=== PATIENT | male | born 1990 | race Caucasian/White ===

== ENCOUNTER 2020-07-30 09:49 | Outpatient (CLI) | payer OTHER, SELFPAY | END 2020-07-30 09:50 | disposition home or self-care (01) | LOC: ANHCOVIDVC 09:49 | PROVIDERS: PCP Student in an Organized Health Care Education/Training Program; Visit Provider Student in an Organized Health Care Education/Training Program | DX: Z23 Encounter for immunization (principal) | CPT/HCPCS: 0001A; 91300 ==

== ENCOUNTER 2020-08-20 09:47 | Outpatient (CLI) | payer OTHER, SELFPAY | END 2020-08-20 09:48 | disposition home or self-care (01) | LOC: ANHCOVIDVC 09:47 | PROVIDERS: PCP Student in an Organized Health Care Education/Training Program; Visit Provider Student in an Organized Health Care Education/Training Program | DX: Z23 Encounter for immunization (principal) | CPT/HCPCS: 0002A; 91300 ==

== ENCOUNTER → 2021-01-15 10:00 | Outpatient (CLI) | payer OTHER, SELFPAY ==
--- NOTE | 2021-02-10 11:56 | WPDSLEEPSTUD ---
Sleep Study Date of Study: 01/15/21 Ordering Provider: Shyla Cox MD Interpreting Physician: Shyla Cox MD Sleep Study Type: Split Polysomnogram Height: 1.88 m Weight: 159.665 kg Body Mass Index: 45.1 Neck Circumference (inches): 14 [place]: 10 Reason for Sleep Study Severe obstructive sleep apnea with treatment emergent central apneas * 09/06/2017 Home sleep test; severe KIMMY with AHI 82.4, lowest saturation 75% * 09/28/2017 - CPAP/BiPAP titration; no optimal pressure; CPAP 5-9, BiPAP 04/30-->. * 11/15/2017 ASV titration; no adequate pressure, maximum pressure attained was 6 EPAP, 3 min PS, 15 max PS. Low sleep efficiency with AHI 89.9. Sleep History Alex Blackwood is a 30 year old male with a history of complex sleep apnea diagnosed in 2018. He had 3 sleep studies, 1 was a home sleep test and this was followed by 2 titrations at [facility]. He never started wearing CPAP. He has significant issues with agoraphobia, anxiety and depression. He has nasal obstruction with a narrowed right nasal passage so he has to wear a fullface mask. He is in the process of getting his psychiatric meds adjusted. As he was being fitted for CPAP in 2019, the pandemic came and all of these events stopped. He now wants to pursue treatment. Since his prior studies were over 3 years ago we will need to start with a repeat study. He keeps no regular sleep schedule. He goes to sleep when he is tired. It may take him anywhere from a few minutes to an hour to fall asleep. He typically wakes up 2-4 times during the night, and this may be due to heartburn or need to urinate. He goes to the bathroom or take Rolaids for heartburn. He does not have any set wake-up time. He has not worked for many years, is not on disability, does have disabling anxiety and depression as well as agoraphobia. 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 He sleeps 10 or more hours for his major sleep episode. When he awakens, he is never refreshed. He has a dry mouth on awakening. He often sips water during the night. He may urinate 1-2 times during the night. He has IBS and may have 1 bowel movement during the night. He does not have dream recall. He does fall asleep during the day easily, and may fall asleep mid sentence. He lives with his brother and [id number]. He currently does not consume caffeine because of his palpitations and anxiety. His legs do not bother him on falling asleep and he does not kick at night. His best position for sleeping is on his side. He does not sleepwalk or sleeptalk. He has difficulty staying awake during the day, naps frequently and some of these naps may last a few hours. Naps are not refreshing. He feels better in the evening compared to other times of day. He has gained 50 lb or more in the last year. His baseline weight is around 300 lb. Family has noticed apneas. He has no energy, he has nightmares, he wakes up gasping for breath at night. There is a family history with his mother and brother using CPAP. He does not sweat excessively at night. He occasionally notices his heart pounding irregularly at night. He occasionally falls asleep during the day, rarely involuntarily but never while driving. He does not have loss of muscle tone with strong emotion. He frequently has daytime difficulties due to excessive sleepiness. He rarely feels paralyzed on waking or falling asleep. He does not have vivid dreamlike scenes upon awakening or falling asleep However he has frequent nightmares. He rarely remembers dreams. He occasionally is afraid to go to sleep. He frequently has racing thoughts. He frequently feels sad or depressed. He constantly has anxiety. He rarely has muscular tension and rarely notices parts of his body jerking. He does not kick at night or have crawling or aching feelings in his legs. He does not have leg pain at night. He denies morning jaw pain. He rarely grinds his teeth during sleep. He
[2021-02-10 13:50] VITALS: BMI 45.1
== END ==
PROVIDERS: PCP Student in an Organized Health Care Education/Training Program; Visit Provider Internal Medicine Critical Care Medicine
DX: G47.31 Primary central sleep apnea (principal); G47.39 Other sleep apnea
CPT/HCPCS: 95811

== ENCOUNTER 2022-01-06 08:05 | Outpatient (CLI) | payer OTHER, SELFPAY ==
--- NOTE | 2022-02-02 09:51 | WPDSLEEPSTUD ---
Sleep Study Date of Study: 01/06/22 Ordering Provider: Jaspal Ramos APRN Interpreting Physician: Shyla Cox MD Sleep Study Type: BiPAP Titration Height: 1.83 m Weight: 142.882 kg Body Mass Index: 42.7 Neck Circumference (inches): 20.25 [place]: 7 Reason for Sleep Study Severe obstructive sleep apnea with treatment emergent central apneas * 09/06/2017 Home sleep test; severe KIMMY with AHI 82.4, lowest saturation 75% * 09/28/2017 - CPAP/BiPAP titration; no optimal pressure; CPAP 5-9, BiPAP 04/30-->. * 11/15/2017 ASV titration; no adequate pressure, maximum pressure attained was 6 EPAP, 3 min PS, 15 max PS. Low sleep efficiency with AHI 89.9. * 01/15/2021 - CPAP/BiPAP titration with central apneas present throughout the night. Sleep History Alex Blackwood is a 31-year-old male with a history of complex sleep apnea diagnosed in 2018.? He had 3 sleep studies including a home sleep test followed by 3 titrations at [facility].? He never started wearing CPAP.? He has significant issues with agoraphobia, anxiety and depression.? He has nasal obstruction with a narrowed right nasal passage so he has to wear a fullface mask.? As he was being fitted for CPAP in 2019, the pandemic started, disrupting his process. He keeps no regular sleep schedule. He goes to sleep when he is tired.? ? It may take him anywhere from a few minutes to an hour to fall asleep.? He typically wakes up 2-4 times during the night, and this may be due to heartburn or need to urinate.? He goes to the bathroom or take Rolaids for heartburn.? He does not have any set wake-up time. He has not worked for many years, is not on disability, does have disabling? anxiety and depression as well as agoraphobia.? 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 He sleeps 10 or more hours for his major sleep episode.? When he awakens, he is never refreshed.? He has a dry mouth on awakening.? He often sips water during the night.? He may urinate 1-2 times during the night.? He has IBS and may have 1 bowel movement during the night.? He does not have dream recall. ? He does fall asleep during the day easily, and may fall asleep mid sentence.? He lives with his brother and [id number].? He currently does not consume caffeine because of his palpitations and anxiety.? His legs do not bother him on falling asleep and he does not kick at night.? His best position for sleeping is on his side. ? He does not sleepwalk or sleeptalk.? He has difficulty staying awake during the day, naps frequently and some of these naps may last a few hours. Naps are not refreshing. He feels better in the evening compared to other times of day. ? He has gained 50 lb or more in the last year.? His baseline weight is around 300 lb. Family has noticed apneas.? He has no energy, he has nightmares, he wakes up gasping for breath at night.? There is a family history with his mother and brother using CPAP.? He does not sweat excessively at night.? He occasionally notices his heart pounding irregularly at night.? He occasionally falls asleep during the day, rarely involuntarily but never while driving. He does not have loss of muscle tone with strong emotion.? He frequently has daytime difficulties due to excessive sleepiness.? He rarely feels paralyzed on waking or falling asleep.? He does not have vivid dreamlike scenes upon awakening or falling asleep ? However he has frequent nightmares.? He rarely remembers dreams.? He occasionally is afraid to go to sleep. ? He frequently has racing thoughts.? He frequently feels sad or depressed.? He constantly has anxiety.? He rarely has muscular tension and rarely notices parts of his body jerking.? He does not kick at night or have crawling or aching feelings in his legs.? He does not have leg pain at night.? He denies morning jaw pain.? He rarely grinds his teeth during sleep.? He is not bothered by pain during the day or awakened by pain at night.? He occasionally wakes up feeling stiff in the mo
[2022-02-02 10:55] VITALS: BMI 42.7
== END 2022-01-07 06:14 | disposition home or self-care (01) ==
LOC: ANHCSM 08:07
PROVIDERS: PCP Student in an Organized Health Care Education/Training Program; Visit Provider Nurse Practitioner Family
DX: G47.39 Other sleep apnea (principal)
CPT/HCPCS: 95811

== ENCOUNTER 2022-05-04 07:56 | Outpatient (CLI) | payer OTHER, SELFPAY ==
--- NOTE | 2022-05-04 13:00 | WPDPFTINT ---
PFT Procedure Performed PFT Procedure Performed Spirometry with Pre/Post Bronchodilator Plethysmography (Lung Vol) Diffusing Cap (DLCO) Flow Vol Loop PFT Interpretation This is a pulmonary function test with pre and post-bronchodilator spirometry, plethysmography and diffusing capacity. The test was performed and results interpreted in accordance with the 2019 and 2005 ATS/ERS Task Force guidelines respectively using the Global Lung Function Initiative-2012 reference equations. Patient demonstrated good effort and cooperation. Reproducibility criteria were met. The quality of the pre bronchodilator spirometry maneuver was Grade A and post bronchodilator spirometry maneuver was Grade A. Findings: Spirometry: There is decreased maximal expiratory airflow at all lung volumes with a prolonged expiratory phase. The contour of the inspiratory flow tracing is normal. The pre bronchodilator FVC is 5.95 L, 100% predicted. The pre bronchodilator FEV1 is 3.83 L, 79% predicted. The pre bronchodilator FEV1: FVC ratio 64%. The post bronchodilator FVC is 6.42 L, representing an 8% increase. The post bronchodilator FEV1 is 4.38 L, representing an 14% increase. The post bronchodilator FEV1: FVC ratio 68%. Plethysmography: The total lung capacity is 7.74 L, 104% predicted. Functional residual capacity is 2.70 L, 72% predicted. The residual volume is 1.79 L, 99% predicted. Diffusion capacity: The diffusing capacity unadjusted for hemoglobin and carboxyhemoglobin is 39.1, 108% predicted. The diffusing capacity adjusted for alveolar volume is 4.97, 101% predicted. Impression: There is a mild obstructive abnormality with significant improvement after inhaling a single dose of albuterol. The lung volumes are normal. The diffusing capacity is normal. There are no prior studies for comparison
== END 2022-05-04 07:57 | disposition home or self-care (01) ==
LOC: ANHPFT 07:59
PROVIDERS: PCP Student in an Organized Health Care Education/Training Program; Visit Provider Physician Assistant
DX: R06.00 Dyspnea, unspecified (principal); J45.909 Unspecified asthma, uncomplicated; R94.2 Abnormal results of pulmonary function studies
CPT/HCPCS: 94060; 94726; 94729

== ENCOUNTER 2024-05-07 09:49 | Emergency (ER) | payer SELFPAY ==
--- NOTE | ~2024-05-07 | XR_ITS ---
Clinical Indication: Cough PA and lateral views of the chest: Comparison: None Findings: The lungs are clear, without evidence of focal consolidation or pleural effusion. Cardiome diastinal silhouette is within normal limits. Bones and soft tissues are unremarkable. Impression: Normal chest. Reviewed, dictated and finalized at location . [facility]LE KEEPER Impression: Normal chest.
[2024-05-07 10:50] VITALS: BP 123/81; PULSE 72; RESP 18; TEMP 35.9; O2SAT 99
--- NOTE | 2024-05-07 11:26 | ED_ITS ---
HPI - General Adult General Chief complaint: Upper Respiratory Infection Stated complaint: sinus infection/cold Source: patient Mode of arrival: ambulatory Limitations: no limitations History of Present Illness HPI narrative: Patient presents for evaluation of sick symptoms since 04/26/2024. Symptoms in fever, sore throat, cough, sinus congestion, thick yellow nasal drainage and headache. No nausea, vomiting, diarrhea, or SOB. He has an underlying history of asthma. He has not needed to use his albuterol inhaler. Family members with whom he lives, were recently sick. He is not taking anything [id number] for symptoms. Related Data Home Medications ?Medication ?Instructions ?Recorded ?Confirmed ?Last Taken ?Type albuterol sulfate 90 mcg/actuation 1 puff inhalation Q4H PRN 08/06/20 04/17/24 Unknown History aerosol inhaler (Ventolin HFA) shortness of breath or wheezing atenolol 25 mg tablet 25 mg PO 11/02/22 04/17/24 Unknown History clobetasol 0.05 % scalp solution topical 11/02/22 04/17/24 Unknown History clobetasol 0.05 % topical ointment 1 applic topical 11/02/22 04/17/24 Unknown History ketoconazole 2 % shampoo topical 11/02/22 04/17/24 Unknown History triamcinolone acetonide 0.025 % 1 applic topical 11/02/22 04/17/24 Unknown History topical ointment dicyclomine 20 mg tablet 20 mg PO PRN abdominal pain 11/15/23 04/17/24 Unknown History vilazodone 20 mg tablet 20 mg PO DAILY 04/17/24 04/17/24 Unknown History Allergies Allergy/AdvReac Type Severity Reaction Status Date / Time Bumble Bee AdvReac Intermediate ARM Uncoded 05/07/24 11:08 SWELLING Review of Systems Review of Systems: CONSTITUTIONAL: Reports fever. Denies chills, or sweats. EYES: Denies visual changes, redness, or discharge. ENT: Reports sinus congestion, thick yellow nasal drainage and sore throat CARDIOVASCULAR: Denies chest pain, palpitations, or edema. RESPIRATORY: reports cough. Denies shortness of breath. GASTROINTESTINAL: Denies abdominal pain, nausea, vomiting, or diarrhea. GENITOURINARY: Denies dysuria or hematuria. SKIN: Denies rash or itching. MUSCULOSKELETAL: Denies back pain, joint pain, or myalgia. NEUROLOGIC: Denies headache, numbness, dizziness, or weakness. PSYCHIATRIC: Denies anxiety or depression. [facility] Past Medical History Medical History Treatment-emergent central sleep apnea Complex sleep apnea syndrome KIMMY (obstructive sleep apnea) IBS (irritable bowel syndrome) GERD (gastroesophageal reflux disease) Depression Asthma Anxiety Agoraphobia Surgical History Surgical History No pertinent past surgical history Family History Family History Mother Depression Asthma Family history of elevated blood lipids Family history of chronic obstructive pulmonary disease Family history of emphysema Heart disease Anxiety Hyperlipidemia Diabetes mellitus Grandparent Asthma Family history of psoriasis Family history of elevated blood lipids Family history of emphysema Family history of type 2 diabetes mellitus Acute myocardial infarction Diabetes mellitus Depression History of heart attack Psoriasis History of open heart surgery Hypertension Father Hypertension Depression Heart disease Hyperlipidemia Sibling Family history of type 2 diabetes mellitus Family history of carrier of genetic disease History of open heart surgery Diabetes mellitus Down syndrome Other Alcohol abuse Cancer Mouth Social History Social History Smoking packs per day: 1 Smoking cigarettes per day: 20.0 Years smoked: 8 Smoking pack-years: 8.00 Smoking status: Former smoker Tobacco type: smokeless tobacco Smokeless tobacco user: chewing tobacco Second hand tobacco smoke exposure: No Smoking end date: 05/24/16 Alcohol intake: never Substance use: never Exam Narrative: GENERAL: Well-appearing, well-nourished, and in no acute distress. HEAD: Normocephalic, atraumatic. EYES: PERRLA and EOMI. ENT: Nares clear, no rhinorrhea or epistaxis. Mucous membranes moist. posterior pharyngeal erythema without exudate. Uvula is midline. Bilateral TMs pearly bae nonbulging NECK: Supple. No adenopathy or masses. No carotid bruits or JVD CHEST: Cough present on exam. Clear to auscultation. No respiratory distress. No wheezes rales or rhonchi HEART: Regular rate and rhythm. No murmur heard. Normal peripheral pulses. ABDOMEN: Soft, nontender, nondistended, normal active bowel sounds. EXTREMITIES: Normal range of motion. No edema. SKIN: Warm, dry, no rash. NEURO: No focal deficits. Alert and oriented x3. PSYCH: Normal mood and affect. Course Course Emergency Course: This is a 33-year-old male who presented for evaluation of sick symptoms. Strep negative. Chest x-ray normal. Exam is consistent with acute viral syndrome. Cepacol and Delsym should help with symptoms. Follow up with PCP. Go to the ER for worsening symptoms. Pt in agreement with plan of care. Level of Care: Express Care Visit Vital Signs Vital signs: Vital Signs Temperature 35.9 C L 05/07/24 10:50 Pulse Rate 72 05/07/24 10:50 Respiratory Rate 18 05/07/24 10:50 Blood Pressure 123/81 05/07/24 10:50 Pulse Oximetry 99 05/07/24 10:50 Oxygen Delivery Room Air 05/07/24 10:50 Temperature 35.9 C L 05/07/24 10:50 Pulse Rate 72 05/07/24 10:50 Respiratory Rate 18 05/07/24 10:50 Blood Pressure 123/81 05/07/24 10:50 Pulse Oximetry 99 05/07/24 10:50 Oxygen Delivery Room Air 05/07/24 10:50 Medical Decision Making Vital Signs Vital Signs: Vital Signs Temperature 35.9 C L 05/07/24 10:50 Pulse Rate 72 05/07/24 10:50 Respiratory Rate 18 05/07/24 10:50 Blood Pressure 123/81 05/07/24 10:50 Pulse Oximetry 99 05/07/24 10:50 Oxygen Delivery Room Air 05/07/24 10:50 Temperature 35.9 C L 05/07/24 10:50 Pulse Rate 72 05/07/24 10:50 Respiratory Rate 18 05/07/24 10:50 Blood Pressure 123/81 05/07/24 10:50 Pulse Oximetry 99 05/07/24 10:50 Oxygen Delivery Room Air 05/07/24 10:50 Lab Data Labs: Lab Results 05/07/24 Range/Units 11:45 POC Grp A Strep Screen Negative (Negative) Imaging Data Radiologist's impression: Clinical Indication: Cough PA and lateral views of the chest: Comparison: None Findings: The lungs are clear, without evidence of focal consolidation or pleural effusion. Cardiomediastinal silhouette is within normal limits. Bones and soft tissues are unremarkable. Impression: Normal chest. Discharge Plan Discharge Clinical Impression: Acute viral syndrome Patient Disposition: Home, Self-Care Condition: Stable Instructions: Antibiotic Form, Viral Syndrome (ED) Additional Instructions: CEPACOL LOZENGES SHOULD HELP YOUR SORE THROAT DELSYM (DEXTROMETHORPHAN) SHOULD HELP WITH YOUR COUGH STAY WELL HYDRATED Patient Language: Yakut Prescriptions: No Action albuterol sulfate [Ventolin HFA] 90 mcg/actuation HFA aerosol inhaler 1 puff inhalation Q4H PRN (Reason: shortness of breath or wheezing) ketoconazole 2 % shampoo topical atenolol 25 mg tablet 25 mg PO triamcinolone acetonide 0.025 % ointment 1 applic topical clobetasol 0.05 % ointment 1 applic topical clobetasol 0.05 % solution topical dicyclomine 20 mg tablet 20 mg PO PRN (Reason: abdominal pain) vilazodone 20 mg tablet 20 mg PO DAILY Rx Instructions: must administer with a meal/food fluticasone propionate 110 mcg/actuation HFA aerosol inhaler 1 puff inhalation Q12H Qty: 12 2RF Rx Instructions: Rinse mouth and spit after each use (DME) inhalational spacing device Spacer See Rx Instructions .ROUTE .MEDSUPPLY Qty: 1 0RF Rx Instructions: As directed Follow-up/Referrals: Sav,DO Meet [Primary Care Provider] - Time of Disposition: 12:00
[2024-05-07 11:47] LABS: EDSTREPNEGPOS1 Negative (Negative)
--- OUTSIDE RECORDS SUMMARY | 2024-05-11 21:13 | XMS_ITS | Encounter Summary ---
Author Organization [facility] Address [address] [place] [address] Care Team Providers Care Veneer Sorter Name Role Phone Meet Ang DO Primary Care Provider + Encounter Details Date Type Department Care Team (Latest Contact Info) Description 02/18/2023 Travel Social History Tobacco Use Types Packs/Day Years Used Date Smoking Tobacco: Former Cigarettes Smokeless Tobacco: Never Sex and Gender Information Value Date Recorded Sex Assigned at Not on file Gender Identity Not on file Sexual Orientation Not on file documented as of this encounter Plan of Treatment Upcoming Encounters Date Type Department Care Team (Late st Contact Info) Description 07/27/2024 1:30 PM POLITICAL ANALYST Office Visit [facility] - Dermatology [address] [place] [address], [place] [id number] Kavya Ryan MD [address] [place] [address] [address] [place] [id number] documented as of this encounter Visit Diagnoses Not on filedocumented in this encounter Care Teams Veneer Sorter Relationship Specialty Start Date End Date Meet Ang DO PCP - General 01/27/19 documented as of this encounter
--- OUTSIDE RECORDS SUMMARY | 2024-05-11 21:13 | XMS_ITS | Encounter Summary ---
Author Organization [facility] Address [address] [facility] [place] [address] Care Team Providers Care Senior Logistics Manager Name Role Phone Meet Ang Primary Care Provider + Reason for Visit * Reason Comments Psoriasis New patient, having issues Encounter Details Date Type Department Care Team (Late st Contact Info) Description 10/01/2022 3:00 PM CDT Office Visit [facility] General Dermatology [facility], [facility] [place] [address] Kavya Ryan MD [facility]5 [facility] 3 [place] [phone] Neoplasm of uncertain behavior of skin (Primary Dx); Psoriasis; Tinea versicolor; Rosacea; Sebopsoriasis Social History Tobacco Use Types Packs/Day Years Used Date Smoking Tobacco: Former Cigarettes Smokeless Tobacco: Never Tobacco Cessation:Counseling Given: Not Answered Sex and Gender Information Value Date Recorded Sex Assigned at Not on file Gender Identity Not on file Sexual Orientation Not on file documented as of this encounter Progress Notes * Kavya Ryan MD - 10/01/2022 3:00 PM CDT Chief Complaint Patient presents with ??? Psoriasis New patient, having issues HPI: Alex Blackwood a 32 year old male presents with complaint of psoriasis on elbows and scalp. Present since age 23 on elbow, ear and scalp. As a kid had rash around nose that has recently resolved with using Bipap. History of pain and numbness in R wrist, recently started on brace for carpal tunnel. Prior intermittent pain in ankles, which is not present currently. Paternal grandmother withpsoriasis. Previously been given triamcinolone with partial improvement and clobetasol ointment which resolvedrash but then recurred with stopped. He also notes bothersome growing wart on R cheek and bothersome spot on L arm. Past medical history, social history and family history were reviewed. ROS: As per HPI above. PE: No acute distress. Mood clear/affect appropriate. Alert and oriented. Mucous membranes moist. Sclera anicteric. Skin exam was conducted to include the scalp, face, lips/teeth, lids/conjunctiva, ears, neck, chest, abdomen, back,right and left hands and forearms, right and left leg and feet and was normal with the following exceptions: Verrucous papule on R infraorbital cheek skin colored exophytic papule on L arm Well demarcated erythematous plaques with silvery scale on scalp, ears and elbows/forearms pink papules with fine scale on trunk Erythema and telangiectasias on cheeks A/P: Plaque psoriasis with sebopsoriasis on scalp and ears, BSA 5 %, no joint pains - Discussed etiologies, natural history and treatment options - Discussed risk of psoriatic arthritis with psoriasis, no joint pains at this time concerning for psoriatic arthritis, will will continue to monitor - Discussed increased risk of CAD with psoriasis, recommend routine follow up with PCP - Start clobetasol 0.05% solution daily to affected areas on scalp, SE of topical steroids including skin atrophy discussed - Start clobetasol 0.05% ointment BID to affected areas on body, SE of topical steroids including skin atrophy discussed - Start ketoconazole 2% shampoo TIW to scalp in shower, leave on for 3-5 minutes prior to rinsing out, can alternate with OTC anti-dandruff shampoo - Start triamcinolone 0.025% ointment BID to affected areas on ears, SE of topical steroids including skin atrophy discussed - Consider systemic treatments if no improvement at Next clinic visit DDx includes Neoplasm NOS x2, on R infraorbital cheek and L arm, DDx includes wart, r/o atypia DDx includes nevus vs. Skin tag on L arm - Shave biopsy performed in clinic, see procedure note, results pending Rosacea, ET type - Discussed possible etiologies, natural history and treatment options including typical triggers - Reassured, will observe for now Tinea versicolor on trunk - Discussed etiology, natural history and treatment options - Start ketoconazole 2% shampoo daily to trunk RTC in 3-4 months Billing Guide Kavya Ryan MD documented in this encounter Procedure Notes * Kavya Ryan MD - 10/01/2022 3:38 PM CDTAssociated Order(s): PROC BIOPSY OF SKIN LESION Procedure(s): FL TANGNTL BX SKIN SINGLE LES; FL TANGNTL BX SKIN EA SEP ADDL Pre-Procedure Diagnose(s): Neoplasm of uncertain behavior of skin Risks, benefits and alternatives to shave biopsy were discussed with the patient. Verbal consent was obtained. Encounter Diagnoses Name Primary? Neoplasm of uncertain behavior of skin Yes ??? Psoriasis ??? Tinea versicolor ??? Rosacea ??? Seborrheic dermatitis Location: R infraorbital cheek and L arm Skin prep: Alcohol Anesthesia: 1% bupivacaine with epinephrine Hemostasis: Aluminum chloride Dressing and wound care discussed. Specimen(s) placed in a patient labeled container and sent to [facility] Dermatopathology. Patient agrees to phone call for results and message if not available. Kavya Ryan MD Clinical Wood Cabinet Finisher of Dermatology [facility] documented in this encounter Plan of Treatment Upcoming Encounters Date Type Department Care Team (Late st Contact Info) Description 07/27/2024 1:30 PM WORKFORCE DEVELOPMENT PROGRAM DIRECTOR Office Visit [facility] - Dermatology [address] [place] [address], [place] [address] Kavya Ryan MD [address] [place] [address] [address] [place] [address] documented as of this encounter Procedures Procedure Name Priority Date/Time Associated Diagnosis Comments FL TANGNTL BX SKIN EA SEP ADDL Routine 10/01/2022 3:38 PM CDT Neoplasm of uncertain behavior of skin FL TANGNTL BX SKIN SINGLE LES Routine 10/01/2022 3:38 PM CDT Neoplasm of uncertain behavior of skin DERMATOPATHOLOGY Routine 10/01/2022 12:0 0 AM CDT Neoplasm of uncertain behavior of skin documented in this encounter Results * FL TANGNTL BX SKIN SINGLE LES, FL TANGNTL BX SKIN EA SEP ADDL (10/01/2022 3:38 PM CDT) Narrative Kavya Ryan MD - 10/01/2022 3:38 PM CDT Kavya Ryan MD ? 10/06/2022 ??3:00 PM Risks, benefits and alternatives to shave biopsy were discussed with the patient. Verbal consent was obtained. Encounter Diagnoses Name Primary? ? ? Neoplasm of uncertain behavior of skin Yes ? ? Psoriasis ? Tinea versicolor ? Rosacea ? Seborrheic dermatitis ?? Location: R infraorbital cheek and L arm Skin prep: Alcohol Anesthesia: 1% bupivacaine with epinephrine Hemostasis: Aluminum chloride Dressing and wound care discussed. Specimen(s) placed in a patient labeled container and sent to [facility] Dermatopathology. Patient agrees to phone call for results and message if not available. Kavya Ryan MD Clinical Wood Cabinet Finisher of Dermatology [facility] Kavya Ryan MD PROCEDURE/SOFIA R SURGICAL ORDERABLES * Dermatopathology (Specimen Count = 2) (10/01/2022 12:00 AM CDT) Case Report Dermatopathology Report ? Case: [id number] ? Authorizing Provider: ??Kavya Ryan, ?? Collected: ? 10/01/2022 12:00 AM ? MD ? Ordering Location: ? [facility] ?Received: ?10/01/2022 04:42 PM ? Dermatology ? Pathologist: ? Burksujata, Rina M, MD ? Specimens: ?? A) - Skin, right infraorbital cheek ? B) - Skin, left arm ? 3 3:18 PM [facility] Final Diagnosis Specimen A. SKIN, right infraorbital cheek: VERRUCA VULGARIS, IRRITATED AND INFLAMED (B07.8) Specimen B. SKIN, left arm: ACROCHORDON (SOFT FIBROMA, SKIN TAG) (L91.8) 3 3:18 PM [facility]ERMATOP[facility]ORATORY Clinical History A: VV vs. Other B: Skin tag vs. nevus vs. nevus lipomatosis 3 3:18 PM [facility]ORY Gross Description Specimen A: Received is one formalin filled container labeled with the patient's name and designated right infraorbital cheek. The specimen consists of a shave biopsy measuring 4x3x5 mm. Jar 0. Specimen B: Received is one formalin filled container labeled with the patient's name and designated left arm. The specimen consists of a shave biopsy measuring [id number] mm. Jar 0. 3 3:18 PM [facility]OP[facility]ORY Microscopic Description Specimen A. SKIN, right infraorbital cheek: Sections show papillomatosis with overlying parakeratosis. Some of the cells within the granular layer show coarsened keratohyalin granules. Within the dermis, dilated vessels, and a patchy lymphocytic infiltrate are present. Specimen B. SKIN, left arm: There is a gently folded epidermis surrounding a connective tissue core in which fat and collagen are intermingled. 3 3:18 PM [facility] DERMATOP[facility]OLOG[facility]ORATORY Disclaimer An external and internal positive and negative controls are appropriate for the histochemical, immunohistochemical and immunofluorescence stain(s) in this case (if any), except where stated explicitly. The performance characteristics of the stain(s) cited in this report were developed and its performance characteristic determined by the Dermatopathology Laboratory at [facility], directed by Dr. Weston Sanchez. These tests need not be, and therefore are not, approved by the [place] Food and Drug Administration. The tests are used for clinical purposes. Billing Codes Specimen Charges Stain Charges 67137 66522 1 1 3 3:18 PM CDT DERMATOPATHOLOGY LABORATORY Embedded Images 3 3:18 PM CDT DERMATOPATHOLOGY LABORATORY Pathology/Cytology TISSUE SPECIMEN FROM SKIN / Unknown 10/01/2022 10/01/2022 4:42 PM CDT Miscellaneous samples (specimen) TISSUE SPECIMEN FROM SKIN / Unknown 10/01/2022 10/01/2022 4:42 PM CDT Kavya Ryan MD LAB - PATHOLOG Y/CYTOLOGY ORDERABLES DERMATOPATHOLOGY LABORATORY [facility] - Department of Dermatology [facility] Medicine [address] [place] [address], [address] [phone] documented in this encounter Visit Diagnoses Diagnosis Neoplasm of uncertain behavior of skin- Primary Psoriasis Other psoriasis Tinea versicolor Pityriasis versicolor Rosacea Sebopsoriasis Contact dermatitis and other eczema, due to unspecified cause documented in this encounter Care Teams Senior Logistics Manager Relationship Specialty Start Date End Date Meet Ang DO PCP - General 01/27/19 documented as of this encounter
--- OUTSIDE RECORDS SUMMARY | 2024-05-11 21:13 | XMS_ITS | Clinical Summary ---
Author Organization [facility] Address [address] [place] [address]. [place] [address] [place] [address] Care Team Providers Care Automatic Mounter Name Role Phone Meet Ang DO Primary Care Provider + Paresh Gray MD Unavailable Allergies Active Allergy Reactions Criticality Noted Date Comments Bee Venom Swelling 08/16/2018 Medications clobetasol (TEMOVATE) 0.05 % external solution Apply scalp once to twice day. 30 days supply. Reasons: Skin Disease Successfully Treated with Steroid Therapy 023 Active triamcinolone (KENALOG) 0.025 % ointment Apply to ear twice daily as needed psoriasis. 30 days supply. Reasons: Psoriasis 023 Active atenolol (TENORMIN) 25 MG tablet Take 1 tablet (25 mg total) by mouth daily. 90 tablet 3 024 2024 Active albuterol sulfate HFA (VENTOLIN HFA) 108 (90 Base) MCG/ACT inhalerIndicati ons:Mild intermittent asthma without complication (HHS/HCC) Inhale 1 puff into the lungs every 4 (four) hours as needed. FOR WHEEZING 18 g 2 Active fluticasone (FLOVENT HFA) 110 MCG/ACT inhaler Inhale 1 puff into the lungs 2 (two) times daily. 024 Active vilazodone (VIIBRYD) 40 MG tabletIndicatio ns:Depression, unspecified depression type,Anxiety,Ag oraphobia Take 1 tablet (40 mg total) by mouth daily. Take with food 30 tablet 2 Active ketoconazole (NIZORAL) 2 % shampoo Apply to wet hair, face and trunk, leave on for 3 minutes, then rinse; three times weekly. 30 days supply 023 2023 Discontinued dicyclomine (BENTYL) 20 MG tabletIndicatio ns:Irritable bowel syndrome with constipation Take 1 tablet (20 mg total) by mouth every 6 (six) hours as needed (pain/cramping) . 120 tablet 2 024 2023 Discontinued famotidine (PEPCID) 20 MG tabletIndicatio ns:Gastroesopha geal reflux disease, unspecified whether esophagitis present Take 1 tablet (20 mg total) by mouth daily. 30 tablet 5 024 2023 Discontinued vilazodone (VIIBRYD) 10 MG tabletIndicatio ns:Depression, unspecified depression type,Anxiety,Ag oraphobia Take 1 tablet (10 mg total) by mouth daily. Take with food 7 tablet 024 2023 Discontinued vilazodone (VIIBRYD) 20 MG tabletIndicatio ns:Depression, unspecified depression type,Anxiety,Ag oraphobia Take 1 tablet (20 mg total) by mouth daily. Take with food. Take after taking one week of 10 mg daily. 30 tablet 2 024 2023 Discontinued(D ose adjustment) Active Problems Problem Noted Date Diagnosed Date Psoriasis 05/28/2022 Elevated troponin level not due myocardial infar ction 08/21/2020 Palpitations 08/21/2020 Class 3 severe obesity with body mass index (BMI) of 40.0 to 44.9 in adult ([facility]) 08/21/2020 Tachycardia 04/26/2020 Elevated blood pressure reading 04/26/2020 KIMMY (obstructive sleep apnea) IBS (irritable bowel syndrome) GERD (gastroesophageal reflux disease) Depression Asthma ([facility]) Anxiety Agoraphobia Encounters Date Type Department Care Team Description 04/26/2024 Scan [facility] Scanned, [facility] 04/18/2024 9:40 AM ESTIMATING ENGINEER Office Visit [facility] Internal [address] [address] Meet Ang, DO Ear Problem (The patient states he is still having tinnitus. The patient states he feels it may be due to Bi-pap ) 04/18/2024 Travel 04/17/2024 Scan [facility] INFO SRVCS Scanned, Doc Med Group 02/24/[address] [address] Meet Ang, DO Prior Authorization (Viibryn 10mg and 20mg tablets) 02/22/[address] [address] Meet Ang, DO Medication 02/14/[address] [address] Meet Ang, DO Medication Problem 02/11/[address] [address] Meet Ang, DO Advice from Last 3 Months Immunizations Name Administration Dates Next Due Dtap 11/21/1992,01/19/1990,1989 Dtp 12/17/1994 Fluzone 6 Months+ Quad (0.5 mL Prefilled Syringe) 05/28/2022,03/04/2021,04/26/2020,2018 Hepatitis B 06/14/2000,01/19/2000,12/15/1999 Hib 11/21/1992 Influenza Adult (Generic) 02/22/2023 MMR 02/27/1993,11/21/1992 Opv 12/17/1994, 3,01/19/1990,1989 PFIZER COVID-19 (ORIGINAL FORMULATION, PURPLE CAP) mRNA, LNP-S, PF, 30 MCG/0.3 ML DOSE 08/20/2020,07/30/2020 Pneumococcal (Prevnar 20) 11/19/2021 Tdap (Boostrix) 01/13/2019 Family History Medical History Relation Comments Diabetes Brother Step brother rel ated to mother. Down syndrome Brother Open Heart Brother Asthma Father Only when sick, allergic to cats. Depression Father Heart Disease Father Hyperlipidemia Father Hypertension Father Alcohol Abuse Maternal Grandfather from heart attack related to alcoholism. Depression Maternal Grandfather Heart Attack Maternal Grandfather Heart Disease Maternal Grandfather Passed from heart attack. Depression Maternal Grandmother Diabetes Maternal Grandmother Anxiety Mother Depression Mother Diabetes Mother Heart Disease Mother Hyperlipidemia Mother Hypertension Mother Mental Health Mother CABG Paternal Grandfather Cancer Paternal Grandfather Colon Cance r removed tumor, cancer free. Heart Disease Paternal Grandfather Had multipl e valve replacements Hypertension Paternal Grandfather Open Heart Paternal Grandfather Valve Disease Paternal Grandfather Depression Paternal Grandmother Heart Attack Paternal Grandmother Mental Health Paternal Grandmother Psoriasis Paternal Grandmother Alcohol Abuse Paternal Uncle Cancer Paternal Uncle mouth Relation Status Comments Brother Alive Father Alive Maternal Grandfather (Age 74) Maternal Grandmother Mother Alive Paternal Grandfather Alive Paternal Grandmother Paternal Uncle Social History Tobacco Use Types Packs/Day Years Used Date Smoking Tobacco: Former Cigarettes 1.5 10 0 05/24/2004 - 05/24/2014 Cigars Smokeless Tobacco: Former Chew Tobacco Cessation:Counseling Given: Not Answered Comments:Also used chewing tobacco for years Alcohol Use Standard Drinks/Week Comments No 0 (1 standard drink = 0.6 oz pur e alcohol) AUDIT-C Answer Date Recorded Frequency of Alcohol Consumption Never 08/16/2018 Average Number of Drinks Not on file 019 Frequency of Binge Drinking Not on file 07/23 PHQ-2 Answer Date Recorded Patient Health Questionnaire-2 Score 3 09/02/2023 Sex and Gender Information Value Date Recorded Sex Assigned at Not on file Legal Sex Male 2:37 PM ESTIMATING ENGINEER Gender Identity Male 05/16/2021 9:25 AM ESTIMATING ENGINEER Sexual Orientation Straight 05/16/2021 9: 25 AM ESTIMATING ENGINEER Last Filed Vital Signs Vital Sign Reading Time Taken Comments Blood Pressure 112/82 04/18/2024 9:47 AM ESTIMATING ENGINEER Pulse 76 04/18/2024 9:47 AM ESTIMATING ENGINEER Temperature 37.1 ??C (98.8 ??F) 04/18/2024 9:47 AM CS T Respiratory Rate 16 04/18/2024 9:47 AM ESTIMATING ENGINEER Oxygen Saturation 98% 04/18/2024 9:47 AM ESTIMATING ENGINEER Inhaled Oxygen Concentration - - Weight 150.9 kg (332 lb 11.2 oz) 04/18/2024 9:47 AM ESTIMATING ENGINEER Height 185.4 cm (6' 1 ) 04/18/2024 9:47 AM ESTIMATING ENGINEER Body Mass Index 43.89 04/18/2024 9:47 AM ESTIMATING ENGINEER Plan of Treatment Upcoming Encounters Date Type Department Care Team (Late st Contact Info) Description 06/19/2024 8:45 AM ESTIMATING ENGINEER [facility] [place] [address] [place] [address] Ren Morse MD [facility] [address] [place] [address] 07/19/2024 7:00 AM ESTIMATING ENGINEER Office Visit [facility] Family & Internal Medicine [id number] [place] [address] Meet Ang, [address] [place] [address] Health Maintenance Due Date Last Done Comments Annual Physical 1992 DTaP, Tdap and Td Vaccines (5 - Td or Tdap) 01/13/2029 01/13/2019, 12/17/1994, 12/17/1994, Additional history exists Hepatitis B Vaccines Completed 06/14/2000, 01/19/2000, 12/15/1999 Pneumococcal Vaccine: Pediatrics (0 to 5 Years) and At-Risk Patients (6 to 64 Years) Completed 11/19/2021 Hepatitis C Completed 12/11/2021 COVID-19 Vaccine Completed 03/10/2024, , 07/30/2020 Influenza Adult Completed 03/10/2024, 06/2022, 05/28/2022, Additional history exists HPV Vaccines Aged Out No longer eligi ble based on patient's age to complete this topic Meningococcal Vaccine Aged Out No kaleb deepti eligible based on patient's age to complete this topic RSV Immunizations Under 20 Months Aged Out No longer eligible based on patient's age to complete this topic Procedures Procedure Name Priority Date/Time Associated Diagnosis Comments HEPATITIS C ANTIBODY W/RFX TO HCV RNA Routine 12/11/2021 12:00 PM CDT Need for hepatitis C screening test from Last 3 Months or Most Recently Relevant to Health Maintenance Results * HEPATITIS C ANTIBODY W/RFX TO HCV RNA ([facility] ONLY) (12/11/2021 12:00 PM CDT) HEPATITIS C AB NON-REACTI VE NON-REACT STEPHANIE [facility] SIGNAL TO CUTOFF 0.01 <[address] [facility] Comment: HCV antibody was non-reactive. There is no laboratory evidence of HCV infection. In most cases, no further action is required. However, if recent HCV exposure is suspected, a test for HCV RNA (test code 86139) is suggested. For additional information please refer to http://education.[employer]/faq/JWS03u5 (This link is being provided for informational/ educational purposes only.) 12/11/2021 12:0 0 PM CDT 12/11/2021 12:02 PM CDT Narrative [facility] - 12/12/2021 3:31 PM CDT FASTING:YES FASTING: YES Meet Ang DO LABORATORY Final Re sult [facility] [address] [place] [address] from Last 3 Months or Most Recently Relevant to Health Maintenance Insurance [facility] [address] Care Teams Automatic Mounter Relationship Specialty Start Date End Date Meet Ang DO [facility] [place] [address] PCP - General FAMILY PRACTICE 08/16/18 Paresh Gray MD [id number] [place] [address] EP Die Barber CLINICAL CARDIAC ELECTROPHYSIOLOGY 03/03/19
--- OUTSIDE RECORDS SUMMARY | 2024-05-11 21:13 | XMS_ITS | Encounter Summary ---
Author Organization [facility] Address [address] [place] [address]. [place], [place] [id number] [place] [id number] Care Team Providers Care Irrigation System Installer Name Role Phone Meet Ang DO Primary Care Provider + Paresh Gray MD Unavailable Reason for Visit * Reason Comments IBS 3 month follow up Ear Problem Started 1 month ago. Encounter Details Date Type Department Care Team (Late st Contact Info) Description 01/12/2024 7:40 AM CDT Office Visit [facility] Family & Internal Medicine [address] [phone] Meet Ang DO [address] [place] [address] [phone] IBS (3 month follow up ); Ear Problem (Started 1 month ago. ) Social History Tobacco Use Types Packs/Day Years [...] on file Legal Sex Male 2:37 PM MOCCASIN SEWER Gender Identity Male 05/16/2021 9:25 AM MOCCASIN SEWER Sexual Orientation Straight 05/16/2021 9: 25 AM MOCCASIN SEWER documented as of this encounter Last Filed Vital Signs Vital Sign Reading Time Taken Comments Blood Pressure 120/74 01/12/2024 7:47 AM CDT Pulse 78 01/12/2024 7:47 AM CDT Temperature 36.7 ??C (98 ??F) 01/12/2024 7:47 AM CDT Respiratory Rate 16 01/12/2024 7:47 AM CDT Oxygen Saturation 98% 01/12/2024 7:47 AM CDT Inhaled Oxygen Concentration - - Weight 151.4 kg (333 lb 11.2 oz) 01/12/2024 7:47 AM CDT Height 185.4 cm (6' 1 ) 01/12/2024 7:47 AM CDT Body Mass Index 44.03 01/12/2024 7:47 AM CDT documented in this encounter Progress Notes * Meet Ang, - 01/12/2024 7:40 AM CDT Images from the original note were not included. GENERAL OFFICE VISIT Encounter Date: 01/12/2024 Chief Complaint: 33-year-old male presents for IBS (3 month follow up ) and Ear Problem (Started 1 month ago. ) HPI: Pt notes tinnitus. It started one month ago. It is constant level. It is worse on the left side, although a slight symptom is on the right as well. Pt did not start any new meds when symptoms started; pt did start Abilify relatively recently. No pain. Pt has already known mild hearing loss from previous ENT evaluation. Pt has palpitations and anxiety, depression, and agoraphobia. Pt started Abilify after last discussion. However, pt had notable IBS symptoms after stopping as well as difficulty sleeping. This resolved after he stopped taking the meds for 2.5 weeks. Pt has now been on sertraline, olanzapine, fluoxetine, trazodone, escitalopram, Vraylar, buspirone, and now Abilify. Review of Systems Constitutional: Negative for fever. HENT: Positive for tinnitus. Negative for ear discharge and ear pain. See HPI Respiratory: Negative for cough and shortness of breath. Gastrointestinal: Stable Psychiatric/Behavioral: See HPI All other systems reviewed and are negative. Patient Active Problem List Diagnosis KIMMY (obstructive sleep apnea) IBS (irritable bowel syndrome) GERD (gastroesophageal reflux disease) Depression Asthma ([facility]/HCC) Anxiety Agoraphobia Tachycardia Elevated blood pressure reading Elevated troponin level not due myocardial infarction Palpitations Class 3 severe obesity with body mass index (BMI) of 40.0 to 44.9 in adult ([facility]/HCC) Psoriasis Past Medical History: Diagnosis Date Agoraphobia Anxiety Asthma ([facility]) Depression GERD (gastroesophageal reflux disease) IBS (irritable bowel syndrome) KIMMY (obstructive sleep apnea) Past Surgical History: Procedure Laterality Date NONE Family History Problem Relation Name Age of Onset Hypertension Mother Libby Hemmer Depression Mother Libby Hemmer Heart Disease Mother Libby Hemmer Anxiety Mother Libby Hemmer Hyperlipidemia Mother Libby Hemmer Diabetes Mother Libby Hemmer Mental Health Mother Libby Hemmer Hypertension Father Gonzalo Blackwood Depression Father Gonzalo Blackwood Heart Disease Father Gonzalo Blackwood Hyperlipidemia Father Gonzalo Blackwood Asthma Father Gonzalo Blackwood Only when sick, allergic to cats. Open Heart Brother Jaspal Mcmillan Diabetes Brother Jaspal Mcmillan Step brother related to mother. Other (Down syndrome) Brother Jaspal Mcmillan Diabetes Maternal Grandmother Lesly Depression Maternal Grandmother Lesly Depression Maternal Grandfather Toy Pickett Heart Attack Maternal Grandfather Toy Pickett Alcohol Abuse Maternal Grandfather Toy Pickett from heart attack related to alcoholism. Heart Disease Maternal Grandfather Toy Pickett Passed from heart attack. Psoriasis Paternal Grandmother Malia Gaarabellat Heart Attack Paternal Grandmother Malia Dupreet Depression Paternal Grandmother Malia Dupreet Mental Health Paternal Grandmother Malia Blackwood Open Heart Paternal Grandfather Nikunj Blackwood Hypertension Paternal Grandfather Nikunj Blackwood Cancer Paternal Grandfather Nikunj Blackwood Colon Cancer removed tumor, cancer free. Heart Disease Paternal Grandfather Nikunj Blackwood Had multiple valve replacements Valve Disease Paternal Grandfather Nikunj Blackwood Other (CABG) Paternal Grandfather Nikunj Blackwood Alcohol Abuse Paternal Uncle Nii Cancer Paternal Uncle Nii mouth Social History Socioeconomic History Marital status: Single Spouse name: Not on file Number of children: 0 Years of education: Not on file Highest education level: Not on file Occupational History Not on file Tobacco Use Smoking status: Former Current packs/day: 0.00 Average packs/day: 1.5 packs/day for 10.0 years (15.0 ttl pk-yrs) Types: Cigarettes, Cigars Start date: 05/24/2004 Quit date: 05/24/2014 Years since quittin.6 Smokeless tobacco: Former Types: Chew Tobacco comments: Also used chewing tobacco for years Substance and Sexual Activity Alcohol use: No Drug use: No Sexual activity: Not Currently Partners: Female control/protection: Condom Other Topics Concern Service Not Asked Blood Transfusions Not Asked Caffeine Concern Yes Occupational Exposure Not Asked Hobby Hazards Not Asked Sleep Concern Yes Comment: KIMMY Stress Concern Not Asked Weight Concern Not Asked Special Diet No Back Care Not Asked Exercise No Bike Helmet Not Asked Seat Belt Not Asked Self-Exams Not Asked Wheelchair Not Asked Walker Not Asked Upper extremity braces/slings Not Asked Lower extermity braces/slings Not Asked Self Care Not Asked Social History Narrative Not on file Social Determinants of Health Financial Resource Strain: Not on file Food Insecurity: Not on file Transportation Needs: Not on file Physical Activity: Not on file Stress: Not on file Social Connections: Not on file Intimate Partner Violence: Not on file Housing Stability: Not on file Immunization History Administered Date(s) Administered Dtap 1989, 01/19/1990, 11/21/1992 Dtp 12/17/1994 Fluzone 6 Months+ Quad (0.5 mL Prefilled Syringe) 03/28/2019, 04/26/2020, 03/04/2021, 05/28/2022 Hepatitis B 12/15/1999, 01/19/2000, 06/14/2000 Hib 11/21/1992 Influenza Adult (Generic) 02/22/2023 MMR 11/21/1992, 02/27/1993 Opv 1989, 01/19/1990, 11/21/1992, 12/17/1994 PFIZER COVID-19 (ORIGINAL FORMULATION, PURPLE CAP) mRNA, LNP-S, PF, 30 MCG/0.3 ML DOSE 07/30/2020, 08/20/2020, 05/28/2021 PFIZER COVID-19 BIVALENT (12+) mRNA, LNP-S, PF, 30 MCG/0.3 ML DOSE 02/16/2022 Pneumococcal (Prevnar 20) 11/19/2021 Tdap (Boostrix) 01/13/2019 Current Outpatient Medications Medication Sig Dispense Refill albuterol sulfate HFA (VENTOLIN HFA) 108 (90 Base) MCG/ACT inhaler Inhale 1 puff into the lungs every 4 (four) hours as needed. FOR WHEEZING 18 g 2 atenolol (TENORMIN) 25 MG tablet Take 1 tablet (25 mg total) by mouth daily. 90 tablet 3 clobetasol (TEMOVATE) 0.05 % external solution Apply scalp once to twice day. 30 days supply. Reasons: Skin Disease Successfully Treated with Steroid Therapy DULoxetine (CYMBALTA) 30 MG capsule Take one 30 mg capsule daily for one week, then take one 60 mg capsule daily 7 capsule 0 DULoxetine (CYMBALTA) 60 MG capsule Take one 30 mg capsule daily for one week, then take one 60 mg capsule daily 30 capsule 1 fluticasone (FLOVENT HFA) 110 MCG/ACT inhaler Inhale 1 puff into the lungs 2 (two) times daily. triamcinolone (KENALOG) 0.025 % ointment Apply to ear twice daily as needed psoriasis. 30 days supply. Reasons: Psoriasis dicyclomine (BENTYL) 20 MG tablet Take 1 tablet (20 mg total) by mouth every 6 (six) hours as needed (pain/cramping). (Patient not taking: Reported on 01/12/2024) 120 tablet 2 famotidine (PEPCID) 20 MG tablet Take 1 tablet (20 mg total) by mouth daily. (Patient not taking: Reported on 01/12/2024) 30 tablet 5 ketoconazole (NIZORAL) 2 % shampoo Apply to wet hair, face and trunk, leave on for 3 minutes, then rinse; three times weekly. 30 days supply (Patient not taking: Reported on 01/12/2024) No current facility-administered medications for this visit. Current Outpatient Medications on File Prior to Visit Medication Sig albuterol sulfate HFA (VENTOLIN HFA) 108 (90 Base) MCG/ACT inhaler Inhale 1 puff into the lungs every 4 (four) hours as needed. FOR WHEEZING atenolol (TENORMIN) 25 MG tablet Take 1 tablet (25 mg total) by mouth daily. clobetasol (TEMOVATE) 0.05 % external solution Apply scalp once to twice day. 30 days supply. Reasons: Skin Disease Successfully Treated with Steroid Therapy fluticasone (FLOVENT HFA) 110 MCG/ACT inhaler Inhale 1 puff into the lungs 2 (two) times daily. triamcinolone (KENALOG) 0.025 % ointment Apply to ear twice daily as needed psoriasis. 30 days supply. Reasons: Psoriasis dicyclomine (BENTYL) 20 MG tablet Take 1 tablet (20 mg total) by mouth every 6 (six) hours as needed (pain/cramping). (Patient not taking: Reported on 01/12/2024) famotidine (PEPCID) 20 MG tablet Take 1 tablet (20 mg total) by mouth daily. (Patient not taking: Reported on 01/12/2024) ketoconazole (NIZORAL) 2 % shampoo Apply to wet hair, face and trunk, leave on for 3 minutes, then rinse; three times weekly. 30 days supply (Patient not taking: Reported on 01/12/2024) No current facility-administered medications on file prior to visit. Review of patient's allergies indicates: Allergen Reactions Bee Venom Swelling Objective: Filed Vitals: 01/12/24 0747 BP: 120/74 Pulse: 78 Resp: 16 Temp: 98 ??F (36.7 ??C) TempSrc: Skin SpO2: 98% Weight: (!) 151.4 kg (333 lb 11.2 oz) Height: 1.854 m (6' 1 ) Physical Exam Vitals and nursing note reviewed. HENT: Head: Normocephalic and atraumatic. Right Ear: Tympanic membrane, ear canal and external ear normal. Left Ear: Tympanic membrane, ear canal and external ear normal. Eyes: Conjunctiva/sclera: Conjunctivae normal. Cardiovascular: Rate and Rhythm: Normal rate and regular rhythm. Pulmonary: Effort: Pulmonary effort is normal. Neurological: Mental Status: He is alert. Mental status is at baseline. Psychiatric: Mood and Affect: Mood normal. Comments: Relatively normal Assessment & Plan: Alex was seen today for ibs and ear problem. Diagnoses and all orders for this visit: Tinnitus of both ears Depression, unspecified depression type - DULoxetine (CYMBALTA) 30 MG capsule; Take one 30 mg capsule daily for one week, then take one 60 mg capsule daily - DULoxetine (CYMBALTA) 60 MG capsule; Take one 30 mg capsule daily for one week, then take one 60 mg capsule daily Anxiety - DULoxetine (CYMBALTA) 30 MG capsule; Take one 30 mg capsule daily for one week, then take one 60 mg capsule daily - DULoxetine (CYMBALTA) 60 MG capsule; Take one 30 mg capsule daily for one week, then take one 60 mg capsule daily Agoraphobia - DULoxetine (CYMBALTA) 30 MG capsule; Take one 30 mg capsule daily for one week, then take one 60 mg capsule daily - DULoxetine (CYMBALTA) 60 MG capsule; Take one 30 mg capsule daily for one week, then take one 60 mg capsule daily Irritable bowel syndrome with constipation Discussion/Summary: Will have pt return to ENT for evaluation; will defer any additional recommended testing to them. Will continue current meds for IBS; stable at this time and can be taken as needed. Will start on duloxetine for psychiatric issues; discussed side effect profile. Will have pt f/u in 2-3 months or sooner if needed. Pt v/u. Meet Ang DO documented in this encounter Plan of Treatment Upcoming Encounters Date Type Department Care Team (Late st Contact Info) Description 06/19/2024 8:45 AM MOCCASIN SEWER [facility] [address] [place] [address] Ren Morse MD [facility] [address] [place] [address] 07/19/2024 7:00 AM MOCCASIN SEWER Office Visit [facility] Family & Internal Medicine - [address] [phone] Meet Ang DO [address] [place] [id number] documented as of this encounter Visit Diagnoses Diagnosis Tinnitus of both ears- Primary Unspecified tinnitus Depression, unspecified depression type Anxiety Anxiety state, unspecified Agoraphobia Agoraphobia without mention of panic attacks Irritable bowel syndrome with constipation Irritable bowel syndrome documented in this encounter Additional Health Concerns Assessment Noted Time PHQ-9 Depression Total Score: 14 024 7:44 AM CDT documented as of this encounter Care Teams Irrigation System Installer Relationship Specialty Start Date End Date Meet Ang DO [address] [place] [id number] PCP - General FAMILY PRACTICE 08/16/18 Paresh Gray MD [address] [id number] EP Commodity Industry Analyst CLINICAL CARDIAC ELECTROPHYSIOLOGY 03/03/19 documented as of this encounter
--- OUTSIDE RECORDS SUMMARY | 2024-05-11 21:13 | XMS_ITS | Encounter Summary ---
Author Organization [facility] Address [address] [place] [address]. [place], [place] [address] [place] [address] Care Team Providers Care Range Conservationist Name Role Phone Meet Ang DO Primary Care Provider + Paresh Gray MD Unavailable Reason for Visit * Reason Comments ENT Symptoms The patient presents for a 6-8 week follow up on ENT sx. The patient states he does not have concerns at this time. Encounter Details Date Type Department Care Team (Late st Contact Info) Description 10/11/2023 8:00 AM CDT Office Visit [facility] Family & Internal Medicine - [address] [phone] Meet Ang DO [address] [place] [address] ENT Symptoms (The patient presents for a 6-8 week follow up on ENT sx. The patient states he does not have concerns at this time. ) Social History Tobacco Use Types Packs/Day [...] on file Legal Sex Male 2:37 PM CORRECTIONAL SUBSTANCE ABUSE COUNSELOR Gender Identity Male 05/16/2021 9:25 AM CORRECTIONAL SUBSTANCE ABUSE COUNSELOR Sexual Orientation Straight 05/16/2021 9: 25 AM CORRECTIONAL SUBSTANCE ABUSE COUNSELOR documented as of this encounter Last Filed Vital Signs Vital Sign Reading Time Taken Comments Blood Pressure 132/78 10/11/2023 8:05 AM CDT Pulse 57 10/11/2023 8:05 AM CDT Temperature 36.6 ??C (97.8 ??F) 10/11/2023 8:05 AM CD T Respiratory Rate 16 10/11/2023 8:05 AM CDT Oxygen Saturation 98% 10/11/2023 8:05 AM CDT Inhaled Oxygen Concentration - - Weight 150.4 kg (331 lb 8 oz) 10/11/2023 8:05 AM CDT Height 185.4 cm (6' 1 ) 10/11/2023 8:05 AM CDT Body Mass Index 43.74 10/11/2023 8:05 AM CDT documented in this encounter Progress Notes * Meet Ang, - 10/11/2023 8:00 AM CDT Images from the original note were not included. GENERAL OFFICE VISIT Encounter Date: 10/11/2023 Chief Complaint: 33-year-old male presents for ENT Symptoms (The patient presents for a 6-8 week follow up on ENT sx. The patient states he does not have concerns at this time. ) HPI: Pt has palpitations and anxiety, depression, and agoraphobia. Pt is also here for f/u on ENT symptoms. We had started pt on Abilify and obtained labs. Pt has not started on Abilify yet; he notes his symptoms are stable but he will still start it. No visits with results within 7 Day(s) from this visit. Latest known visit with results is: Laboratory Only on 10/04/2023 Component Date Value Ref Range Status CHOLESTEROL 10/04/2023 107 <200 MG/DL Final TRIGLYCERIDES 10/04/2023 80 <150 MG/DL Final HDL 10/04/2023 34 (L) >40 MG/DL Final LDL-C 10/04/2023 57 <100 MG/DL Final VLDL CALCULATION 10/04/2023 16 5 - 28 MG/DL Final CHOL/HDL RATIO 10/04/2023 3.1 0.0 - 4.0 Final LDL/HDL 10/04/2023 1.7 0.41 - 2.13 Final NON HDL CHOLESTEROL 10/04/2023 73 <140 MG/DL Final SODIUM S/P/B 10/04/2023 143 136 - 145 MMOL/L Final POTASSIUM S/P/B 10/04/2023 3.9 3.5 - 5.1 MMOL/L Final CHLORIDE S/P/B 10/04/2023 104 98 - 107 MMOL/L Final CO2 10/04/2023 27.9 21 - 32 MMOL/L Final GLUCOSE 10/04/2023 81 70 - 99 MG/DL Final BUN 10/04/2023 12 7 - 18 MG/DL Final CREATININE S/P/B 10/04/2023 0.83 0.70 - 1.30 MG/DL Final CALCIUM S/P/B 10/04/2023 8.7 8.4 - 10.5 MG/DL Final BILIRUBIN TOTAL S/P/B 10/04/2023 1.3 (H) 0.2 - 1.0 MG/DL Final ALKALINE PHOSPHATASE S/P/B 10/04/2023 62 45 - 115 U/L Final AST 10/04/2023 22 15 - 37 U/L Final ALT 10/04/2023 46 16 - 63 U/L Final TOTAL PROTEIN S/P/B 10/04/2023 7.3 6.4 - 8.2 G/DL Final ALBUMIN S/P/B 10/04/2023 4.0 3.4 - 5.0 G/DL Final ANION GAP 10/04/2023 11.1 5 - 15 MMOL/L Final REFERENCE RANGE NOT ESTABLISHED OSMOLALITY (CALC) 10/04/2023 295 MOSM/KG Final REFERENCE RANGE NOT ESTABLISHED GFR ESTIMATE 10/04/2023 >90 >90 ML/MIN/1.73 M2 Final GFR NOTES 10/04/2023 GFR REFERENCES: Final Comment: THE ESTIMATED GFR IS CALCULATED USING THE 2020 CKD-EPI EQUATION. THE FOLLOWING CATEGORIES FOR GRADING RENAL FUNCTION ARE RECOMMENDED BY THE INTERNATIONAL SOCIETY OF NEPHROLOGY (KDIGO 2012 CLINICAL PRACTICE GUIDELINE). G1,NORMAL OR HIGH: >89 ml/min/1.73 m2 G2,MILDLY DECREASED: 60-89 ml/min/1.73 m2 G3A,MILDLY TO MODERATELY DECREASED: 45-59 ml/min/1.73 m2 G3B,MODERATELY TO SEVERELY DECREASED: 30-44 ml/min/1.73 m2 G4,SEVERELY DECREASED: 15-29 ml/min/1.73 m2 G5,KIDNEY FAILURE: <15 ml/min/1.73 m2 WBC 10/04/2023 7.82 4.00 - 10.80 x10'3/uL Final RBC 10/04/2023 4.89 4.50 - 6.10 x10'6/uL Final HGB 10/04/2023 14.5 13.0 - 18.0 G/DL Final HCT 10/04/2023 42.9 37.0 - 52.0 % Final MCV 10/04/2023 87.7 78.0 - 100.0 FL Final MCH 10/04/2023 29.7 27.0 - 31.0 PG Final MCHC 10/04/2023 33.8 33.0 - 36.0 G/DL Final RDW 10/04/2023 11.9 11.5 - 14.5 % Final PLT 10/04/2023 232 150 - 350 x10'3/uL Final MPV 10/04/2023 12.1 (H) 7.4 - 10.4 FL Final DIFFERENTIAL TYPE 10/04/2023 AUTOMATED DIFFERENTIAL Final NEUTROPHILS 10/04/2023 54.4 % Final LYMPHOCYTES 10/04/2023 34.4 % Final MONOCYTES 10/04/2023 7.5 % Final EOSINOPHILS 10/04/2023 3.1 % Final BASOPHILS 10/04/2023 0.5 % Final IMMATURE GRANS 10/04/2023 0.1 % Final ABS. NEUTROPHILS 10/04/2023 4.25 1.60 - 8.30 x10'3/uL Final ABS. LYMPHOCYTES 10/04/2023 2.69 0.80 - 4.70 x10'3/uL Final ABS. MONOCYTES 10/04/2023 0.59 0.00 - 1.50 x10'3/uL Final ABS. EOSINOPHILS 10/04/2023 0.24 0.00 - 0.40 x10'3/uL Final ABS. BASOPHILS 10/04/2023 0.04 0.00 - 0.20 x10'3/uL Final ABS. IMMATURE GRANULOCYTES 10/04/2023 0.01 0.00 - 0.03 x10'3/uL Final TSH 10/04/2023 3.066 0.358 - 3.740 uIU/ML Final Labs are unremarkable outside of mildy decreased HDL. No other acute concerns; pt's GI symptoms areimproved and bilirubin is back to baseline. Review of Systems Constitutional: Negative for fever. HENT: Improved Gastrointestinal: See HPI Psychiatric/Behavioral: See HPI All other systems reviewed and are negative. Patient Active Problem List Diagnosis KIMMY (obstructive sleep apnea) IBS (irritable bowel syndrome) GERD (gastroesophageal reflux disease) Depression Asthma ([facility]/HCC) Anxiety Agoraphobia Tachycardia Elevated blood pressure reading Elevated troponin level not due myocardial infarction Palpitations Class 3 severe obesity with body mass index (BMI) of 40.0 to 44.9 in adult ([facility] HHS/HCC) Psoriasis Past Medical History: Diagnosis Date Agoraphobia Anxiety Asthma (HHS/HCC) Depression GERD (gastroesophageal reflux disease) IBS (irritable bowel syndrome) KIMMY (obstructive sleep apnea) Past Surgical History: Procedure Laterality Date NONE Family History Problem Relation Name Age of Onset Hypertension Mother Libby Hemmer Depression Mother Libby Hemmer Heart Disease Mother Libby Hemmer Anxiety Mother Libby Hemmer Hyperlipidemia Mother Libby Hemmer Diabetes Mother Libby Hemmer Mental Health Mother Libby Hemmer Hypertension Father Gonzalo Gavillet Depression Father Gonzalo Gavillet Heart Disease Father Gonzalo Gavillet Hyperlipidemia Father Gonzalo Gavillet Asthma Father Gonzalo Gavillet Only when sick, allergic to cats. Open Heart Brother Jaspal Mcmillan Diabetes Brother Jaspal Mcmillan Step brother related to mother. Other (Down syndrome) Brother Jaspal Mcmillan Diabetes Maternal Grandmother Lesly Depression Maternal Grandmother Lesly Depression Maternal Grandfather Toy Hemmer Heart Attack Maternal Grandfather Toy Hemmer Alcohol Abuse Maternal Grandfather Toy Pickett from heart attack related to alcoholism. Heart Disease Maternal Grandfather Toy Pickett Passed from heart attack. Psoriasis Paternal Grandmother Malia Gavillet Heart Attack Paternal Grandmother Malia Gavillet Depression Paternal Grandmother Malia Gavillet Mental Health Paternal Grandmother Malia Blackwood Open [...] date: 05/24/2004 Quit date: 05/24/2014 Years since quittin.3 Smokeless tobacco: Former Types: Chew Tobacco comments: [...] 11/21/1992, 02/27/1993 Opv 1989, 01/19/1990, 11/21/1992, 12/17/1994 1Rebel COVID-19 (ORIGINAL FORMULATION, PURPLE CAP) mRNA, LNP-S, PF, 30 MCG/0.3 ML DOSE 07/30/2020, 08/20/2020, 05/28/2021 PFIZER COVID-19 BIVALENT (12+) mRNA, LNP-S, PF, 30 MCG/0.3 ML DOSE 02/16/2022 Pneumococcal (Prevnar 20) 11/19/2021 Tdap (Boostrix) 01/13/2019 Current Outpatient Medications Medication Sig Dispense Refill ARIPiprazole (ABILIFY) 5 MG tablet Take 1 tablet (5 mg total) by mouth daily. 30 tablet 2 atenolol (TENORMIN) 25 MG tablet Take 1 tablet (25 mg total) by mouth daily. 90 tablet 3 clobetasol (TEMOVATE) 0.05 % external solution Apply scalp once to twice day. 30 days supply. Reasons: Skin Disease Successfully Treated with Steroid Therapy dicyclomine (BENTYL) 20 MG tablet Take 1 tablet (20 mg total) by mouth every 6 (six) hours as needed (pain/cramping). 120 tablet 2 famotidine (PEPCID) 20 MG tablet Take 1 tablet (20 mg total) by mouth daily. 30 tablet 5 ketoconazole (NIZORAL) 2 % shampoo Apply to wet hair, face and trunk, leave on for 3 minutes, then rinse; three times weekly. 30 days supply triamcinolone (KENALOG) 0.025 % ointment Apply to ear twice daily as needed psoriasis. 30 days supply. Reasons: Psoriasis VENTOLIN HFA 108 (90 Base) MCG/ACT inhaler Inhale 1 puff into the lungs every 4 (four) hours as needed. FOR WHEEZING 18 g 2 No current facility-administered medications for this visit. Current Outpatient Medications on File Prior to Visit Medication Sig ARIPiprazole (ABILIFY) 5 MG tablet Take 1 tablet (5 mg total) by mouth daily. atenolol (TENORMIN) 25 MG tablet Take 1 tablet (25 mg total) by mouth daily. clobetasol (TEMOVATE) 0.05 % external solution Apply scalp once to twice day. 30 days supply. Reasons: Skin Disease Successfully Treated with Steroid Therapy ketoconazole (NIZORAL) 2 % shampoo Apply to wet hair, face and trunk, leave on for 3 minutes, then rinse; three times weekly. 30 days supply triamcinolone (KENALOG) 0.025 % ointment Apply to ear twice daily as needed psoriasis. 30 days supply. Reasons: Psoriasis No current facility-administered medications on file prior to visit. Review of patient's allergies indicates: Allergen Reactions Bee Venom Swelling Objective: Filed Vitals: 10/11/23 0805 BP: 132/78 Pulse: (!) 57 Resp: 16 Temp: 97.8 ??F (36.6 ??C) TempSrc: Skin SpO2: 98% Weight: (!) 150.4 kg (331 lb 8 oz) Height: 1.854 m (6' 1 ) Physical Exam Vitals and nursing note reviewed. HENT: Head: Normocephalic and atraumatic. Right Ear: External ear normal. Left Ear: External ear normal. Eyes: Conjunctiva/sclera: Conjunctivae normal. Cardiovascular: Rate and Rhythm: Normal rate and regular rhythm. Pulmonary: Effort: Pulmonary effort is normal. Breath sounds: Normal breath sounds. Abdominal: Palpations: Abdomen is soft. Tenderness: There is no abdominal tenderness. Musculoskeletal: Cervical back: Neck supple. Lymphadenopathy: Cervical: No cervical adenopathy. Neurological: General: No focal deficit present. Mental Status: He is alert. Psychiatric: Mood and Affect: Mood normal. Comments: Relatively normal Assessment & Plan: Alex was seen today for ent symptoms. Diagnoses and all orders for this visit: Irritable bowel syndrome with constipation - dicyclomine (BENTYL) 20 MG tablet; Take 1 tablet (20 mg total) by mouth every 6 (six) hours as needed (pain/cramping). Depression, unspecified depression type Anxiety Agoraphobia Gastroesophageal reflux disease, unspecified whether esophagitis present - famotidine (PEPCID) 20 MG tablet; Take 1 tablet (20 mg total) by mouth daily. Mild intermittent asthma without complication (HHS/HCC) - VENTOLIN HFA 108 (90 Base) MCG/ACT inhaler; Inhale 1 puff into the lungs every 4 (four) hours as needed. FOR WHEEZING BMI 40.0-44.9, adult ([facility]) Elevated bilirubin Discussion/Summary: Again recommend start Abilify as previously instructed; patient is relatively stable at this time from a psychiatric standpoint. Continue to monitor GI symptoms; suspect IBS and benign etiology of elevated bilirubin. Can obtain ultrasound of liver in future if needed. Refilled inhalers today. Continue famotidine and dicyclomine; can try taking fewer dicyclomine to see if this helps with symptoms adequately as an as needed medication. Will have patient follow-up in 3 months or sooner if needed. Patient verbalized understanding. Meet Ang DO documented in this encounter Plan of Treatment Upcoming Encounters Date Type Department Care Team (Late st Contact Info) Description 06/19/2024 8:45 AM CORRECTIONAL SUBSTANCE ABUSE COUNSELOR [facility], [address] [place] [address] Ren Morse MD [facility] [address] [place] [address] 07/19/2024 7:00 AM CORRECTIONAL SUBSTANCE ABUSE COUNSELOR Office Visit [facility] Family & Internal Medicine [id number] [place] [address] Meet Ang DO [address] [place] [address] documented as of this encounter Visit Diagnoses Diagnosis Irritable bowel syndrome with constipation- Primary Irritable bowel syndrome Depression, unspecified depression type Anxiety Anxiety state, unspecified Agoraphobia Agoraphobia without mention of panic attacks Gastroesophageal reflux disease, unspecified whether esophagitis present Mild intermittent asthma without complication ([facility]) Unspecified asthma BMI 40.0-44.9, adult ([facility]) Body Mass Index 40.0-44.9, adult Elevated bilirubin Jaundice, unspecified, not of documented in this encounter Additional Health Concerns Assessment Noted Time PHQ-9 Depression Total Score: 14 024 7:44 AM CDT documented as of this encounter Care Teams Range Conservationist Relationship Specialty Start Date End Date Meet Ang DO [address] [place] [address] PCP - General FAMILY PRACTICE 08/16/18 Paresh Gray MD [address] [address] EP Release Coordinator CLINICAL CARDIAC ELECTROPHYSIOLOGY 03/03/19 documented as of this encounter
--- OUTSIDE RECORDS SUMMARY | 2024-05-11 21:13 | XMS_ITS | Encounter Summary ---
Author Organization [facility] Address [address] [place] [address]. [place], [place] [id number] [place] [address] Care Team Providers Care Eap Consultant Name Role Phone Meet Ang DO Primary Care Provider + Paresh Gray MD Unavailable Encounter Details Date Type Department Care Team (Latest Contact Info) Description 10/11/2023 Travel Social History Tobacco Use Types Packs/Day Years Used Date Smoking Tobacco: Former Cigarettes 1.5 10 0 05/24/2004 - 05/24/2014 Cigars Smokeless Tobacco: Former Chew Comments:Also used chewing t obacco for years Alcohol Use Standard Drinks/Week Comments [...] on file Legal Sex Male 2:37 PM BARTENDER MANAGER Gender Identity Male 05/16/2021 9:25 AM BARTENDER MANAGER Sexual Orientation Straight 05/16/2021 9: 25 AM BARTENDER MANAGER documented as of this encounter Plan of Treatment Upcoming Encounters Date Type Department Care Team (Late st Contact Info) Description 06/19/2024 8:45 AM BARTENDER MANAGER [facility] [address] [phone] Ren Morse MD [address] [facility] [address] [place] [address] 07/19/2024 7:00 AM BARTENDER MANAGER Office Visit [facility] Family & Internal Medicine - [address] [address] Meet Ang DO [address] [place] [address] documented as of this encounter Visit Diagnoses Not on filedocumented in this encounter Additional Health Concerns Assessment Noted Time PHQ-9 Depression Total Score: 14 024 7:44 AM CDT documented as of this encounter Care Teams Eap Consultant Relationship Specialty Start Date End Date Meet Ang DO [address] [place] [address] PCP - General FAMILY PRACTICE 08/16/18 Paresh Gray MD Three [facility]. [address] [place] [address] EP Stone Polisher CLINICAL CARDIAC ELECTROPHYSIOLOGY 03/03/19 documented as of this encounter
--- OUTSIDE RECORDS SUMMARY | 2024-05-11 21:13 | XMS_ITS | Clinical Summary ---
Author Organization [facility] Address [address] [facility] [place] [address] Care Team Providers Care Muck Boss Name Role Phone LudwindeysiMeet lizama Donnie ROMAN Primary Care Provider + Source Comments [facility],non-owned Affiliates and Associated Physician Practices is amultiple site organization consisting of ambulatory clinics and hospital sitesin [place], [place], [place] and [place]. This disclosure is being madepursuant to the Care Everywhere program and may not contain all information available regarding this patient. Last updated 18.[facility] Allergies Active Allergy Reactions Criticality Noted Date Comments Bee Venom Swelling 10/01/2022 Medications * Be aware that medications may not be up to date on this document. Alwaysverify current medications with the patient. Medication Sig Dispensed Refills Start Date End Date Status atenolol (Tenormin) 25 MG tablet at bedtime 09/27/2022 Active Flovent HFA 110 MCG/ACT inhaler as needed 07/31/2022 Active albuterol HFA (Ventolin HFA) 108 (90 Base) MCG/ACT inhaler as needed 05/26/2022 Active clobetasol (Temovate) 0.05 % ointmentIndications :Corticosteroid-Res ponsive Dermatosis Apply to elbow twice daily. 30 days supply. Reasons: Skin Disease Successfully Treated with Steroid Therapy 60 g 3 07/23/2023 Active clobetasol (Temovate) 0.05 % solutionIndications :Corticosteroid-Res ponsive Dermatosis Apply scalp once to twice day. 30 days supply. Reasons: Skin Disease Successfully Treated with Steroid Therapy 50 mL 3 07/23/2023 Active ketoconazole (Nizoral) 2 % shampoo Apply to wet hair, face and trunk, leave on for 3 minutes, then rinse; three times weekly. 30 days supply 120 mL 3 07/23/2023 Active Additional Information Patient not taking.Reported on 12/03/2023 triamcinolone acetonide (Kenalog) 0.025 % ointmentIndications :Psoriasis Apply to ear twice daily as needed psoriasis. 30 days supply. Reasons: Psoriasis 80 g 3 07/23/2023 Active Active Problems No known active problems Encounters Date Type Department Care Team Description 03/21/2024 Travel 03/13/2024 Telephone [facility] - Centralized Scheduling [address] [place] [address] Kavya Ryan MD Reschedule Appointment from Last 3 Months Social History Tobacco Use Types Packs/Day Years Used Date Smoking Tobacco: Former Cigarettes Smokeless Tobacco: Never Tobacco Cessation:Counseling Given: Not Answered Sex and Gender Information Value Date Recorded Sex Assigned at Not on file Gender Identity Not on file Sexual Orientation Not on file Plan of Treatment Upcoming Encounters Date Type Department Care Team (Late st Contact Info) Description 07/27/2024 1:30 PM METAL FENCE ERECTOR Office Visit [facility] - Dermatology [address] [place] [address], [place] [address] Kavya Ryan MD [address] [place] [address] [address] [place] [id number] Health Maintenance Due Date Last Done Comments HIV SCREENING 2004 HEPATITIS C SCREENING 09/12/2007 DTAP/TDAP/TD VACCINES (1 - Tdap) 2008 HEPATITIS B VACCINE (1 of 3 - 19+ 3-dose series) 2008 DEPRESSION SCREENING 05/24/2023 COVID-19 VACCINE (2023- season) 2024 08/20/2020, 07/30/2020 INFLUENZA VACCINE (#1) 2024 3, 05/28/2022, 03/04/2021, Additional history exists ZOSTER VACCINE (1 of 2) 09/17/2039 HIB VACCINE Aged Out No longer eligi ble based on patient's age to complete this topic HPV VACCINE Aged Out No longer eligi ble based on patient's age to complete this topic MENINGOCOCCAL VACCINE Aged Out No kaleb deepti eligible based on patient's age to complete this topic PNEUMOCOCCAL VACCINE Aged Out No long er eligible based on patient's age to complete this topic Care Teams Muck Boss Relationship Specialty Start Date End Date Meet Ang DO PCP - General 01/27/19
--- OUTSIDE RECORDS SUMMARY | 2024-05-11 21:13 | XMS_ITS | Encounter Summary ---
Author Organization [facility] Address [address] [place] [address] Care Team Providers Care Pearler Name Role Phone Meet Ang Primary Care Provider + Reason for Visit * Reason Comments Psoriasis Elbows, back of head , ears Skin Tag Possible removal on neck Encounter Details Date Type Department Care Team (Late st Contact Info) Description 07/23/2023 1:20 PM PERCUSSION WELDING MACHINE OPERATOR Office Visit [facility] - Dermatology [address] [place] [address], [facility] [place] [address] Kavya Ryan MD [address] [place] [address] [address] [place] [address] Other viral warts (Primary Dx); Psoriasis; Skin tag Social History Tobacco Use Types Packs/Day Years Used Date Smoking Tobacco: Former Cigarettes Smokeless Tobacco: Never Sex and Gender Information Value Date Recorded Sex Assigned at Not on file Gender Identity Not on file Sexual Orientation Not on file documented as of this encounter Progress Notes * Kavya Ryan MD - 07/23/2023 1:17 PM CST Chief Complaint Patient presents with ??? Psoriasis Elbows, back of head, ears ??? Skin Tag Possible removal on neck HPI: Alex Blackwood a 32 year old male presents for follow up. At last clinic visit on 10/01/2022, started on topicals for psoriasis, clobetasol solution and ketoconazole 2% shampoo for scalp, clobetasol ointment for elbows and triamcinolone 0.025% ointment for neck, and ketoconazole 2% shampoo for tinea versicolor, and had two biopsies on R infraorbital cheek and L arm which found wart and skin tag respectively. Today, he notes that his psoriasis is much better with topicals. Recurs with stopping. No joint pains. He is happy with current control. He also notes increasing skin tags on neck. Also has growing bumps on R hand. Prior history of psoriasis: Present since age 23 on elbow, ear [...] which resolvedrash but then recurred with stopped. 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, BSA 2-3 %, no joint pains, improving with topicals, patient happy with current control - Discussed etiologies, natural history and treatment options - Discussed risk of psoriatic arthritis with psoriasis, no joint pains at this time concerning for psoriatic arthritis, will will continue to monitor - Previously discussed increased risk of CAD with psoriasis, recommend routine follow up with PCP - Continue clobetasol 0.05% solution daily to affected areas on scalp, SE of topical steroids including skin atrophy discussed - Continue clobetasol 0.05% ointment BID to affected areas on body, SE of topical steroids including skin atrophy discussed - Continue ketoconazole 2% shampoo TIW to scalp in shower, leave on for 3-5 minutes prior to rinsing out, can alternate with OTC anti-dandruff shampoo - Continue triamcinolone 0.025% ointment BID to affected areas on ears, SE of topical steroids including skin atrophy discussed - Consider systemic treatments if worsening Acrochordons on neck and axilla - Benign, patient reassured - Discussed future cosmetic visit for removal of lesions if bothersome, discussed this is out of pocket cost Verruca vulgaris on R hand x2, growing - Discussed viral etiology, natural history and treatment options including Ln2 and home salicylic acid - Patient opts for LN2 in clinic, see procedure note - Start home salicylic acid daily starting [address] treatment, instructions reviewed in clinic RTC in 12 months, sooner if wart persistent or skin tag removal desired Coding Rationale New or est? Established Patient Kavya Ryan MD USSION WELDING MACHINE OPERATOR documented in this encounter Procedure Notes * Kavya Ryan MD - 07/23/2023 1:40 PM CSTAssociated Order(s): PROC DESTRUCT BENIGN LESION NOT SKIN TAG Procedure(s): OR DESTRUCT BENIGN LESION, 1-14 Pre-Procedure Diagnose(s): Other viral warts Liquid nitrogen was applied for 10-12 seconds to the 2 warts and the expected blistering or scabbing reaction explained. Do not pick at the area. Patient reminded to expect hypopigmented scars from the procedure. Return if lesion fails to fully resolve. USSION WELDING MACHINE OPERATOR documented in this encounter Plan of Treatment Upcoming Encounters Date Type Department Care Team (Late st Contact Info) Description 07/27/2024 1:30 PM PERCUSSION WELDING MACHINE OPERATOR Office Visit [facility] - Dermatology [address] [place] [address] [place] [id number] Kavya Ryan MD [address] [place] [id number] documented as of this encounter Procedures Procedure Name Priority Date/Time Associated Diagnosis Comments OR DESTRUCT BENIGN LESION, 1-14 Routine 07/23/2023 1:40 PM PERCUSSION WELDING MACHINE OPERATOR Other viral warts documented in this encounter Results * OR DESTRUCT BENIGN LESION, 1-14 (07/23/2023 1:40 PM PERCUSSION WELDING MACHINE OPERATOR) Narrative Kavya Ryan MD - 07/23/2023 1:40 PM PERCUSSION WELDING MACHINE OPERATOR Kavya Ryan MD ? 07/23/2023 ??1:40 PM Liquid nitrogen was applied for 10-12 seconds to the 2 warts and the expected blistering or scabbing reaction explained. Do not pick at the area. Patient reminded to expect hypopigmented scars from the procedure. Return if lesion fails to fully resolve. Kavya Ryan MD PROCEDURE/SOFIA R SURGICAL ORDERABLES documented in this encounter Visit Diagnoses Diagnosis Other viral warts- Primary Psoriasis Other psoriasis Skin tag Unspecified hypertrophic and atrophic condition of skin documented in this encounter Care Teams Pearler Relationship Specialty Start Date End Date Meet Ang DO PCP - General 01/27/19 documented as of this encounter
--- OUTSIDE RECORDS SUMMARY | 2024-05-11 21:13 | XMS_ITS | Encounter Summary ---
Author Organization [facility] Address [address] [place] [address]. [place], [place] [address] [place] [address] Care Team Providers Care Refrigeration Person Name Role Phone Meet Ang DO Primary Care Provider + Paresh Gray MD Unavailable Encounter Details Date Type Department Care Team (Latest Contact Info) Description 04/18/2024 Travel Social History Tobacco Use Types Packs/Day [...] on file Legal Sex Male 2:37 PM WHIPPER BEATER Gender Identity Male 05/16/2021 9:25 AM WHIPPER BEATER Sexual Orientation Straight 05/16/2021 9: 25 AM WHIPPER BEATER documented as of this encounter Plan of Treatment Upcoming Encounters Date Type Department Care Team (Late st Contact Info) Description 06/19/2024 8:45 AM WHIPPER BEATER [facility] [place] [facility], [address] [phone] Ren Morse MD Three [facility] [address] [place] [address] 07/19/2024 7:00 AM WHIPPER BEATER Office Visit [facility] Family & Internal Medicine - [address] [address] Meet Ang DO [address] [place] [address] documented as of this encounter Visit Diagnoses Not on filedocumented in this encounter Additional Health Concerns Assessment Noted Time PHQ-9 Depression Total Score: 14 024 7:44 AM CDT documented as of this encounter Care Teams Refrigeration Person Relationship Specialty Start Date End Date Meet Ang DO [address] [place] [address] PCP - General FAMILY PRACTICE 08/16/18 Paresh Gray MD Three [facility]. [place] [address] [place] [address] EP Psychiatric Technician Assistant CLINICAL CARDIAC ELECTROPHYSIOLOGY 03/03/19 documented as of this encounter
--- OUTSIDE RECORDS SUMMARY | 2024-05-11 21:13 | XMS_ITS | Encounter Summary ---
Author Organization [facility] Address [address] [place] [address]. [place], [place] [address] [place] [address] Care Team Providers Care Logging Supervisor Name Role Phone Meet Ang DO Primary Care Provider + Paresh Gray MD Unavailable Encounter Details Date Type Department Care Team (Latest Contact Info) Description 10/04/2023 Travel Social History Tobacco Use Types Packs/Day [...] on file Legal Sex Male 2:37 PM QUALITY CONTROL ASSESSOR Gender Identity Male 05/16/2021 9:25 AM QUALITY CONTROL ASSESSOR Sexual Orientation Straight 05/16/2021 9: 25 AM QUALITY CONTROL ASSESSOR documented as of this encounter Plan of Treatment Upcoming Encounters Date Type Department Care Team (Late st Contact Info) Description 06/19/2024 8:45 AM QUALITY CONTROL ASSESSOR [facility] [address] [phone] Ren Morse MD Three [facility] [address] [place] [address] 07/19/2024 7:00 AM QUALITY CONTROL ASSESSOR Office Visit [facility] Medical Group Family & Internal Medicine - [address] [phone] Meet Ang DO [address] [place] [address] documented as of this encounter Visit Diagnoses Not on filedocumented in this encounter Additional Health Concerns Assessment Noted Time PHQ-9 Depression Total Score: 14 024 7:44 AM CDT documented as of this encounter Care Teams Logging Supervisor Relationship Specialty Start Date End Date Meet Ang DO [address] [place] [address] PCP - General FAMILY PRACTICE 08/16/18 Paresh Gray MD Three [facility]. [place] [address] [place] [address] EP Buffing Wheel Former Automatic CLINICAL CARDIAC ELECTROPHYSIOLOGY 03/03/19 documented as of this encounter
--- OUTSIDE RECORDS SUMMARY | 2024-05-11 21:13 | XMS_ITS | Encounter Summary ---
Author Organization [facility] Address [address] [place] [address]. [place], [place] [address] [place] [address] Care Team Providers Care Actuarial Internship Name Role Phone Meet Ang DO Primary Care Provider + Paresh Gray MD Unavailable Reason for Visit * Reason Onset Date Comments Medication 02/22/2024 Encounter Details Date Type Department Care Team (Late st Contact Info) Description 02/22/2024 Telephone [facility] Medical Group Family & Internal Medicine [facility] [address] [place] [address] Meet Ang DO [facility] [place] [place] [address] Medication Social History Tobacco Use Types Packs/Day Years [...] on file Legal Sex Male 2:37 PM GAS WELDER APPRENTICE Gender Identity Male 05/16/2021 9:25 AM GAS WELDER APPRENTICE Sexual Orientation Straight 05/16/2021 9: 25 AM GAS WELDER APPRENTICE documented as of this encounter Progress Notes * Shavonne Parada MA - 02/23/2024 3:31 PM CDT Spoke with patient and in formed him of medication being sent and patient v/u and did not have questions or concerns at this time. * Meet Ang DO - 02/23/2024 12:29 PM CDT Will send Viibryd. Sent. Pt has now been on sertraline, olanzapine, fluoxetine, trazodone, escitalopram, Vraylar, buspirone, Abilify, and now duloxetine. He has not tolerated any of these. * Shavonne Parada MA - 02/23/2024 12:19 PM CDT Spoke with patient. He states the sx have improved by more than half. The patient states he still wakes up from issues with bi-pap use. But no longer for the other reasons. Please advise on plan of care. * Maria Fernanda Thomason - 02/22/2024 10:14 AM CDT Pt says he was suppose to call back in a week after stopping the duloxetine 60 mg. documented in this encounter Plan of Treatment Upcoming Encounters Date Type Department Care Team (Late st Contact Info) Description 06/19/2024 8:45 AM GAS WELDER APPRENTICE [facility], [address] [address] Ren Morse MD [facility] [address] [place] [address] 07/19/2024 7:00 AM GAS WELDER APPRENTICE Office Visit [facility] Medical Group Family & Internal Medicine - [place] [address] [place] [address] Meet Ang DO [address] [place] [address] documented as of this encounter Visit Diagnoses Diagnosis Depression, unspecified depression type- Primary Anxiety Anxiety state, unspecified 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 [place] [address] [place] [address] EP Horticulture Superintendent CLINICAL CARDIAC ELECTROPHYSIOLOGY 03/03/19 documented as of this encounter
--- OUTSIDE RECORDS SUMMARY | 2024-05-11 21:13 | XMS_ITS | Encounter Summary ---
Author Organization [facility] Address [address] [facility] [place] [address] Care Team Providers Care Cook Seafood Name Role Phone Meet Ang Primary Care Provider + Reason for Visit * Reason Comments Skin Tag Skin tags on the nec k and chest. Encounter Details Date Type Department Care Team (Late st Contact Info) Description 12/03/2023 2:50 PM CDT Cosmetic Visit [facility] - Dermatology [address] [place] [address], [facility] [place] [address] Kavya Ryan MD [address] [place] [address] [address] [place] [phone] Skin tag Social History Tobacco Use Types Packs/Day Years Used Date Smoking Tobacco: Former Cigarettes Smokeless Tobacco: Never Sex and Gender Information Value Date Recorded Sex Assigned at Not on file Gender Identity Not on file Sexual Orientation Not on file documented as of this encounter Progress Notes * Chana Cotton MD - 12/03/2023 2:43 PM CDT Here for cosmetic acrochordon treatment. Reviewed tx options and risk of bleeding, infection, scarring. Pt would like to proceed with procedure. Today treated with acrochordons on neck, axilla, chest, abdomen with snip excision. Snip excision After discussing risks of pain, dyspigmentation and scarring, patient agrees to procedure. The areawas cleaned with isopropyl alcohol and anesthetized with 1% lidocaine with epinephrine. Scissors used for snip excision and then hemostasis obtained with aluminum chloride. Dressing and wound care discussed. Patient tolerated the procedure well. Chana Cotton MD [facility] Dermatology Resident Associated attestation - Kavya Ryan MD - 12/12/2023 1:58 PM CDT Attending Physician Supervisory Note I have seen and examined the patient with the resident and I agree with the findings and plan of care as documented by the resident and edited by me. Date of Service : 12/03/2023 I was present for the gan portions of the procedure. See resident note. Kavya Ryan MD Clinical Sweet Pickle Maker of Dermatology [facility] documented in this encounter Plan of Treatment Upcoming Encounters Date Type Department Care Team (Late st Contact Info) Description 07/27/2024 1:30 PM PIERCE AND SHAVE PRESS OPERATOR Office Visit [facility] - Dermatology [address] [place] [address], [facility] [place] [address] Kavya Ryan MD [address] [place] [address] [place] [address] documented as of this encounter Visit Diagnoses Diagnosis Skin tag- Primary Unspecified hypertrophic and atrophic condition of skin documented in this encounter Care Teams Cook Seafood Relationship Specialty Start Date End Date Meet Ang DO PCP - General 01/27/19 documented as of this encounter
--- OUTSIDE RECORDS SUMMARY | 2024-05-11 21:13 | XMS_ITS | Encounter Summary ---
Author Organization [facility] Address [address] [place] [address]. [place], [place] [address] [place] [address] Care Team Providers Care Financial Advisor Trainee Name Role Phone Meet Ang DO Primary Care Provider + Paresh Gray MD Unavailable Encounter Details Date Type Department Care Team (Latest Contact Info) Description 04/26/2024 Scan HEALTH INFO [facility] Scanned, Doc Med Group Social History Tobacco Use Types Packs/Day Years [...] on file Legal Sex Male 2:37 PM DIRECTOR OF GLOBAL TALENT Gender Identity Male 05/16/2021 9:25 AM DIRECTOR OF GLOBAL TALENT Sexual Orientation Straight 05/16/2021 9: 25 AM DIRECTOR OF GLOBAL TALENT documented as of this encounter Plan of Treatment Upcoming Encounters Date Type Department Care Team ( Contact Info) Description 06/19/2024 8:45 AM DIRECTOR OF GLOBAL TALENT [facility], [address] [address] Ren Morse MD Three [facility] [address] [facility] [place] [address] 07/19/2024 7:00 AM DIRECTOR OF GLOBAL TALENT Office Visit [facility] Medical Group Family & Internal Medicine - [address] [address] Meet Ang DO [address] [place] [address] documented as of this encounter Visit Diagnoses Not on filedocumented in this encounter Additional Health Concerns Assessment Noted Time PHQ-9 Depression Total Score: 14 024 7:44 AM CDT documented as of this encounter Care Teams Financial Advisor Trainee Relationship Specialty Start Date End Date Meet Ang DO [address] [place] [address] PCP - General FAMILY PRACTICE 08/16/18 Paresh Gray MD Three [facility]. [place] [address] [place] [address] EP River Driver CLINICAL CARDIAC ELECTROPHYSIOLOGY 03/03/19 documented as of this encounter
--- OUTSIDE RECORDS SUMMARY | 2024-05-11 21:13 | XMS_ITS | Encounter Summary ---
Author Organization [facility] Address [address] [place] [address]. [place], [place] [address] [place] [address] Care Team Providers Care Soap Grinder Name Role Phone Meet Ang DO Primary Care Provider + Paresh Gray MD Unavailable Encounter Details Date Type Department Care Team (Latest Contact Info) Description 09/23/2023 Travel Social History Tobacco Use Types Packs/Day [...] on file Legal Sex Male 2:37 PM GENERAL COUNSELOR Gender Identity Male 05/16/2021 9:25 AM GENERAL COUNSELOR Sexual Orientation Straight 05/16/2021 9: 25 AM GENERAL COUNSELOR documented as of this encounter Plan of Treatment Upcoming Encounters Date Type Department Care Team (Late st Contact Info) Description 06/19/2024 8:45 AM GENERAL COUNSELOR [facility], [address] [phone] Ren Morse MD Three [facility] [address] [place] [address] 07/19/2024 7:00 AM GENERAL COUNSELOR Office Visit [facility] Medical Group Family & Internal Medicine - [address] [address] Meet Ang DO [address] [place] [address] documented as of this encounter Visit Diagnoses Not on filedocumented in this encounter Additional Health Concerns Assessment Noted Time PHQ-9 Depression Total Score: 14 024 7:44 AM CDT documented as of this encounter Care Teams Soap Grinder Relationship Specialty Start Date End Date Meet Ang DO [address] [place] [address] PCP - General FAMILY PRACTICE 08/16/18 Paresh Gray MD Three [facility]. [place] [address] [place] [address] EP Training Engineer CLINICAL CARDIAC ELECTROPHYSIOLOGY 03/03/19 documented as of this encounter
--- OUTSIDE RECORDS SUMMARY | 2024-05-11 21:13 | XMS_ITS | Encounter Summary ---
Author Organization [facility] Address [address] [place] [address]. [place], [place] [address] [place] [address] Care Team Providers Care Molding Cutter Name Role Phone Miranda Villafana DO Primary Care Provider + Paresh Gray MD Unavailable Reason for Visit * Reason Onset Date Comments Advice 02/11/2024 Encounter Details Date Type Department Care Team (Late st Contact Info) Description 02/11/2024 Telephone [facility] Medical Group Family & Internal Medicine [facility] [address] [place] [address] Miranda Villafana DO [facility] [place] [address] Advice Social History Tobacco Use Types Packs/Day Years [...] file Legal Sex Male 2:37 PM QUALITY MANAGER Gender Identity Male 05/16/2021 9:25 AM QUALITY MANAGER Sexual Orientation Straight 05/16/2021 9: 25 AM QUALITY MANAGER documented as of this encounter Progress Notes * Shavonne Urena MA - 02/11/2024 3:09 PM CDTAddended by: SHAVONNE URENA on: 02/11/2024 03:09 PM Modules accepted: Orders * Shavonne Urena MA - 02/11/2024 3:07 PM CDT Refill request received from Pharmacy Last visit with MIRANDA VILLAFANA in FAMILY PRACTICE was on: 01/12/2024 in [facility] Appointments Date Time Provider Department Center 04/18/2024 9:40 AM Miranda Villafana DO [facility] 06/19/2024 8:45 AM Ren Morse MD [id number] [place], [place] - [address] [facility] [address] [facility] [address] [id number] [place], [place] - [address] [facility] [address] [facility] [address] Current Outpatient Medications: albuterol sulfate HFA (VENTOLIN HFA) 108 (90 Base) MCG/ACT inhaler, Inhale 1 puff into the lungs every 4 (four) hours as needed. FOR WHEEZING, Disp: 18 g, Rfl: 2 atenolol (TENORMIN) 25 MG tablet, Take 1 tablet (25 mg total) by mouth daily., Disp: 90 tablet, Rfl: 3 clobetasol (TEMOVATE) 0.05 % external solution, Apply scalp once to twice day. 30 days supply. Reasons: Skin Disease Successfully Treated with Steroid Therapy, Disp: , Rfl: dicyclomine (BENTYL) 20 MG tablet, Take 1 tablet (20 mg total) by mouth every 6 (six) hours as needed (pain/cramping). (Patient not taking: Reported on 01/12/2024), Disp: 120 tablet, Rfl: 2 DULoxetine (CYMBALTA) 30 MG capsule, Take one 30 mg capsule daily for one week, then take one 60 mgcapsule daily, Disp: 7 capsule, Rfl: 0 DULoxetine (CYMBALTA) 60 MG capsule, Take one 30 mg capsule daily for one week, then take one 60 mgcapsule daily, Disp: 30 capsule, Rfl: 1 famotidine (PEPCID) 20 MG tablet, Take 1 tablet (20 mg total) by mouth daily. (Patient not taking: Reported on 01/12/2024), Disp: 30 tablet, Rfl: 5 fluticasone (FLOVENT HFA) 110 MCG/ACT inhaler, Inhale 1 puff into the lungs 2 (two) times daily., Disp: , Rfl: ketoconazole (NIZORAL) 2 % shampoo, Apply to wet hair, face and trunk, leave on for 3 minutes, thenrinse; three times weekly. 30 days supply (Patient not taking: Reported on 01/12/2024), Disp: , Rfl: triamcinolone (KENALOG) 0.025 % ointment, Apply to ear twice daily as needed psoriasis. 30 days supply. Reasons: Psoriasis, Disp: , Rfl: * Chrissy Rodriguez - 02/11/2024 1:17 PM CDT Pt called in stating having issues with DULoxetine (CYMBALTA) 60 MG capsule. Pt asking for call back to discuss. documented in this encounter Plan of Treatment Upcoming Encounters Date Type Department Care Team (Late st Contact Info) Description 06/19/2024 8:45 AM QUALITY MANAGER [facility] [address] [address] Ren Morse MD Three [facility] [place] [address] 07/19/2024 7:00 AM QUALITY MANAGER Office Visit [facility] Medical Group Family & Internal Medicine - [address] [address] Miranda Villafana DO [address] [place] [address] documented as of this encounter Visit Diagnoses Diagnosis Depression, unspecified depression type Anxiety Anxiety state, unspecified 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 [place] [address] [place] [address] EP Electrical Engineering Drafting Officer CLINICAL CARDIAC ELECTROPHYSIOLOGY 03/03/19 documented as of this encounter
--- OUTSIDE RECORDS SUMMARY | 2024-05-11 21:13 | XMS_ITS | Encounter Summary ---
Author Organization [facility] Address [address] [place] [address]. [place], [place] [address] [place] [address] Care Team Providers Care Body Rolling Machine Tender Name Role Phone Meet Ang DO Primary Care Provider + Paresh Gray MD Unavailable Encounter Details Date Type Department Care Team (Latest Contact Info) Description 04/17/2024 Scan HEALTH INFO SRVCS Scanned, Doc Med [...] on file Legal Sex Male 2:37 PM COMMERCIAL CREDIT LEAD Gender Identity Male 05/16/2021 9:25 AM COMMERCIAL CREDIT LEAD Sexual Orientation Straight 05/16/2021 9: 25 AM COMMERCIAL CREDIT LEAD documented as of this encounter Plan of Treatment Upcoming Encounters Date Type Department Care Team ( Contact Info) Description 06/19/2024 8:45 AM COMMERCIAL CREDIT LEAD [facility] [address] [address] Ren Morse MD Three [facility] [address] [facility] [place] [address] 07/19/2024 7:00 AM COMMERCIAL CREDIT LEAD Office Visit [facility] Medical [facility] Family & Internal Medicine - [address] [address] Meet Ang DO [address] [place] [address] documented as of this encounter Visit Diagnoses Not on filedocumented in this encounter Additional Health Concerns Assessment Noted Time PHQ-9 Depression Total Score: 14 024 7:44 AM CDT documented as of this encounter Care Teams Body Rolling Machine Tender Relationship Specialty Start Date End Date Meet Ang DO [address] [place] [address] PCP - General FAMILY PRACTICE 08/16/18 Paresh Gray MD Three [facility]. [place] [address] [place] [address] EP Foreign Student Adviser CLINICAL CARDIAC ELECTROPHYSIOLOGY 03/03/19 documented as of this encounter
--- OUTSIDE RECORDS SUMMARY | 2024-05-11 21:13 | XMS_ITS | Encounter Summary ---
Author Organization [facility] Address [address] [place] [address]. [place], [place] [address] [place] [address] Care Team Providers Care Stamp Classifier Name Role Phone Meet Ang DO Primary Care Provider + Paresh Gray MD Unavailable Encounter Details Date Type Department Care Team (Latest Contact Info) Description 09/22/2023 Scan HEALTH INFO SRVCS Scanned, Doc Med [...] on file Legal Sex Male 2:37 PM SR VICE PRESIDENT Gender Identity Male 05/16/2021 9:25 AM SR VICE PRESIDENT Sexual Orientation Straight 05/16/2021 9: 25 AM SR VICE PRESIDENT documented as of this encounter Plan of Treatment Upcoming Encounters Date Type Department Care Team ( Contact Info) Description 06/19/2024 8:45 AM SR VICE PRESIDENT [facility], [address] [address] Ren Morse MD Three [facility] Suite [facility] [place] [address] 07/19/2024 7:00 AM SR VICE PRESIDENT Office Visit [facility] Medical Group Family & Internal Medicine - [address] [address] Mete Ang DO [address] [place] [address] documented as of this encounter Visit Diagnoses Not on filedocumented in this encounter Additional Health Concerns Assessment Noted Time PHQ-9 Depression Total Score: 14 024 7:44 AM CDT documented as of this encounter Care Teams Stamp Classifier Relationship Specialty Start Date End Date Meet Ang DO [address] [place] [address] PCP - General FAMILY PRACTICE 08/16/18 Paresh Gray MD Three [facility]. [place] [address] [place] [address] EP Sap Director CLINICAL CARDIAC ELECTROPHYSIOLOGY 03/03/19 documented as of this encounter
--- OUTSIDE RECORDS SUMMARY | 2024-05-11 21:13 | XMS_ITS | Encounter Summary ---
Author Organization [facility] Address [address] [facility] [place] [address] Care Team Providers Care Utility Pipe Layer Name Role Phone Meet Ang DO Primary Care Provider + Encounter Details Date Type Department Care Team (Latest Contact Info) Description 07/23/2023 Travel Social History Tobacco Use Types Packs/Day Years Used Date Smoking Tobacco: Former Cigarettes Smokeless Tobacco: Never Sex and Gender Information Value Date Recorded Sex Assigned at Not on file Gender Identity Not on file Sexual Orientation Not on file documented as of this encounter Plan of Treatment Upcoming Encounters Date Type Department Care Team (Late st Contact Info) Description 07/27/2024 1:30 PM SURGICAL GARMENT ASSEMBLY SUPERVISOR Office Visit [facility] Physician Group - Dermatology [address] [place] [address], [place] [phone] Kavya Ryan MD [address] [place] [address] [address] [place] [phone] documented as of this encounter Visit Diagnoses Not on filedocumented in this encounter Care Teams Utility Pipe Layer Relationship Specialty Start Date End Date Meet Ang DO PCP - General 01/27/19 documented as of this encounter
--- OUTSIDE RECORDS SUMMARY | 2024-05-11 21:13 | XMS_ITS | Patient Health Summary ---
Author Organization [facility] Address [address] [place] [place] [address] Care Team Providers Care Pickup Driver Name Role Phone Meet Ang Donnie ROMAN Primary Care Provider + Note from [facility][note 3],non-owned Affiliates and Associated Physician Practices is amultiple site organization consisting of ambulatory clinics and hospital sitesin [place], [place] and [place]. This disclosure is being madepursuant to the Care Everywhere program and may not contain all information available regarding this patient. Last updated 18.[facility] Allergies * Bee Venom(Swelling) Medications * Be aware that medications may not be up to date on this document. Alwaysverify current medications with the patient. * atenolol (Tenormin) 25 MG tablet(Started 09/27/2022) at bedtime * Flovent HFA 110 MCG/ACT inhaler(Started 07/31/2022) as needed * albuterol HFA (Ventolin HFA) 108 (90 Base) MCG/ACT inhaler(Started 05/26/2022) as needed * clobetasol (Temovate) 0.05 % ointment(Started 07/23/2023) Apply to elbow twice daily. 30 days supply. Reasons: Skin Disease Successfully Treated with SteroidTherapy 3 refills by 07/22/2024 * clobetasol (Temovate) 0.05 % solution(Started 07/23/2023) Apply scalp once to twice day. 30 days supply. Reasons: Skin Disease Successfully Treated with Steroid Therapy 3 refills by 07/22/2024 * ketoconazole (Nizoral) 2 % shampoo(Started 07/23/2023) Apply to wet hair, face and trunk, leave on for 3 minutes, then rinse; three times weekly. 30 days supply 3 refills by 07/22/2024 * triamcinolone acetonide (Kenalog) 0.025 % ointment(Started 07/23/2023) Apply to ear twice daily as needed psoriasis. 30 days supply. Reasons: Psoriasis 3 refills by 07/22/2024 Active Problems No known active problems Social History Tobacco Use Types Packs/Day Years Used Date Smoking Tobacco: Former Cigarettes Smokeless Tobacco: Never Tobacco Cessation:Counseling Given: Not Answered Sex and Gender Information Value Date Recorded Sex Assigned at Not on file Gender Identity Not on file Sexual Orientation Not on file Procedures * UT DESTRUCT BENIGN LESION, 1-14(Performed 07/23/2023) Performed for Other viral warts * UT TANGNTL BX SKIN EA SEP ADDL(Performed 10/01/2022) Performed for Neoplasm of uncertain behavior of skin * UT TANGNTL BX SKIN SINGLE LES(Performed 10/01/2022) Performed for Neoplasm of uncertain behavior of skin * DERMATOPATHOLOGY(Performed 10/01/2022) Performed for Neoplasm of uncertain behavior of skin Results * UT DESTRUCT BENIGN LESION, 1-14 (07/23/2023 1:40 PM STRIKER OFF) Narrative Kavya Ryan MD - 07/23/2023 1:40 PM STRIKER OFF Kavya Ryan MD ? 07/23/2023 ??1:40 PM Liquid nitrogen was applied for 10-12 seconds to the 2 warts and the expected blistering or scabbing reaction explained. Do not pick at the area. Patient reminded to expect hypopigmented scars from the procedure. Return if lesion fails to fully resolve. Kavya Ryan MD PROCEDURE/SOFIA R SURGICAL ORDERABLES * UT TANGNTL BX SKIN SINGLE LES, UT TANGNTL BX SKIN EA SEP ADDL (10/01/2022 3:38 PM CDT) Kavya Casarez MD - 10/01/2022 3:38 PM CDT Kavya [...] a patient labeled container and sent to [facility] Dermatopathology. Patient agrees to phone call for results and message if not available. Kavya Ryan MD Clinical Video Presentation Operator of Dermatology [facility] Kavya Ryan MD PROCEDURE/SOFIA Alvares SURGICAL ORDERABLES * Dermatopathology (Specimen Count = 2) (10/01/2022 12:00 AM CDT) Case Report Dermatopathology Report ? Case: [id number] ? Authorizing Provider: ??Kavya Ryan, ?? Collected: ? 10/01/2022 12:00 AM ? MD ? Ordering Location: ? [facility] General ?Received: ?10/01/2022 04:42 PM ? Dermatology ? Pathologist: ? Rina Alcantara MD ? Specimens: ?? A) - Skin, right infraorbital cheek ? B) - Skin, left arm ? 3 3:18 PM CDT DERMATOPATHOLOGY LABORATORY Final Diagnosis Specimen A. SKIN, right infraorbital cheek: VERRUCA VULGARIS, IRRITATED AND INFLAMED (B07.8) Specimen B. SKIN, left arm: ACROCHORDON (SOFT FIBROMA, SKIN TAG) (L91.8) 3 3:18 PM CDT DERMATOPATHOLOGY LABORATORY Clinical History A: VV vs. Other B: Skin tag vs. nevus vs. nevus lipomatosis 3 3:18 PM CDT DERMATOPATHOLOGY LABORATORY Gross Description Specimen A: Received is one formalin filled container labeled with the patient's name and designated right infraorbital cheek. The specimen consists of a shave biopsy measuring 4x3x5 mm. Jar 0. Specimen B: Received is one formalin filled container labeled with the patient's name and designated left arm. The specimen consists of a shave biopsy measuring [id number] mm. Jar 0. 3 3:18 PM CDT DERMATOPATHOLOGY LABORATORY Microscopic Description Specimen A. SKIN, [...] and collagen are intermingled. 3 3:18 PM CDT DERMATOPATHOLOGY LABORATORY Disclaimer An external and internal positive and negative controls are appropriate for the histochemical, immunohistochemical and immunofluorescence stain(s) in this case (if any), except where stated explicitly. The performance characteristics of the stain(s) cited in this report were developed and its performance characteristic determined by the Dermatopathology Laboratory at [facility], directed by Dr. Weston Sanchez. These tests need not be, and therefore are not, approved by the [place] Food and Drug Administration. The tests are used for clinical purposes. Billing Codes Specimen Charges Stain Charges 81141 33785 1 1 3 3:18 PM CDT DERMATOPATHOLOGY LABORATORY Embedded Images 3 3:18 PM CDT DERMATOPATHOLOGY LABORATORY Pathology/Cytology TISSUE SPECIMEN FROM SKIN / Unknown 10/01/2022 10/01/2022 4:42 PM CDT Miscellaneous samples (specimen) TISSUE SPECIMEN FROM SKIN / Unknown 10/01/2022 10/01/2022 4:42 PM CDT Kavya Ryan MD LAB - PATHOLOG Y/CYTOLOGY ORDERABLES DERMATOPATHOLOGY LABORATORY [facility] - Department of Dermatology [facility] Medicine [address] [place] [address], [address] [phone] Care Teams Pickup Driver Relationship Specialty Start Date End Date Meet Ang DO [facility] - General 01/27/19
--- OUTSIDE RECORDS SUMMARY | 2024-05-11 21:13 | XMS_ITS | Encounter Summary ---
Author Organization [facility] Address [address] [place] [address]. [place], [place] [id number] [place] [address] Care Team Providers Care Assembly Line Leader Name Role Phone Meet nAg DO Primary Care Provider + Paresh Gray MD Unavailable Reason for Referral * Consultation (Routine) - Authorized Specialty Diagnoses / Procedures Referred By Pepe gordon Referred To Contact OTOLARYNGOLOGY Diagnoses Tinnitus of both ears Procedures OFFICE/OUTPATIENT NEW LOW MDM 30-44 MINUTES OFFICE/OUTPT VISIT,NEW,LEVL IV OFFICE/OUTPT VISIT,NEW,LEVL V OFFICE/OUTPT VISIT,EST,LEVL III OFFICE/OUTPT VISIT,EST,LEVL IV OFFICE/OUTPT VISIT,EST,LEVL V Meet Ang DO [address] [place] [address] Phone: tel: fax: Steve Quigley PA [address] [place] [address] Phone: tel: fax: Referral ID Status Reason Start Date Expiration Date V isits Requested Visits Authorized [id number] Authorized 04/18/2024 05/18/2025 99 99 FACULTY * Medication Prior Authorization - Authorized Specialty Diagnoses / Procedures Referred By Pepe gordon Referred To Contact Diagnoses Depression, unspecified depression type Anxiety Agoraphobia Meet Ang DO [address] [place] [address] Phone: tel: fax: Referral ID Status Reason Start Date Expiration Date V isits Requested Visits Authorized [id number] Authorized 04/18/2024 04/18/2025 1 1 FACULTY Reason for Visit * Reason Comments Ear Problem The patient states h deysi is still having tinnitus. The patient states he feels it may be due to Bi-pap Encounter Details Date Type Department Care Team (Late st Contact Info) Description 04/18/2024 9:40 AM RN FACULTY Office Visit [facility] Family & Internal Medicine - [address] [phone] Meet Ang DO [address] [place] [address] Ear Problem (The patient states he is still having tinnitus. The patient states he feels it may be due to Bi-pap ) Social History Tobacco Use Types Packs/Day [...] on file Legal Sex Male 2:37 PM RN FACULTY Gender Identity Male 05/16/2021 9:25 AM RN FACULTY Sexual Orientation Straight 05/16/2021 9: 25 AM RN FACULTY documented as of this encounter Last Filed Vital Signs Vital Sign Reading Time Taken Comments Blood Pressure 112/82 04/18/2024 9:47 AM RN FACULTY Pulse 76 04/18/2024 9:47 AM RN FACULTY Temperature 37.1 ??C (98.8 ??F) 04/18/2024 9:47 AM CS T Respiratory Rate 16 04/18/2024 9:47 AM RN FACULTY Oxygen Saturation 98% 04/18/2024 9:47 AM RN FACULTY Inhaled Oxygen Concentration - - Weight 150.9 kg (332 lb 11.2 oz) 04/18/2024 9:47 AM RN FACULTY Height 185.4 cm (6' 1 ) 04/18/2024 9:47 AM RN FACULTY Body Mass Index 43.89 04/18/2024 9:47 AM RN FACULTY documented in this encounter Progress Notes * Meet Ang, DO - 04/18/2024 9:40 AM CST Images from the original note were not included. GENERAL OFFICE VISIT Encounter Date: 04/18/2024 Chief Complaint: 33-year-old male presents for Ear Problem (The patient states he is still having tinnitus. The patient states he feels it may be due to Bi-pap ) HPI: Pt notes tinnitus. At last OV, we referred pt to ENT. Pt has not yet seen them and needs to be referred. At last OV, we started pt on Viibryd as pt didn't do well with duloxetine when we sent this out. Ptstates he feels his depression is improved but his anxiety may still be present. He'd like to try to treat this. Pt is seeing [facility]. Pt is now on fluticasone HFA and albuterol. Pt is now stable withthis. Review of Systems Constitutional: Negative for fever. HENT: See HPI Respiratory: See HPI Patient Active Problem List Diagnosis KIMMY (obstructive sleep apnea) IBS (irritable bowel syndrome) GERD (gastroesophageal reflux disease) Depression Asthma (HHS/HCC) Anxiety Agoraphobia Tachycardia Elevated blood pressure reading Elevated troponin level not due myocardial infarction Palpitations Class 3 severe obesity with body mass index (BMI) of 40.0 to 44.9 in adult ([facility]/HCC HHS/HCC) Psoriasis Past Medical History: Diagnosis Date [...] Health Mother Libby Hemmer Hypertension Father Gonzalo Dupreet Depression Father Gonzalo Dupreet Heart Disease Father Gonzalo Dupreet Hyperlipidemia Father Gonzalo Blackwood Asthma Father Gonzalo [...] from heart attack. Psoriasis Paternal Grandmother Malia Blackwood Heart Attack Paternal Grandmother Malia Blackwood Depression Paternal Grandmother Malia Blackwood Mental Health Paternal Grandmother Malia Blackwood Open Heart Paternal Grandfather Nikunj Blackwood Hypertension Paternal Grandfather Nikunj Blackwood Cancer Paternal Grandfather Nikunj Blackwood Colon Cancer removed tumor, cancer free. Heart Disease Paternal Grandfather Nikunj Blackwood Had multiple valve replacements Valve Disease Paternal Grandfather Nikunj Blackwood Other (CABG) Paternal Grandfather Nikunj Blackwood Alcohol Abuse Paternal Uncle Nii Cancer Paternal Uncle Nii mouth Social History Tobacco Use Smoking status: Former Current packs/day: 0.00 Average packs/day: 1.5 packs/day for 10.0 years (15.0 ttl pk-yrs) Types: Cigarettes, Cigars Start date: 05/24/2004 Quit date: 05/24/2014 Years since quittin.9 Smokeless tobacco: Former Types: Chew Tobacco comments: Also used chewing tobacco for years Substance Use Topics Alcohol use: No Drug use: No Immunization History Administered Date(s) Administered Dtap 1989, 01/19/1990, 11/21/1992 Dtp 12/17/1994 Fluzone 6 Months+ Quad (0.5 mL Prefilled Syringe) 03/28/2019, 04/26/2020, 03/04/2021, 05/28/2022 Hepatitis B 12/15/1999, 01/19/2000, 06/14/2000 Hib 11/21/1992 Influenza Adult (Generic) 02/22/2023 MMR 11/21/1992, 02/27/1993 Opv 1989, 01/19/1990, 11/21/1992, 12/17/1994 [facility] COVID-19 (12+) MRNA, LNP-S, PF, LORA-SUCROSE, 30 MCG/0.3 ML (COMIRNATY) 03/10/2024 [facility] COVID-19 (ORIGINAL FORMULATION, PURPLE CAP) mRNA, LNP-S, PF, 30 MCG/0.3 ML DOSE 07/30/2020, 08/20/2020 Pneumococcal (Prevnar 20) 11/19/2021 Tdap (Boostrix) 01/13/2019 [...] needed psoriasis. 30 days supply. Reasons: Psoriasis vilazodone (VIIBRYD) 40 MG tablet Take 1 tablet (40 mg total) by mouth daily. Take with food 30 tablet 2 No current facility-administered medications for this visit. Review of patient's allergies indicates: Allergen Reactions Bee Venom Swelling Objective: Filed Vitals: 04/18/24 0947 BP: 112/82 Pulse: 76 Resp: 16 Temp: 98.8 ??F (37.1 ??C) TempSrc: Skin SpO2: 98% Weight: (!) 150.9 kg (332 lb 11.2 oz) Height: 1.854 m (6' 1 ) Physical Exam Vitals and nursing note reviewed. HENT: Head: Normocephalic and atraumatic. Right Ear: External ear normal. Left Ear: External ear normal. Eyes: General: No scleral icterus. Conjunctiva/sclera: Conjunctivae normal. Pulmonary: Effort: Pulmonary effort is normal. Skin: General: Skin is dry. Findings: No rash. Neurological: General: No focal deficit present. Mental Status: He is alert. Psychiatric: Mood and Affect: Mood and affect normal. Assessment & Plan: Alex was seen today for ear problem. Diagnoses and all orders for this visit: Depression, unspecified depression type - vilazodone (VIIBRYD) 40 MG tablet; Take 1 tablet (40 mg total) by mouth daily. Take with food Anxiety - vilazodone (VIIBRYD) 40 MG tablet; Take 1 tablet (40 mg total) by mouth daily. Take with food Agoraphobia - vilazodone (VIIBRYD) 40 MG tablet; Take 1 tablet (40 mg total) by mouth daily. Take with food Tinnitus of both ears - Ambulatory referral to ENT Mild intermittent asthma without complication ([facility]) Discussion/Summary: Will increase Viibryd today. Continue other meds as prescribed and continue f/u with specialists asprescribed; will refer to ENT again today. Will have pt f/u in 2-3 months or sooner if needed. Pt v/u. Meet Ang DO FACULTY documented in this encounter Plan of Treatment Upcoming Encounters Date Type Department Care Team (Late st Contact Info) Description 06/19/2024 8:45 AM RN FACULTY [facility] [place] [address] [place] [address] Ren Morse MD [facility] [address] [place] [address] 07/19/2024 7:00 AM RN FACULTY Office Visit [facility] Family & Internal Medicine - [address] [phone] Meet Ang DO [address] [place] [address] Scheduled Referrals Name Type Priority Associated Diagnoses Orde r Schedule Ambulatory referral to ENT Referral Routine Tinnitus of both ears Ordered: 04/18/2024 documented as of this encounter Visit Diagnoses Diagnosis Depression, unspecified depression type- Primary Anxiety Anxiety state, unspecified Agoraphobia 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
--- OUTSIDE RECORDS SUMMARY | 2024-05-11 21:13 | XMS_ITS | Encounter Summary ---
Author Organization [facility] Address [address] [place] [address]. [place], [place] [address] [place] [address] Care Team Providers Care Traveling Auditor Name Role Phone Meet Ang DO Primary Care Provider + Paresh Gray MD Unavailable Reason for Visit * Reason Onset Date Comments Prior Authorization 02/24/2024 Viibryn 10mg and 20mg tablets Encounter Details Date Type Department Care Team (Late st Contact Info) Description 02/24/2024 Telephone [facility] Family & Internal Medicine [facility] [address] [place] [address] Meet Ang DO [address] [place] [address] Prior Authorization (Viibryn 10mg and 20mg tablets) Social History Tobacco Use Types Packs/Day Years [...] on file Legal Sex Male 2:37 PM MILLING MACHINE OPERATOR Gender Identity Male 05/16/2021 9:25 AM MILLING MACHINE OPERATOR Sexual Orientation Straight 05/16/2021 9: 25 AM MILLING MACHINE OPERATOR documented as of this encounter Progress Notes * Jenni Narayan MA - 02/24/2024 4:23 PM CDT Images from the original note were not included. PA approved: Viibryd 10mg Approved Prior authorization approved Payer: KASHIF Bowers [phone] Note from payer: Your PA request has been approved. Additional information will be provided in the approval communication. (Message 1143) Approval Details Authorized from February 24, 2024 to February 23, 2025 Electronic appeal: Not supported View History PA approved: Viibryd 20mg Approved Prior authorization approved Payer: KASHIF Bowers [phone] Note from payer: Your PA request has been approved. Additional information will be provided in the approval communication. (Message 1145) Approval Details Authorized from February 24, 2024 to February 23, 2025 Electronic appeal: Not supported View History * Jenni Narayan MA - 02/24/2024 9:44 AM CDT PA pending via [employer] for Viibryn 10mg and 20mg tablets. justine Mai documented in this encounter Plan of Treatment Upcoming Encounters Date Type Department Care Team (Late st Contact Info) Description 06/19/2024 8:45 AM MILLING MACHINE OPERATOR Office Visit [facility] [address] [facility], [place] [address] [place] [address] Ren Morse MD Three [facility] [address] [place], [place] [id number] 07/19/2024 7:00 AM MILLING MACHINE OPERATOR Office Visit [facility] Family & Internal Medicine - [place] [address] [place] [address] Meet Ang DO [address] [place] [address] documented as of this encounter Visit Diagnoses Not on filedocumented in this encounter Additional Health Concerns Assessment Noted Time PHQ-9 Depression Total Score: 14 024 7:44 AM CDT documented as of this encounter Care Teams Traveling Auditor Relationship Specialty Start Date End Date Meet Ang DO [address] [place] [address] PCP - General FAMILY PRACTICE 08/16/18 Paresh Gray MD [address] [address] EP Database Designer CLINICAL CARDIAC ELECTROPHYSIOLOGY 03/03/19 documented as of this encounter
--- OUTSIDE RECORDS SUMMARY | 2024-05-11 21:13 | XMS_ITS | Encounter Summary ---
Author Organization [facility] Address [address] [place] [address]. [place], [place] [address] [place] [address] Care Team Providers Care Strap Sewer Name Role Phone Meet Ang DO Primary Care Provider + Paresh Gray MD Unavailable Reason for Visit * Reason Onset Date Comments Information 10/21/2023 Prior Authorization 10/21/2023 Ventolin Inh aler Encounter Details Date Type Department Care Team (Late st Contact Info) Description 10/21/2023 Telephone [facility] Family & Internal Medicine [facility] [address] [place] [address] Meet Ang DO [address] [place] [address] Information; Prior Authorization (Ventolin Inhaler) Social History Tobacco Use Types Packs/Day Years [...] on file Legal Sex Male 2:37 PM SLIDE FORMING MACHINE OPERATOR Gender Identity Male 05/16/2021 9:25 AM SLIDE FORMING MACHINE OPERATOR Sexual Orientation Straight 05/16/2021 9: 25 AM SLIDE FORMING MACHINE OPERATOR documented as of this encounter Progress Notes * Jenni Narayan MA - 10/26/2023 8:03 AM CDT 10-26-23: Patient called stating he talked with his insurance and was told that a PA was not requiredand could be sent straight to the pharmacy. Patient informed will send out prescription and if has any issues to please call the office. Patient v/u justine silva * Jenni Narayan MA - 10/25/2023 4:06 PM CDT 10/25/23: Patient called and notified that the PA is still pending. Patient verbalized and understands justine silva * Chrissy Rodriguez - 10/21/2023 8:28 AM CDT PT called in asking for status on PA for Ventolin Inhaler. Please advise. documented in this encounter Plan of Treatment Upcoming Encounters Date Type Department Care Team (Late st Contact Info) Description 06/19/2024 8:45 AM SLIDE FORMING MACHINE OPERATOR [facility] [place] [address] [place] [address] Ren Morse MD [facility] [address] [place] [address] 07/19/2024 7:00 AM SLIDE FORMING MACHINE OPERATOR Office Visit [facility] Family & Internal Medicine - [address] [address] Meet Ang, DO [facility] [place] [address] documented as of this encounter Visit Diagnoses Not on filedocumented in this encounter Additional Health Concerns Assessment Noted Time PHQ-9 Depression Total Score: 14 024 7:44 AM CDT documented as of this encounter Care Teams Strap Sewer Relationship Specialty Start Date End Date Meet Ang DO [address] [place] [address] PCP - General FAMILY PRACTICE 08/16/18 Paresh Gray MD [address] [address] EP Head Bellhop Captain CLINICAL CARDIAC ELECTROPHYSIOLOGY 03/03/19 documented as of this encounter
--- OUTSIDE RECORDS SUMMARY | 2024-05-11 21:13 | XMS_ITS | Encounter Summary ---
Author Organization [facility] Address [address] [place] [address]. [place], [place] [address] [place] [address] Care Team Providers Care Assurance Manager Insurance Name Role Phone Meet Ang DO Primary Care Provider + Paresh Gray MD Unavailable Encounter Details Date Type Department Care Team (Late st Contact Info) Description 10/04/2023 8:20 AM CDT Laboratory Only [facility] Family & Internal Medicine [place] [address] [place] [address] Meet Ang DO [address] [place] [address] Social History Tobacco Use Types Packs/Day Years [...] on file Legal Sex Male 2:37 PM PAYLOADER MACHINE OPERATOR Gender Identity Male 05/16/2021 9:25 AM PAYLOADER MACHINE OPERATOR Sexual Orientation Straight 05/16/2021 9: 25 AM PAYLOADER MACHINE OPERATOR documented as of this encounter Plan of Treatment Upcoming Encounters Date Type Department Care Team (Late st Contact Info) Description 06/19/2024 8:45 AM PAYLOADER MACHINE OPERATOR Office [facility] [facility] [place] [address] [place] [address] Ren [facility] [address] [place] [address] 07/19/2024 7:00 AM PAYLOADER MACHINE OPERATOR Office Visit [facility] Family & Internal Medicine - [place] [address] [place] [address] Meet Ang DO [facility] [place] [address] documented as of this encounter Procedures Procedure Name Priority Date/Time Associated Diagnosis Comments VENIPUNC ARM DRAW Routine 10/04/2023 8:1 6 AM CDT Annual physical exam Screening for lipid disorders Screening for endocrine, metabolic and immunity disorder TSH W/REFLEX Routine 10/04/2023 8:16 AM CDT Annual physical exam Screening for lipid disorders Screening for endocrine, metabolic and immunity disorder COMPREHENSIVE METABOLIC PANEL Routine 10/04/2023 8:16 AM CDT Annual physical exam Screening for lipid disorders Screening for endocrine, metabolic and immunity disorder LIPID PANEL Routine 10/04/2023 8:16 AM CDT Annual physical exam Screening for lipid disorders Screening for endocrine, metabolic and immunity disorder CBC W/DIFF AUTOMATED Routine 10/04/2023 8:16 AM CDT Annual physical exam Screening for lipid disorders Screening for endocrine, metabolic and immunity disorder documented in this encounter Results * TSH W/REFLEX (10/04/2023 8:16 AM CDT) TSH 3.066 0.358 - 3.740 uIU/ML 10/04/2023 3:33 PM CDT [facility] 10/04/2023 8:16 AM CDT Meet Ang DO LABORATORY Final Re sult [facility] [place] [address] [place] [address], * (ABNORMAL) CBC W/DIFF AUTOMATED (10/04/2023 8:16 AM CDT) WBC 7.82 4.00 - 10.80 x10'3/uL 10/04/2023 3:15 PM CDT [facility] RBC 4.89 4.50 - 6.10 x10'6/uL 10/04/2023 3:15 PM CDT [facility] HGB 14.5 13.0 - 18.0 G/DL 10/04/2023 3:15 PM CDT [facility] HCT 42.9 37.0 - 52.0 % 10/04/2023 3:15 PM CDT [facility] MCV 87.7 78.0 - 100.0 FL 10/04/2023 3:15 PM CDT [facility] MCH 29.7 27.0 - 31.0 PG 10/04/2023 3:15 PM CDT [facility] MCHC 33.8 33.0 - 36.0 G/DL 10/04/2023 3:15 PM CDT [facility] RDW 11.9 11.5 - 14.5 % 10/04/2023 3:15 PM CDT [facility] PLT 232 150 - 350 x10'3/uL 10/04/2023 3:15 PM CDT [facility] MPV 12.1(H) 7.4 - 10.4 FL 10/04/2023 3:15 PM CDT [facility] DIFFERENTIAL TYPE AUTOMATED DIFFERENTIAL 10/04/2023 3:15 PM CDT [facility] NEUTROPHILS % 54.4 % 10/04/2023 3:15 PM CDT [facility] LYMPHOCYTES % 34.4 % 10/04/2023 3:15 PM CDT [facility] MONOCYTES % 7.5 % 10/04/2023 3:15 PM CDT [facility] EOSINOPHILS % 3.1 % 10/04/2023 3:15 PM CDT [facility] BASOPHILS % 0.5 % 10/04/2023 3:15 PM CDT [facility] IMMATURE GRANS % 0.1 % 10/04/2023 3:15 PM CDT [facility] ABS. NEUTROPHILS 4.25 1.60 - 8.30 x10'3/uL 10/04/2023 3:15 PM CDT [facility] ABS. LYMPHOCYTES 2.69 0.80 - 4.70 x10'3/uL 10/04/2023 3:15 PM CDT [facility] ABS. MONOCYTES 0.59 0.00 - 1.50 x10'3/uL 10/04/2023 3:15 PM CDT [facility] ABS. EOSINOPHILS 0.24 0.00 - 0.40 x10'3/uL 10/04/2023 3:15 PM CDT [facility] ABS. BASOPHILS 0.04 0.00 - 0.20 x10'3/uL 10/04/2023 3:15 PM CDT [facility] ABS. IMMATURE GRANULOCYTES 0.01 0.00 - 0.03 x10'3/uL 10/04/2023 3:15 PM CDT [facility] 10/04/2023 8:16 AM CDT us Meet Ang DO LABORATORY Final Re sult [facility] [place] [address] [place] [address], * (ABNORMAL) COMPREHENSIVE METABOLIC PANEL (10/04/2023 8:16 AM CDT) [facility] SODIUM S/P/B 143 136 - 145 MMOL/L 10/04/2023 3:33 PM CDT [facility] POTASSIUM S/P/B 3.9 3.5 - 5.1 MMOL/L 10/04/2023 3:33 PM CDT [facility] CHLORIDE S/P/B 104 98 - 107 MMOL/L 10/04/2023 3:33 PM CDT [facility] CO2 27.9 21 - 32 MMOL/L 10/04/2023 3:33 PM CDT [facility] GLUCOSE 81 70 - 99 MG/DL 10/04/2023 3:33 PM CDT [facility] BUN 12 7 - 18 MG/DL 10/04/2023 3:33 PM CDT -[facility] CREATININE S/P/B 0.83 0.70 - 1.30 MG/DL 10/04/2023 3:33 PM CDT [facility] CALCIUM S/P/B 8.7 8.4 - 10.5 MG/DL 10/04/2023 3:33 PM CDT [facility] BILIRUBIN TOTAL S/P/B 1.3(H) 0.2 - 1.0 MG/DL 10/04/2023 3:33 PM CDT [facility] ALKALINE PHOSPHATASE S/P/B 62 45 - 115 U/L 10/04/2023 3:33 PM CDT [facility] AST 22 15 - 37 U/L 10/04/2023 3:33 PM CDT [facility] ALT 46 16 - 63 U/L 10/04/2023 3:33 PM CDT [facility] TOTAL PROTEIN S/P/B 7.3 6.4 - 8.2 G/DL 10/04/2023 3:33 PM CDT [facility] ALBUMIN S/P/B 4.0 3.4 - 5.0 G/DL 10/04/2023 3:33 PM CDT [facility] [place] ANION GAP 11.1 5 - 15 MMOL/L 10/04/2023 3:33 PM CDT [facility] [place] Comment:REFERENCE RANGE NOT ESTABLISHED OSMOLALITY (CALC) 295 MOSM/KG 024 3:33 PM CDT [facility] [place] Comment:REFERENCE RANGE NOT ESTABLISHED GFR ESTIMATE >90 >90 ML/MIN/1. 73 M2 10/04/2023 3:33 PM CDT [facility] [place] GFR NOTES GFR REFERENCE S: 10/04/2023 3:33 PM T [facility] [place] Comment: THE ESTIMATED GFR IS CALCULATED USING [...] ml/min/1.73 m2 G5,KIDNEY FAILURE: <15 ml/min/1.73 m2 10/04/2023 8:16 AM CDT us Meet Ang DO LABORATORY Final Re sult [facility] [address] [facility] [place] [address], [place] [phone] * (ABNORMAL) LIPID PANEL (10/04/2023 8:16 AM CDT) CHOLESTEROL 107 <200 MG/DL 10/04/2023 3:33 PM CDT [facility] TRIGLYCERIDES 80 <150 MG/DL 10/04/2023 3:33 PM CDT [facility] HDL 34(L) >40 MG/DL 10/04/2023 3:33 PM CDT [facility] LDL-C 57 <100 MG/DL 10/04/2023 3:33 PM CDT [facility] VLDL CALCULATION 16 5 - 28 MG/DL 10/04/2023 3:33 PM CDT [facility] CHOL/HDL RATIO 3.1 0.0 - 4.0 10/04/2023 3:33 PM CDT [facility] LDL/HDL 1.7 0.41 - 2.13 10/04/2023 3:33 PM CDT [facility] NON HDL CHOLESTEROL 73 <140 MG/DL 10/04/2023 3:33 PM CDT [facility] 10/04/2023 8:16 AM CDT Meet Ang DO LABORATORY Final Re sult [facility] [address] [place] [address], documented in this encounter Visit Diagnoses Diagnosis Annual physical exam Routine general medical examination at a health care facility Screening for lipid disorders Screening for endocrine, metabolic and immunity disorder documented in this encounter Additional Health Concerns Assessment Noted Time PHQ-9 Depression Total Score: 14 024 7:44 AM CDT documented as of this encounter Care Teams Assurance Manager Insurance Relationship Specialty Start Date End Date Meet Ang DO [address] [place] [address] PCP - General FAMILY PRACTICE 08/16/18 Paresh Gray MD Three [facility]. [address] [address] EP Light Air Defense Artillery Crewmember CLINICAL CARDIAC ELECTROPHYSIOLOGY 03/03/19 documented as of this encounter
--- OUTSIDE RECORDS SUMMARY | 2024-05-11 21:13 | XMS_ITS | Referral Summary ---
Author Organization [facility] Address [address] [facility] [address] Care Team Providers Care Hop Farm Worker Name Role Phone Meet Ang Donnie ROMAN Primary Care Provider + Source Comments [facility],non-owned Affiliates and Associated Physician Practices is amultiple site organization consisting of ambulatory clinics and hospital sitesin [place], [place], [place] and [place]. This disclosure is being madepursuant to the Care Everywhere program and may not contain all information available regarding this patient. Last updated 18.[facility] Encounters Date Type Department Care Team Description 03/21/2024 Travel 03/13/2024 Telephone [facility] - Centralized Scheduling [facility] [place] [address] Kavya Ryan MD Reschedule Appointment from Last 3 Months Allergies Active Allergy Reactions Criticality Noted Date [...] Active Active Problems No known active problems Social [...] st Contact Info) Description 07/27/2024 1:30 PM PRODUCT CRAFTSMAN Office Visit [facility] - Dermatology [address] [place] [address] [place] [address] Kavya Ryan MD [address] [place] [address] [place] [address] Care Teams Hop Farm Worker Relationship Specialty Start Date End Date Meet Ang DO PCP - General 01/27/19
--- OUTSIDE RECORDS SUMMARY | 2024-05-11 21:13 | XMS_ITS | Encounter Summary ---
Author Organization [facility] Address [address] [place] [address]. [place], [place] [address] [place] [address] Care Team Providers Care Sales Correspondent Name Role Phone Meet Ang DO Primary Care Provider + Paresh Gray MD Unavailable Encounter Details Date Type Department Care Team (Latest Contact Info) Description 01/12/2024 Travel Social History Tobacco Use Types Packs/Day [...] on file Legal Sex Male 2:37 PM THERAPEUTIC ASSISTANT Gender Identity Male 05/16/2021 9:25 AM THERAPEUTIC ASSISTANT Sexual Orientation Straight 05/16/2021 9: 25 AM THERAPEUTIC ASSISTANT documented as of this encounter Plan of Treatment Upcoming Encounters Date Type Department Care Team (Late st Contact Info) Description 06/19/2024 8:45 AM THERAPEUTIC ASSISTANT [facility], [address] [phone] Ren Morse MD Three [facility] [address] [place] [address] 07/19/2024 7:00 AM THERAPEUTIC ASSISTANT Office Visit [facility] Family & Internal Medicine - [address] [address] Meet Ang DO [address] [place] [address] documented as of this encounter Visit Diagnoses Not on filedocumented in this encounter Additional Health Concerns Assessment Noted Time PHQ-9 Depression Total Score: 14 024 7:44 AM CDT documented as of this encounter Care Teams Sales Correspondent Relationship Specialty Start Date End Date Meet Ang DO [address] [place] [address] PCP - General FAMILY PRACTICE 08/16/18 Paresh Gray MD Three [facility]. [place] [address] [place] [address] [address] Mail Driver CLINICAL CARDIAC ELECTROPHYSIOLOGY 03/03/19 documented as of this encounter
--- OUTSIDE RECORDS SUMMARY | 2024-05-11 21:13 | XMS_ITS | Encounter Summary ---
Author Organization [facility] Address [address] [place] [address]. [place], [place] [address] [place] [address] Care Team Providers Care Big Data Hadoop Developer Name Role Phone Meet Ang DO Primary Care Provider + Paresh Gray MD Unavailable Reason for Visit * Reason Onset Date Comments Medication Problem 02/14/2024 Encounter Details Date Type Department Care Team (Late st Contact Info) Description 02/14/2024 Telephone [facility] Family & Internal Medicine [address] [place] [address] Meet Ang DO [facility] [place] [address] Medication Problem Social History Tobacco Use Types Packs/Day Years [...] on file Legal Sex Male 2:37 PM ANALYTICAL CLERK Gender Identity Male 05/16/2021 9:25 AM ANALYTICAL CLERK Sexual Orientation Straight 05/16/2021 9: 25 AM ANALYTICAL CLERK documented as of this encounter Progress Notes * So Allen MA - 02/14/2024 4:46 PM CDT Patient informed and v/u of instructions. 02/14/2024 4:46 PM * Meet Ang DO - 02/14/2024 4:31 PM CDT Stop medicine for one week and see if this improves symptoms. Let us know if this improves symptoms. * Estelle Shaw MA - 02/14/2024 2:55 PM CDT Patient is currently taking Duloxetine 60 mg in the morning. He c/o increased sweating and waking up 6-8 times every night. Just very restless. Please advise * Shavonne Vegas - 02/14/2024 8:40 AM CDT Patient has been on Duloxetine for one month and is having some side effects of the medication. Patient is waking up several times nightly with no reason why. [phone] documented in this encounter Plan of Treatment Upcoming Encounters Date Type Department Care Team (Late st Contact Info) Description 06/19/2024 8:45 AM ANALYTICAL CLERK [facility] [address] [place], [place] [phone] Ren Morse MD [facility] [address] [place], [place] [phone] 07/19/2024 7:00 AM ANALYTICAL CLERK Office Visit [facility] Group Family & Internal Medicine - [address] [place] [address] Meet Ang DO [address] [place] [address] documented as of this encounter Visit Diagnoses Not on filedocumented in this encounter Additional Health Concerns Assessment Noted Time PHQ-9 Depression Total Score: 14 024 7:44 AM CDT documented as of this encounter Care Teams Big Data Hadoop Developer Relationship Specialty Start Date End Date Meet Ang DO [address] [place] [address] PCP - General FAMILY PRACTICE 08/16/18 Paresh Gray MD Three [address] [address] EP Control Room Technician CLINICAL CARDIAC ELECTROPHYSIOLOGY 03/03/19 documented as of this encounter
--- OUTSIDE RECORDS SUMMARY | 2024-05-11 21:13 | XMS_ITS | Encounter Summary ---
Author Organization [facility] Address [address] [facility] [place] [address] Care Team Providers Care Instrumental Teacher Name Role Phone Meet Ang DO Primary Care Provider + Encounter Details Date Type Department Care Team (Latest Contact Info) Description 03/21/2024 Travel Social History Tobacco Use Types Packs/Day Years Used Date Smoking Tobacco: Former Cigarettes Smokeless Tobacco: Never Sex and Gender Information Value Date Recorded Sex Assigned at Not on file Gender Identity Not on file Sexual Orientation Not on file documented as of this encounter Plan of Treatment Upcoming Encounters Date Type Department Care Team (Late st Contact Info) Description 07/27/2024 1:30 PM COOK SEAFOOD Office Visit [facility] - Dermatology [address] [place] [address], [place] [phone] Kayva Ryan MD [address] [place] [address] [address] [place] [phone] documented as of this encounter Visit Diagnoses Not on filedocumented in this encounter Care Teams Instrumental Teacher Relationship Specialty Start Date End Date Meet Ang DO PCP - General 01/27/19 documented as of this encounter
--- OUTSIDE RECORDS SUMMARY | 2024-05-11 21:13 | XMS_ITS | Encounter Summary ---
Author Organization [facility] Address [address] [facility] [place] [address] Care Team Providers Care Reinforcing Steel Worker Wire Mesh Name Role Phone Meet Ang Primary Care Provider + Reason for Visit * Reason Onset Date Comments Reschedule Appointment 03/13/2024 Encounter Details Date Type Department Care Team (Late st Contact Info) Description 03/13/2024 Telephone [facility] - Centralized Scheduling [address] [place] [address] Kavya Ryan MD [address] [facility] 3 [place] [address] Reschedule Appointment Social History Tobacco Use Types Packs/Day Years Used Date Smoking Tobacco: Former Cigarettes Smokeless Tobacco: Never Sex and Gender Information Value Date Recorded Sex Assigned at Not on file Gender Identity Not on file Sexual Orientation Not on file documented as of this encounter Miscellaneous Notes * Telephone Encounter - Chrissy Landaverde - 03/14/2024 8:04 AM CDT Left msg to alt vm * Telephone Encounter - Chrissy Landaverde - 03/13/2024 8:11 AM CDT Please reschedule to the next available. 03/10 sent msg to [place]. ms 03/13 left msg to . ms documented in this encounter Plan of Treatment Upcoming Encounters Date Type Department Care Team (Late st Contact Info) Description 07/27/2024 1:30 PM NETWORK SERVICES PROJECT MANAGER Office Visit [facility] - [facility], [place] [address] Kavya Ryan MD [facility] 3 [place] [address] documented as of this encounter Visit Diagnoses Not on filedocumented in this encounter Care Teams Reinforcing Steel Worker Wire Mesh Relationship Specialty Start Date End Date Meet Ang DO PCP - General 01/27/19 documented as of this encounter
--- OUTSIDE RECORDS SUMMARY | 2024-05-11 21:13 | XMS_ITS | Encounter Summary ---
Author Organization [facility] Address [address] [place] [address]. [place], [place] [address] [place] [address] Care Team Providers Care Head Of Housekeeping Name Role Phone Meet Ang DO Primary Care Provider + Paresh Gray MD Unavailable Encounter Details Date Type Department Care Team (Latest Contact Info) Description 09/02/2023 Travel Social History Tobacco Use Types Packs/Day [...] on file Legal Sex Male 2:37 PM SPINDLE MAKER Gender Identity Male 05/16/2021 9:25 AM SPINDLE MAKER Sexual Orientation Straight 05/16/2021 9: 25 AM SPINDLE MAKER documented as of this encounter Plan of Treatment Upcoming Encounters Date Type Department Care Team (Late st Contact Info) Description 06/19/2024 8:45 AM SPINDLE MAKER [facility] [address] [phone] Ren Morse MD Three [facility] [address] [place] [address] 07/19/2024 7:00 AM SPINDLE MAKER Office Visit [facility] Family & Internal Medicine - [address] [address] Meet Ang DO [address] [place] [address] documented as of this encounter Visit Diagnoses Not on filedocumented in this encounter Additional Health Concerns Assessment Noted Time PHQ-9 Depression Total Score: 14 024 7:44 AM CDT documented as of this encounter Care Teams Head Of Housekeeping Relationship Specialty Start Date End Date Meet Ang DO [address] [place] [address] PCP - General FAMILY PRACTICE 08/16/18 Paresh Gray MD Three [facility]. [place] [address] [place] [address] EP [facility] Dean CLINICAL CARDIAC ELECTROPHYSIOLOGY 03/03/19 documented as of this encounter
--- OUTSIDE RECORDS SUMMARY | 2024-05-11 21:13 | XMS_ITS | Encounter Summary ---
Author Organization [facility] Address [address] [place] [address]. [place], [place] [address] [place] [address] Care Team Providers Care Service Delivery Manager Name Role Phone Miranda Villafana DO Primary Care Provider + Paresh Gray MD Unavailable Reason for Visit * Reason Onset Date Comments Refill Request 10/26/2023 Ventolin inhaler Encounter Details Date Type Department Care Team (Late st Contact Info) Description 10/26/2023 Telephone [facility] Group Family & Internal Medicine [facility] [address] [place] [address] Miranda Villafana DO [address] [place], [place] [phone] Refill Request (Ventolin inhaler) Social History Tobacco Use Types Packs/Day Years [...] on file Legal Sex Male 2:37 PM MILL WASHER Gender Identity Male 05/16/2021 9:25 AM MILL WASHER Sexual Orientation Straight 05/16/2021 9: 25 AM MILL WASHER documented as of this encounter Progress Notes * Javan Frazier MA - 10/29/2023 10:55 AM CDTAddended by: JAVAN FRAZIER on: 10/29/2023 10:55 AM Modules accepted: Orders * Javan Frazier MA - 10/29/2023 10:27 AM CDT 10/29/23: Called patient to see if was able to get his Ventolin Inhaler. Patient stated has not been able to get his inhaler. Was out of stock in [facility] [facility] in [facility] and then sent to Rx to in [place] and was denied. Patient told will call insurance to f/u on status of PA. Called [facility] and was informed will cover generic -Albuterol Sulfate. Patient informed and resubmitted rx for generic to pharmacy. Patient v/u la,rma * Javan Frazier MA - 10/26/2023 7:58 AM CDT Refill request received from Patient- Prescription for requested refill Approved Last appointment: rec f/u 3 months Follow up appointment scheduled: Yes Last visit with MIRANDA VILLAFANA in FAMILY PRACTICE was on: 10/11/2023 in [facility] Future Appointments Date Time Provider Department Center 01/12/2024 7:40 AM Miranda Villafana DO [facility] 06/19/2024 8:45 AM Ren [facility] documented in this encounter Plan of Treatment Upcoming Encounters Date Type Department Care Team (Late st Contact Info) Description 06/19/2024 8:45 AM MILL WASHER [facility] [place] [address] [place] [address] Ren Morse MD Three [facility] [address] [place] [address] 07/19/2024 7:00 AM MILL WASHER Office Visit [facility] Group Family & Internal Medicine - [address] [address] Miranda Villafana DO [address] [place] [address] documented as of this encounter Visit Diagnoses Diagnosis Mild intermittent asthma without complication (HHS/HCC) Unspecified asthma documented in this encounter Additional Health Concerns Assessment Noted Time PHQ-9 Depression Total Score: 14 024 7:44 AM CDT documented as of this encounter Care Teams Service Delivery Manager Relationship Specialty Start Date End Date Miranda Villafana DO [address] [place] [address] PCP - General FAMILY PRACTICE 08/16/18 Paresh Gray MD Three [facility]. [place] [address] [place] [address] EP Prosthetic Lab Technician CLINICAL CARDIAC ELECTROPHYSIOLOGY 03/03/19 documented as of this encounter
--- OUTSIDE RECORDS SUMMARY | 2024-05-11 21:13 | XMS_ITS | Encounter Summary ---
Author Organization [facility] Address [address] [facility] [place] [address] Care Team Providers Care Utility Worker Name Role Phone Meet Ang DO Primary Care Provider + Encounter Details Date Type Department Care Team (Latest Contact Info) Description 12/03/2023 Travel Social History Tobacco Use Types Packs/Day Years Used Date Smoking Tobacco: Former Cigarettes Smokeless Tobacco: Never Sex and Gender Information Value Date Recorded Sex Assigned at Not on file Gender Identity Not on file Sexual Orientation Not on file documented as of this encounter Plan of Treatment Upcoming Encounters Date Type Department Care Team (Late st Contact Info) Description 07/27/2024 1:30 PM CNC OPERATOR MACHINIST Office Visit [facility] - Dermatology [address] [place] [address], [place] [phone] Kavya Ryan MD [address] [place] [address] [address] [place] [phone] documented as of this encounter Visit Diagnoses Not on filedocumented in this encounter Care Teams Utility Worker Relationship Specialty Start Date End Date Meet Ang DO PCP - General 01/27/19 documented as of this encounter
--- OUTSIDE RECORDS SUMMARY | 2024-05-11 21:13 | XMS_ITS | Encounter Summary ---
Author Organization [facility] Address [address] [place] [address]. [place] [address] [place] [address] Care Team Providers Care Development Editor Name Role Phone Meet Ang Primary Care Provider + Paresh Gray MD Unavailable Reason for Visit * Reason Comments Abdominal Pain Encounter Details Date Type Department Care Team (Late st Contact Info) Description 09/23/2023 7:11 AM CDT - 09/23/2023 9:39 AM CDT Emergency [facility] Emergency Room [place], [place] [id number] Maday Cerda PA [address] [place], [place] [id number] Abdominal Pain Discharge Disposition: Home or Self Care (Routine Discharge) Social History Tobacco Use Types Packs/Day Years [...] on file Legal Sex Male 2:37 PM WAREHOUSE RECEIVER Gender Identity Male 05/16/2021 9:25 AM WAREHOUSE RECEIVER Sexual Orientation Straight 05/16/2021 9: 25 AM WAREHOUSE RECEIVER documented as of this encounter Last Filed Vital Signs Vital Sign Reading Time Taken Comments Blood Pressure 153/91 09/23/2023 9:25 AM CDT Pulse 85 09/23/2023 9:25 AM CDT Temperature 36.3 ??C (97.3 ??F) 09/23/2023 6:52 AM CD T Respiratory Rate 18 09/23/2023 9:25 AM CDT Oxygen Saturation 100% 09/23/2023 9:25 AM CDT Inhaled Oxygen Concentration - - Weight 149 kg (328 lb 7.8 oz) 09/23/2023 6:52 AM CDT Height 185.4 cm (6' 1 ) 09/23/2023 6:52 AM CDT Body Mass Index 43.34 09/23/2023 6:52 AM CDT documented in this encounter Discharge Instructions * Discharge Instructions* IRENE Titus - 09/23/2023 9:27 AM CDT can eat a bland diet for the next few days (toast, applesauce, broth, rice, etc) as well as continue clear liquids. 3. Avoid meats and veggies for the next few days as these foods will irritate your stomach lining and digestive tract and possibly prolonging your illness. Also avoid dairy and citrus juices as well as greasy and spicy foods. 4. Good food options include bland soups, broth, jello, pudding, crackers, toast, bananas, pasta (without meat, and mild sauce). 6. You may also want to consider starting a probiotic such as lactobacillus acidophilus, saccharomyces boulardii. Capsules work better than gummy version. 7. Please return to the ER if symptoms worsen or changes. Take meds as directed * Attachments The following attachments cannot be sent through Care Everywhere. * Abdominal pain ([place]) documented in this encounter Medications at Time of Discharge atenolol (TENORMIN) 25 MG tablet Take 1 tablet (25 mg total) by mouth daily. 90 tablet 3 06/17/2023 5 clobetasol (TEMOVATE) 0.05 % external solution Apply scalp once to twice day. 30 days supply. Reasons: Skin Disease Successfully Treated with Steroid Therapy 10/01/2022 triamcinolone (KENALOG) 0.025 % ointment Apply to ear twice daily as needed psoriasis. 30 days supply. Reasons: Psoriasis 10/01/2022 ARIPiprazole (ABILIFY) 5 MG tabletIndications :Depression, unspecified depression type,Anxiety,Agor aphobia Take 1 tablet (5 mg total) by mouth daily. 30 tablet 2 07/06/2023 4 dicyclomine (BENTYL) 20 MG tablet Take 1 tablet (20 mg total) by mouth every 6 (six) hours as needed (pain/cramping). 30 tablet 09/23/2023 4 famotidine (PEPCID) 20 MG tablet Take 1 tablet (20 mg total) by mouth daily. 30 tablet 09/23/2023 4 ketoconazole (NIZORAL) 2 % shampoo Apply to wet hair, face and trunk, leave on for 3 minutes, then rinse; three times weekly. 30 days supply 10/01/2022 4 VENTOLIN HFA 108 (90 Base) MCG/ACT inhalerIndication s:Asthma (HHS/[facility]) INHALE 1 PUFF INTO THE LUNGS EVERY 4 HOURS NEEDED FOR WHEEZING 18 g 2 05/26/2022 4 documented as of this encounter ED Notes * Gaby Acosta RN - 09/23/2023 9:39 AM CDT Provider discussed today's findings with the patient/family. The patient has been given informationregarding their treatment, follow up and concerning symptoms for which they should seek urgent or emergent attention. I have expressed the the importance of seeking attention should there be any new,or worsening symptoms or persistence of their condition. Patient verbalized understanding of the discharge instructions. * Maday CerdaIRENE - 09/23/2023 9:26 AM CDT [place], [place] EMERGENCY DEPARTMENT ENCOUNTER HISTORICAL INFORMATION Primary Care Doctor: Meet Ang DO Patient information was obtained primarily from the patient, nursing notes History/Exam limitations: None Provider at Bedside Date/Time Event User Comments 09/23/23 0921 Provider at Bedside Assessing Patient MADAY CERDA -- CHIEF COMPLAINT Abdominal Pain HPI Maday Tovar is a 33-year-old male who presents with RUQ ab pain x 1 week but getting worse. Ptstates pain is mostly after eating. Pt does have hx of IBS. No f/c/s. +nausea, no vomiting. PAST MEDICAL HISTORY Past Medical History: Diagnosis Date Agoraphobia Anxiety Asthma (HHS/HCC) Depression GERD (gastroesophageal reflux disease) IBS (irritable bowel syndrome) KIMMY (obstructive sleep apnea) Negative unless otherwise noted SURGICAL HISTORY Past Surgical History: Procedure Laterality Date NONE Negative unless otherwise noted CURRENT MEDICATIONS No current facility-administered medications for this encounter. Current Outpatient Medications: ARIPiprazole (ABILIFY) 5 MG tablet, Take 1 tablet (5 mg total) by mouth daily., Disp: 30 tablet, Rfl: 2 atenolol (TENORMIN) 25 MG tablet, Take 1 tablet (25 mg total) by mouth daily., Disp: 90 tablet, Rfl: 3 clobetasol (TEMOVATE) 0.05 % external solution, Apply scalp once to twice day. 30 days supply. Reasons: Skin Disease Successfully Treated with Steroid Therapy, Disp: , Rfl: ketoconazole (NIZORAL) 2 % shampoo, Apply to wet hair, face and trunk, leave on for 3 minutes, thenrinse; three times weekly. 30 days supply, Disp: , Rfl: triamcinolone (KENALOG) 0.025 % ointment, Apply to ear twice daily as needed psoriasis. 30 days supply. Reasons: Psoriasis, Disp: , Rfl: VENTOLIN HFA 108 (90 Base) MCG/ACT inhaler, INHALE 1 PUFF INTO THE LUNGS EVERY 4 HOURS NEEDED FOR WHEEZING, Disp: 18 g, Rfl: 2 ALLERGIES Allergies Allergen Reactions Bee Venom Swelling FAMILY HISTORY Family History Problem Relation Name Age of Onset Hypertension Mother Libby Hemmer Depression Mother Libby Hemmer Heart Disease Mother Libby Hemmer Anxiety Mother Libby Hemmer Hyperlipidemia Mother Libby Hemmer Diabetes Mother Libby Hemmer Mental Health Mother Libby Hemmer Hypertension Father Gonzalo Tovar Depression Father Gonzalo Tovar Heart Disease Father Gonzalo Tovar Hyperlipidemia Father Gonzalo Tovar Asthma Father Gonzalo Tovar Only when sick, allergic to cats. Open [...] from heart attack. Psoriasis Paternal Grandmother Malia Tovar Heart Attack Paternal Grandmother Malia Tovar Depression Paternal Grandmother Malia Tovar Mental Health Paternal Grandmother Malia Tovar Open Heart Paternal Grandfather Nikunj Tovar Hypertension Paternal Grandfather Nikunj Tovar Cancer Paternal Grandfather Nikunj Tovar Colon Cancer removed tumor, cancer free. Heart Disease Paternal Grandfather Nikunj Tovar Had multiple valve replacements Valve Disease Paternal Grandfather Nikunj Tovar Other (CABG) Paternal Grandfather Nikunj Tovar Alcohol Abuse Paternal Uncle Nii Cancer Paternal Uncle Nii mouth Negative unless otherwise noted SOCIAL HISTORY Social History Socioeconomic History Marital status: Single Number of children: 0 Tobacco Use Smoking status: Former Current packs/day: [...] Partners: Female control/protection: Condom Other Topics Concern Caffeine Concern Yes Sleep Concern Yes Comment: KIMMY Special Diet No Exercise No Negative unless otherwise noted REVIEW OF SYSTEMS See HPI. All other systems reviewed and negative PHYSICAL EXAM VITAL SIGNS: Filed Vitals: 09/23/23 0652 09/23/23 0701 09/23/23 0925 BP: (!) 170/102 (!) 142/86 (!) 153/91 Pulse: 85 85 Resp: 18 18 Temp: 97.3 ??F (36.3 ??C) TempSrc: Temporal SpO2: 98% 100% Weight: (!) 149 kg (328 lb 7.8 oz) Height: 1.854 m (6' 1 ) Constitutional: Well developed, Well nourished, No acute distress, Non-toxic appearance. HENT: Normocephalic, Atraumatic, Bilateral external ears normal, Oropharynx moist, Eyes: PERRL, EOMI, Conjunctiva normal, No discharge. Neck- Normal range of motion, No tenderness, Supple, No stridor. Respiratory: Normal breath sounds, No respiratory distress. Cardiovascular: Normal heart rate, Normal rhythm, no chest wall tenderness GI: nd Musculoskeletal: Intact distal pulses, No edema, No tenderness, No cyanosis, No clubbing. Good range of motion in all major joints. No tenderness to palpation or major deformities noted. Back- No tenderness. Integument: Warm, Dry, No erythema, No rash. Lymphatic: No lymphadenopathy noted. Neurologic: Alert & oriented x 3, Psychiatric: Affect normal, Judgment normal, Mood normal. Pertinent Labs: Results for orders placed or performed during the hospital encounter of 09/23/23 CBC W/DIFF AUTOMATED Result Value Ref Range WBC 6.89 4.5 - 11.0 x10'3/uL RBC 4.97 4.70 - 6.10 x10'6/uL HGB 14.8 14.0 - 18.0 G/DL HCT 43.3 43.0 - 54.0 % MCV 87.1 80.0 - 94.0 FL MCH 29.8 27.0 - 31.0 PG MCHC 34.2 32.0 - 36.0 G/DL RDW 12.0 11.5 - 14.5 % PLT 242 130 - 400 x10'3/uL MPV 11.3 9.3 - 12.2 FL DIFFERENTIAL TYPE AUTOMATED DIFFERENTIAL NEUTROPHILS 59.5 % LYMPHOCYTES 28.7 % MONOCYTES 8.7 % EOSINOPHILS 2.2 % BASOPHILS 0.6 % IMMATURE GRANS 0.3 % ABS. NEUTROPHILS 4.10 1.80 - 7.70 x10'3/uL ABS. LYMPHOCYTES 1.98 1.00 - 4.80 x10'3/uL ABS. MONOCYTES 0.60 0.30 - 0.82 x10'3/uL ABS. EOSINOPHILS 0.15 0.04 - 0.54 x10'3/uL ABS. BASOPHILS 0.04 0.01 - 0.08 x10'3/uL ABS. IMMATURE GRANULOCYTES 0.02 0.00 - 0.49 x10'3/uL COMPREHENSIVE METABOLIC PANEL Result Value Ref Range GLUCOSE 93 70 - 99 MG/DL BUN 9 7 - 18 MG/DL CREATININE S/P/B 0.88 0.7 - 1.3 MG/DL SODIUM S/P/B 140 136 - 145 MMOL/L POTASSIUM S/P/B 3.5 3.5 - 5.1 MMOL/L CHLORIDE S/P/B 110 (H) 100 - 108 MMOL/L CO2 24.3 21 - 32 MMOL/L CALCIUM S/P/B 9.1 8.5 - 10.1 MG/DL BILIRUBIN TOTAL S/P/B 2.3 (H) 0.2 - 1.2 MG/DL TOTAL PROTEIN S/P/B 7.6 6.4 - 8.2 G/DL ALBUMIN S/P/B 3.8 3.4 - 5.0 G/DL AST 26 15 - 37 U/L ALT 40 16 - 60 U/L ALKALINE PHOSPHATASE S/P/B 63 50 - 136 U/L ANION GAP 5.7 5 - 15 MMOL/L BUN CREATININE RATIO 10.2 6 - 26 A/G RATIO 1.0 1.0 - 2.0 RATIO GFR ESTIMATE >90 >90 ML/MIN/1.73 M2 LIPASE Result Value Ref Range LIPASE 33 13 - 75 UNITS/L URINALYSIS, AUTO, COMPLETE Result Value Ref Range Specimen Type URINE CLEAN CATCH COLOR (U) YELLOW TRANSPARENCY CLEAR SPECIFIC GRAVITY (U) 1.036 (H) 1.001 - 1.030 U PH 6.0 5.0 - 9.0 LEUKOCYTES (U) NEGATIVE NEGATIVE NITRITES NEGATIVE NEGATIVE PROTEIN RANDOM (U) 30 (H) <30 MG/DL GLUCOSE (U) NORMAL NORMAL MG/DL KETONES (U) NEGATIVE NEGATIVE MG/DL UROBILINOGEN NORMAL NORMAL MG/DL BILIRUBIN (U) NEGATIVE NEGATIVE MG/DL BLOOD (U) NEGATIVE NEGATIVE CULTURE & SENSITIVITY INDICATED? CULTURE IS NOT INDICATED MUCUS MODERATE /LPF WBC/HPF 5 <6 /HPF RBC/HPF 6 (H) <6 /HPF SQUAMOUS EPITHELIALS RARE /HPF RADIOLOGY No orders to display MEDS GIVEN IN ER: Medications - No data to display ED COURSE & MEDICAL DECISION MAKING Pertinent Labs & Imaging studies reviewed. (See chart for details) Pt presents with what sounds like dyspepsia. Pt here looks well with no ab pain on exam. No jaundice or scler icterus. Afebriel and nontoxic. Bilirubin mildly elevated (has been mildly elevated in past reviewing labs). Will Rx pepcid and Rx of prn bentyl. Pt has fu appointment with PCP in a few weeks with labs - discussed making sure pt's bili normalizes. ? Disposition Discussion: I have discussed today's findings with the patient and provided information regarding the likely diagnosis. The patient has been given information regarding their treatment, follow up and concerning symptoms for which they should seek urgent or emergent attention. I have expressed the the importance of seeking attention should there be any new, or worsening symptoms or persistence of their condition. The patient is stable at discharge and has verbalized understanding of these instructions. DATE: 09/23/2023 9:26 AM PATIENT: Maday Tovar Discharge Clinical Impressions: dyspepsia Elevated bilirubin Discharge Condition: stable Discharge Disposition: Patient discharge to home with I spent time answering the patient's questions. Discharge instructions using teach back, understanding assessed and validated. Please refer to the exit casualty underwriter discharge instructions for details surrounding the discharge plan. I did reiterate with the patient that if an urgent need for immediate follow up comes up, not to hesitate to return to the ED. IRENE Titus PA 09/23/23 1215 Cosigned by Elda Cheng MD at 09/24/2023 9:31 AM CDT * Annia Luna RN - 09/23/2023 6:58 AM CDT Pt ambulatory to triage c/o LUQ abdominal pain and nausea x1 week. Denies bowel or urinary changes.Taking tylenol and gas x at home with no relief. Aox4. VS Stable. No distress noted. documented in this encounter Plan of Treatment Upcoming Encounters Date Type Department Care Team (Late st Contact Info) Description 06/19/2024 8:45 AM WAREHOUSE RECEIVER Office Visit [facility] [address] [place] [address] Ren Morse MD Three [facility] [address] [place], [place] [address] 07/19/2024 7:00 AM WAREHOUSE RECEIVER Office Visit [facility] Family & Internal Medicine - [address] [phone] Meet Ang DO [address] [place] [address] documented as of this encounter Procedures Procedure Name Priority Date/Time Associated Diagnosis Comments ECG 12-LEAD STAT 09/23/2023 7:42 AM CDT URINALYSIS, AUTO, COMPLETE STAT 09/23/2023 7:25 AM CDT COMPREHENSIVE METABOLIC PANEL STAT 09/23/2023 7:25 AM CDT CBC W/DIFF AUTOMATED STAT 09/23/2023 7:25 AM CDT LIPASE STAT 09/23/2023 7:25 AM CDT documented in this encounter Results * ECG 12 lead (09/23/2023 7:42 AM CDT) 09/23/2023 7:42 AM CDT Narrative [facility] - 09/23/2023 8:40 AM CDT ?[facility] ? [address], [place] ? Test Date: ?2023-09-23 Pat Name: ? MADAY MCBRIDEVILLET ? Department: ?? 41 ? Room: ? INPR Gender: ? Male ? Legal Paraprofessional: ?? : ?1990 ? Requested By: ELDA CHENG Order Number: [id number] ? Reading MD: ?? Mikey John ? Measurements Intervals ?Tilly ? Rate: ? 81 ? P: ?41 MI: ? 163 ?QRS: ?20 QRSD: ? 101 ?T: ?42 QT: ? 359 ? QTc: ?419 ? Interpretive Statements SINUS RHYTHM Compared to ECG 02/05/2023 21:56:24 No significant changes Procedure Note Mikey John MD - 09/23/[address] Test Date: 2023-09-23 Pat Name: MADAY TOVAR Department: 41 Room: [facility] Gender: Male Legal Paraprofessional: : 1990 Requested By: ELDA CHENG Order Number: [id number] Reading MD: Mikey John Measurements Intervals Tilly Rate: 81 P: 41 MI: 163 QRS: 20 QRSD: 101 T: 42 QT: 359 QTc: 419 Interpretive Statements SINUS RHYTHM Compared to ECG 02/05/2023 21:56:24 No significant changes us Maday BONILLA ECG ORDERABLES Final Resu lt [facility] RAD * (ABNORMAL) URINALYSIS, AUTO, COMPLETE (09/23/2023 7:25 AM CDT) SPECIMEN TYPE URINE CLEAN CATCH 09/23/2023 7:29 AM CDT [facility] COLOR (U) YELLOW 09/23/2023 8:11 AM T [facility] TRANSPARENCY CLEAR 09/23/2023 8:11 AM T [facility] SPECIFIC GRAVITY (U) 1.036(H) 1.001 - 1.030 09/23/2023 8:11 AM [facility] U PH 6.0 5.0 - 9.0 09/23/2023 8:11 AM T [facility] LEUKOCYTES (U) NEGATIVE NEGATIVE 09/23/2023 8:11 AM T [facility] NITRITES NEGATIVE NEGATIVE 09/23/2023 8:11 AM [facility] PROTEIN RANDOM (U) 30(H) <30 MG/DL 09/23/2023 8:11 AM [facility] GLUCOSE (U) NORMAL NORMAL MG/DL 09/23/2023 8:11 AM T [facility] KETONES MG/DL (U) NEGATIVE NEGATIVE MG/DL 09/23/2023 8:11 AM [facility] UROBILINOGEN NORMAL NORMAL MG/DL 09/23/2023 8:11 AM T [facility] BILIRUBIN (U) NEGATIVE NEGATIVE MG/DL 09/23/2023 8:11 AM T [facility] BLOOD (U) NEGATIVE NEGATIVE 09/23/2023 8:11 AM T [facility] CULTURE & SENSITIVITY INDICATED? CULTURE IS NOT INDICATED 09/23/2023 8:11 AM T [facility] MUCUS MODERATE /LPF 09/23/2023 8:11 AM [facility] WBC/HPF 5 <6 /HPF 09/23/2023 8:11 AM [facility] RBC/HPF 6(H) <6 /HPF 09/23/2023 8:11 AM CDT [facility] SQUAMOUS EPITHELIALS RARE /HPF 09/23/2023 8:11 AM CDT [facility] URINE SPECIMEN OBTAINED BY CLEAN CATCH PROCEDURE / Unknown 09/23/2023 7:25 AM CDT Maday BONILLA URINE ORDERABLES Final Res ult [facility] [address] [place] [address], [place] [phone] * LIPASE (09/23/2023 7:25 AM CDT) LIPASE 33 13 - 75 UNITS/L 09/23/2023 8:08 AM CDT [facility] 09/23/2023 7:25 AM CDT us Maday BONILLA LABORATORY Final Resu lt [facility] [address] [place] [address], [place] [phone] * (ABNORMAL) COMPREHENSIVE METABOLIC PANEL (09/23/2023 7:25 AM CDT) GLUCOSE 93 70 - 99 MG/DL 09/23/2023 8:08 AM CDT [facility] BUN 9 7 - 18 MG/DL 09/23/2023 8:08 AM CDT [facility] CREATININE S/P/B 0.88 0.7 - 1.3 MG/DL 09/23/2023 8:08 AM CDT [facility] SODIUM S/P/B 140 136 - 145 MMOL/L 09/23/2023 8:08 AM CDT [facility] POTASSIUM S/P/B 3.5 3.5 - 5.1 MMOL/L 09/23/2023 8:08 AM T [facility] CHLORIDE S/P/B 110(H) 100 - 108 MMOL/L 09/23/2023 8:08 AM T [facility] CO2 24.3 21 - 32 MMOL/L 09/23/2023 8:08 AM T [facility] CALCIUM S/P/B 9.1 8.5 - 10.1 MG/DL 09/23/2023 8:08 AM T [facility] BILIRUBIN TOTAL S/P/B 2.3(H) 0.2 - 1.2 MG/DL 09/23/2023 8:08 AM T [facility] Comment: THIS ASSAY IS NOT RECOMMENDED FOR PATIENTS UNDERGOING TREATMENT WITH ELTROMBOPAG DUE TO THE POTENTIAL FOR FALSELY ELEVATED RESULTS. TOTAL PROTEIN S/P/B 7.6 6.4 - 8.2 G/DL 09/23/2023 8:08 AM T [facility] ALBUMIN S/P/B 3.8 3.4 - 5.0 G/DL 09/23/2023 8:08 AM T [facility] AST 26 15 - 37 U/L 09/23/2023 8:08 AM T [facility] ALT 40 16 - 60 U/L 09/23/2023 8:08 AM T [facility] ALKALINE PHOSPHATASE S/P/B 63 50 - 136 U/L 09/23/2023 8:08 AM T [facility] ANION GAP 5.7 5 - 15 MMOL/L 09/23/2023 8:08 AM T [facility] BUN CREATININE RATIO 10.2 6 - 26 09/23/2023 8:08 AM T [facility] A/G RATIO 1.0 1.0 - 2.0 RATIO 09/23/2023 8:08 AM CDT [facility] GFR ESTIMATE >90 >90 ML/MIN/1.7 3 M2 09/23/2023 8:08 AM CDT [facility] Comment: NOTE: eGFR is not calculated for patients <18 years of age. This is an estimated GFR calculation using the new CKD EPI creatinine equation without race and so does not require a correction factor for race. This estimated GFR should not be used for calculating drug doses. 09/23/2023 7:25 AM CDT us Maday BONILLA LABORATORY Final Resu lt [facility] [address] [place] [address], [place] [phone] * CBC W/DIFF AUTOMATED (09/23/2023 7:25 AM CDT) WBC 6.89 4.5 - 11.0 x10'3/uL 09/23/2023 7:48 AM CDT [facility] RBC 4.97 4.70 - 6.10 x10'6/uL 09/23/2023 7:48 AM CDT [facility] HGB 14.8 14.0 - 18.0 G/DL 09/23/2023 7:48 AM CDT [facility] HCT 43.3 43.0 - 54.0 % 09/23/2023 7:48 AM CDT [facility] MCV 87.1 80.0 - 94.0 FL 09/23/2023 7:48 AM CDT [facility] MCH 29.8 27.0 - 31.0 PG 09/23/2023 7:48 AM CDT [facility] MCHC 34.2 32.0 - 36.0 G/DL 09/23/2023 7:48 AM CDT [facility] RDW 12.0 11.5 - 14.5 % 09/23/2023 7:48 AM CDT [facility] PLT 242 130 - 400 x10'3/uL 09/23/2023 7:48 AM CDT [facility] MPV 11.3 9.3 - 12.2 FL 09/23/2023 7:48 AM CDT [facility] DIFFERENTIAL TYPE AUTOMATED DIFFERENTIAL 09/23/2023 7:48 AM CDT [facility] NEUTROPHILS % 59.5 % 09/23/2023 7:48 AM CDT [facility] LYMPHOCYTES % 28.7 % 09/23/2023 7:48 AM CDT [facility] MONOCYTES % 8.7 % 09/23/2023 7:48 AM CDT [facility] EOSINOPHILS 2.2 % 09/23/2023 7:48 AM CDT [facility] BASOPHILS 0.6 % 09/23/2023 7:48 AM CDT [facility] IMMATURE GRANS % 0.3 % 09/23/19 7:48 AM CDT [facility] ABS. NEUTROPHILS 4.10 1.80 - 7.70 x10'3/uL 09/23/2023 7:48 AM CDT [facility] ABS. LYMPHOCYTES 1.98 1.00 - 4.80 x10'3/uL 09/23/2023 7:48 AM CDT [facility] ABS. MONOCYTES 0.60 0.30 - 0.82 x10'3/uL 09/23/2023 7:48 AM CDT [facility] ABS. EOSINOPHILS 0.15 0.04 - 0.54 x10'3/uL 09/23/2023 7:48 AM CDT [facility] ABS. BASOPHILS 0.04 0.01 - 0.08 x10'3/uL 09/23/2023 7:48 AM CDT [facility] ABS. IMMATURE GRANULOCYTES 0.02 0.00 - 0.49 x10'3/uL 09/23/2023 7:48 AM CDT [facility] 09/23/2023 7:25 AM CDT us Maday BONILLA LABORATORY Final Resu lt [facility] [address] [place] [address], documented in this encounter Visit Diagnoses Diagnosis Dyspepsia- Primary Dyspepsia and other specified disorders of function of stomach Elevated bilirubin Jaundice, unspecified, not of documented in this encounter Additional Health Concerns Assessment Noted Time PHQ-9 Depression Total Score: 14 024 7:44 AM CDT documented as of this encounter Care Teams Development Editor Relationship Specialty Start Date End Date Meet Ang DO [address] [place] [id number] PCP - General FAMILY PRACTICE 08/16/18 Paresh Gray MD [facility]. [address] [place] [address] EP Monitoring And Evaluation Advisor CLINICAL CARDIAC ELECTROPHYSIOLOGY 03/03/19 documented as of this encounter
--- OUTSIDE RECORDS SUMMARY | 2024-05-11 21:14 | XMS_ITS | Encounter Summary ---
Author Organization [facility] Address [address] [place] [address]. [place], [place] [address] [place] [address] Care Team Providers Care Mechanical Intern Name Role Phone Meet Ang DO Primary Care Provider + Paresh Gray MD Unavailable Encounter Details Date Type Department Care Team (Latest Contact Info) Description 04/09/2022 Scan HEALTH INFO SRVCS Scanned, Doc Med [...] on file 07/23 PHQ-2 Answer Date Recorded PHQ-2 Score - If the patient scores above 3, please move on to questions 3-9 2 11/19/2021 Sex and Gender Information Value Date Recorded Sex Assigned at Not on file Legal Sex Male 2:37 PM BIOCHEMISTRY PROFESSOR Gender Identity Male 05/16/2021 9:25 AM BIOCHEMISTRY PROFESSOR Sexual Orientation Straight 05/16/2021 9: 25 AM BIOCHEMISTRY PROFESSOR documented as of this encounter Plan of Treatment Upcoming Encounters Date Type Department Care Team (Late st Contact Info) Description 06/19/2024 8:45 AM BIOCHEMISTRY PROFESSOR Office Visit [facility], [place] [place] [address] Ren Morse MD Three [facility] [address] [place] [address] 07/19/2024 7:00 AM BIOCHEMISTRY PROFESSOR Office Visit [facility] Family & Internal Medicine - [address] [phone] Meet Ang DO [address] [place] [address] documented as of this encounter Visit Diagnoses Not on filedocumented in this encounter Additional Health Concerns Assessment Noted Time PHQ-9 Depression Total Score: 7 11/20/19 22 2:00 PM CDT documented as of this encounter Care Teams Mechanical Intern Relationship Specialty Start Date End Date Meet Ang DO [address] [place] [id number] PCP - General FAMILY PRACTICE 08/16/18 Paresh Gray MD [facility] [address] [place] [address] EP Wine Manager CLINICAL CARDIAC ELECTROPHYSIOLOGY 03/03/19 documented as of this encounter
--- OUTSIDE RECORDS SUMMARY | 2024-05-11 21:14 | XMS_ITS | Encounter Summary ---
Author Organization [facility] Address [address] [place] [address]. [place], [place] [address] [place] [address] Care Team Providers Care Emery Wheel Molder Name Role Phone Meet Ang DO Primary Care Provider + Paresh Gray MD Unavailable Encounter Details Date Type Department Care Team (Latest Contact Info) Description 11/19/2021 Travel Social History Tobacco Use Types Packs/Day [...] on file Legal Sex Male 2:37 PM MD SENIOR RESEARCH SCIENTIST Gender Identity Male 05/16/2021 9:25 AM MD SENIOR RESEARCH SCIENTIST Sexual Orientation Straight 05/16/2021 9: 25 AM MD SENIOR RESEARCH SCIENTIST COVID-19 Exposure Response Date Recorded In the last 10 days, have yo u been in contact with someone who was confirmed or suspected to have Coronavirus/COVID-19? No / Unsure 11/19/2021 1:35 PM CDT documented as of this encounter Plan of Treatment Upcoming Encounters Date Type Department Care Team (Late st Contact Info) Description 06/19/2024 8:45 AM MD SENIOR RESEARCH SCIENTIST Office [facility] [place] [address] [place] [address] Ren Morse MD [facility] [address] [place] [address] 07/19/2024 7:00 AM MD SENIOR RESEARCH SCIENTIST Office Visit [facility] Family & Internal Medicine - [place] [address] [place] [address] Meet Ang DO [address] [place] [address] documented as of this encounter Visit Diagnoses Not on filedocumented in this encounter Additional Health Concerns Assessment Noted Time PHQ-9 Depression Total Score: 7 11/20/19 22 2:00 PM CDT documented as of this encounter Care Teams Emery Wheel Molder Relationship Specialty Start Date End Date Meet Ang DO [address] [place] [address] PCP - General FAMILY PRACTICE 08/16/18 Paresh Gray MD Three [facility]. [facility] [address] [place] [address] EP Fisher Dip Net CLINICAL CARDIAC ELECTROPHYSIOLOGY 03/03/19 documented as of this encounter
--- OUTSIDE RECORDS SUMMARY | 2024-05-11 21:14 | XMS_ITS | Encounter Summary ---
Author Organization [facility] Address [address] [place] [address]. [place], [place] [address] [place] [address] Care Team Providers Care Biodiesel Division Manager Name Role Phone Meet Ang DO Primary Care Provider + Paresh Gray MD Unavailable Encounter Details Date Type Department Care Team (Latest Contact Info) Description 11/03/2021 Scan HEALTH INFO SRVCS Scanned, Documents Social History Tobacco Use Types Packs/Day Years [...] please move on to questions 3-9 2 07/12/2020 Sex and Gender Information Value Date Recorded Sex Assigned at Not on file Legal Sex Male 2:37 PM SHELTERED WORKSHOP EXECUTIVE DIRECTOR Gender Identity Male 05/16/2021 9:25 AM SHELTERED WORKSHOP EXECUTIVE DIRECTOR Sexual Orientation Straight 05/16/2021 9: 25 AM SHELTERED WORKSHOP EXECUTIVE DIRECTOR documented as of this encounter Plan of Treatment Upcoming Encounters Date Type Department Care Team (Late st Contact Info) Description 06/19/2024 8:45 AM SHELTERED WORKSHOP EXECUTIVE DIRECTOR [facility] [address] [place] [address] Ren Morse MD Three [facility] [address] [place] [address] 07/19/2024 7:00 AM SHELTERED WORKSHOP EXECUTIVE DIRECTOR Office Visit [facility] Family & Internal Medicine - [address] [phone] Meet Ang DO [address] [place] [address] documented as of this encounter Visit Diagnoses Not on filedocumented in this encounter Additional Health Concerns Assessment Noted Time PHQ-9 Depression Total Score: 13 021 10:25 AM SHELTERED WORKSHOP EXECUTIVE DIRECTOR documented as of this encounter Care Teams Biodiesel Division Manager Relationship Specialty Start Date End Date Meet Ang DO [address] [place] [address] PCP - General FAMILY PRACTICE 08/16/18 Paresh Gray MD Three [facility]. [facility] [address] [place] [address] EP Nurse Extern CLINICAL CARDIAC ELECTROPHYSIOLOGY 03/03/19 documented as of this encounter
--- OUTSIDE RECORDS SUMMARY | 2024-05-11 21:14 | XMS_ITS | Encounter Summary ---
Author Organization [facility] Address [address] [place] [address]. [place], [place] [phone] [place] [address] Care Team Providers Care Technical Services Analyst Name Role Phone Meet Ang DO Primary Care Provider + Paresh Gray MD Unavailable Reason for Visit * Reason Comments Cough Eye Problem Sinus Problem Eye issue has improv ed since stating on the CpapHas taken 2 at covid test both negative. Symptoms started 3 days ago Encounter Details Date Type Department Care Team (Late st Contact Info) Description 10/06/2022 1:40 PM CDT Office Visit [facility] Family & Internal Medicine [address] [phone] Meet Ang DO [address] [place] [address] [phone] Cough; Eye Problem; Sinus Problem (Eye issue has improved since stating on the Cpap/Has taken 2 at covid test both negative. Symptoms started 3 days ago) Social History Tobacco Use Types Packs/Day Years [...] Answer Date Recorded Patient Health Questionnaire-2 Score 2 05/28/2022 Sex and Gender Information Value Date Recorded Sex Assigned at Not on file Legal Sex Male 2:37 PM SCHOOL SUPERVISOR Gender Identity Male 05/16/2021 9:25 AM SCHOOL SUPERVISOR Sexual Orientation Straight 05/16/2021 9: 25 AM SCHOOL SUPERVISOR COVID-19 Exposure Response Date Recorded In the last 10 days, have yo u been in contact with someone who was confirmed or suspected to have Coronavirus/COVID-19? No / Unsure 10/06/2022 1:38 PM CDT documented as of this encounter Last Filed Vital Signs Vital Sign Reading Time Taken Comments Blood Pressure 128/72 10/06/2022 1:53 PM CDT Pulse 93 10/06/2022 1:53 PM CDT Temperature 36.3 ??C (97.4 ??F) 10/06/2022 1:53 PM CD T Respiratory Rate 18 10/06/2022 1:53 PM CDT Oxygen Saturation 97% 10/06/2022 1:53 PM CDT Inhaled Oxygen Concentration - - Weight 149.4 kg (329 lb 6.4 oz) 10/06/2022 1:53 PM CDT Height 185.4 cm (6' 1 ) 10/06/2022 1:53 PM CDT Body Mass Index 43.46 10/06/2022 1:53 PM CDT documented in this encounter Progress Notes * Meet Ang, - 10/06/2022 1:40 PM CDT Images from the original note were not included. GENERAL OFFICE VISIT Encounter Date: 10/06/2022 Chief Complaint: 32-year-old male presents for Cough, Eye Problem, and Sinus Problem (Eye issue has improved since stating on the Cpap/Has taken 2 at covid test both negative. Symptoms started 3 days ago) HPI: Patient states symptoms have been present for 3 days. Symptoms include rhinorrhea and cough and mild SOB which improved with albuterol Pertinent negatives include Fevers, Chills, and Myalgias. Patient has no sick contacts. OTC medications tried include none. Pt did have COVID in June. Pt is now on BIPAP for his KIMMY. He sees Jaspal Rmaos APRN. He notes he had an adjustment in his BIPAP and has had improved vision. Pt has psoriasis. Pt was started on clobetasol, ketoconazole, and triamcinolone for psoriasis, rosacea, tinea versicolor, and seborrheic dermatitis. He had negative rheumatological labs. Pt has palpitations and anxiety. He has seen Dr. Badillo in the past for this with cardiology as well as psychiatry. Pt is on atenolol which is working well for him. Review of Systems Constitutional: Negative for fever. Respiratory: See HPI Cardiovascular: See HPI Musculoskeletal: See HPI Skin: See HPI Psychiatric/Behavioral: See HPI Patient Active Problem List Diagnosis KIMMY (obstructive sleep apnea) IBS (irritable bowel syndrome) GERD (gastroesophageal reflux disease) Depression Asthma Anxiety Agoraphobia Tachycardia Elevated blood pressure reading Elevated troponin level not due myocardial infarction Palpitations Class 3 severe obesity with body mass index (BMI) of 40.0 to 44.9 in adult ([facility]) Psoriasis Past Medical History: Diagnosis Date Agoraphobia Anxiety Asthma Depression GERD (gastroesophageal reflux disease) IBS (irritable [...] [place] Only when sick, allergic to cats. Alcohol Abuse Paternal Uncle Cancer Paternal Uncle mouth Diabetes Maternal Grandmother Depression Maternal Grandmother Depression Maternal Grandfather Toy Hemmer Heart Attack Maternal Grandfather Toy Hemmer Alcohol Abuse Maternal Grandfather Toy Pickett from heart attack related to alcoholism. Heart Disease Maternal Grandfather Toy Hemtrang Passed from heart attack. Psoriasis Paternal Grandmother Malia Gavillet Heart Attack Paternal Grandmother Malia Gavillet Depression Paternal Grandmother Malia Gavillet Mental Health Paternal Grandmother Malia Gavillet Open Heart Brother Jaspal Mcmillan Diabetes Brother Jaspal Mcmillan Step brother related to mother. Other (Down syndrome) Brother Jaspal Mcmillan Open Heart Paternal Grandfather Nikunj Blackwood Hypertension Paternal Grandfather Nikunj Blackwood Cancer Paternal Grandfather Nikunj Blackwood Colon Cancer removed tumor, cancer free. Heart Disease Paternal Grandfather Nikunj Blackwood Had multiple valve replacements Social History Socioeconomic History Marital status: Single Spouse name: Not on file Number of children: 0 Years of education: Not on file Highest education level: Not on file Occupational History Not on file Tobacco Use Smoking status: Former Packs/day: 1.50 Years: 10.00 Pack years: 15.00 Types: Cigarettes, Cigars Quit date: 05/24/2014 Years since quittin.3 Smokeless [...] Hepatitis B 12/15/1999, 01/19/2000, 06/14/2000 Hib 11/21/1992 MMR 11/21/1992, 02/27/1993 Opv 1989, 01/19/1990, 11/21/1992, 12/17/1994 PFIZER COVID-19 (ORIGINAL FORMULATION, PURPLE CAP) mRNA, LNP-S, PF, 30 MCG/0.3 ML DOSE 07/30/2020, 08/20/2020, 05/28/2021 PFIZER COVID-19 BIVALENT (12+) mRNA, LNP-S, PF, 30 MCG/0.3 ML DOSE 02/16/2022 Pneumococcal (Prevnar 20) 11/19/2021 Tdap (Boostrix) 01/13/2019 Current Outpatient Medications Medication Sig Dispense Refill atenolol (TENORMIN) 25 MG tablet Take 1 tablet (25 mg total) by mouth daily. clobetasol (TEMOVATE) 0.05 % external solution Apply scalp once to twice day. 30 days supply. Reasons: Skin Disease Successfully Treated with Steroid Therapy clobetasol (TEMOVATE) 0.05 % ointment Apply to elbow twice daily. 30 days [...] VENTOLIN HFA 108 (90 Base) MCG/ACT inhaler INHALE 1 PUFF INTO THE LUNGS EVERY 4 HOURS NEEDED FORWHEEZING 18 g 2 No current facility-administered medications for this visit. Current Outpatient Medications on File Prior to Visit Medication Sig atenolol (TENORMIN) 25 MG tablet Take 1 tablet (25 mg total) by mouth daily. clobetasol (TEMOVATE) 0.05 % external solution Apply scalp once to twice day. 30 days supply. Reasons: Skin Disease Successfully Treated with Steroid Therapy clobetasol (TEMOVATE) 0.05 % ointment Apply to elbow twice daily. 30 days [...] VENTOLIN HFA 108 (90 Base) MCG/ACT inhaler INHALE 1 PUFF INTO THE LUNGS EVERY 4 HOURS NEEDED FORWHEEZING No current facility-administered medications on file prior to visit. Review of patient's allergies indicates: Allergen Reactions Bee Venom Swelling Objective: Filed Vitals: 10/06/22 1353 BP: 128/72 Pulse: 93 Resp: 18 Temp: 97.4 ??F (36.3 ??C) TempSrc: Skin SpO2: 97% Weight: (!) 149.4 kg (329 lb 6.4 oz) Height: 6' 1 (1.854 m) Physical Exam Vitals and nursing note reviewed. Constitutional: Comments: Obese, in no distress HENT: Head: Normocephalic and atraumatic. Right Ear: External ear normal. Left Ear: External ear normal. Eyes: Conjunctiva/sclera: Conjunctivae normal. Cardiovascular: Rate and Rhythm: Normal rate and regular rhythm. Heart sounds: Normal heart sounds. No murmur heard. No friction rub. No gallop. Pulmonary: Effort: Pulmonary effort is normal. No respiratory distress. Breath sounds: Normal breath sounds. No wheezing or rales. Abdominal: Palpations: Abdomen is soft. Tenderness: There is no abdominal tenderness. Musculoskeletal: Right lower leg: No edema. Left lower leg: No edema. Skin: Comments: Psoriasis noted on elbows, scalp, behind both ears, similar to previous Neurological: General: No focal deficit present. Mental Status: He is alert. Psychiatric: Mood and Affect: Mood normal. Office Visit on 10/06/2022 Component Date Value Ref Range Status CORONAVIRUS ANTIGEN IA 10/06/2022 NEGATIVE Final INFLUENZA A 10/06/2022 NEGATIVE Final INFLUENZA B 10/06/2022 NEGATIVE Final Internal Control: 10/06/2022 VALID Final Assessment & Plan: Alex was seen today for cough, eye problem and sinus problem. Diagnoses and all orders for this visit: Upper respiratory tract infection, unspecified type - CORONAVIRUS (COVID 19) PCR; Future - CORONAVIRUS (COVID-19) INFLUENZA A & B ANTIGEN IA PANEL Psoriasis Palpitations Mild intermittent asthma without complication KIMMY (obstructive sleep apnea) Anxiety Discussion/Summary: Can treat cough conservatively at this time; call back if not improving. Continue current treatmentfor all other conditions; stable. Will have pt f/u in 6 months or sooner if needed. Pt v/u. Meet Ang DO documented in this encounter Plan of Treatment Upcoming Encounters Date Type Department Care Team (Late st Contact Info) Description 06/19/2024 8:45 AM SCHOOL SUPERVISOR Office Visit [facility] [place] [address] [place] [address] Ren Morse MD Three [facility] [address] [place] [address] 07/19/2024 7:00 AM SCHOOL SUPERVISOR Office Visit [facility] Family & Internal Medicine [place] [address] [place] [phone] Meet Ang DO [address] [place] [address] documented as of this encounter Procedures Procedure Name Priority Date/Time Associated Diagnosis Comments CORONAVIRUS (COVID 19) PCR Routine 10/06/2022 2:11 PM CDT Upper respiratory tract infection, unspecified type CORONAVIRUS (COVID-19) INFLUENZA A & B ANTIGEN IA PANEL Routine 10/06/2022 Upper respiratory tract infection, unspecified type documented in this encounter Results * CORONAVIRUS (COVID 19) PCR (10/06/2022 2:11 PM CDT) SPEC DESCRIPTION NASAL 10/07/19 7:27 PM CDT [facility] CORONAVIRUS SARS COV 2 PCR (RESP) NEGATIVE NEGATIVE 10/07/2022 4:03 PM CDT [facility] Comment: THE SARS-CoV-2 TEST HAS BEEN AUTHORIZED BY THE FDA UNDER AN EUA FOR USE BY AUTHORIZED LABORATORIES. PERFORMED BY NUCLEIC ACID AMPLIFICATION PCR NASOPHARYNGEAL SWAB / Unknown 10/06/2022 2:11 PM CDT Meet Ang DO MICROBIOLOGY - GENERAL O RDERABLES Final Result [facility] [address] [phone] * CORONAVIRUS (COVID-19) INFLUENZA A & B ANTIGEN IA PANEL (10/06/2022) CORONAVIRUS ANTIGEN IA NEGATIVE [facility] INFLUENZA A NEGATIVE [facility] INFLUENZA B NEGATIVE [facility] Internal Control: VALID [facility] NASAL STRUCTURE / Unknown 10/06/2022 Meet Ang DO MICROBIOLOGY - GENERAL O RDERABLES Final Result Performing Organization Address [facility]/ZIP Co de Phone Number [facility] [address] [place] [address], documented in this encounter Visit Diagnoses Diagnosis Upper respiratory tract infection, unspecified type- Primary Psoriasis Other psoriasis Palpitations Mild intermittent asthma without complication (HHS/HCC) Unspecified asthma KIMMY (obstructive sleep apnea) Obstructive sleep apnea (adult) (pediatric) Anxiety Anxiety state, unspecified documented in this encounter Additional Health Concerns Infection Onset Date Last Indicated Resolved Time COVID-19 Rule Out 10/06/2022 10/06/2022 10/06/2022 2:27 PM CDT COVID-19 Rule Out 10/06/2022 10/06/2022 10/07/2022 4:03 PM CDT Assessment Noted Time PHQ-9 Depression Total Score: 7 11/20/19 22 2:00 PM CDT documented as of this encounter Care Teams Technical Services Analyst Relationship Specialty Start Date End Date Meet Ang DO [address] [place] [address] PCP - General FAMILY PRACTICE 08/16/18 Paresh Gray MD [place] [address] [place] [address] EP Steam Powerplant Supervisor CLINICAL CARDIAC ELECTROPHYSIOLOGY 03/03/19 documented as of this encounter
--- OUTSIDE RECORDS SUMMARY | 2024-05-11 21:14 | XMS_ITS | Encounter Summary ---
Author Organization [facility] Address [address] [place] [address]. [place], [place] [address] [place] [address] Care Team Providers Care Corporate Development Associate Name Role Phone Meet Ang DO Primary Care Provider + Paresh Gray MD Unavailable Encounter Details Date Type Department Care Team (Late Contact Info) Description 11/18/2022 MyChart Message Enc [facility] [address] [place], [place] [address] [place], [facility] Provider Air Quality Message Social History Tobacco Use Types Packs/Day Years [...] on file Legal Sex Male 2:37 PM RESEARCH ASSISTANT PROFESSOR Gender Identity Male 05/16/2021 9:25 AM RESEARCH ASSISTANT PROFESSOR Sexual Orientation Straight 05/16/2021 9: 25 AM RESEARCH ASSISTANT PROFESSOR documented as of this encounter Plan of Treatment Upcoming Encounters Date Type Department Care Team (Late st Contact Info) Description 06/19/2024 8:45 AM RESEARCH ASSISTANT PROFESSOR Office Visit [facility] THREE [facility] [place] [address] [place] [address] Ren Morse MD Three [facility] [address] [place] [address] 07/19/2024 7:00 AM RESEARCH ASSISTANT PROFESSOR Office Visit [facility] Family & Internal Medicine - [address] [phone] Meet Ang DO [address] [place] [address] documented as of this encounter Visit Diagnoses Not on filedocumented in this encounter Additional Health Concerns Assessment Noted Time PHQ-9 Depression Total Score: 7 11/20/19 22 2:00 PM CDT documented as of this encounter Care Teams Corporate Development Associate Relationship Specialty Start Date End Date Meet Ang DO [address] [place] [address] PCP - General FAMILY PRACTICE 08/16/18 Paresh Gray MD [facility]. [place] [address] [place] [address] EP Machinist Automotive CLINICAL CARDIAC ELECTROPHYSIOLOGY 03/03/19 documented as of this encounter
--- OUTSIDE RECORDS SUMMARY | 2024-05-11 21:14 | XMS_ITS | Encounter Summary ---
Author Organization [facility] Address [address] [place] [address]. [place], [place] [address] [place] [address] Care Team Providers Care Steam Fitter Helper Name Role Phone Meet Ang DO Primary Care Provider + Paresh Gray MD Unavailable Encounter Details Date Type Department Care Team (Latest Contact Info) Description 04/08/2023 Travel Social History Tobacco Use Types Packs/Day [...] on file Legal Sex Male 2:37 PM FIBERGLASS BOAT ASSEMBLY SUPERVISOR Gender Identity Male 05/16/2021 9:25 AM FIBERGLASS BOAT ASSEMBLY SUPERVISOR Sexual Orientation Straight 05/16/2021 9: 25 AM FIBERGLASS BOAT ASSEMBLY SUPERVISOR documented as of this encounter Plan of Treatment Upcoming Encounters Date Type Department Care Team (Late st Contact Info) Description 06/19/2024 8:45 AM FIBERGLASS BOAT ASSEMBLY SUPERVISOR Office [facility] [address] [phone] Ren Morse MD Three [facility] [address] [place] [address] 07/19/2024 7:00 AM FIBERGLASS BOAT ASSEMBLY SUPERVISOR Office Visit [facility] Family & Internal Medicine - [address] [phone] Meet Ang DO [address] [place] [address] documented as of this encounter Visit Diagnoses Not on filedocumented in this encounter Additional Health Concerns Assessment Noted Time PHQ-9 Depression Total Score: 7 11/20/19 22 2:00 PM CDT documented as of this encounter Care Teams Steam Fitter Helper Relationship Specialty Start Date End Date Meet Ang DO [address] [place] [address] PCP - General FAMILY PRACTICE 08/16/18 Paresh Gray MD Three [facility]. [place] [facility] [place] [address] EP Truck Driver Rubbish Collector CLINICAL CARDIAC ELECTROPHYSIOLOGY 03/03/19 documented as of this encounter
--- OUTSIDE RECORDS SUMMARY | 2024-05-11 21:14 | XMS_ITS | Encounter Summary ---
Author Organization [facility] Address [address] [place] [address]. [place], [place] [address] [place] [address] Care Team Providers Care Appeals Referee Name Role Phone Meet Ang DO Primary Care Provider + Paresh Gray MD Unavailable Reason for Referral * Consultation (Routine) - Authorized Specialty Diagnoses / Procedures Referred By Pepe gordon Referred To Contact OTOLARYNGOLOGY Diagnoses Decreased hearing of both ears Procedures OFFICE/OUTPATIENT NEW LOW MDM 30-44 MINUTES OFFICE/OUTPT VISIT,NEW,LEVL IV OFFICE/OUTPT VISIT,NEW,LEVL V OFFICE/OUTPT VISIT,EST,LEVL III OFFICE/OUTPT VISIT,EST,LEVL IV OFFICE/OUTPT VISIT,EST,LEVL V Meet Ang DO [address] [place] [address] Phone: tel: fax: [facility], [address] [address] Phone: tel: fax: Referral ID Status Reason Start Date Expiration Date V isits Requested Visits Authorized [id number] Authorized 07/06/2023 08/04/2024 99 99 NCIAL REP Reason for Visit * Reason Comments Anxiety 2 month follow up Encounter Details Date Type Department Care Team ([facility] st Contact Info) Description 07/06/2023 8:00 AM FINANCIAL REP Office Visit [facility] Medical [facility] Family & Internal Medicine - [place] [address] [place] [address] Meet Ang DO [address] [place] [address] Anxiety (2 month follow up ) Social History Tobacco Use Types Packs/Day [...] Date Recorded Patient Health Questionnaire-2 Score 3 07/06/2023 Sex and Gender Information Value Date Recorded Sex Assigned at Not on file Legal Sex Male 2:37 PM FINANCIAL REP Gender Identity Male 05/16/2021 9:25 AM FINANCIAL REP Sexual Orientation Straight 05/16/2021 9: 25 AM FINANCIAL REP documented as of this encounter Last Filed Vital Signs Vital Sign Reading Time Taken Comments Blood Pressure 122/78 07/06/2023 7:56 AM FINANCIAL REP Pulse 73 07/06/2023 7:56 AM FINANCIAL REP Temperature 37.6 ??C (99.6 ??F) 07/06/2023 7:56 AM CS T Respiratory Rate 16 07/06/2023 7:56 AM FINANCIAL REP Oxygen Saturation 98% 07/06/2023 7:56 AM FINANCIAL REP Inhaled Oxygen Concentration - - Weight 151 kg (332 lb 12.8 oz) 07/06/2023 7:56 A M FINANCIAL REP Height 185.4 cm (6' 1 ) 07/06/2023 7:56 AM FINANCIAL REP Body Mass Index 43.91 07/06/2023 7:56 AM FINANCIAL REP documented in this encounter Patient Instructions * Patient Instructions* Meet Ang DO - 07/06/2023 8:00 AM FINANCIAL REP [facility], # [phone], fax # [phone]; [address] [place] [address] NCIAL REP documented in this encounter Progress Notes * Meet Ang DO - 07/06/2023 8:00 AM CST Images from the original note were not included. GENERAL OFFICE VISIT Encounter Date: 07/06/2023 Chief Complaint: 32-year-old male presents for Anxiety (2 month follow up ) HPI: Pt has palpitations and anxiety, depression, and agoraphobia. At last OV, we started him on sertraline. Pt stopped sertraline prior to today's OV. Pt had issues with sertraline where he felt he couldn't sleep. He has been on olanzapine, fluoxetine, trazodone, escitalopram, Vraylar, and buspirone. Pt is not scheduled for psych at this time. Pt has noticed decreased hearing. He is needing a referral to ENT for evaluation of this. Review of Systems Constitutional: Negative for fever. Respiratory: See HPI Cardiovascular: See HPI Skin: See HPI Psychiatric/Behavioral: See HPI Patient Active Problem List Diagnosis KIMMY (obstructive sleep apnea) IBS (irritable bowel syndrome) GERD (gastroesophageal reflux disease) Depression Asthma Anxiety Agoraphobia Tachycardia Elevated blood pressure reading Elevated troponin level not due myocardial infarction Palpitations Class 3 severe obesity with body mass index (BMI) of 40.0 to 44.9 in adult (CMS/HCC) Psoriasis Past Medical History: Diagnosis Date Agoraphobia [...] Father Gonzalo Dupreet Heart Disease Father Gonzalo Gavillet Hyperlipidemia Father Gonzalo Gavillet Asthma Father Gonzalo Blackwood Only when sick, allergic to cats. Open Heart Brother Jaspal Mcmillan Diabetes Brother Jaspal Mcmillan Step brother related to mother. Other (Down syndrome) Brother Jaspal Mcmillan Diabetes Maternal Grandmother Lesly Depression Maternal Grandmother Lesly Depression Maternal Grandfather Toy Hemtrang Heart Attack Maternal Grandfather Toy Pickett Alcohol [...] Smoking status: Former Packs/day: 1.50 Years: 10.00 Additional pack years: 0.00 Total pack years: 15.00 Types: Cigarettes, Cigars Quit date: 05/24/2014 Years since quittin.1 Smokeless tobacco: Former Types: Chew Tobacco comments: [...] 11/21/1992, 02/27/1993 Opv 1989, 01/19/1990, 11/21/1992, 12/17/1994 [place] COVID-19 (ORIGINAL FORMULATION, PURPLE CAP) mRNA, LNP-S, PF, 30 MCG/0.3 ML DOSE 07/30/2020, 08/20/2020, 05/28/2021 [place] COVID-19 BIVALENT (12+) mRNA, LNP-S, PF, 30 [...] Reactions Bee Venom Swelling Objective: Filed Vitals: 07/06/23 0756 BP: 122/78 Pulse: 73 Resp: 16 Temp: 99.6 ??F (37.6 ??C) TempSrc: Skin SpO2: 98% Weight: (!) 151 kg (332 lb 12.8 oz) Height: 1.854 m (6' 1 ) Physical Exam Vitals and nursing note reviewed. HENT: Head: Normocephalic and atraumatic. Right Ear: Tympanic membrane, ear canal and external ear normal. There is no impacted cerumen. Left Ear: Tympanic membrane, ear canal and external ear normal. There is no impacted cerumen. Eyes: Conjunctiva/sclera: Conjunctivae normal. Cardiovascular: Rate and Rhythm: Normal rate and regular rhythm. Pulmonary: Effort: Pulmonary effort is normal. Neurological: Mental Status: He is alert. Gait: Gait normal. Psychiatric: Mood and Affect: Mood normal. Assessment & Plan: Alex was seen today for anxiety. Diagnoses and all orders for this visit: Depression, unspecified depression type - ARIPiprazole (ABILIFY) 5 MG tablet; Take 1 tablet (5 mg total) by mouth daily. Anxiety - ARIPiprazole (ABILIFY) 5 MG tablet; Take 1 tablet (5 mg total) by mouth daily. Agoraphobia - ARIPiprazole (ABILIFY) 5 MG tablet; Take 1 tablet (5 mg total) by mouth daily. Decreased hearing of both ears - Ambulatory referral to ENT Discussion/Summary: Will formally stop sertraline and will start on Abilify; discussed side effect profile. Consideration of possible bipolar diagnosis should be given. Because of this, will have patient follow-up with psychiatry for continued evaluation of this. Patient already has referral in place and given information for patient to call and schedule. Will refer to ENT for hearing testing. Will have patient follow-up in 1.5 months for repeat evaluation. Patient verbalized understanding. Meet Ang DO NCIAL REP documented in this encounter Plan of Treatment Upcoming Encounters Date Type Department Care Team (Late st Contact Info) Description 06/19/2024 8:45 AM FINANCIAL REP [facility] [address] [place] [address] Ren Morse MD [facility] [address] [place] [address] 07/19/2024 7:00 AM FINANCIAL REP Office Visit [facility] Medical Group Family & Internal Medicine [place] [address] [place] [address] Meet Ang DO [address] [place] [address] Scheduled Referrals Name Type Priority Associated Diagnoses Orde r Schedule Ambulatory referral to ENT Referral Routine Decreased hearing of both ears Ordered: 07/06/2023 documented as of this encounter Visit Diagnoses Diagnosis Depression, unspecified depression type- Primary Anxiety Anxiety state, unspecified Agoraphobia Agoraphobia without mention of panic attacks Decreased hearing of both ears documented in this encounter Additional Health Concerns Assessment Noted Time PHQ-9 Depression Total Score: 8 07/06/19 24 7:54 AM FINANCIAL REP documented as of this encounter Care Teams Appeals Referee Relationship Specialty Start Date End Date Meet Ang DO [facility] [place] [address] PCP - General FAMILY PRACTICE 08/16/18 Paresh Gray MD Three [facility]. [address] [id number] EP Binder Selector CLINICAL CARDIAC ELECTROPHYSIOLOGY 03/03/19 documented as of this encounter
--- OUTSIDE RECORDS SUMMARY | 2024-05-11 21:14 | XMS_ITS | Encounter Summary ---
Author Organization [facility] Address [address] [place] [address]. [place], [place] [address] [place] [address] Care Team Providers Care Visual Merchandiser Name Role Phone Meet Ang DO Primary Care Provider + Paresh Gray MD Unavailable Encounter Details Date Type Department Care Team (Latest Contact Info) Description 06/17/2023 Travel Social History Tobacco Use Types Packs/Day [...] Legal Sex Male 2:37 PM DIRECTOR OF CURRICULUM AND INSTRUCTION Gender Identity Male 05/16/2021 9:25 AM DIRECTOR OF CURRICULUM AND INSTRUCTION Sexual Orientation Straight 05/16/2021 9: 25 AM DIRECTOR OF CURRICULUM AND INSTRUCTION documented as of this encounter Plan of Treatment Upcoming Encounters Date Type Department Care Team (Late st Contact Info) Description 06/19/2024 8:45 AM DIRECTOR OF CURRICULUM AND INSTRUCTION [facility] [address] [phone] Ren Morse MD Three [facility] [address] [place] [address] 07/19/2024 7:00 AM DIRECTOR OF CURRICULUM AND INSTRUCTION Office Visit [facility] Medical Group Family & Internal Medicine - [address] [address] Meet Ang DO [address] [place] [address] documented as of this encounter Visit Diagnoses Not on filedocumented in this encounter Additional Health Concerns Assessment Noted Time PHQ-9 Depression Total Score: 7 11/20/19 22 2:00 PM CDT documented as of this encounter Care Teams Visual Merchandiser Relationship Specialty Start Date End Date Meet Ang DO [address] [place] [address] PCP - General FAMILY PRACTICE 08/16/18 Paresh Gray MD Three [facility]. [place] [facility] [place] [address] EP Masonry Contractor Administrator CLINICAL CARDIAC ELECTROPHYSIOLOGY 03/03/19 documented as of this encounter
--- OUTSIDE RECORDS SUMMARY | 2024-05-11 21:14 | XMS_ITS | Encounter Summary ---
Author Organization [facility] Address [address] [place] [address]. [place], [place] [address] [place] [address] Care Team Providers Care Snubber Name Role Phone Meet Ang DO Primary Care Provider + Paresh Gray MD Unavailable Reason for Referral * Consultation (Routine) - Closed Specialty Diagnoses / Procedures Referred By Pepe gordon Referred To Contact CARDIOLOGY / Cardiology Diagnoses Palpitations Procedures OFFICE/OUTPATIENT NEW LOW MDM 30-44 MINUTES OFFICE/OUTPT VISIT,NEW,LEVL IV OFFICE/OUTPT VISIT,NEW,LEVL V OFFICE/OUTPT VISIT,EST,LEVL III OFFICE/OUTPT VISIT,EST,LEVL IV OFFICE/OUTPT VISIT,EST,LEVL V Meet Ang DO [address] [place] [address] Phone: tel: fax: [facility] THREE [facility] [place], [address] [address] Phone: tel: fax: Referral ID Status Reason Start Date Expiration Date V isits Requested Visits Authorized [id number] Closed Specialty Services 04/08/2023 05/07/2024 99 99 SHING SUPERVISOR * Consultation (Routine) - Closed Specialty Diagnoses / Procedures Referred By Pepe gordon Referred To Contact Psychiatry Diagnoses Anxiety Depression, unspecified depression type Agoraphobia Procedures OFFICE/OUTPATIENT NEW LOW MDM 30-44 MINUTES OFFICE/OUTPT VISIT,NEW,LEVL IV OFFICE/OUTPT VISIT,NEW,LEVL V OFFICE/OUTPT VISIT,EST,LEVL III OFFICE/OUTPT VISIT,EST,LEVL IV OFFICE/OUTPT VISIT,EST,LEVL V Meet Ang DO [address] [place] [address] Phone: tel: fax: [facility] [address] [place] [address] Phone: tel: fax: Referral ID Status Reason Start Date Expiration Date V isits Requested Visits Authorized [id number] Closed Specialty Services 04/08/2023 04/08/2024 100 100 SHING SUPERVISOR Reason for Visit * Reason Comments Anxiety 6 month follow up. T he patient states his anxiety has been bad recently. Encounter Details Date Type Department Care Team (Late st Contact Info) Description 04/08/2023 1:00 PM FINISHING SUPERVISOR Office Visit [facility] Medical [facility] Family & Internal Medicine - [place] [address] [place] [address] Meet Ang DO [address] [place] [address] Anxiety (6 month follow up. The patient states his anxiety has been bad recently. ) Social History Tobacco Use Types Packs/Day [...] on file Legal Sex Male 2:37 PM FINISHING SUPERVISOR Gender Identity Male 05/16/2021 9:25 AM FINISHING SUPERVISOR Sexual Orientation Straight 05/16/2021 9: 25 AM FINISHING SUPERVISOR documented as of this encounter Last Filed Vital Signs Vital Sign Reading Time Taken Comments Blood Pressure 120/84 04/08/2023 1:12 PM FINISHING SUPERVISOR Pulse 87 04/08/2023 1:12 PM FINISHING SUPERVISOR Temperature 38 ??C (100.4 ??F) 04/08/2023 1:12 PM FINISHING SUPERVISOR Respiratory Rate 16 04/08/2023 1:12 PM FINISHING SUPERVISOR Oxygen Saturation 98% 04/08/2023 1:12 PM FINISHING SUPERVISOR Inhaled Oxygen Concentration - - Weight - - Height 185.4 cm (6' 1 ) 04/08/2023 1:12 PM FINISHING SUPERVISOR Body Mass Index - - documented in this encounter Progress Notes * Meet Ang, - 04/08/2023 1:00 PM CST Images from the original note were not included. GENERAL OFFICE VISIT Encounter Date: 04/08/2023 Chief Complaint: 32-year-old male presents for Anxiety (6 month follow up. The patient states his anxiety has been bad recently. ) HPI: Pt has palpitations and anxiety, depression, and agoraphobia. He has seen Dr. Badillo in the past for this with cardiology as well as psychiatry. Pt is on atenolol at this time, which had been helping. Pt hasn't been following with psychiatry though. Pt needs a new personal chef. Pt is now on BIPAP for his KIMMY. He sees Jaspal Ramos APRN. This is still being adjusted. Pt has psoriasis. Pt was started on clobetasol, ketoconazole, and triamcinolone for psoriasis, rosacea, tinea versicolor, and seborrheic dermatitis. He had negative rheumatological labs. Pt has a lesion on his right thumb he needs evaluated today. Review of Systems Constitutional: Negative for fever. [...] (BMI) of 40.0 to 44.9 in adult ([facility]) Psoriasis Past Medical History: Diagnosis Date Agoraphobia [...] Mother Libby Hemmer Mental Health Mother Libby Pickett Hypertension Father Gonzalo Blackwood Depression Father Gonzalo Blackwood Heart Disease Father Gonzalo Blackwood Hyperlipidemia Father Gonzalo Blackwood Asthma Father Gonzalo Blackwood Only when sick, allergic to cats. Alcohol Abuse Paternal Uncle Nii Cancer Paternal Uncle Nii mouth Diabetes Maternal Grandmother Lesly Depression Maternal Grandmother [...] Health Paternal Grandmother Malia Blackwood Open Heart Brother Jaspal Mcmillan Diabetes Brother [...] Cigarettes, Cigars Quit date: 05/24/2014 Years since quittin.8 Smokeless tobacco: Former Types: Chew Tobacco comments: [...] rinse; three times weekly. 30 days supply sertraline (ZOLOFT) 50 MG tablet Take 0.5 tabs daily for one week, then take 1 tablet daily 30 tablet 2 triamcinolone (KENALOG) 0.025 % ointment Apply to [...] Reactions Bee Venom Swelling Objective: Filed Vitals: 04/08/23 1312 BP: 120/84 Pulse: 87 Resp: 16 Temp: 100.4 ??F (38 ??C) TempSrc: Skin SpO2: 98% Height: 1.854 m (6' 1 ) Physical [...] Left lower leg: No edema. Skin: Comments: Ganglion cyst in right thumb Neurological: General: No focal deficit present. Mental Status: He is alert. Psychiatric: Mood and Affect: Mood normal. Assessment & Plan: Alex was seen today for anxiety. Diagnoses and all orders for this visit: Anxiety - Ambulatory Referral to Psychiatry - sertraline (ZOLOFT) 50 MG tablet; Take 0.5 tabs daily for one week, then take 1 tablet daily Depression, unspecified depression type - Ambulatory Referral to Psychiatry - sertraline (ZOLOFT) 50 MG tablet; Take 0.5 tabs daily for one week, then take 1 tablet daily Agoraphobia - Ambulatory Referral to Psychiatry - sertraline (ZOLOFT) 50 MG tablet; Take 0.5 tabs daily for one week, then take 1 tablet daily Palpitations - Ambulatory referral to Cardiology, Adult ([facility]) Psoriasis KIMMY (obstructive sleep apnea) Ganglion cyst of finger Discussion/Summary: We will start on sertraline today; discussed side effect profile. Will refer to psychiatry. Also place new referral to cardiology. Continue follow-up with other specialist. Can monitor ganglion cyst of right thumb; no significant symptoms at this time or concerning features. We will have patient follow-up in 2 months for repeat assessment. Patient verbalized understanding. Meet Ang DO SHING SUPERVISOR documented in this encounter Plan of Treatment Upcoming Encounters Date Type Department Care Team (Late st Contact Info) Description 06/19/2024 8:45 AM FINISHING SUPERVISOR Office Visit [facility], [address] [place] [address] Ren Morse MD [facility] [address] [place] [address] 07/19/2024 7:00 AM FINISHING SUPERVISOR Office Visit [facility] Family & Internal Medicine - [address] [address] Meet Ang DO [address] [place] [address] Scheduled Referrals Name Type Priority Associated Diagnoses Orde r Schedule Ambulatory Referral to Psychiatry Referral Routine Anxiety Depression, unspecified depression type Agoraphobia Ordered: 04/08/2023 Ambulatory referral to Cardiology, Adult ([facility]) Referral Routine Palpitations Ordered: 04/08/2023 documented as of this encounter Visit Diagnoses Diagnosis Anxiety- Primary Anxiety state, unspecified Depression, unspecified depression type Agoraphobia Agoraphobia without mention of panic attacks Palpitations Psoriasis Other psoriasis KIMMY (obstructive sleep apnea) Obstructive sleep apnea (adult) (pediatric) Ganglion cyst of finger documented in this encounter Additional Health Concerns Assessment Noted Time PHQ-9 Depression Total Score: 7 11/20/19 22 2:00 PM CDT documented as of this encounter Care Teams Snubber Relationship Specialty Start Date End Date Meet Ang DO [address] [place] [address] PCP - General FAMILY PRACTICE 08/16/18 Paresh Gray MD [address] [address] EP Rigging Up Man CLINICAL CARDIAC ELECTROPHYSIOLOGY 03/03/19 documented as of this encounter
--- OUTSIDE RECORDS SUMMARY | 2024-05-11 21:14 | XMS_ITS | Encounter Summary ---
Author Organization [facility] Address [address] [place] [address]. [place] [address] [place] [address] Care Team Providers Care Care Rep Name Role Phone Meet Ang DO Primary Care Provider + Paresh Gray MD Unavailable Reason for Referral * Consultation (Routine) - Closed Specialty Diagnoses / Procedures Referred By Pepe gordon Referred To Contact Diagnoses Routine eye exam Procedures OFFICE/OUTPT VISIT,NEW,LEVL III OFFICE/OUTPT VISIT,NEW,LEVL IV OFFICE/OUTPT VISIT,NEW,LEVL V OFFICE/OUTPT VISIT,EST,LEVL III OFFICE/OUTPT VISIT,EST,LEVL IV OFFICE/OUTPT VISIT,EST,LEVL V Meet Ang DO [address] [place] [address] Phone: tel: fax: Marcelo Mi MD [address] [facility] [address] [place] [address] Phone: tel: fax: Referral ID Status Reason Start Date Expiration Date V isits Requested Visits Authorized [id number] Closed Specialty Services 12/23/2021 12/23/2022 99 1 Scheduling Instructions Quantum Reason for Visit * Reason Onset Date Comments Orders 12/23/2021 Encounter Details Date Type Department Care Team (Late st Contact Info) Description 12/23/2021 Telephone [facility] Family & Internal Medicine - [place] [address] [place] [address] Meet Ang DO [address] [place] [address] Orders Social History Tobacco Use Types Packs/Day Years [...] on file Legal Sex Male 2:37 PM INSPECTOR SUBASSEMBLY Gender Identity Male 05/16/2021 9:25 AM INSPECTOR SUBASSEMBLY Sexual Orientation Straight 05/16/2021 9: 25 AM INSPECTOR SUBASSEMBLY documented as of this encounter Progress Notes * Meet Ang DO - 12/23/2021 2:51 PM CDT Pt needs referral to eye doctor. Order placed. documented in this encounter Plan of Treatment Upcoming Encounters Date Type Department Care Team (Late Contact Info) Description 06/19/2024 8:45 AM INSPECTOR SUBASSEMBLY [facility] [place] [address] [place] [address] Ren Morse MD [facility] [address] [place] [address] 07/19/2024 7:00 AM INSPECTOR SUBASSEMBLY Office Visit [facility] Medical Group Family & Internal Medicine - [address] [address] Meet Ang DO [facility] [place]note 2]1 [place] [address] Scheduled Referrals Name Type Priority Associated Diagnoses Orde r Schedule Ambulatory Referral to Optometry Referral Routine Routine eye exam Ordered: 12/23/2021 documented as of this encounter Visit Diagnoses Diagnosis Routine eye exam- Primary documented in this encounter Additional Health Concerns Assessment Noted Time PHQ-9 Depression Total Score: 7 11/20/19 22 2:00 PM CDT documented as of this encounter Care Teams Care Rep Relationship Specialty Start Date End Date Meet Ang DO [address] [place] [address] PCP - General FAMILY PRACTICE 08/16/18 Paresh Gray MD [address] [address] EP Speech Assistant CLINICAL CARDIAC ELECTROPHYSIOLOGY 03/03/19 documented as of this encounter
--- OUTSIDE RECORDS SUMMARY | 2024-05-11 21:14 | XMS_ITS | Encounter Summary ---
Author Organization [facility] Address [address] [place] [address]. [place], [place] [phone] [place] [address] Care Team Providers Care Public Health Outreach Worker Name Role Phone Meet Ang DO Primary Care Provider + Paresh Gray MD Unavailable Encounter Details Date Type Department Care Team (Latest Contact Info) Description 07/06/2023 Travel Social History Tobacco Use Types Packs/Day [...] on file Legal Sex Male 2:37 PM PUTTY AND PATCH WORKER Gender Identity Male 05/16/2021 9:25 AM PUTTY AND PATCH WORKER Sexual Orientation Straight 05/16/2021 9: 25 AM PUTTY AND PATCH WORKER documented as of this encounter Plan of Treatment Upcoming Encounters Date Type Department Care Team (Late st Contact Info) Description 06/19/2024 8:45 AM PUTTY AND PATCH WORKER [facility] [address] [phone] Ren Morse MD Three [facility] [address] [facility] [place] [address] 07/19/2024 7:00 AM PUTTY AND PATCH WORKER Office Visit [facility] Medical Group Family & Internal Medicine - [address] [address] Meet Ang DO [address] [place] [address] documented as of this encounter Visit Diagnoses Not on filedocumented in this encounter Additional Health Concerns Assessment Noted Time PHQ-9 Depression Total Score: 8 07/06/19 24 7:54 AM PUTTY AND PATCH WORKER documented as of this encounter Care Teams Public Health Outreach Worker Relationship Specialty Start Date End Date Meet Ang DO [address] [place] [address] PCP - General FAMILY PRACTICE 08/16/18 Paresh Gray MD Three [facility]. [place] [facility] [place] [address] EP Melting Operator CLINICAL CARDIAC ELECTROPHYSIOLOGY 03/03/19 documented as of this encounter
--- OUTSIDE RECORDS SUMMARY | 2024-05-11 21:14 | XMS_ITS | Encounter Summary ---
Author Organization [facility] Address [address] [place] [address]. [place], [place] [address] [place] [address] Care Team Providers Care Visual Lead Name Role Phone Meet Ang DO Primary Care Provider + Paresh Gray MD Unavailable Reason for Visit * Reason Comments Sleep Study (SCAN) Encounter Details Date Type Department Care Team (Late Contact Info) Description 01/06/2022 Scan HEALTH INFO SRVCS Scanned, Documents Sleep Study (SCAN) Social History Tobacco Use Types Packs/Day Years [...] on file Legal Sex Male 2:37 PM VENETIAN BLIND ASSEMBLER Gender Identity Male 05/16/2021 9:25 AM VENETIAN BLIND ASSEMBLER Sexual Orientation Straight 05/16/2021 9: 25 AM VENETIAN BLIND ASSEMBLER documented as of this encounter Plan of Treatment Upcoming Encounters Date Type Department Care Team (Late Contact Info) Description 06/19/2024 8:45 AM VENETIAN BLIND ASSEMBLER Office Visit [facility] [address] [place] [address] Ren Morse MD Three [facility] [address] [place] [address] 07/19/2024 7:00 AM VENETIAN BLIND ASSEMBLER Office Visit [facility] Family & Internal Medicine - [place] [address] [place] [address] Meet Ang DO [address] [place] [address] documented as of this encounter Procedures Procedure Name Priority Date/Time Associated Diagnosis Comments SLEEP STUDY GENERIC (SCAN ORDER) 01/06/2022 SLEEP STUDY GENERIC (SCAN ORDER) 01/06/2022 documented in this encounter Results * SLEEP STUDY GENERIC (01/06/2022) 01/06/2022 Narrative 01/06/2022 Ordered by an unspecified provider. us Documents Scanned SCANNING Final Result * SLEEP STUDY GENERIC (01/06/2022) 01/06/2022 Narrative 01/06/2022 Ordered by an unspecified provider. us Documents Scanned SCANNING Final Result documented in this encounter Visit Diagnoses Not on filedocumented in this encounter Additional Health Concerns Assessment Noted Time PHQ-9 Depression Total Score: 7 11/20/19 22 2:00 PM CDT documented as of this encounter Care Teams Visual Lead Relationship Specialty Start Date End Date Meet Ang DO [address] [place] [address] PCP - General FAMILY PRACTICE 08/16/18 Paresh Gray MD Three [facility]. [address] [address] EP Chainstitch Seat Joiner CLINICAL CARDIAC ELECTROPHYSIOLOGY 03/03/19 documented as of this encounter
--- OUTSIDE RECORDS SUMMARY | 2024-05-11 21:14 | XMS_ITS | Encounter Summary ---
Author Organization [facility] Address [address] [place] [address]. [place], [place] [address] [place] [address] Care Team Providers Care Die Reamer Name Role Phone Meet Ang DO Primary Care Provider + Paresh Gray MD Unavailable Encounter Details Date Type Department Care Team (Latest Contact Info) Description 10/06/2022 Travel Social History Tobacco Use Types Packs/Day [...] on file Legal Sex Male 2:37 PM EQUINE BREEDER Gender Identity Male 05/16/2021 9:25 AM EQUINE BREEDER Sexual Orientation Straight 05/16/2021 9: 25 AM EQUINE BREEDER COVID-19 Exposure Response Date Recorded In the last 10 days, have yo u been in contact with someone who was confirmed or suspected to have Coronavirus/COVID-19? No / Unsure 10/06/2022 1:38 PM CDT documented as of this encounter Plan of Treatment Upcoming Encounters Date Type Department Care Team (Late st Contact Info) Description 06/19/2024 8:45 AM EQUINE BREEDER Office Visit [facility] [address] [place] [address] Ren Morse MD Three [facility] [address] [place] [address] 07/19/2024 7:00 AM EQUINE BREEDER Office Visit [facility] Family & Internal Medicine - [place] [address] [place] [address] Meet Ang DO [address] [place] [address] documented as of this encounter Visit Diagnoses Not on filedocumented in this encounter Additional Health Concerns Infection Onset Date Last Indicated Resolved Time COVID-19 Rule Out 10/06/2022 10/06/2022 10/06/2022 2:27 PM CDT COVID-19 Rule Out 10/06/2022 10/06/2022 10/07/2022 4:03 PM CDT Assessment Noted Time PHQ-9 Depression Total Score: 7 11/20/19 22 2:00 PM CDT documented as of this encounter Care Teams Die Reamer Relationship Specialty Start Date End Date Meet Ang DO [facility] [place] [address] PCP - General FAMILY PRACTICE 08/16/18 Paresh Gray MD Three [facility]. [address] [place] [address] EP Healthcare Administrative Assistant CLINICAL CARDIAC ELECTROPHYSIOLOGY 03/03/19 documented as of this encounter
--- OUTSIDE RECORDS SUMMARY | 2024-05-11 21:14 | XMS_ITS | Encounter Summary ---
Author Organization [facility] Address [address] [place] [address]. [place], [place] [address] [place] [address] Care Team Providers Care Juvenile Counselor Name Role Phone Meet Ang DO Primary Care Provider + Paresh Gray MD Unavailable Reason for Visit * Reason Comments Palpitations Consult * Consultation (Routine) - Closed Specialty Diagnoses / Procedures Referred By Pepe gordon Referred To Contact CARDIOLOGY / Cardiology Diagnoses Palpitations Procedures OFFICE/OUTPATIENT NEW LOW MDM 30-44 MINUTES OFFICE/OUTPT VISIT,NEW,LEVL IV OFFICE/OUTPT VISIT,NEW,LEVL V OFFICE/OUTPT VISIT,EST,LEVL III OFFICE/OUTPT VISIT,EST,LEVL IV OFFICE/OUTPT VISIT,EST,LEVL V Meet Ang DO [address] [place] [address] Phone: tel: fax: [facility] on [address] [address] Phone: tel: fax: Referral ID Status Reason Start Date Expiration Date V isits Requested Visits Authorized [id number] Closed Specialty Services 04/08/2023 05/07/2024 99 [phone] Encounter Details Date Type Department Care Team (Late st Contact Info) Description 06/17/2023 8:30 AM MOLDED FRAMES ASSEMBLER Office Visit [facility] [place] [address] [place] [address] Ren Morse MD Three [facility] [address] [place], [place] [address] Palpitations (Consult ) Social History Tobacco Use Types Packs/Day [...] on file Legal Sex Male 2:37 PM MOLDED FRAMES ASSEMBLER Gender Identity Male 05/16/2021 9:25 AM MOLDED FRAMES ASSEMBLER Sexual Orientation Straight 05/16/2021 9: 25 AM MOLDED FRAMES ASSEMBLER documented as of this encounter Last Filed Vital Signs Vital Sign Reading Time Taken Comments Blood Pressure 132/86 06/17/2023 8:18 AM MOLDED FRAMES ASSEMBLER Pulse 89 06/17/2023 8:18 AM MOLDED FRAMES ASSEMBLER Temperature - - Respiratory Rate - - Oxygen Saturation 97% 06/17/2023 8:18 AM MOLDED FRAMES ASSEMBLER Inhaled Oxygen Concentration - - Weight 149.7 kg (330 lb) 06/17/2023 8:18 AM MOLDED FRAMES ASSEMBLER Height 185.4 cm (6' 1 ) 06/17/2023 8:18 AM MOLDED FRAMES ASSEMBLER Body Mass Index 43.54 06/17/2023 8:18 AM MOLDED FRAMES ASSEMBLER documented in this encounter Progress Notes * Ren Morse MD - 06/17/2023 8:30 AM CST Images from the original note were not included. [place] [facility] [place], [place] [address] Cardiology Consult PCP: Meet Ang, Cardiac Problem List Elevated blood pressure w/o diagnosis of hypertension Palpitations KIMMY on BiPAP Chronic elevation of Troponin I Former Smoker, Chew last 2015 Home Medications: atenolol 25 mg QD Consult Reason: Tfx of Care History Mr. Alex Blackwood is a 32-year-old male. Patient presents as a transfer of care. He was previously seeing Dr. Badillo at [facility]. Patient was being seen by Dr. Badillo for elevated troponin, palpitations. In regards to his palpitations he was previously on a nonselective BB, coreg, but that flared up his asthma. It is well controlled with atenolol. He has a history of chronically elevated Troponin IS. His point of service troponin I and his lab Troponin T and CPK are normal. OS lab thought it was 2/2 an antibody interacting with Troponin I assay. Patient denies any chest pain, shortness of breath, dyspnea on exertion, pnd, orthopnea, lower extremity edema, fatigue,decreased appetite, palpitations, light headedness, dizziness, syncope. He is not currently exercising. Past Medical History: Diagnosis Date Agoraphobia Anxiety Asthma Depression GERD (gastroesophageal reflux disease) IBS (irritable bowel syndrome) KIMMY (obstructive sleep apnea) Past Surgical History: Procedure Laterality Date NONE Social History Tobacco Use Smoking status: Former Packs/day: 1.50 Years: 10.00 Additional pack years: 0.00 Total pack years: 15.00 Types: Cigarettes, Cigars Quit date: 05/24/2014 Years since quittin.0 Smokeless tobacco: Former Types: Chew Tobacco comments: Also used chewing tobacco for years Substance Use Topics Alcohol use: No Drug use: No Family History Problem Relation Name Age of Onset Hypertension Mother Libby Hemmer Depression Mother Libby Hemmer Heart Disease Mother Libby Hemmer Anxiety Mother Libby Hemmer Hyperlipidemia Mother Libby Hemmer Diabetes Mother Libby Hemmer Mental Health Mother Libby Hemmer Hypertension Father Gonzalo Blackwood Depression Father Gonzalo Dupreet Heart Disease Father Gonzalo Blackwood Hyperlipidemia Father [...] Grandfather Nikunj Blackwood Had multiple valve replacements Prior to Admission medications Medication Sig Start Date End Date Taking? Authorizing Provider atenolol (TENORMIN) 25 MG tablet Take 1 tablet (25 mg total) by mouth daily. 06/17/23 06/16/24 Yes Ren Morse MD clobetasol (TEMOVATE) 0.05 % external solution Apply scalp once to twice day. 30 days supply. Reasons: Skin Disease Successfully Treated with Steroid Therapy 10/01/22 Default History Genericprovider ketoconazole (NIZORAL) 2 % shampoo Apply to wet hair, face and trunk, leave on for 3 minutes, then rinse; three times weekly. 30 days supply 10/01/22 Default History Genericprovider triamcinolone (KENALOG) 0.025 % ointment Apply to ear twice daily as needed psoriasis. 30 days supply. Reasons: Psoriasis 10/01/22 Default History Genericprovider VENTOLIN HFA 108 (90 Base) MCG/ACT inhaler INHALE 1 PUFF INTO THE LUNGS EVERY 4 HOURS NEEDED FORWHEEZING 05/26/22 Meet Ang, DO Review of patient's allergies indicates: Allergen Reactions Bee Venom Swelling Review of Systems: A 14 point ROS was completed and was negative except as per HPI. Physical Exam Filed Vitals: 06/17/23 0818 BP: 132/86 Pulse: 89 SpO2: 97% Weight: (!) 149.7 kg (330 lb) Height: 1.854 m (6' 1 ) Body mass index is 43.54 kg/m??. Physical Exam: General: NAD, Appears Normal Stated Age HEENT: PEERL, EOMI, MMM NECK: No JVD CVS: RRR, no MRG Resp: CTAB, no wheezes, rales, rhonchi ABD: Soft, NT, ND, +BS Ext: No CCE Diagnostic Data Lab Results Component Value Date/Time WBC 7.7 02/05/2023 09:51 PM HGB 15.8 02/05/2023 09:51 PM HCT 45.9 02/05/2023 09:51 PM PLT 254 02/05/2023 09:51 PM NA 140 02/05/2023 09:51 PM CL 108 02/05/2023 09:51 PM K 3.5 02/05/2023 09:51 PM GLU 118 (H) 02/05/2023 09:51 PM BUN 9 02/05/2023 09:51 PM CR 0.89 02/05/2023 09:51 PM CA 8.8 02/05/2023 09:51 PM AST 23 02/05/2023 09:51 PM ALT 47 02/05/2023 09:51 PM DBILI 0.2 05/10/2020 11:00 AM ALB 4.0 02/05/2023 09:51 PM Lab Results Component Value Date CHOL 136 10/21/2022 TRI 130 10/21/2022 HDL 36 (L) 10/21/2022 LDL 77 10/21/2022 TSH 1.45 10/21/2022 EK02/05/2023: Sinus rhythm Transthoracic Echocardiogram 06/2020: Left ventricular systolic function is normal. Ejection Fraction = 60-65%. No significant valvular disease Stress Test ExSpect 2020 ([facility]) 1. Normal electrocardiographic portion of a treadmill Myoview stress test, the patient walking a total of 9 minutes 30 seconds into standard Moreno protocol, attaining a heart rate of 166 beats per minute which is 87% of his age-predicted heart rate and achieving a work level of 10.4 METs of exercise with no ischemic EKG changes. 2. Normal blood pressure with appropriate blood pressure response to exercise. 3. Normal chronotropic response to exercise. 4. Occasional isolated premature ventricular contractions noted at rest, exercise, and in recovery at similar frequencies which were asymptomatic. 5. No chest pain or chest pressure. 1. Normal myocardial perfusion study. 2. No scintigraphic evidence of myocardial ischemia. 3. Normal left ventricular ejection fraction. 4. Normal left ventricular wall motion. Holter 30 Day Event monitor 12/2020 1. Normal event monitor with heart rates ranging between 60-120 beats minute with an average heart rate of 85 beats per minute with less than 1% PVC burden less than 1% Pac burden 2. Symptoms were not associated with any arrhythmia. There were no asymptomatic arrhythmias. 3. No ventricular tachycardia, SVT, atrial fibrillation, pauses, first-degree, second-degree, third-degree or complete heart block seen. Left Heart Catherization Assessment/Plan Elevated blood pressure w/o diagnosis of hypertension Palpitations KIMMY on BiPAP Chronic elevation of Troponin I: thought to be related to antibody reaction with lab assay. Most recent HSTroponin 01/2023 wnl Former Smoker, Chew last 2015 Patient is doing well. His blood pressure is well controlled. His palpitations are well controlled.He will continue atenolol 25 mg QD. He does have an intolerance to other beta blockers including coreg (worsening asthma flares), metoprolol (nightmares). Last lipid 09/2022 with excellent control of his TG and LDL. He is compliant with his BiPAP and follows with pulm regularly. Follow-Up: 1 year Thank you for allowing me to participate in the care of this patient. Please reach out with any questions. Ren Morse MD A total of 45 minutes was spent reviewing the patient's medical record, obtaining history, performing an exam, ordering medications, tests, and/or procedures, documenting in the medical record, referring and/or communicating with other health care providers, counseling and educating the patient/fami ly/caregiver, reviewing and communicating test results and coordination of care. Portions of this note were dictated using [employer] speech recognition software. Occasional wrong wordor sound-alike substitutions may have occurred due to the inherent limitations of voice recognition software. Please read the chart carefully and recognize, using context, where the substitutions may have occurred. ED FRAMES ASSEMBLER documented in this encounter Plan of Treatment Upcoming Encounters Date Type Department Care Team (Late st Contact Info) Description 06/19/2024 8:45 AM MOLDED FRAMES ASSEMBLER [facility] [address] Ren Morse MD Three [facility] [address] [place] [address] 07/19/2024 7:00 AM MOLDED FRAMES ASSEMBLER Office [facility] Family & Internal Medicine - [place] [address] [place] [address] Meet Ang DO [address] [place] [address] documented as of this encounter Visit Diagnoses Diagnosis KIMMY (obstructive sleep apnea)- Primary Obstructive sleep apnea (adult) (pediatric) Elevated blood pressure reading Elevated blood pressure reading without diagnosis of hypertension Palpitations documented in this encounter Additional Health Concerns Assessment Noted Time PHQ-9 Depression Total Score: 7 11/20/19 22 2:00 PM CDT documented as of this encounter Care Teams Juvenile Counselor Relationship Specialty Start Date End Date Meet Ang DO [address] [place] [address] PCP - General FAMILY PRACTICE 08/16/18 Paresh Gray MD Three [facility]. [address] [place] [address] EP Telemarketer Supervisor CLINICAL CARDIAC ELECTROPHYSIOLOGY 03/03/19 documented as of this encounter
--- OUTSIDE RECORDS SUMMARY | 2024-05-11 21:14 | XMS_ITS | Encounter Summary ---
Author Organization [facility] Address [address] [place] [address]. [place], [place] [address] [place] [address] Care Team Providers Care Coal Weigher Name Role Phone Meet Ang DO Primary Care Provider + Paresh Gray MD Unavailable Reason for Visit * Reason Onset Date Comments Callback 11/03/2021 Encounter Details Date Type Department Care Team (Late st Contact Info) Description 11/03/2021 Telephone [facility] Family & Internal Medicine [place] [address] [place] [address] Meet Ang DO [address] [place] [address] Callback Social History Tobacco Use Types Packs/Day Years [...] on file Legal Sex Male 2:37 PM SCRAP METAL PROCESSING WORKER Gender Identity Male 05/16/2021 9:25 AM SCRAP METAL PROCESSING WORKER Sexual Orientation Straight 05/16/2021 9: 25 AM SCRAP METAL PROCESSING WORKER documented as of this encounter Progress Notes * Chana Cronin RN - 11/03/2021 4:56 PM CDT Called and spoke with patient. Patient will follow up with PCP on 11/19/21. If anything changes or symptoms return, call back in to office. Opportunity given for all questions to be answered, no further needs voiced at this time. LL-11/03/21 * Adrianne Dorantes - 11/03/2021 8:45 AM CDT Patient needing callback regarding recent ER trip to [facility]. Asking for nursing team documented in this encounter Plan of Treatment Upcoming Encounters Date Type Department Care Team (Late st Contact Info) Description 06/19/2024 8:45 AM SCRAP METAL PROCESSING WORKER Office Visit [facility], [facility] [address] [place] [address] Ren Morse MD [facility] [address] [place] [address] 07/19/2024 7:00 AM SCRAP METAL PROCESSING WORKER Office Visit [facility] Group Family & Internal Medicine [place] [address] [place] [address] Meet Ang DO [address] [place] [address] documented as of this encounter Visit Diagnoses Not on filedocumented in this encounter Additional Health Concerns Assessment Noted Time PHQ-9 Depression Total Score: 13 021 10:25 AM SCRAP METAL PROCESSING WORKER documented as of this encounter Care Teams Coal Weigher Relationship Specialty Start Date End Date Meet Ang DO [address] [place] [address] PCP - General FAMILY PRACTICE 08/16/18 Paresh Gray MD [address] [address] EP Sales Correspondence Clerk CLINICAL CARDIAC ELECTROPHYSIOLOGY 03/03/19 documented as of this encounter
--- OUTSIDE RECORDS SUMMARY | 2024-05-11 21:14 | XMS_ITS | Encounter Summary ---
Author Organization [facility] Address [address] [place] [address]. [place] [address] [place] [address] Care Team Providers Care Professor Of Business Administration Name Role Phone Meet Ang DO Primary Care Provider + Paresh Gray MD Unavailable Encounter Details Date Type Department Care Team (Latest Contact Info) Description 04/23/2021 Scan HEALTH INFO SRVCS Scanned, Documents Social History Tobacco Use Types Packs/Day Years Used Date Smoking Tobacco: Former Cigarettes 1 6 Smokeless Tobacco: Former Chew Alcohol Use Standard Drinks/Week Comments No 0 [...] on file Legal Sex Male 2:37 PM CONTROL ROOM OPERATOR Gender Identity Male 05/16/2021 9:25 AM CONTROL ROOM OPERATOR Sexual Orientation Straight 05/16/2021 9: 25 AM CONTROL ROOM OPERATOR documented as of this encounter Plan of Treatment Upcoming Encounters Date Type Department Care Team (Late st Contact Info) Description 06/19/2024 8:45 AM CONTROL ROOM OPERATOR [facility] [address] [address] Ren Morse MD [address] [facility] [address] [place] [address] 07/19/2024 7:00 AM CONTROL ROOM OPERATOR Office Visit [facility] Family & Internal Medicine - [address] [address] Meet Ang DO [address] [place] [address] documented as of this encounter Visit Diagnoses Not on filedocumented in this encounter Additional Health Concerns Assessment Noted Time PHQ-9 Depression Total Score: 13 021 10:25 AM CONTROL ROOM OPERATOR documented as of this encounter Care Teams Professor Of Business Administration Relationship Specialty Start Date End Date Meet Ang DO [address] [place] [address] PCP - General FAMILY PRACTICE 08/16/18 Paresh Gray MD Three [facility]. [address] [place] [address] EP Senior Business Analyst CLINICAL CARDIAC ELECTROPHYSIOLOGY 03/03/19 documented as of this encounter
--- OUTSIDE RECORDS SUMMARY | 2024-05-11 21:14 | XMS_ITS | Encounter Summary ---
Author Organization [facility] Address [address] [place] [address]. [place] [address] [place] [address] Care Team Providers Care Lap Winding Machine Operator Name Role Phone Meet Ang DO Primary Care Provider + Paresh Gray MD Unavailable Encounter Details Date Type Department Care Team (Late Contact Info) Description 04/19/2023 Scan [facility] [address] [address] Scanned, Doc Pccl Social History Tobacco Use Types Packs/Day Years [...] on file Legal Sex Male 2:37 PM MANAGER BEVERAGE Gender Identity Male 05/16/2021 9:25 AM MANAGER BEVERAGE Sexual Orientation Straight 05/16/2021 9: 25 AM MANAGER BEVERAGE documented as of this encounter Plan of Treatment Upcoming Encounters Date Type Department Care Team (Late st Contact Info) Description 06/19/2024 8:45 AM MANAGER BEVERAGE Office Visit [facility] [address] [facility] [address], [address] [place] [address] Ren Morse MD [address] [place] [address] 07/19/2024 7:00 AM MANAGER BEVERAGE Office Visit [facility] Family & Internal Medicine [facility] [address] [place] [address] Meet Ang DO [address] [place] [address] documented as of this encounter Procedures Procedure Name Priority Date/Time Associated Diagnosis Comments ECG GENERIC (SCAN ORDER) Routine 04/19/2023 12:00 AM MANAGER BEVERAGE documented in this encounter Results * ECG (04/19/2023 12:00 AM MANAGER BEVERAGE) 04/19/2023 us Doc Pccl Scanned SCANNING Final Result [facility] documented in this encounter Visit Diagnoses Not on filedocumented in this encounter Additional Health Concerns Assessment Noted Time PHQ-9 Depression Total Score: 7 11/20/19 22 2:00 PM CDT documented as of this encounter Care Teams Lap Winding Machine Operator Relationship Specialty Start Date End Date Meet Ang DO [facility] [place] [address] PCP - General FAMILY PRACTICE 08/16/18 Paresh Gray MD [address] [place] [address] EP Breaker Machine Operator CLINICAL CARDIAC ELECTROPHYSIOLOGY 03/03/19 documented as of this encounter
--- OUTSIDE RECORDS SUMMARY | 2024-05-11 21:14 | XMS_ITS | Encounter Summary ---
Author Organization [facility] Address [address] [place] [address]. [place], [place] [address] [place] [address] Care Team Providers Care Physiologist Name Role Phone Meet Ang DO Primary Care Provider + Paresh Gray MD Unavailable Reason for Visit * Reason Comments PFT (SCAN) Encounter Details Date Type Department Care Team (Latest Contact Info) Description 05/04/2022 Scan HEALTH INFO [facility] Scanned, Doc Med Group PFT (SCAN) Social History Tobacco Use Types Packs/Day [...] on file Legal Sex Male 2:37 PM JUNIOR STAFF ACCOUNTANT Gender Identity Male 05/16/2021 9:25 AM JUNIOR STAFF ACCOUNTANT Sexual Orientation Straight 05/16/2021 9: 25 AM JUNIOR STAFF ACCOUNTANT documented as of this encounter Plan of Treatment Upcoming Encounters Date Type Department Care Team (Late st Contact Info) Description 06/19/2024 8:45 AM JUNIOR STAFF ACCOUNTANT Office Visit [facility] THREE [facility] [place] [address] [place] [address] Ren Morse MD Three [facility] [place] [address] 07/19/2024 7:00 AM JUNIOR STAFF ACCOUNTANT Office Visit [facility] Family & Internal Medicine [facility] [address] [place] [address] Meet Ang DO [address] [place] [address] documented as of this encounter Procedures Procedure Name Priority Date/Time Associated Diagnosis Comments PFT GENERIC (SCAN ORDER) 05/04/2022 documented in this encounter Results * PFT GENERIC (05/04/2022) 05/04/2022 us Doc Med Group Scanned SCANNING Final Resu lt documented in this encounter Visit Diagnoses Not on filedocumented in this encounter Additional Health Concerns Assessment Noted Time PHQ-9 Depression Total Score: 7 11/20/19 22 2:00 PM CDT documented as of this encounter Care Teams Physiologist Relationship Specialty Start Date End Date Meet Ang DO [address] [place] [id number] PCP - General FAMILY PRACTICE 08/16/18 Paresh Gray MD Three [facility]. [place] [address] [place] [address] EP Assistant Finance Manager CLINICAL CARDIAC ELECTROPHYSIOLOGY 03/03/19 documented as of this encounter
--- OUTSIDE RECORDS SUMMARY | 2024-05-11 21:14 | XMS_ITS | Encounter Summary ---
Author Organization [facility] Address [address] [place] [address]. [place] [address] [place] [address] Care Team Providers Care Ore Miner Name Role Phone Meet Ang Primary Care Provider + Paresh Gray MD Unavailable Reason for Visit * Reason Onset Date Comments Consult 04/08/2023 Encounter Details Date Type Department Care Team (Late st Contact Info) Description 04/08/2023 Telephone [facility], [address] [address] Shavonne Carter RMA Consult Social History Tobacco Use Types Packs/Day Years [...] on file Legal Sex Male 2:37 PM SHELL SIEVE OPERATOR Gender Identity Male 05/16/2021 9:25 AM SHELL SIEVE OPERATOR Sexual Orientation Straight 05/16/2021 9: 25 AM SHELL SIEVE OPERATOR documented as of this encounter Progress Notes * ИРИНА Luna - 04/08/2023 5:13 PM CST Left message to schedule cardiology consult per Dr Ang L SIEVE OPERATOR documented in this encounter Plan of Treatment Upcoming Encounters Date Type Department Care Team (Late st Contact Info) Description 06/19/2024 8:45 AM SHELL SIEVE OPERATOR Office Visit [facility] [address] [facility] [address], [place] [address] [place] [address] Ren Morse MD [facility] [address] [place] [address] 07/19/2024 7:00 AM SHELL SIEVE OPERATOR Office Visit [facility] Family & Internal Medicine [address] [address] Meet Ang DO [address] [place] [address] documented as of this encounter Visit Diagnoses Not on filedocumented in this encounter Additional Health Concerns Assessment Noted Time PHQ-9 Depression Total Score: 7 11/20/19 22 2:00 PM CDT documented as of this encounter Care Teams Ore Miner Relationship Specialty Start Date End Date Meet Ang DO [address] [place] [address] PCP - General FAMILY PRACTICE 08/16/18 Paresh Gray MD [facility] [place] [place] [address] EP Motorcycle Delivery Driver CLINICAL CARDIAC ELECTROPHYSIOLOGY 03/03/19 documented as of this encounter
--- OUTSIDE RECORDS SUMMARY | 2024-05-11 21:14 | XMS_ITS | Encounter Summary ---
Author Organization [facility] Address [address] [place] [address]. [place], [place] [address] [place] [address] Care Team Providers Care Supervisory It Specialist Name Role Phone Meet Ang DO Primary Care Provider + Paresh Gray MD Unavailable Encounter Details Date Type Department Care Team (Latest Contact Info) Description 10/06/2022 - 10/06/2022 11:59 PM T Hospital Encounter [facility] [address] [facility] [place] [address] Meet Ang DO [address] [place] [address] Discharge Disposition: Home or Self Care (Routine [...] on file Legal Sex Male 2:37 PM CABIN MAN Gender Identity Male 05/16/2021 9:25 AM CABIN MAN Sexual Orientation Straight 05/16/2021 9: 25 AM CABIN MAN COVID-19 Exposure Response Date Recorded In the last 10 days, have yo u been in contact with someone who was confirmed or suspected to have Coronavirus/COVID-19? No / Unsure 10/06/2022 1:38 PM CDT documented as of this encounter Medications at Time of Discharge clobetasol (TEMOVATE) 0.05 % external solution Apply scalp once to twice day. 30 days supply. Reasons: Skin Disease Successfully Treated with Steroid Therapy 10/01/2022 triamcinolone (KENALOG) 0.025 % ointment Apply to ear twice daily as needed psoriasis. 30 days supply. Reasons: Psoriasis 10/01/2022 atenolol (TENORMIN) 25 MG tablet Take 1 tablet (25 mg total) by mouth daily. 03/26/2022 4 clobetasol (TEMOVATE) 0.05 % ointment Apply to elbow twice daily. 30 days supply. Reasons: Skin Disease Successfully Treated with Steroid Therapy 10/01/2022 3 ketoconazole (NIZORAL) 2 % shampoo Apply to wet hair, face and trunk, leave on for 3 minutes, then rinse; three times weekly. 30 days supply 10/01/2022 4 VENTOLIN HFA 108 (90 Base) MCG/ACT inhalerIndicatio ns:Asthma (HHS/HCC) INHALE 1 PUFF INTO THE LUNGS EVERY 4 HOURS NEEDED FOR WHEEZING 18 g 2 05/26/2022 4 documented as of this encounter Plan of Treatment Upcoming Encounters Date Type Department Care Team (Late st Contact Info) Description 06/19/2024 8:45 AM CABIN MAN [facility] [address] [place] [address] Ren Morse MD [facility] [address] [place] [address] 07/19/2024 7:00 AM CABIN MAN Office Visit [facility] Medical Group Family & Internal Medicine [address] [place] [address] [place] [address] [place] [address] documented as of this encounter Visit Diagnoses Not on filedocumented in this encounter Additional Health Concerns Infection Onset Date Last Indicated Resolved Time COVID-19 Rule Out 10/06/2022 10/06/2022 10/06/2022 2:27 PM CDT COVID-19 Rule Out 10/06/2022 10/06/2022 10/07/2022 4:03 PM CDT Assessment Noted Time PHQ-9 Depression Total Score: 7 11/20/19 22 2:00 PM CDT documented as of this encounter Care Teams Supervisory It Specialist Relationship Specialty Start Date End Date Meet Ang DO [address] [place] [phone] PCP - General FAMILY PRACTICE 08/16/18 Paresh Gray MD [address] [address] EP Cone Operator CLINICAL CARDIAC ELECTROPHYSIOLOGY 03/03/19 documented as of this encounter
--- OUTSIDE RECORDS SUMMARY | 2024-05-11 21:14 | XMS_ITS | Encounter Summary ---
Author Organization [facility] Address [address] [place] [address]. [place], [place] [address] [address] Care Team Providers Care Cone Marker Name Role Phone Meet Ang DO Primary Care Provider + Paresh Gray MD Unavailable Reason for Visit * Reason Comments Nodes The patient states h e noticed the enlarged lymph nodes 2 days ago. The patient states his gums are swollen on the upper and lower left side. He is also having sinus pain on the left side. The patient reports constipation for 2 days as well. The patient states he does not have fever, sore throat, headache. Encounter Details Date Type Department Care Team (Late st Contact Info) Description 08/18/2023 12:00 PM CDT Office Visit [facility] Medical Group Family & Internal Medicine [address] [phone] Meet Ang DO [address] [place] [address] Nodes (The patient states he noticed the enlarged lymph nodes 2 days ago. The patient states his gums are swollen on the upper and lower left side. He is also having sinus pain on the left side. The patient reports constipation for 2 days as well. The patient states he does not have fever, sore throat, headache. ) Social History Tobacco Use Types Packs/Day [...] on file Legal Sex Male 2:37 PM SENIOR ACTUARIAL ANALYST Gender Identity Male 05/16/2021 9:25 AM SENIOR ACTUARIAL ANALYST Sexual Orientation Straight 05/16/2021 9: 25 AM SENIOR ACTUARIAL ANALYST documented as of this encounter Last Filed Vital Signs Vital Sign Reading Time Taken Comments Blood Pressure 118/72 08/18/2023 12:05 PM CDT Pulse 89 08/18/2023 12:05 PM CDT Temperature 36.7 ??C (98.1 ??F) 08/18/2023 1 2:05 PM CDT Respiratory Rate 16 08/18/2023 12:0 5 PM CDT Oxygen Saturation 98% 08/18/2023 12: 05 PM CDT Inhaled Oxygen Concentration - - Weight 150.5 kg (331 lb 11.2 oz) 2023 12:05 PM CDT Height 185.4 cm (6' 1 ) 08/18/2023 12:0 5 PM CDT Body Mass Index 43.76 08/18/2023 12:05 PM CDT documented in this encounter Progress Notes * Meet Ang, - 08/18/2023 12:00 PM CDT Images from the original note were not included. GENERAL OFFICE VISIT Encounter Date: 08/18/2023 Chief Complaint: 32-year-old male presents for Nodes (The patient states he noticed the enlarged lymph nodes 2 days ago. The patient states his gums are swollen on the upper and lower left side. He is also having sinus pain on the left side. The patient reports constipation for 2 days as well. The patient states hedoes not have fever, sore throat, headache. ) HPI: Patient states symptoms have been present for 2 days. Symptoms include swollen lymph nodes in neck B/L, swollen gums on both sides, and maxillary sinus pain on the left. Pertinent negatives include sore throat, body aches, Fevers, Chills, and Myalgias. Patient has no sick contacts. Pt also has constipation. Pt had notable diarrhea two days prior to this starting 4 days ago. No BRBPR and no melena. Review of Systems Constitutional: Negative for fever. Respiratory: Negative for cough and shortness of breath. Patient Active Problem List Diagnosis KIMMY (obstructive sleep apnea) IBS (irritable bowel syndrome) GERD (gastroesophageal reflux disease) Depression Asthma ([facility]) Anxiety Agoraphobia Tachycardia Elevated blood pressure reading Elevated troponin level not due myocardial infarction Palpitations Class 3 severe obesity with body mass index (BMI) of 40.0 to 44.9 in adult ([facility]) Psoriasis Past Medical History: Diagnosis Date Agoraphobia Anxiety Asthma ([facility]) Depression GERD (gastroesophageal reflux disease) IBS (irritable [...] Disease Father Gonzalo Dupreet Hyperlipidemia Father Gonzalo Dupreet Asthma Father Gonzalo Blackwood Only when sick, allergic to cats. Open Heart Brother Jaspal Hipolito Diabetes Brother Jaspal Mcmillan Step brother related [...] Grandmother Malia Gavillet Depression Paternal Grandmother Malia Ramosvillet Mental Health Paternal Grandmother Malia Dupreet Open Heart Paternal Grandfather Nikunj Blackwood Hypertension [...] Cigarettes, Cigars Quit date: 05/24/2014 Years since quittin.2 Smokeless tobacco: Former Types: Chew Tobacco comments: [...] Current Outpatient Medications Medication Sig Dispense Refill amoxicillin-clavulanate (AUGMENTIN) 875-125 MG tablet Take 1 tablet (875 mg total) by mouth 2 (two)times daily for 10 days. 20 tablet 0 ARIPiprazole (ABILIFY) 5 MG tablet Take 1 [...] Reactions Bee Venom Swelling Objective: Filed Vitals: 08/18/23 1205 BP: 118/72 Pulse: 89 Resp: 16 Temp: 98.1 ??F (36.7 ??C) TempSrc: Skin SpO2: 98% Weight: (!) 150.5 kg (331 lb 11.2 oz) Height: 1.854 m (6' 1 ) Physical Exam Vitals and nursing note reviewed. HENT: Head: Normocephalic and atraumatic. Right Ear: Tympanic membrane, ear canal and external ear normal. Left Ear: Tympanic membrane, ear canal and external ear normal. Mouth/Throat: Pharynx: No oropharyngeal exudate or posterior oropharyngeal erythema. Eyes: General: No scleral icterus. Conjunctiva/sclera: Conjunctivae normal. Cardiovascular: Rate and Rhythm: Normal rate and regular rhythm. Heart sounds: Normal heart sounds. No murmur heard. No friction rub. No gallop. Pulmonary: Effort: Pulmonary effort is normal. No respiratory distress. Breath sounds: Normal breath sounds. No wheezing or rales. Abdominal: Palpations: Abdomen is soft. Tenderness: There is no abdominal tenderness. Musculoskeletal: Cervical back: Neck supple. Lymphadenopathy: Cervical: Cervical adenopathy present. Skin: General: Skin is warm and dry. Findings: No rash. Neurological: General: No focal deficit present. Mental Status: He is alert. Psychiatric: Mood and Affect: Mood and affect normal. Assessment & Plan: Alex was seen today for nodes. Diagnoses and all orders for this visit: Acute non-recurrent maxillary sinusitis - amoxicillin-clavulanate (AUGMENTIN) 875-125 MG tablet; Take 1 tablet (875 mg total) by mouth 2 (two) times daily for 10 days. Constipation, unspecified constipation type Discussion/Summary: Will treat as per above; discussed side effect profile. Suspect constipation will improve with augmentin; call back if not improving as well. Discussed conservative and expected management. Call backif worsening or not improving as expected; also reach out to dentist if not improving. F/u with regular appointments otherwise. Pt v/u. Meetcindi Ang DO documented in this encounter Plan of Treatment Upcoming Encounters Date Type Department Care Team (Late st Contact Info) Description 06/19/2024 8:45 AM SENIOR ACTUARIAL ANALYST Office Visit [facility] [place] [address] [place] [address] Ren Morse MD Three [facility] [address] [place] [address] 07/19/2024 7:00 AM SENIOR ACTUARIAL ANALYST Office Visit [facility] Medical Group Family & Internal Medicine [address] [phone] Meet Ang DO [address] [place] [address] documented as of this encounter Visit Diagnoses Diagnosis Acute non-recurrent maxillary sinusitis- Primary Constipation, unspecified constipation type documented in this encounter Additional Health Concerns Assessment Noted Time PHQ-9 Depression Total Score: 8 07/06/19 7:54 AM SENIOR ACTUARIAL ANALYST documented as of this encounter Care Teams Cone Marker Relationship Specialty Start Date End Date Meet Ang DO [address] [place] [phone] PCP - General FAMILY PRACTICE 08/16/18 Paresh Gray MD Three [facility]. [address] [place] [address] EP Booster Plant Operator CLINICAL CARDIAC ELECTROPHYSIOLOGY 03/03/19 documented as of this encounter
--- OUTSIDE RECORDS SUMMARY | 2024-05-11 21:14 | XMS_ITS | Encounter Summary ---
Author Organization [facility] Address [address] [place] [address]. [place] [address] [place] [address] Care Team Providers Care Biztalk Developer Name Role Phone Meet Ang Primary Care Provider + Paresh Gray MD Unavailable Reason for Visit * Reason Onset Date Comments Consult 04/12/2023 Encounter Details Date Type Department Care Team (Late st Contact Info) Description 04/12/2023 Telephone [facility] [place], [address] [address] Shavonne Carter RMA Consult Social [...] on file Legal Sex Male 2:37 PM HSE ADVISOR Gender Identity Male 05/16/2021 9:25 AM HSE ADVISOR Sexual Orientation Straight 05/16/2021 9: 25 AM HSE ADVISOR documented as of this encounter Progress Notes * ИРИНА Luna - 04/12/2023 4:40 PM CST Returned call and left message to schedule consult per Dr Ang ADVISOR documented in this encounter Plan of Treatment Upcoming Encounters Date Type Department Care Team (Late st Contact Info) Description 06/19/2024 8:45 AM HSE ADVISOR Office Visit [facility] [address] [facility] [address], [address] [place] [address] Ren Morse MD Three [facility] [address] [place] [address] 07/19/2024 7:00 AM HSE ADVISOR Office Visit [facility] Medical Group Family & Internal Medicine [address] [phone] Meet Ang DO [address] [place] [address] documented as of this encounter Visit Diagnoses Not on filedocumented in this encounter Additional Health Concerns Assessment Noted Time PHQ-9 Depression Total Score: 7 11/20/19 22 2:00 PM CDT documented as of this encounter Care Teams Biztalk Developer Relationship Specialty Start Date End Date Meet Ang DO [address] [place] [phone] PCP - General FAMILY PRACTICE 08/16/18 Paresh Gray MD Three [facility]. [facility] [address] [place] [address] EP Factory Worker CLINICAL CARDIAC ELECTROPHYSIOLOGY 03/03/19 documented as of this encounter
--- OUTSIDE RECORDS SUMMARY | 2024-05-11 21:14 | XMS_ITS | Encounter Summary ---
Author Organization [facility] Address [address] [place] [address]. [place] [address] [place] [address] Care Team Providers Care Signal Helper Name Role Phone Meet Ang Primary Care Provider + Paresh Gray MD Unavailable Reason for Visit * Reason Comments Neck Pain Encounter Details Date Type Department Care Team (Late st Contact Info) Description 02/05/2023 9:45 PM CDT - 02/05/2023 11:28 PM CDT Emergency [facility] Emergency Room [address] [place], [place] [id number] Isaura Polanco PA [address] [place], [place] [address] Neck Pain Discharge Disposition: Home or Self Care [...] on file Legal Sex Male 2:37 PM COLLECTION SYSTEMS MODELER Gender Identity Male 05/16/2021 9:25 AM COLLECTION SYSTEMS MODELER Sexual Orientation Straight 05/16/2021 9: 25 AM COLLECTION SYSTEMS MODELER documented as of this encounter Last Filed Vital Signs Vital Sign Reading Time Taken Comments Blood Pressure 150/90 02/05/2023 11:24 PM CDT Pulse 86 02/05/2023 11:24 PM CDT Temperature 35.7 ??C (96.3 ??F) 02/05/2023 9:35 PM CD T Respiratory Rate 16 02/05/2023 11:2 4 PM CDT Oxygen Saturation 98% 02/05/2023 11: 24 PM CDT Inhaled Oxygen Concentration - - Weight 149.7 kg (330 lb 0.5 oz) 02/05/2023 9:35 PM CDT Height 185.4 cm (6' 1 ) 02/05/2023 9:35 PM CDT Body Mass Index 43.54 02/05/2023 9:35 PM CDT documented in this encounter Discharge Instructions * Discharge Instructions* IRENE Guido - 02/05/2023 11:25 PM CDT Use [id number] Tylenol as directed for fevers. Make sure to drink adequate amount fluids throughout the day. Follow-up with primary care provider in 5 to 7 days return emergency department symptoms worsen or new concerns. * Attachments The following attachments cannot be sent through Care Everywhere. * Chest Pain That Is Not Caused by the Heart Discharge Instructions (Cymraes) documented in this encounter Medications at Time [...] (25 mg total) by mouth daily. 03/26/2022 clobetasol (TEMOVATE) 0.05 % ointment Apply to [...] as of this encounter ED Notes * IRENE Guido - 02/05/2023 11:26 PM CDT ED NOTE Chief Complaint Chief Complaint Patient presents with Neck Pain History of Present Illness 32-year-old male presenting to emergency department for evaluation of multiple complaints. Primarily complaining of neck pain and body aches over the past several days. Reports negative COVID test athome. Also reports intermittent left-sided chest discomfort with this. Does worsen when taking a deep breath or coughing. No medications prior to arrival. Denies dyspnea at rest, vomiting or fevers. Medical History ALLERGIES: Review of patient's allergies indicates: Allergen Reactions Bee Venom Swelling MEDICATIONS: Prior to Admission medications Medication Sig Start Date End Date Taking? Authorizing Provider atenolol (TENORMIN) 25 MG tablet Take 1 tablet (25 mg total) by mouth daily. 03/26/22 Default History Genericprovider clobetasol (TEMOVATE) 0.05 % external solution Apply scalp once to twice day. 30 days supply. Reasons: Skin Disease Successfully Treated with Steroid Therapy 10/01/22 Default History Genericprovider clobetasol (TEMOVATE) 0.05 % ointment Apply to [...] EVERY 4 HOURS NEEDED FORWHEEZING 05/26/22 Meet Ang DO PAST MEDICAL HISTORY: Past Medical History: Diagnosis Date Agoraphobia Anxiety Asthma (HHS/HCC) Depression GERD (gastroesophageal reflux disease) IBS (irritable bowel syndrome) KIMMY (obstructive sleep apnea) PAST SURGICAL HISTORY: Past Surgical History: Procedure Laterality Date NONE FAMILY HISTORY: Family History Problem Relation Name Age of Onset Hypertension Mother Libby Hemmer Depression Mother Libby Hemmer Heart Disease Mother Libby Hemmer Anxiety Mother Libby Hemmer Hyperlipidemia Mother Libby Hemmer Diabetes Mother Libby Hemmer Mental Health Mother Libby Hemmer Hypertension Father Gonzalo Tovar Depression Father Gonzalo Dupreet Heart Disease Father Gonzalo Tovar Hyperlipidemia Father Gonzalo Tovar Asthma Father Gonzalo Tovar Only when sick, allergic to cats. Alcohol Abuse Paternal Uncle Cancer Paternal Uncle mouth Diabetes Maternal Grandmother Depression Maternal Grandmother Depression Maternal Grandfather Toy Hemtrang Heart Attack Maternal Grandfather Toy Pickett Alcohol Abuse Maternal Grandfather Toy Pickett from heart attack related to alcoholism. Heart Disease Maternal Grandfather Toy Pickett Passed from heart attack. Psoriasis Paternal Grandmother Malia Gavillet Heart Attack Paternal Grandmother Malia Dupreet Depression Paternal Grandmother Malia Dupreet Mental Health Paternal Grandmother Malia Tovar Open Heart Brother Jaspal Mcmillan Diabetes Brother Jaspal Hipolito Step brother related to mother. Other (Down syndrome) Brother Jaspal Mcmillan Open Heart Paternal Grandfather Nikunj Tovar Hypertension Paternal Grandfather Nikunj Tovar Cancer Paternal Grandfather Nikunj Tovar Colon Cancer removed tumor, cancer free. Heart Disease Paternal Grandfather Nikunj Tovar Had multiple valve replacements SOCIAL HISTORY: Social History Tobacco Use Smoking status: Former Packs/day: 1.50 Years: 10.00 Pack years: 15.00 Types: Cigarettes, Cigars Quit date: 05/24/2014 Years since quittin.7 Smokeless tobacco: Former Types: Chew Tobacco comments: Also used chewing tobacco for years Substance Use Topics Alcohol use: No Drug use: No Review of Systems As stated in HPI Physical Exam Filed Vitals: 02/05/23 2135 02/05/23 2324 BP: (!) 173/98 (!) 150/90 Pulse: (!) 117 86 Resp: 23 16 Temp: 96.3 ??F (35.7 ??C) TempSrc: Temporal SpO2: 99% 98% Weight: (!) 149.7 kg (330 lb 0.5 oz) Height: 6' 1 (1.854 m) Physical Exam Vitals and nursing note reviewed. Constitutional: General: He is not in acute distress. Appearance: He is well-developed. HENT: Head: Normocephalic. Nose: Nose normal. Eyes: Conjunctiva/sclera: Conjunctivae normal. Pulmonary: Effort: Pulmonary effort is normal. No respiratory distress. Chest: Chest wall: Tenderness present. Musculoskeletal: Cervical back: Normal range of motion and neck supple. Skin: General: Skin is warm and dry. Neurological: Mental Status: He is alert and oriented to person, place, and time. Psychiatric: Behavior: Behavior normal. Thought Content: Thought content normal. Judgment: Judgment normal. Diagnostic Studies / Procedures ELECTROCARDIOGRAMS: No results found for this visit on 02/05/23. LABORATORY STUDIES: Results for orders placed or performed during the hospital encounter of 02/05/23 CBC W/DIFF AUTOMATED Result Value Ref Range WBC 7.7 4.5 - 11.0 x10'3/uL RBC 5.32 4.70 - 6.10 x10'6/uL HGB 15.8 14.0 - 18.0 G/DL HCT 45.9 43.0 - 54.0 % MCV 86.3 80.0 - 94.0 FL MCH 29.7 27.0 - 31.0 PG MCHC 34.4 32.0 - 36.0 G/DL RDW 11.7 11.5 - 14.5 % PLT 254 130 - 400 x10'3/uL MPV 11.3 9.3 - 12.2 FL NEUTROPHILS 65.0 % LYMPHOCYTES 25.4 % MONOCYTES 6.3 % EOSINOPHILS 2.3 % BASOPHILS 0.7 % IMMATURE GRANS 0.3 % DIFFERENTIAL TYPE AUTOMATED DIFFERENTIAL ABS. NEUTROPHILS TOTAL 4.99 1.80 - 7.70 x10'3/uL ABS. LYMPHOCYTES 1.95 1.00 - 4.80 x10'3/uL ABS. MONOCYTES 0.48 0.30 - 0.82 x10'3/uL ABS. EOSINOPHILS 0.18 0.04 - 0.54 x10'3/uL ABS. BASOPHILS 0.05 0.01 - 0.08 x10'3/uL ABS. IMMATURE GRANULOCYTES 0.02 0.00 - 0.49 x10'3/uL D-DIMER, QUANTITATIVE Result Value Ref Range D-DIMER <215 0 - 500 ng[FEU]/mL COMPREHENSIVE METABOLIC PANEL Result Value Ref Range GLUCOSE 118 (H) 70 - 99 MG/DL BUN 9 7 - 18 MG/DL CREATININE S/P/B 0.89 0.7 - 1.3 MG/DL SODIUM S/P/B 140 136 - 145 MMOL/L POTASSIUM S/P/B 3.5 3.5 - 5.1 MMOL/L CHLORIDE S/P/B 108 100 - 108 MMOL/L CO2 26.7 21 - 32 MMOL/L CALCIUM S/P/B 8.8 8.5 - 10.1 MG/DL BILIRUBIN TOTAL S/P/B 2.0 (H) 0.2 - 1.2 MG/DL TOTAL PROTEIN S/P/B 7.9 6.4 - 8.2 G/DL ALBUMIN S/P/B 4.0 3.4 - 5.0 G/DL AST 23 15 - 37 U/L ALT 47 16 - 60 U/L ALKALINE PHOSPHATASE S/P/B 73 50 - 136 U/L ANION GAP 5.3 5 - 15 MMOL/L BUN CREATININE RATIO 10.1 6 - 26 A/G RATIO 1.0 1.0 - 2.0 RATIO GFR ESTIMATE >90 >90 ML/MIN/1.73 M2 TROPONIN, QUANT Result Value Ref Range TROPONIN I HIGH SENSITIVITY 6 <79 ng/L IMAGING STUDIES XR CHEST PORTABLE Final Result by User, [id number] (02/05 2306) CLINICAL HISTORY: Chest pain COMPARISON: None TECHNIQUE: AP Portable View FINDINGS: Lungs are clear. No pneumothorax or pleural effusions evident. The cardiac silhouette, mediastinal contours, and pulmonary vessels appear within normal limits. No acute osseous abnormality. IMPRESSION: No acute findings. Referred By: Interpreted By: Nick Lopez, 02/05/2023 11:05 PM ED Course / Medical Decision Making MDM Amount and/or Complexity of Data Reviewed Clinical lab tests: ordered and reviewed Tests in the radiology section of CPT??: ordered and reviewed Decide to obtain previous medical records or to obtain history from someone other than the patient:yes Labs are grossly unremarkable with negative D-dimer normal troponin. Symptoms most consistent with viral etiology. Does report negative COVID test at home. Chest x-ray with no acute abnormalities. Patient appears in no acute distress. Stable for outpatient follow-up as needed. Medications - No data to display Clinical Impression Acute viral syndrome (Primary) Cervical lymphadenopathy Chest wall pain Discharge Medication List as of 02/05/2023 11:25 PM Disposition: Discharge Follow-Up: Meet Ang, [address] [place] [id number] Schedule an appointment as soon as possible for a visit in 1 week As needed IRENE Guido 02/05/2023 IRENE Guido 02/05/23 1170 Cosigned by Didi Parker MD at 02/06/2023 5:57 AM CDT * IRENE Guido - 02/05/2023 9:51 PM CDT [place], [place] EMERGENCY DEPARTMENT ENCOUNTER Medical Screening Examination 02/05/23 9:51 PM Chief Complaint : Neck Pain HPI : Maday Tovar is a 32-year-old male who presents for evaluation of chest and neck pain over past week, hx of asthma, negative covid at home Vital Signs: Filed Vitals: 02/05/23 2135 BP: (!) 173/98 Pulse: (!) 117 Resp: 23 Temp: 96.3 ??F (35.7 ??C) TempSrc: Temporal SpO2: 99% Weight: (!) 149.7 kg (330 lb 0.5 oz) Height: 6' 1 (1.854 m) Physical exam: A brief physical exam was completed to facilitate/expedite patient care. Peralta findings include: no distress noted Plan: Labs & Imaging was ordered to facilitate patient care. and EKG was ordered to faciliate patient care. IRENE Guido 02/05/232151 Cosigned by Didi Parker MD at 02/06/2023 5:56 AM CDT * Cathleen Vallejo RN - 02/05/2023 9:39 PM CDT Patient to triage with c/o neck pain that is causing headache. Reports his face and ears feels hot . Also reports midsternal chest poking sensation. Denies shortness of breath/nausea. documented in this encounter Plan of Treatment Upcoming Encounters Date Type Department Care Team (Late st Contact Info) Description 06/19/2024 8:45 AM COLLECTION SYSTEMS MODELER Office Visit [facility], [facility] [address] [place] [address] Ren Morse MD [facility] [address] [place] [address] 07/19/2024 7:00 AM COLLECTION SYSTEMS MODELER Office Visit [facility] Medical Group Family & Internal Medicine [facility] [address] [place] [address] Meet Ang DO [address] [place] [address] documented as of this encounter Procedures Procedure Name Priority Date/Time Associated Diagnosis Comments XR CHEST PORTABLE STAT 02/05/2023 10: 58 PM CDT ECG 12-LEAD Routine 02/05/2023 9:56 PM CDT COMPREHENSIVE METABOLIC PANEL STAT 02/05/2023 9:51 PM CDT D-DIMER, QUANTITATIVE STAT 02/05/2023 9:51 PM CDT CBC W/DIFF AUTOMATED STAT 02/05/2023 9:51 PM CDT TROPONIN, QUANT STAT 02/05/2023 9:51 PM CDT documented in this encounter Results * XR CHEST PORTABLE (02/05/2023 10:58 PM CDT) Anatomical Region Laterality Modality Chest Radiographic Zoe ging 02/05/2023 11:0 5 PM CDT Impressions 02/05/2023 11:05 PM CDT IMPRESSION: No acute findings. Referred By: ?? Interpreted By: Nick Lopez, 02/05/2023 11:05 PM Narrative 02/05/2023 11:05 PM CDT CLINICAL HISTORY: Chest pain COMPARISON: None TECHNIQUE: AP Portable View FINDINGS: Lungs are clear. No pneumothorax or pleural effusions evident. The cardiac silhouette, mediastinal contours, and pulmonary vessels appear within normal limits. No acute osseous abnormality. Procedure Note Nick Lopez MD - 02/05/2023 CLINICAL HISTORY: Chest pain COMPARISON: None TECHNIQUE: AP Portable View FINDINGS: Lungs are clear. No pneumothorax or pleural effusions evident. The cardiacsilhouette, mediastinal contours, and pulmonary vessels appear withinnormal limits. No acute osseous abnormality. IMPRESSION: No acute findings. Referred By: Interpreted By: Nick Lopez, 02/05/2023 11:05 PM [facility] Final Resul t * ECG 12 lead (02/05/2023 9:56 PM CDT) 02/05/2023 9:56 PM CDT Narrative [facility] - 02/15/2023 7:12 AM CDT ?[facility] ? [address] [place] ? Test Date: ?2023-02-05 Pat Name: ? MADAY MCBRIDESERA ? Department: ?? 41 ? Room: ? INPR Gender: ? Male ? Batch Still Operator: ?? [id number] : ?1990 ? Requested By: ISAURA POLANCO Order Number: [id number] ? Reading MD: ?? Elle Hdezu ? Measurements Intervals ?[place] ? Rate: ? 96 ? P: ?57 [place]: ? 166 ?QRS: ?25 QRSD: ? 105 ?T: ?37 QT: ? 332 ? QTc: ?420 ? Interpretive Statements SINUS RHYTHM Compared to ECG 06/12/2019 13:35:24 Sinus tachycardia no longer present Procedure Note Elle Painter MD - 02/15/[address] [facility] Test Date: 2023-02-05 Pat Name: MADAY TOVAR Department: 41 Room: INKY Gender: Male Batch Still Operator: [id number] : 1990 Requested By: ISAURA POLANCO Order Number: [id number] Reading MD: Elle Painter Measurements Intervals [place] Rate: 96 P: 57 [place]: 166 QRS: 25 QRSD: 105 T: 37 QT: 332 QTc: 420 Interpretive Statements SINUS RHYTHM Compared to ECG 06/12/2019 13:35:24 Sinus tachycardia no longer present us [facility] ECG ORDERABLES Final [facility]ul t [facility] RAD * TROPONIN, QUANT (02/05/2023 9:51 PM CDT) TROPONIN I HIGH SENSITIVITY 6 <79 ng/L 02/05/2023 10:[address] [facility] Comment: HIGH DOSES OF BIOTIN, TROPONIN-SPECIFIC AUTOANTIBODIES, AND ANTIBODY THERAPY CONTAINING HAMA MAY INTERFERE WITH THIS TEST RESULT. CORRELATION TO CLINICAL HISTORY AND PRESENTATION RECOMMENDED. 02/05/2023 9:51 PM CDT us [facility] Final Resul t [facility] [address] [place] [address], * (ABNORMAL) COMPREHENSIVE METABOLIC PANEL (02/05/2023 9:51 PM CDT) GLUCOSE 118(H) 70 - 99 MG/DL 02/05/2023 10:[address] [facility] BUN 9 7 - 18 MG/DL 02/05/2023 10:[address] [facility] CREATININE S/P/B 0.89 0.7 - 1.3 MG/DL 02/05/2023 10:[address] [facility] SODIUM S/P/B 140 136 - 145 MMOL/L 02/05/2023 10:[address] [facility] POTASSIUM S/P/B 3.5 3.5 - 5.1 MMOL/L 02/05/2023 10:[address] [facility] CHLORIDE S/P/B 108 100 - 108 MMOL/L 02/05/2023 10:[address] [facility] CO2 26.7 21 - 32 MMOL/L 02/05/2023 10:[address] [facility] CALCIUM S/P/B 8.8 8.5 - 10.1 MG/DL 02/05/2023 10:[address] [facility] BILIRUBIN TOTAL S/P/B 2.0(H) 0.2 - 1.2 MG/DL 02/05/2023 10:[address] [facility] Comment: THIS ASSAY IS NOT RECOMMENDED FOR PATIENTS UNDERGOING TREATMENT WITH ELTROMBOPAG DUE TO THE POTENTIAL FOR FALSELY ELEVATED RESULTS. TOTAL PROTEIN S/P/B 7.9 6.4 - 8.2 G/DL 02/05/2023 10:[address] [facility] ALBUMIN S/P/B 4.0 3.4 - 5.0 G/DL 02/05/2023 10:[address] [facility] AST 23 15 - 37 U/L 02/05/2023 10:[address] [facility] ALT 47 16 - 60 U/L 02/05/2023 10:[address] [facility] ALKALINE PHOSPHATASE S/P/B 73 50 - 136 U/L 02/05/2023 10:[address] [facility] ANION GAP 5.3 5 - 15 MMOL/L 02/05/2023 10:[address] [facility] BUN CREATININE RATIO 10.1 6 - 26 02/05/2023 10:[address] [facility] A/G RATIO 1.0 1.0 - 2.0 RATIO 02/05/2023 10:[address] [facility] GFR ESTIMATE >90 >90 ML/MIN/1.7 3 M2 02/05/2023 10:[address] [facility] Comment: NOTE: eGFR is not calculated for patients <18 years of age. This is an estimated GFR calculation using the new CKD EPI creatinine equation without race and so does not require a correction factor for race. This estimated GFR should not be used for calculating drug doses. 02/05/2023 9:51 PM CDT us [facility] Final Resul t [facility] [address] [place] [address], * D-DIMER, QUANTITATIVE (02/05/2023 9:51 PM CDT) D-DIMER <215 0 - 500 ng{FEU}/mL 02/05/2023 10:[address] [facility] Comment: D-Dimer values less than or equal to 500 ng/mL FEU have a negative predictive value of >95% for exclusion of deep vein thrombosis and pulmonary embolism. In patients over 50 (who tend to have higher normal baseline D-Dimer values), recent studies suggest age-adjusted D-Dimer cutoff values (calculated as: age [years] x 10 ng/mL) result in equivalent outcomes and no additional false negative findings. 02/05/2023 9:51 PM CDT [facility] Final Resul t [facility] [address] [place] [address], * CBC W/DIFF AUTOMATED (02/05/2023 9:51 PM CDT) WBC 7.7 4.5 - 11.0 x10'3/uL 02/05/2023 10:[address] [facility] RBC 5.32 4.70 - 6.10 x10'6/uL 02/05/2023 10:[address] [facility] HGB 15.8 14.0 - 18.0 G/DL 02/05/2023 10:[address] [facility] HCT 45.9 43.0 - 54.0 % 02/05/2023 10:[address] [facility] MCV 86.3 80.0 - 94.0 FL 02/05/2023 10:[address] [facility] MCH 29.7 27.0 - 31.0 PG 02/05/2023 10:[address] [facility] MCHC 34.4 32.0 - 36.0 G/DL 02/05/2023 10:[address] [facility] RDW 11.7 11.5 - 14.5 % 02/05/2023 10:[address] [facility] PLT 254 130 - 400 x10'3/uL 02/05/2023 10:[address] [facility] MPV 11.3 9.3 - 12.2 FL 02/05/2023 10:[address] [facility] NEUTROPHILS % 65.0 % 02/05/2023 10:[address] [facility] LYMPHOCYTES % 25.4 % 02/05/2023 10:[address] [facility] MONOCYTES % 6.3 % 02/05/2023 10:[address] [facility] EOSINOPHILS 2.3 % 02/05/2023 10:[address] [facility] BASOPHILS 0.7 % 02/05/2023 10:[address] [facility] IMMATURE GRANS % 0.3 % 02/06/20 10:[address] [facility] DIFFERENTIAL TYPE AUTOMATED DIFFERENTIAL 02/05/2023 10:[address] [facility] ABS. NEUTROPHILS TOTAL 4.99 1.80 - 7.70 x10'3/uL 02/05/2023 10:[address] [facility] ABS. LYMPHOCYTES 1.95 1.00 - 4.80 x10'3/uL 02/05/2023 10:[address] [facility] ABS. MONOCYTES 0.48 0.30 - 0.82 x10'3/uL 02/05/2023 10:[address] [facility] ABS. EOSINOPHILS 0.18 0.04 - 0.54 x10'3/uL 02/05/2023 10:[address] [facility] ABS. BASOPHILS 0.05 0.01 - 0.08 x10'3/uL 02/05/2023 10:[address] [facility] ABS. IMMATURE GRANULOCYTES 0.02 0.00 - 0.49 x10'3/uL 02/05/2023 10:[address] [facility] 02/05/2023 9:51 PM CDT us [facility] Final Resul t [facility] [address] [place] [address], documented in this encounter Visit Diagnoses Diagnosis Acute viral syndrome- Primary Cervical lymphadenopathy Enlargement of lymph nodes Chest wall pain Painful respiration documented in this encounter Additional Health Concerns Assessment Noted Time PHQ-9 Depression Total Score: 7 11/20/19 22 2:00 PM CDT documented as of this encounter Care Teams Signal Helper Relationship Specialty Start Date End Date Meet Ang DO [address] [place] [address] PCP - General FAMILY PRACTICE 08/16/18 Paresh Gray MD Three [facility] [address] [place] [address] EP Rn Immunology CLINICAL CARDIAC ELECTROPHYSIOLOGY 03/03/19 documented as of this encounter
--- OUTSIDE RECORDS SUMMARY | 2024-05-11 21:14 | XMS_ITS | Encounter Summary ---
Author Organization [facility] Address [address] [place] [address]. [place], [place] [id number] [place] [address] Care Team Providers Care Rig Mechanic Name Role Phone Meet Ang DO Primary Care Provider + Paresh Gray MD Unavailable Encounter Details Date Type Department Care Team (Latest Contact Info) Description 07/20/2021 Scan HEALTH INFO SRVCS Scanned, Documents Social [...] on file Legal Sex Male 2:37 PM EXAMINATION SCORER Gender Identity Male 05/16/2021 9:25 AM EXAMINATION SCORER Sexual Orientation Straight 05/16/2021 9: 25 AM EXAMINATION SCORER documented as of this encounter Plan of Treatment Upcoming Encounters Date Type Department Care Team (Late st Contact Info) Description 06/19/2024 8:45 AM EXAMINATION SCORER [facility] [address] [place] [address] Ren Morse MD Three [facility] [address] [place] [address] 07/19/2024 7:00 AM EXAMINATION SCORER Office Visit [facility] Medical Group Family & Internal Medicine - [address] [address] Meet Ang DO [address] [place] [address] documented as of this encounter Visit Diagnoses Not on filedocumented in this encounter Additional Health Concerns Assessment Noted Time PHQ-9 Depression Total Score: 13 021 10:25 AM EXAMINATION SCORER documented as of this encounter Care Teams Rig Mechanic Relationship Specialty Start Date End Date Meet Ang DO [address] [place] [address] PCP - General FAMILY PRACTICE 08/16/18 Paresh Gray MD Three [facility]. [facility] [address] [place] [address] EP Superintendent [employer] CLINICAL CARDIAC ELECTROPHYSIOLOGY 03/03/19 documented as of this encounter
--- OUTSIDE RECORDS SUMMARY | 2024-05-11 21:14 | XMS_ITS | Encounter Summary ---
Author Organization [facility] Address [address] [place] [address]. [place], [place] [id number] [place] [phone] Care Team Providers Care Fur Polisher Name Role Phone Meet Ang DO Primary Care Provider + Paresh Gray MD Unavailable Encounter Details Date Type Department Care Team (Latest Contact Info) Description 05/19/2021 Travel Social History Tobacco Use Types Packs/Day [...] on file Legal Sex Male 2:37 PM OFFICE ADMINISTRATION Gender Identity Male 05/16/2021 9:25 AM OFFICE ADMINISTRATION Sexual Orientation Straight 05/16/2021 9: 25 AM OFFICE ADMINISTRATION COVID-19 Exposure Response Date Recorded In the last month, have you been in contact with someone who was confirmed or suspected to have Coronavirus / COVID-19? No / Unsure 05/19/2021 1:34 PM OFFICE ADMINISTRATION documented as of this encounter Plan of Treatment Upcoming Encounters Date Type Department Care Team (Late st Contact Info) Description 06/19/2024 8:45 AM OFFICE ADMINISTRATION Office Visit [facility] [place] [address] [place] [address] Ren Morse MD Three [facility] [address] [place] [address] 07/19/2024 7:00 AM OFFICE ADMINISTRATION Office Visit [facility] Medical Group Family & Internal Medicine - [place] [address] [place] [address] Meet Ang DO [address] [place] [address] documented as of this encounter Visit Diagnoses Not on filedocumented in this encounter Additional Health Concerns Assessment Noted Time PHQ-9 Depression Total Score: 13 07/12/ 021 10:25 AM OFFICE ADMINISTRATION documented as of this encounter Care Teams Fur Polisher Relationship Specialty Start Date End Date Meet Ang DO [address] [place] [address] PCP - General FAMILY PRACTICE 08/16/18 Paresh Gray MD Three [facility]. [place] [address] [place] [address] EP Title Processor CLINICAL CARDIAC ELECTROPHYSIOLOGY 03/03/19 documented as of this encounter
--- OUTSIDE RECORDS SUMMARY | 2024-05-11 21:14 | XMS_ITS | Encounter Summary ---
Author Organization [facility] Address [address] [place] [address]. [place], [place] [address] [place] [address] Care Team Providers Care Flagsetter Name Role Phone Meet Ang DO Primary Care Provider + Paresh Gray MD Unavailable Encounter Details Date Type Department Care Team (Latest Contact Info) Description 03/04/2021 Travel Social History Tobacco Use Types Packs/Day [...] on file Legal Sex Male 2:37 PM ASSISTED LIVING MANAGER Gender Identity Male 05/16/2021 9:25 AM ASSISTED LIVING MANAGER Sexual Orientation Straight 05/16/2021 9: 25 AM ASSISTED LIVING MANAGER COVID-19 Exposure Response Date Recorded In the last month, have you been in contact with someone who was confirmed or suspected to have Coronavirus / COVID-19? No / Unsure 03/04/2021 2:10 PM CDT documented as of this encounter Plan of Treatment Upcoming Encounters Date Type Department Care Team (Late st Contact Info) Description 06/19/2024 8:45 AM ASSISTED LIVING MANAGER Office Visit [facility] [place] [address] [place] [address] Ren Morse MD [facility] [address] [place] [address] 07/19/2024 7:00 AM ASSISTED LIVING MANAGER Office Visit [facility] Family & Internal Medicine - [address] [address] Meet Ang DO [address] [place] [address] documented as of this encounter Visit Diagnoses Not on filedocumented in this encounter Additional Health Concerns Assessment Noted Time PHQ-9 Depression Total Score: 13 07/12/ 021 10:25 AM ASSISTED LIVING MANAGER documented as of this encounter Care Teams Flagsetter Relationship Specialty Start Date End Date Meet Ang DO [address] [place] [address] PCP - General FAMILY PRACTICE 08/16/18 Paresh Gray MD [facility]. [facility] [address] [place] [address] EP Wire Spiral Binder CLINICAL CARDIAC ELECTROPHYSIOLOGY 03/03/19 documented as of this encounter
--- OUTSIDE RECORDS SUMMARY | 2024-05-11 21:14 | XMS_ITS | Encounter Summary ---
Author Organization [facility] Address [address] [place] [address]. [place], [place] [address] [place] [address] Care Team Providers Care Grain Wafer Machine Operator Name Role Phone Meet Ang DO Primary Care Provider + Paresh Gray MD Unavailable Reason for Visit * Reason Onset Date Comments Information 08/20/2023 Encounter Details Date Type Department Care Team (Late st Contact Info) Description 08/20/2023 Telephone [facility] Medical [facility] Family & Internal Medicine [address] [place] [address] Meet Ang DO [facility] [place] [address] Information Social History Tobacco Use Types Packs/Day Years [...] on file Legal Sex Male 2:37 PM CODING SPEC Gender Identity Male 05/16/2021 9:25 AM CODING SPEC Sexual Orientation Straight 05/16/2021 9: 25 AM CODING SPEC documented as of this encounter Progress Notes * Shavonne Parada MA - 08/20/2023 3:35 PM CDT Patient was notified of recommendations. The patient v/u. * Meet Ang DO - 08/20/2023 3:00 PM CDT Continue abx as prescribed. * Shavonne Parada MA - 08/20/2023 2:46 PM CDT The patient was seen on 08/18/2023. The patient has Strep and abx was changed at that appt. Please advise since it has only been 2 days on new abx. * Shavonne Vegas - 08/20/2023 12:34 PM CDT Gums are not swollen but lymph nodes are still really swollen. documented in this encounter Plan of Treatment Upcoming Encounters Date Type Department Care Team (Late st Contact Info) Description 06/19/2024 8:45 AM CODING SPEC [facility] [place] [address] [place] [address] Ren Morse MD [facility] [address] [place], [place] [address] 07/19/2024 7:00 AM CODING SPEC Office Visit [facility] Medical Group Family & Internal Medicine [address] [address] Meet Ang DO [address] [place] [address] documented as of this encounter Visit Diagnoses Not on filedocumented in this encounter Additional Health Concerns Assessment Noted Time PHQ-9 Depression Total Score: 8 07/06/19 24 7:54 AM CODING SPEC documented as of this encounter Care Teams Grain Wafer Machine Operator Relationship Specialty Start Date End Date Meet Ang DO [address] [place] [address] PCP - General FAMILY PRACTICE 08/16/18 Paresh Gray MD [address] [address] EP Patient Access Registrar CLINICAL CARDIAC ELECTROPHYSIOLOGY 03/03/19 documented as of this encounter
--- OUTSIDE RECORDS SUMMARY | 2024-05-11 21:14 | XMS_ITS | Encounter Summary ---
Author Organization [facility] Address [address] [place] [address]. [place], [place] [address] [place] [address] Care Team Providers Care Bullet Assembly Press Setter Operator Name Role Phone Meet Ang DO Primary Care Provider + Paresh Gray MD Unavailable Reason for Referral * Consultation (Routine) - Closed Specialty Diagnoses / Procedures Referred By Pepe gordon Referred To Contact OPHTHALMOLOGY Diagnoses Routine eye exam Procedures OFFICE/OUTPT VISIT,NEW,LEVL III OFFICE/OUTPT VISIT,NEW,LEVL IV OFFICE/OUTPT VISIT,NEW,LEVL V OFFICE/OUTPT VISIT,EST,LEVL III OFFICE/OUTPT VISIT,EST,LEVL IV OFFICE/OUTPT VISIT,EST,LEVL V Meet Ang DO [address] [place] [address] Phone: tel: fax: [facility] [address] [place] [address] Phone: tel: fax: Referral ID Status Reason Start Date Expiration Date V isits Requested Visits Authorized [id number] Closed Specialty Services 11/26/2022 12/26/2023 100 100 Reason for Visit * Reason Onset Date Comments Referral 11/26/2022 Encounter Details Date Type Department Care Team ([facility] Contact Info) Description 11/26/2022 Telephone [facility] Medical [facility] Family & Internal Medicine [facility] [address] [place] [phone] Meet Ang DO [address] [place] [address] Referral Social History Tobacco Use Types Packs/Day Years [...] on file Legal Sex Male 2:37 PM DIGITAL MEDIA PLANNER Gender Identity Male 05/16/2021 9:25 AM DIGITAL MEDIA PLANNER Sexual Orientation Straight 05/16/2021 9: 25 AM DIGITAL MEDIA PLANNER documented as of this encounter Progress Notes * Shavonne Parada MA - 11/26/2022 3:12 PM CDT Referral sent * Kaci Davis - 11/26/2022 1:30 PM CDT Pt.s mother called and requested a referral to ophthalmology. documented in this encounter Plan of Treatment Upcoming Encounters Date Type Department Care Team (Late st Contact Info) Description 06/19/2024 8:45 AM DIGITAL MEDIA PLANNER [facility] [place] [address] [place] [address] [facility] [address] [place] [address] 07/19/2024 7:00 AM DIGITAL MEDIA PLANNER Office Visit [facility] Medical Group Family & Internal Medicine - [address] [phone] Meet Ang DO [address] [place] [address] Scheduled Referrals Name Type Priority Associated Diagnoses Orde r Schedule Ambulatory Referral to Ophthalmology Referral Routine Routine eye exam Ordered: 11/26/2022 documented as of this encounter Visit Diagnoses Diagnosis Routine eye exam- Primary documented in this encounter Additional Health Concerns Assessment Noted Time PHQ-9 Depression Total Score: 7 11/20/19 22 2:00 PM CDT documented as of this encounter Care Teams Bullet Assembly Press Setter Operator Relationship Specialty Start Date End Date Meet Ang DO [address] [place] [address] PCP - General FAMILY PRACTICE 08/16/18 Paresh Gray MD [facility]. [place] [address] [place] [address] EP Record Retrieval Specialist CLINICAL CARDIAC ELECTROPHYSIOLOGY 03/03/19 documented as of this encounter
--- OUTSIDE RECORDS SUMMARY | 2024-05-11 21:14 | XMS_ITS | Encounter Summary ---
Author Organization [facility] Address [address] [place] [address]. [place], [place] [phone] [place] [address] Care Team Providers Care Park Aide Name Role Phone Meet Ang DO Primary Care Provider + Paresh Gray MD Unavailable Reason for Visit * Reason Onset Date Comments Sleep Problem 05/07/2023 Encounter Details Date Type Department Care Team (Late st Contact Info) Description 05/07/2023 Telephone [facility] Family & Internal Medicine [address] [place] [address] Meet Ang DO [address] [place] [address] Sleep Problem Social History Tobacco Use Types Packs/Day [...] on file Legal Sex Male 2:37 PM PATRON ATTENDANT Gender Identity Male 05/16/2021 9:25 AM PATRON ATTENDANT Sexual Orientation Straight 05/16/2021 9: 25 AM PATRON ATTENDANT documented as of this encounter Progress Notes * Izabel Lawson MA - 05/12/2023 10:03 AM CST Patient notified and v/u ON ATTENDANT * Meet Ang DO - 05/12/2023 8:13 AM CST Pt started medication 1 month ago, so should be okay to just stop immediately. If pt would feel more comfortable, he can take 0.5 tabs for one week and then stop. ON ATTENDANT * Shavonne Parada MA - 05/11/2023 3:26 PM CST Spoke with patient. He asked if he can just stop the sertraline cold-turkey? The patient is currently taking 50mg QD. I advised to stop the medication completely per pcp recommendation. Please adviseif this is correct or do you want patient to titrate off the medication. ON ATTENDANT * Meet Ang DO - 05/11/2023 3:01 PM CST Stop the sertraline for now and we will discuss at next OV. ON ATTENDANT * Shruthi Jordan MA - 05/11/2023 2:43 PM CST Pt states he has since tried 10 mg melatonin, and he did fall asleep easier but is still waking after only 2 hours. ON ATTENDANT * Gia Mcneal - 05/11/2023 1:09 PM CST Patient called stating the medication he sis taking is having the same side effect plese call patient back @ [phone] ON ATTENDANT * Shruthi Jordan MA - 05/07/2023 3:28 PM CST Pt takes in the morning. The insomnia is his only complaint. He states he is not having any problemfalling asleep, but that he is waking 1-2 hours later and is wide awake. Pt advised on trying melatonin, he will pick some up. Any further recommendations, please respond to pt via byyd, he will check for messages later as office is now closed. ON ATTENDANT * BRIANNE Haines - 05/07/2023 12:07 PM CST Is he taking this in the morning or night? If taking at night, try morning for a week or so before stopping. Is the insomnia his only side effect? ON ATTENDANT * Maria Fernanda Thomason - 05/07/2023 8:20 AM CST Pt says the sertraline 50 mg, is effecting him, he's getting maybe a couple hours sleep at night. He has been taking this for about 3 weeks and side effect has not gotten any better. ON ATTENDANT documented in this encounter Plan of Treatment Upcoming Encounters Date Type Department Care Team (Late st Contact Info) Description 06/19/2024 8:45 AM PATRON ATTENDANT Office Visit [facility] [place] [address] [place], [place] [id number] Ren Morse MD [facility] [address] [place] [address] 07/19/2024 7:00 AM PATRON ATTENDANT Office Visit [facility] Family & Internal Medicine - [place] [address] [place] [address] Mete Ang DO [address] [place] [address] documented as of this encounter Visit Diagnoses Not on filedocumented in this encounter Additional Health Concerns Assessment Noted Time PHQ-9 Depression Total Score: 7 11/20/19 22 2:00 PM CDT documented as of this encounter Care Teams Park Aide Relationship Specialty Start Date End Date Meet Ang DO [address] [place] [address] PCP - General FAMILY PRACTICE 08/16/18 Paresh Gray MD [address] [address] EP Guest Experience Representative CLINICAL CARDIAC ELECTROPHYSIOLOGY 03/03/19 documented as of this encounter
--- OUTSIDE RECORDS SUMMARY | 2024-05-11 21:14 | XMS_ITS | Encounter Summary ---
Author Organization [facility] Address [address] [place] [address]. [place] [address] [place] [address] Care Team Providers Care Architecture Department Chair Name Role Phone Meet Ang DO Primary Care Provider + Paresh Gray MD Unavailable Reason for Visit * Reason Comments Sinus Problem The patient was seen for sinusitis and swollen lymph nodes. The patient states he did have a dental appt as recommended and all was normal. Encounter Details Date Type Department Care Team (Late st Contact Info) Description 09/02/2023 8:00 AM CDT Office Visit [facility] Family & Internal Medicine [address] [address] Meet Ang DO [address] [place] [address] [phone] Sinus Problem (The patient was seen for sinusitis and swollen lymph nodes. The patient states he did have a dental appt as recommended and all was normal. ) Social History Tobacco Use Types Packs/Day [...] on file Legal Sex Male 2:37 PM ENERGY AND SUSTAINABILITY MANAGER Gender Identity Male 05/16/2021 9:25 AM ENERGY AND SUSTAINABILITY MANAGER Sexual Orientation Straight 05/16/2021 9: 25 AM ENERGY AND SUSTAINABILITY MANAGER documented as of this encounter Last Filed Vital Signs Vital Sign Reading Time Taken Comments Blood Pressure 115/67 09/02/2023 7:47 AM CDT Pulse 75 09/02/2023 7:47 AM CDT Temperature 36.2 ??C (97.2 ??F) 09/02/2023 7:47 AM CD T Respiratory Rate 16 09/02/2023 7:47 AM CDT Oxygen Saturation 98% 09/02/2023 7:47 AM CDT Inhaled Oxygen Concentration - - Weight 151 kg (332 lb 12.8 oz) 09/02/2023 7:47 A M CDT Height 185.4 cm (6' 1 ) 09/02/2023 7:47 AM CDT Body Mass Index 43.91 09/02/2023 7:47 AM CDT documented in this encounter Progress Notes * Meet Ang, - 09/02/2023 8:00 AM CDT Images from the original note were not included. GENERAL OFFICE VISIT Encounter Date: 09/02/2023 Chief Complaint: 32-year-old male presents for Sinus Problem (The patient was seen for sinusitis and swollen lymph nodes. The patient states he did have a dental appt as recommended and all was normal. ) HPI: Pt has palpitations and anxiety, depression, and agoraphobia. At last OV, we started him on Abilify. Pt did not start this due to recent illness. His lymph nodes have improved and infection has improved other than bloating in his stomach. Pt did see dentist since last OV and had some minor gum disease. Constipation is mostly improved; bloating is new for him. No new symptoms otherwise. Review of Systems Constitutional: Negative for fever. HENT: Negative for congestion. Respiratory: See HPI Psychiatric/Behavioral: See HPI All other systems reviewed and are negative. Patient Active Problem List Diagnosis KIMMY (obstructive sleep apnea) IBS (irritable bowel syndrome) GERD (gastroesophageal reflux disease) Depression Asthma ([facility]) Anxiety Agoraphobia Tachycardia Elevated blood pressure reading Elevated troponin level not due myocardial infarction Palpitations Class 3 severe obesity with body mass index (BMI) of 40.0 to 44.9 in adult ([facility]) Psoriasis Past Medical History: Diagnosis Date Agoraphobia Anxiety Asthma ([facility]) Depression GERD (gastroesophageal reflux disease) IBS (irritable [...] date: 05/24/2004 Quit date: 05/24/2014 Years since quittin.2 Smokeless [...] Reactions Bee Venom Swelling Objective: Filed Vitals: 09/02/23 0747 BP: 115/67 Pulse: 75 Resp: 16 Temp: 97.2 ??F (36.2 ??C) TempSrc: Skin SpO2: 98% Weight: (!) 151 kg (332 lb 12.8 oz) Height: 1.854 m (6' 1 ) Physical Exam Vitals and nursing note reviewed. HENT: Head: Normocephalic and atraumatic. Right Ear: Tympanic membrane, ear canal and external ear normal. There is no impacted cerumen. Left Ear: Tympanic membrane, ear canal and external ear normal. There is no impacted cerumen. Mouth/Throat: Mouth: Mucous membranes are moist. Pharynx: No posterior oropharyngeal erythema. Eyes: Conjunctiva/sclera: Conjunctivae normal. Cardiovascular: Rate and Rhythm: Normal rate and regular rhythm. Pulmonary: Effort: Pulmonary effort is normal. Musculoskeletal: Cervical back: Neck supple. Lymphadenopathy: Cervical: No cervical adenopathy. Neurological: Mental Status: He is alert. Psychiatric: Comments: Relatively normal Assessment & Plan: Alex was seen today for sinus problem. Diagnoses and all orders for this visit: Depression, unspecified depression type Anxiety Agoraphobia Constipation, unspecified constipation type Screening for lipid disorders - TSH W/REFLEX; Future - CBC W/DIFF AUTOMATED; Future - COMPREHENSIVE METABOLIC PANEL; Future - LIPID PANEL; Future Annual physical exam - TSH W/REFLEX; Future - CBC W/DIFF AUTOMATED; Future - COMPREHENSIVE METABOLIC PANEL; Future - LIPID PANEL; Future Screening for endocrine, metabolic and immunity disorder - TSH W/REFLEX; Future - CBC W/DIFF AUTOMATED; Future - COMPREHENSIVE METABOLIC PANEL; Future - LIPID PANEL; Future Discussion/Summary: Start Abilify as previously recommended; symptoms still not controlled. Will order labs to be done prior to next OV. Can try conservative treatments for constipation/bloating. Will have pt f/u in 2 months with labs prior to next OV. Pt v/u. Meet Ang DO documented in this encounter Plan of Treatment Upcoming Encounters Date Type Department Care Team (Late st Contact Info) Description 06/19/2024 8:45 AM ENERGY AND SUSTAINABILITY MANAGER [facility] [place] [address] [place] [address] Ren Morse MD [facility] [address] [place] [address] 07/19/2024 7:00 AM ENERGY AND SUSTAINABILITY MANAGER Office Visit [facility] Family & Internal Medicine - [place] [address] [place] [address] Meet Ang DO [address] [place] [address] documented as of this encounter Results * (ABNORMAL) LIPID PANEL (10/04/2023 8:16 AM CDT) [facility] CHOLESTEROL 107 <200 MG/DL 10/04/2023 3:33 PM CDT [facility] TRIGLYCERIDES 80 <150 MG/DL 10/04/2023 3:33 PM CDT [facility] HDL 34(L) >40 MG/DL 10/04/2023 3:33 PM CDT [facility] LDL-C 57 <100 MG/DL 10/04/2023 3:33 PM CDT [facility] VLDL CALCULATION 16 5 - 28 MG/DL 10/04/2023 3:33 PM CDT [facility] CHOL/HDL RATIO 3.1 0.0 - 4.0 10/04/2023 3:33 PM CDT [facility] LDL/HDL 1.7 0.41 - 2.13 10/04/2023 3:33 PM CDT [facility] NON HDL CHOLESTEROL 73 <140 MG/DL 10/04/2023 3:33 PM CDT [facility] 10/04/2023 8:16 AM CDT us Meet Ang DO LABORATORY Final Re sult [facility] [place] [address] [place] [address], * (ABNORMAL) COMPREHENSIVE METABOLIC PANEL (10/04/2023 8:16 AM CDT) [facility] SODIUM S/P/B 143 136 - 145 MMOL/L 10/04/2023 3:33 PM CDT [facility] POTASSIUM S/P/B 3.9 3.5 - 5.1 MMOL/L 10/04/2023 3:33 PM CDT -[facility] CHLORIDE S/P/B 104 98 - 107 MMOL/L 10/04/2023 3:33 PM CDT [facility] CO2 27.9 21 - 32 MMOL/L 10/04/2023 3:33 PM CDT [facility] GLUCOSE 81 70 - 99 MG/DL 10/04/2023 3:33 PM CDT [facility] BUN 12 7 - 18 MG/DL 10/04/2023 3:33 PM CDT [facility] CREATININE S/P/B 0.83 0.70 - 1.30 MG/DL 10/04/2023 3:33 PM CDT [facility] CALCIUM S/P/B 8.7 8.4 - 10.5 MG/DL 10/04/2023 3:33 PM CDT [facility] BILIRUBIN TOTAL S/P/B 1.3(H) 0.2 - 1.0 MG/DL 10/04/2023 3:33 PM CDT [facility] ALKALINE PHOSPHATASE S/P/B 62 45 - 115 U/L 10/04/2023 3:33 PM CDT [facility] AST 22 15 - 37 U/L 10/04/2023 3:33 PM CDT [facility] ALT 46 16 - 63 U/L 10/04/2023 3:33 PM CDT [facility] [place] TOTAL PROTEIN S/P/B 7.3 6.4 - 8.2 G/DL 10/04/2023 3:33 PM T [facility] ALBUMIN S/P/B 4.0 3.4 - 5.0 G/DL 10/04/2023 3:33 PM CDT [facility] ANION GAP 11.1 5 - 15 MMOL/L 10/04/2023 3:33 PM CDT [facility] Comment:REFERENCE RANGE NOT ESTABLISHED OSMOLALITY (CALC) 295 MOSM/KG 024 3:33 PM CDT [facility] Comment:REFERENCE RANGE NOT ESTABLISHED GFR ESTIMATE >90 >90 ML/MIN/1. 73 M2 10/04/2023 3:33 PM CDT [facility] GFR NOTES GFR REFERENCE S: 10/04/2023 3:33 PM CDT [facility] Comment: THE ESTIMATED GFR IS CALCULATED USING [...] <15 ml/min/1.73 m2 10/04/2023 8:16 AM CDT Meet Ang DO LABORATORY Final Re sult [facility] [address] [place] [address], [place] [phone] * (ABNORMAL) CBC W/DIFF AUTOMATED (10/04/2023 8:16 AM CDT) WBC 7.82 4.00 - 10.80 x10'3/uL 10/04/2023 3:15 PM CDT [facility] RBC 4.89 4.50 - 6.10 x10'6/uL 10/04/2023 3:15 PM CDT [facility] HGB 14.5 13.0 - 18.0 G/DL 10/04/2023 3:15 PM CDT [facility] HCT 42.9 37.0 - 52.0 % 10/04/2023 3:15 PM CDT [facility] MCV 87.7 78.0 - 100.0 FL 10/04/2023 3:15 PM CDT [facility] MCH 29.7 27.0 - 31.0 PG 10/04/2023 3:15 PM CDT [facility] MCHC 33.8 33.0 - 36.0 G/DL 10/04/2023 3:15 PM CDT [facility] RDW 11.9 11.5 - 14.5 % 10/04/2023 3:15 PM CDT [facility] PLT 232 150 - 350 x10'3/uL 10/04/2023 3:15 PM CDT [facility] MPV 12.1(H) 7.4 - 10.4 FL 10/04/2023 3:15 PM CDT [facility] DIFFERENTIAL TYPE AUTOMATED DIFFERENTIAL 10/04/2023 3:15 PM CDT [facility] NEUTROPHILS % 54.4 % 10/04/2023 3:15 PM CDT [facility] LYMPHOCYTES % 34.4 % 10/04/2023 3:15 PM CDT [facility] MONOCYTES % 7.5 % 10/04/2023 3:15 PM CDT [facility] EOSINOPHILS % 3.1 % 10/04/2023 3:15 PM CDT [facility] BASOPHILS % 0.5 % 10/04/2023 3:15 PM CDT [facility] IMMATURE GRANS % 0.1 % 10/04/2023 3:15 PM CDT [facility] ABS. NEUTROPHILS 4.25 1.60 - 8.30 x10'3/uL 10/04/2023 3:15 PM CDT -[facility] ABS. LYMPHOCYTES 2.69 0.80 - 4.70 x10'3/uL 10/04/2023 3:15 PM CDT -[facility] ABS. MONOCYTES 0.59 0.00 - 1.50 x10'3/uL 10/04/2023 3:15 PM CDT [facility] ABS. EOSINOPHILS 0.24 0.00 - 0.40 x10'3/uL 10/04/2023 3:15 PM CDT [facility] ABS. BASOPHILS 0.04 0.00 - 0.20 x10'3/uL 10/04/2023 3:15 PM CDT -[facility] ABS. IMMATURE GRANULOCYTES 0.01 0.00 - 0.03 x10'3/uL 10/04/2023 3:15 PM CDT -[facility] 10/04/2023 8:16 AM CDT Meet Ang LABORATORY Final Re sult Performing Organization Address City/[facility]/ZIP Co de Phone Number [address] [address], [place] [phone] * TSH W/REFLEX (10/04/2023 8:16 AM CDT) TSH 3.066 0.358 - 3.740 uIU/ML 10/04/2023 3:33 PM CDT [facility] 10/04/2023 8:16 AM CDT Meet Ang LABORATORY Final Re sult Performing Organization Address City/[facility]/ZIP Co de Phone Number [facility] [address] [place] [address], documented in this encounter Visit Diagnoses Diagnosis Depression, unspecified depression type- Primary Anxiety Anxiety state, unspecified Agoraphobia Agoraphobia without mention of panic attacks Constipation, unspecified constipation type Screening for lipid disorders Annual physical exam Routine general medical examination at a health care facility Screening for endocrine, metabolic and immunity disorder documented in this encounter Additional Health Concerns Assessment Noted Time PHQ-9 Depression Total Score: 14 024 7:44 AM CDT documented as of this encounter Care Teams Architecture Department Chair Relationship Specialty Start Date End Date Meet Ang DO [address] [place] [id number] PCP - General FAMILY PRACTICE 08/16/18 Paresh Gray MD [facility]. [facility] [address] [place] [address] EP Solar Installer CLINICAL CARDIAC ELECTROPHYSIOLOGY 03/03/19 documented as of this encounter
--- OUTSIDE RECORDS SUMMARY | 2024-05-11 21:14 | XMS_ITS | Encounter Summary ---
Author Organization [facility] Address [address] [place] [address]. [place], [place] [id number] [place] [address] Care Team Providers Care Narcotics And Vice Detective Name Role Phone Meet Ang DO Primary Care Provider + Paresh Gray MD Unavailable Reason for Visit * Reason Comments Asthma Encounter Details Date Type Department Care Team (Late st Contact Info) Description 11/19/2021 1:40 PM CDT Office Visit [facility] Medical [facility] Family & Internal Medicine [id number] [place] [address] Meet Ang DO [facility] [place], [place] [phone] Asthma Social History Tobacco Use Types Packs/Day Years [...] on file Legal Sex Male 2:37 PM SANITARIAN AIDE Gender Identity Male 05/16/2021 9:25 AM SANITARIAN AIDE Sexual Orientation Straight 05/16/2021 9: 25 AM SANITARIAN AIDE COVID-19 Exposure Response Date Recorded In the last 10 days, have yo u been in contact with someone who was confirmed or suspected to have Coronavirus/COVID-19? No / Unsure 11/19/2021 1:35 PM CDT documented as of this encounter Last Filed Vital Signs Vital Sign Reading Time Taken Comments Blood Pressure 124/72 11/19/2021 1:53 PM CDT Pulse 73 11/19/2021 1:53 PM CDT Temperature 36.7 ??C (98 ??F) 11/19/2021 1:53 PM CDT Respiratory Rate 16 11/19/2021 1:53 PM CDT Oxygen Saturation 97% 11/19/2021 1:53 PM CDT Inhaled Oxygen Concentration - - Weight 144.7 kg (318 lb 14.4 oz) 11/19/2021 1:53 PM CDT Height 185.4 cm (6' 1 ) 11/19/2021 1:53 PM CDT Body Mass Index 42.07 11/19/2021 1:53 PM CDT documented in this encounter Progress Notes * Meet Ang, - 11/19/2021 1:40 PM CDT Images from the original note were not included. GENERAL OFFICE VISIT Encounter Date: 11/19/2021 Chief Complaint: 31-year-old male presents for No chief complaint on file. HPI: Pt presents for follow-up. Pt has asthma. Pt was seen en ER on 11/03/21 for exacerbation. Pt was started on prednisone at thistime. He has no noted issues with exercising. Pt hasn't had an exacerbation since childhood. Of note, pt was recently changed to carvedilol as pt was having night terrors with metoprolol. He is on albuterol prn. Pt sent to ER in June for chest wall pain. Pt had unremarkable work-up at that time. He still has intermittent chest wall pains after this. He has been exercising more recently, but he had these prior to this. Pt has palpitations and anxiety. He has seen Dr. Badillo in the past for this with cardiology as well as psychiatry. Pt is on carvedilol at this time. Pt would like to stop it at this time for multiple reasons. Pt is now on BIPAP for his KIMMY. He sees Jaspal Ramos APRN. He is still monitoring at this time; he may need another titration study. Pt has lost about 24 lbs since last OV. Pt has psoriasis. Pt hasn't seen dermatology yet; he will see them though. Review of Systems Constitutional: Negative for fever. Respiratory: See HPI Cardiovascular: See HPI Skin: See HPI Psychiatric/Behavioral: See HPI Patient Active Problem List Diagnosis ??? KIMMY (obstructive sleep apnea) ??? IBS (irritable bowel syndrome) ??? GERD (gastroesophageal reflux disease) ??? Depression ??? Asthma ??? Anxiety ??? Agoraphobia ??? Tachycardia ??? Elevated blood pressure reading ??? Elevated troponin level not due myocardial infarction ??? Palpitations ??? Class 3 severe obesity with body mass index (BMI) of 40.0 to 44.9 in adult ([facility]) Past Medical History: Diagnosis Date ??? Agoraphobia ??? Anxiety ??? Asthma ??? Depression ??? GERD (gastroesophageal reflux disease) ??? IBS (irritable bowel syndrome) ??? KIMMY (obstructive sleep apnea) Past Surgical History: Procedure Laterality Date ??? NONE Family History Problem Relation Name Age of Onset ??? Hypertension Mother Libby Hemmer ??? Depression Mother Libby Hemmer ??? Heart Disease Mother Libby Hemmer ??? Anxiety Mother Libby Hemmer ??? Hyperlipidemia Mother Libby Hemmer ??? Diabetes Mother Libby Hemmer ??? Mental Health Mother Libby Hemmer ??? Hypertension Father Gonzalo Blackwood ??? Depression Father Gonzalo Blackwood ??? Heart Disease Father Gonzalo Blackwood ??? Hyperlipidemia Father Gonzalo Blackwood ??? Asthma Father Gonzalo Blackwood Only when sick, allergic to cats. ??? Alcohol Abuse Paternal Uncle ??? Cancer Paternal Uncle mouth ??? Diabetes Maternal Grandmother ??? Depression Maternal Grandmother ??? Depression Maternal Grandfather Toy Pickett ??? Heart Attack Maternal Grandfather Toy Pickett ??? Alcohol Abuse Maternal Grandfather Toy Pickett from heart attack related to alcoholism. ??? Heart Disease Maternal Grandfather Toy Pickett Passed from heart attack. ??? Psoriasis Paternal Grandmother Malia Blackwood ??? Heart Attack Paternal Grandmother Malia Blackwood ??? Depression Paternal Grandmother Malia Blackwood ??? Mental Health Paternal Grandmother Malia Blackwood ??? Open Heart Brother Jaspal Mcmillan ??? Diabetes Brother Jaspal Mcmillan Step brother related to mother. ??? Other (Down syndrome) Brother Jaspal Mcmillan ??? Open Heart Paternal Grandfather Nikunj Blackwood ??? Hypertension Paternal Grandfather Nikunj Blackwood ??? Cancer Paternal Grandfather Nikunj Blackwood Colon Cancer removed tumor, cancer free. ??? Heart Disease Paternal Grandfather Nikunj Blackwood Had multiple valve replacements Social History Socioeconomic History ??? Marital status: Single Spouse name: Not on file ??? Number of children: 0 ??? Years of education: Not on file ??? Highest education level: Not on file Occupational History ??? Not on file Tobacco Use ??? Smoking status: Former Smoker Packs/day: 1.50 Years: 10.00 Pack years: 15.00 Types: Cigarettes, Cigars Quit date: 05/24/2014 Years since quittin.4 ??? Smokeless tobacco: Former User Types: Chew ??? Tobacco comment: Also used chewing tobacco for years Substance and Sexual Activity ??? Alcohol use: No ??? Drug use: No ??? Sexual activity: Not Currently Partners: Female control/protection: Condom Other Topics Concern ??? Service Not Asked ??? Blood Transfusions Not Asked ??? Caffeine Concern Yes ??? Occupational Exposure Not Asked ??? Hobby Hazards Not Asked ??? Sleep Concern Yes Comment: KIMMY ??? Stress Concern Not Asked ??? Weight Concern Not Asked ??? Special Diet No ??? Back Care Not Asked ??? Exercise No ??? Bike Helmet Not Asked ??? Seat Belt Not Asked ??? Self-Exams Not Asked ??? Wheelchair Not Asked ??? Walker Not Asked ??? Upper extremity braces/slings Not Asked ??? Lower extermity braces/slings Not Asked ??? Self Care Not Asked Social History Narrative ??? Not on file Social Determinants of Health Financial Resource Strain: Not on file Food Insecurity: Not on file Transportation Needs: Not on file Physical Activity: Not on file Stress: Not on file Social Connections: Not on file Intimate Partner Violence: Not on file Housing Stability: Not on file Immunization History Administered Date(s) Administered ??? Dtap 1989, 01/19/1990, 11/21/1992 ??? Dtp 12/17/1994 ??? Fluzone 6 Months+ Quad (0.5 mL Prefilled Syringe) 03/28/2019, 04/26/2020, 03/04/2021 ??? Hepatitis B 12/15/1999, 01/19/2000, 06/14/2000 ??? Hib 11/21/1992 ??? MMR 11/21/1992, 02/27/1993 ??? Opv 1989, 01/19/1990, 11/21/1992, 12/17/1994 ??? PFIZER COVID-19 (ORIGINAL FORMULATION, PURPLE CAP), MRNA, LNP-S, PF, 30 MCG/0.3 ML DOSE 07/30/2020, 08/20/2020, 05/28/2021 ??? Pneumococcal (Prevnar 20) 11/19/2021 ??? Tdap (Boostrix) 01/13/2019 Current Outpatient Medications Medication Sig Dispense Refill ??? BLOOD PRESSURE CUFF, DME, 1 Device by Does not apply route every 7 days. 1 Device 0 ??? CARVEDILOL 12.5 MG tablet TAKE 1 TABLET(12.5 MG) BY MOUTH TWICE DAILY 60 tablet 2 ??? loratadine 10 MG tablet Take 10 mg by mouth daily. ??? VENTOLIN HFA 108 (90 Base) MCG/ACT inhaler Inhale 1 puff into the lungs every 4 (four) hours asneeded for Wheezing. 18 g 2 ??? busPIRone 15 MG tablet 4 (four) times daily. ??? clobetasol 0.05 % cream Apply topically 2 (two) times daily. Do not use for more than 4 weeks continuously. Do not apply to face or groin. 60 g 1 No current facility-administered medications for this visit. Current Outpatient Medications on File Prior to Visit Medication Sig ??? BLOOD PRESSURE CUFF, DME, 1 Device by Does not apply route every 7 days. ??? CARVEDILOL 12.5 MG tablet TAKE 1 TABLET(12.5 MG) BY MOUTH TWICE DAILY ??? loratadine 10 MG tablet Take 10 mg by mouth daily. ??? VENTOLIN HFA 108 (90 Base) MCG/ACT inhaler Inhale 1 puff into the lungs every 4 (four) hours asneeded for Wheezing. ??? busPIRone 15 MG tablet 4 (four) times daily. ??? clobetasol 0.05 % cream Apply topically 2 (two) times daily. Do not use for more than 4 weeks continuously. Do not apply to face or groin. No current facility-administered medications on file prior to visit. Allergies Allergen Reactions ??? Bee Venom Swelling Objective: Filed Vitals: 11/19/21 1353 BP: 124/72 Pulse: 73 Resp: 16 Temp: 98 ??F (36.7 ??C) TempSrc: Skin SpO2: 97% Weight: (!) 144.7 kg (318 lb 14.4 oz) Height: 6' 1 (1.854 m) Physical [...] and Affect: Mood normal. Assessment & Plan: Diagnoses and all orders for this visit: Psoriasis - JOHANNA IFA SCREEN WI RFX TO TITER/CASCADE; Future - CYCLIC CITRULLINATED PEPTIDE (CCP)ANTIBODY(IGG); Future - RHEUMATOID FACTOR, QUANT; Future - JOHANNA IFA SCREEN WI RFX TO TITER/CASCADE - CYCLIC CITRULLINATED PEPTIDE (CCP)ANTIBODY(IGG) - RHEUMATOID FACTOR, QUANT Tachycardia - CBC W/DIFF AUTOMATED; Future - COMPREHENSIVE METABOLIC PANEL; Future - TSH W/REFLEX; Future - LIPID PANEL; Future - CBC W/DIFF AUTOMATED - COMPREHENSIVE METABOLIC PANEL - TSH W/REFLEX - LIPID PANEL KIMMY (obstructive sleep apnea) - CBC W/DIFF AUTOMATED; Future - COMPREHENSIVE METABOLIC PANEL; Future - TSH W/REFLEX; Future - LIPID PANEL; Future - CBC W/DIFF AUTOMATED - COMPREHENSIVE METABOLIC PANEL - TSH W/REFLEX - LIPID PANEL Anxiety Palpitations BMI 40.0-44.9, adult (CMS/HCC) - CBC W/DIFF AUTOMATED; Future - COMPREHENSIVE METABOLIC PANEL; Future - TSH W/REFLEX; Future - LIPID PANEL; Future - CBC W/DIFF AUTOMATED - COMPREHENSIVE METABOLIC PANEL - TSH W/REFLEX - LIPID PANEL Need for hepatitis C screening test - HEPATITIS C ANTIBODY W/RFX TO HCV RNA ([facility] ONLY); Future - HEPATITIS C ANTIBODY W/RFX TO HCV RNA ([facility] ONLY) Need for prophylactic vaccination against Streptococcus pneumoniae (pneumococcus) - [00595] Prevnar 20 (Pneumococcal) Discussion/Summary: Reinforced need to see dermatology. Will rule obtain rheumatological studies given pt's history andpresentation of atypical pains. Will give pneumonia shot today. Will order labs as per above. Consider stopping carvedilol; will defer to cardiology. If it is kept on or pt has repeat exacerbation, will start on maintenance inhaler. Continue f/u with pulm. Continue f/u with psych. F/u in 6 months or sooner if needed. Pt v/u. I spent 32 minutes today reviewing the patient's medical record, obtaining history, performing an exam, ordering medications, tests, and/or procedures, documenting in the medical record, counseling and educating the patient/family/caregiver and coordination of care. Meet Ang DO documented in this encounter Plan of Treatment Upcoming Encounters Date Type Department Care Team (Late st Contact Info) Description 06/19/2024 8:45 AM SANITARIAN AIDE Office Visit [facility] [address] Ren Morse MD [facility] [address] [place] [address] 07/19/2024 7:00 AM SANITARIAN AIDE Office Visit [facility] Medical Group Family & Internal Medicine [address] [phone] Meet Ang DO [address] [place] [phone] documented as of this encounter Procedures Procedure Name Priority Date/Time Associated Diagnosis Comments HEPATITIS C ANTIBODY W/RFX TO HCV RNA Routine 12/11/2021 12:00 PM CDT Need for hepatitis C screening test JOHANNA IFA SCREEN WI RFX TO TITER/CASCADE Routine 12/11/2021 12:00 PM CDT Psoriasis TSH W/REFLEX Routine 12/11/2021 12:00 PM CDT Tachycardia KIMMY (obstructive sleep apnea) BMI 40.0-44.9, adult (CMS/HCC HHS/HCC) RHEUMATOID FACTOR, QUANT Routine 12/11/2021 12:00 PM CDT Psoriasis CYCLIC CITRULLINATED PEPTIDE (CCP)ANTIBODY(IGG) Routine 12/11/2021 12:00 PM CDT Psoriasis COMPREHENSIVE METABOLIC PANEL Routine 12/11/2021 12:00 PM CDT Tachycardia KIMMY (obstructive sleep apnea) BMI 40.0-44.9, adult (CMS/HCC HHS/HCC) LIPID PANEL Routine 12/11/2021 12:00 PM CDT Tachycardia KIMMY (obstructive sleep apnea) BMI 40.0-44.9, adult (CMS/HCC HHS/HCC) CBC W/DIFF AUTOMATED Routine 12/11/2021 12:00 PM CDT Tachycardia KIMMY (obstructive sleep apnea) BMI 40.0-44.9, adult (CMS/HCC HHS/HCC) documented in this encounter Results * HEPATITIS C ANTIBODY W/RFX TO [...] a test for HCV RNA (test code 85491) is suggested. For additional information please refer to http://education.Nouveaux Riche/faq/WIS72a3 (This link is being provided for informational/ educational purposes only.) 12/11/2021 12:0 0 PM CDT 12/11/2021 12:02 PM CDT Narrative [facility] - 12/12/2021 3:31 PM CDT FASTING:YES FASTING: YES Meet Ang DO LABORATORY Final Re sult Performing Organization Address [facility]/ZIP Co de Phone Number [facility] [address] [place] [address] * RHEUMATOID FACTOR, QUANT (12/11/2021 12:00 PM CDT) Pathologist [facility] RHEUMATOID FACTOR <14 <14 IU/mL [facility] 12/11/2021 12:0 0 PM CDT 12/11/2021 12:02 PM CDT Narrative [facility] - 12/12/2021 3:31 PM CDT FASTING:YES FASTING: YES Meet P Luchtefeld DO LABORATORY Final Re sult [facility] [address] [place] [address] * CYCLIC CITRULLINATED PEPTIDE (CCP)ANTIBODY(IGG) (12/11/2021 12:00 PM CDT) CITRULLINE PEPTIDE ANTIBODY <16 UNITS [facility] Comment: Reference Range Negative: ?<20 Weak Positive: ? 20-39 Moderate Positive: ?? 40-59 Strong Positive: ? >59 12/11/2021 12:0 0 PM CDT 12/11/2021 12:02 PM CDT Narrative [facility] - 12/12/2021 3:31 PM CDT FASTING:YES FASTING: YES Meet Ang DO LABORATORY Final Re sult [facility] [address] [place] [address] * JOHANNA IFA SCREEN WI RFX TO TITER/CASCADE (12/11/2021 12:00 PM CDT) JOHANNA NEGATIVE NEGATIVE [facility] [place] Comment: JOHANNA IFA is a first line screen for detecting the presence of up to approximately 150 autoantibodies in various autoimmune diseases. A negative JOHANNA IFA result suggests an JOHANNA-associated autoimmune disease is not present at this time, and does not reflex further. If there is high clinical suspicion for Sjogren's syndrome, testing for anti-SS-A/Ro antibody should be considered. Anti-Mckenna-1 antibody should be considered for clinically suspected inflammatory myopathies. AC-0: Negative International Consensus on JOHANNA Patterns (https://doi.org/10.1515/otzy-7532-3483) For additional information, please refer to http://education.Tagoo.Sense of Skin/faq/YVR588 (This link is being provided for informational/ educational purposes only.) ?? 12/11/2021 12:0 0 PM CDT 12/11/2021 12:02 PM CDT Narrative [facility] - 12/12/2021 3:31 PM CDT FASTING:YES FASTING: YES Meet Ang DO LABORATORY Final Re sult [facility] [address] [place] [address] * LIPID PANEL (12/11/2021 12:00 PM CDT) [facility] CHOLESTEROL 160 <200 mg/dL [facility] HDL 42 > OR = 40 mg/dL [facility] TRIGLYCERIDES 115 <150 mg/dL [facility] LDL (CALCULATED) 97 mg/dL (calc) [facility] Comment: Reference range: <100 Desirable range <100 mg/dL for primary prevention; ?? <70 mg/dL for patients with CHD or diabetic patients with > or = 2 CHD risk factors. LDL-C is now calculated using the Shirley calculation, which is a validated novel method providing better accuracy than the Friedewald equation in the estimation of LDL-C. Keith SS et al. MACARIO. 2013;310(19): 2818-8041 (http://education.AgFlow/faq/DSH937) CHOL/HDL RATIO 3.8 <5.0 (calc) [facility] NON HDL CHOLESTEROL 118 <130 mg/dL (calc) [facility] Comment: For patients with diabetes plus 1 major ASCVD risk factor, treating to a non-HDL-C goal of <100 mg/dL (LDL-C of <70 mg/dL) is considered a therapeutic option. 12/11/2021 12:0 0 PM CDT 12/11/2021 12:02 PM CDT Narrative [facility] - 12/12/2021 3:31 PM CDT FASTING:YES FASTING: YES Meet Ang DO LABORATORY Final Re sult [facility] [address] [place] [address] * TSH W/REFLEX (12/11/2021 12:00 PM CDT) TSH 3.46 0.40 - 4.50 mIU/L [facility] 12/11/2021 12:0 0 PM CDT 12/11/2021 12:02 PM CDT Narrative [facility] - 12/12/2021 3:31 PM CDT FASTING:YES FASTING: YES Meet Ang DO LABORATORY Final Re sult [facility] [address] [facility] [place] [address] * (ABNORMAL) COMPREHENSIVE METABOLIC PANEL (12/11/2021 12:00 PM CDT) Pathologist [facility] GLUCOSE 71 65 - 99 mg/dL [facility] [place] Comment: ? Fasting reference interval BUN 9 7 - 25 mg/dL [facility] [place] CREATININE S/P/B 0.68 0.60 - 1.26 mg/dL [facility] [place] GFR ESTIMATE 127 > OR = 60 mL/min/1. 73m2 [facility] [place] Comment: The eGFR is based on the CKD-EPI 2020 equation. To calculate the new eGFR from a previous Creatinine or Cystatin C result, go to https://www.kidney.org/professionals/ kdoqi/gfr%5Fcalculator BUN CREATININE RATIO NOT APPLICABLE (calc) [facility] [place] SODIUM S/P/B 140 135 - 146 mmol/L [facility] [place] POTASSIUM S/P/B 4.2 3.5 - 5.3 mmol/L [facility] [place] CHLORIDE S/P/B 106 98 - 110 mmol/L [facility] [place] CO2 25 20 - 32 mmol/L [facility] [place] CALCIUM S/P/B 9.3 8.6 - 10.3 mg/dL [facility] [place] TOTAL PROTEIN S/P/B 7.1 6.1 - 8.1 g/dL [facility] [place] ALBUMIN S/P/B 4.3 3.6 - 5.1 g/dL [facility] [place] GLOBULIN 2.8 1.9 - 3.7 g/dL (calc) [facility] [place] ALBUMIN/GLOBULI N RATIO 1.5 1.0 - 2.5 (calc) [facility] [place] BILIRUBIN TOTAL S/P/B 1.6(H) 0.2 - 1.2 mg/dL [facility] [place] ALKALINE PHOSPHATASE S/P/B 64 36 - 130 U/L [facility] [place] AST 20 10 - 40 U/L [facility] [place] ALT 27 9 - 46 U/L [facility] [place] 12/11/2021 12:0 0 PM CDT 12/11/2021 12:02 PM CDT Narrative [facility] - 12/12/2021 3:31 PM CDT FASTING:YES FASTING: YES us Meet Ang DO LABORATORY Final Re sult [facility] [address] [place] [address] * CBC W/DIFF AUTOMATED (12/11/2021 12:00 PM CDT) WBC 9.0 3.8 - 10.8 Thousand/u L [facility] RBC 5.36 4.20 - 5.80 Million/uL [facility] HGB 15.7 13.2 - 17.1 g/dL [facility] HCT 46.8 38.5 - 50.0 % [facility] MCV 87.3 80.0 - 100.0 fL [facility] MCH 29.3 27.0 - 33.0 pg [facility] MCHC 33.5 32.0 - 36.0 g/dL [facility] RDW 12.3 11.0 - 15.0 % [facility] PLT 242 140 - 400 Thousand/u L [facility] MPV 11.1 7.5 - 12.5 fL [facility] ABS. NEUTROPHILS 5,643 1,500 - 7,800 cells/uL [facility] ABS. LYMPHOCYTES 2,304 850 - 3,900 cells/uL [facility] ABS. MONOCYTES 738 200 - 950 cells/uL [facility] ABS. EOSINOPHILS 252 15 - 500 cells/uL [facility] ABS. BASOPHILS 63 0 - 200 cells/uL [facility] SEG NEUTROPHILS 62.7 % [facility] LYMPHOCYTES 25.6 % [facility] MONOCYTES 8.2 % [facility] EOSINOPHILS 2.8 % [facility] BASOPHILS 0.7 % [facility] 12/11/2021 12:0 0 PM CDT 12/11/2021 12:02 PM CDT Narrative [facility] - 12/12/2021 3:31 PM CDT FASTING:YES FASTING: YES Meet Ang DO LABORATORY Final Re sult [facility] [address] [place] [address] documented in this encounter Visit Diagnoses Diagnosis Psoriasis- Primary Other psoriasis Tachycardia Tachycardia, unspecified KIMMY (obstructive sleep apnea) Obstructive sleep apnea (adult) (pediatric) Anxiety Anxiety state, unspecified Palpitations BMI 40.0-44.9, adult ([facility]) Body Mass Index 40.0-44.9, adult Need for hepatitis C screening test Special screening examination for other specified viral diseases Need for prophylactic vaccination against Streptococcus pneumoniae (pneumococcus) Need for prophylactic vaccination against streptococcus pneumoniae (pneumococcus) documented in this encounter Additional Health Concerns Assessment Noted Time PHQ-9 Depression Total Score: 7 11/20/19 22 2:00 PM CDT documented as of this encounter Care Teams Narcotics And Vice Detective Relationship Specialty Start Date End Date Meet Ang DO [address] [place] [phone] PCP - General FAMILY PRACTICE 08/16/18 Paresh Gray MD [address] [address] EP Maintenance Shop Welder CLINICAL CARDIAC ELECTROPHYSIOLOGY 03/03/19 documented as of this encounter
--- OUTSIDE RECORDS SUMMARY | 2024-05-11 21:14 | XMS_ITS | Encounter Summary ---
Author Organization [facility] Address [address] [place] [address]. [place], [place] [address] [place] [address] Care Team Providers Care Double Ending Machine Operator Name Role Phone Meet Ang DO Primary Care Provider + Paresh Gray MD Unavailable Encounter Details Date Type Department Care Team (Latest Contact Info) Description 05/28/2022 Travel Social History Tobacco Use Types Packs/Day [...] on file Legal Sex Male 2:37 PM SERGER Gender Identity Male 05/16/2021 9:25 AM SERGER Sexual Orientation Straight 05/16/2021 9: 25 AM SERGER COVID-19 Exposure Response Date Recorded In the last 10 days, have yo u been in contact with someone who was confirmed or suspected to have Coronavirus/COVID-19? No / Unsure 05/28/2022 7:55 AM SERGER documented as of this encounter Plan of Treatment Upcoming Encounters Date Type Department Care Team (Late st Contact Info) Description 06/19/2024 8:45 AM SERGER Office Visit [facility] [place] [address] [place] [address] Ren Morse MD Three [facility] [address] [place] [address] 07/19/2024 7:00 AM SERGER Office Visit [facility] Family & Internal Medicine - [address] [address] [place] [address] Meet Ang DO [address] [place] [address] documented as of this encounter Visit Diagnoses Not on filedocumented in this encounter Additional Health Concerns Assessment Noted Time PHQ-9 Depression Total Score: 7 11/20/19 22 2:00 PM CDT documented as of this encounter Care Teams Double Ending Machine Operator Relationship Specialty Start Date End Date Meet Ang DO [address] [place] [id number] PCP - General FAMILY PRACTICE 08/16/18 Paresh Gray MD Three [facility] [address] [place] [address] EP Display Designer Outside CLINICAL CARDIAC ELECTROPHYSIOLOGY 03/03/19 documented as of this encounter
--- OUTSIDE RECORDS SUMMARY | 2024-05-11 21:14 | XMS_ITS | Encounter Summary ---
Author Organization [facility] Address [address] [place] [address]. [place], [place] [id number] [place] [address] Care Team Providers Care Submarine Diver Name Role Phone Meet Ang DO Primary Care Provider + Paresh Gray MD Unavailable Reason for Visit * Reason Onset Date Comments Results 10/27/2022 Encounter Details Date Type Department Care Team (Late st Contact Info) Description 10/27/2022 Telephone [facility] Medical Group Family & Internal Medicine [id number] [place] [address] Meet Ang DO [facility] [place] [address] Results Social History Tobacco Use Types Packs/Day Years [...] on file Legal Sex Male 2:37 PM SHAFT REPAIRER Gender Identity Male 05/16/2021 9:25 AM SHAFT REPAIRER Sexual Orientation Straight 05/16/2021 9: 25 AM SHAFT REPAIRER COVID-19 Exposure Response Date Recorded In the last 10 days, have yo u been in contact with someone who was confirmed or suspected to have Coronavirus/COVID-19? No / Unsure 10/06/2022 1:38 PM CDT documented as of this encounter Progress Notes * Shavonne Parada MA - 10/27/2022 3:52 PM CDT ----- Message from Meet Ang DO sent at 10/26/2022 1:50 PM CDT ----- Labs are acceptable; can repeat in 1 year. Please contact the office with any questions. documented in this encounter Plan of Treatment Upcoming Encounters Date Type Department Care Team (Late st Contact Info) Description 06/19/2024 8:45 AM SHAFT REPAIRER Office Visit [facility], [place] [place] [address] Ren Morse MD [facility] [address] [place] [address] 07/19/2024 7:00 AM SHAFT REPAIRER Office Visit [facility] Medical Group Family & Internal Medicine [address] [phone] Meet Ang DO [address] [place] [address] documented as of this encounter Visit Diagnoses Not on filedocumented in this encounter Additional Health Concerns Assessment Noted Time PHQ-9 Depression Total Score: 7 11/20/19 22 2:00 PM CDT documented as of this encounter Care Teams Submarine Diver Relationship Specialty Start Date End Date Meet Ang DO [address] [place] [address] PCP - General FAMILY PRACTICE 08/16/18 Paresh Gray MD [facility]. [address] [id number] EP Ship Ceiler CLINICAL CARDIAC ELECTROPHYSIOLOGY 03/03/19 documented as of this encounter
--- OUTSIDE RECORDS SUMMARY | 2024-05-11 21:14 | XMS_ITS | Encounter Summary ---
Author Organization [facility] Address [address] [place] [address]. [place], [place] [address] [place] [address] Care Team Providers Care Electric Organ Checker Name Role Phone Meet Ang DO Primary Care Provider + Paresh Gray MD Unavailable Encounter Details Date Type Department Care Team (Latest Contact Info) Description 08/18/2023 Travel Social History Tobacco Use Types Packs/Day [...] on file Legal Sex Male 2:37 PM EXERCISE SPECIALIST Gender Identity Male 05/16/2021 9:25 AM EXERCISE SPECIALIST Sexual Orientation Straight 05/16/2021 9: 25 AM EXERCISE SPECIALIST documented as of this encounter Plan of Treatment Upcoming Encounters Date Type Department Care Team (Late st Contact Info) Description 06/19/2024 8:45 AM EXERCISE SPECIALIST [facility] [address] [phone] Ren Morse MD Three [facility] Suite [facility] [place] [address] 07/19/2024 7:00 AM EXERCISE SPECIALIST Office Visit [facility] Medical Group Family & Internal Medicine - [address] [phone] Meet Ang DO [address] [place] [address] documented as of this encounter Visit Diagnoses Not on filedocumented in this encounter Additional Health Concerns Assessment Noted Time PHQ-9 Depression Total Score: 8 07/06/19 24 7:54 AM EXERCISE SPECIALIST documented as of this encounter Care Teams Electric Organ Checker Relationship Specialty Start Date End Date Meet Ang DO [address] [place] [phone] PCP - General FAMILY PRACTICE 08/16/18 Paresh Gray MD Three [facility]. [place] [facility] [place] [address] EP Metalworking Instructor CLINICAL CARDIAC ELECTROPHYSIOLOGY 03/03/19 documented as of this encounter
--- OUTSIDE RECORDS SUMMARY | 2024-05-11 21:14 | XMS_ITS | Encounter Summary ---
Author Organization [facility] Address [address] [place] [address]. [place], [place] [id number] [place] [address] Care Team Providers Care Converter Operator Name Role Phone Meet Ang DO Primary Care Provider + Paresh Gray MD Unavailable Reason for Visit * Reason Onset Date Comments Results 12/16/2021 Encounter Details Date Type Department Care Team (Late st Contact Info) Description 12/16/2021 Telephone [facility] Medical Group Family & Internal Medicine [id number] [place] [address] Meet Ang DO [facility] [place] [address] Results Social History Tobacco Use [...] on file Legal Sex Male 2:37 PM MIXING PICKER TENDER Gender Identity Male 05/16/2021 9:25 AM MIXING PICKER TENDER Sexual Orientation Straight 05/16/2021 9: 25 AM MIXING PICKER TENDER COVID-19 Exposure Response Date Recorded In the last 10 days, have yo u been in contact with someone who was confirmed or suspected to have Coronavirus/COVID-19? No / Unsure 11/19/2021 1:35 PM CDT documented as of this encounter Progress Notes * Izabel Lawson MA - 12/16/2021 4:26 PM CDT Patient notified and v/u * Izabel Lawson MA - 12/16/2021 4:26 PM CDT ----- Message from Meet Ang DO sent at 12/14/2021 11:32 AM CDT ----- Labs are stable; negative rheumatological labs. Repeat labs in 1 year. documented in this encounter Plan of Treatment Upcoming Encounters Date Type Department Care Team (Late st Contact Info) Description 06/19/2024 8:45 AM MIXING PICKER TENDER Office Visit [facility], [address] [place] [address] Ren Morse MD [facility] [address] [place] [address] 07/19/2024 7:00 AM MIXING PICKER TENDER Office Visit [facility] Medical Group Family & Internal Medicine - [address] [place] [phone] Meet Ang DO [address] [place] [address] documented as of this encounter Visit Diagnoses Not on filedocumented in this encounter Additional Health Concerns Assessment Noted Time PHQ-9 Depression Total Score: 7 06/29/20 22 2:00 PM CDT documented as of this encounter Care Teams Converter Operator Relationship Specialty Start Date End Date Meet Ang DO [address] [place] [id number] PCP - General FAMILY PRACTICE 08/16/18 Paresh Gray MD [address] [id number] EP Battery Service Technician CLINICAL CARDIAC ELECTROPHYSIOLOGY 03/03/19 documented as of this encounter
--- OUTSIDE RECORDS SUMMARY | 2024-05-11 21:14 | XMS_ITS | Encounter Summary ---
Author Organization [facility] Address [address] [place] [address]. [place], [place] [id number] [place] [address] Care Team Providers Care High Density Finishing Operator Name Role Phone Meet Ang DO Primary Care Provider + Paresh Gray MD Unavailable Reason for Referral * Consultation (Routine) - Closed Specialty Diagnoses / Procedures Referred By Pepe gordon Referred To Contact Diagnoses Psoriasis Procedures OFFICE/OUTPT VISIT,NEW,LEVL III OFFICE/OUTPT VISIT,NEW,LEVL IV OFFICE/OUTPT VISIT,NEW,LEVL V OFFICE/OUTPT VISIT,EST,LEVL III OFFICE/OUTPT VISIT,EST,LEVL IV OFFICE/OUTPT VISIT,EST,LEVL V Meet Ang DO [address] [place] [address] Phone: tel: fax: [facility] [address], [place] [address] Phone: tel: fax: Referral ID Status Reason Start Date Expiration Date V isits Requested Visits Authorized [id number] Closed Specialty Services 05/28/2022 06/27/2023 99 99 IDENT & FOUNDER Reason for Visit * Reason Comments Psoriasis 6 month follow up Encounter Details Date Type Department Care Team (Late Contact Info) Description 05/28/2022 8:00 AM PRESIDENT & FOUNDER Office Visit [facility] Medical Group Family & Internal Medicine [address] [place] [address] Meet Ang DO [address] [place] [address] Psoriasis (6 month follow up) Social History Tobacco Use Types Packs/Day Years [...] on file Legal Sex Male 2:37 PM PRESIDENT & FOUNDER Gender Identity Male 05/16/2021 9:25 AM PRESIDENT & FOUNDER Sexual Orientation Straight 05/16/2021 9: 25 AM PRESIDENT & FOUNDER COVID-19 Exposure Response Date Recorded In the last 10 days, have yo u been in contact with someone who was confirmed or suspected to have Coronavirus/COVID-19? No / Unsure 05/28/2022 7:55 AM PRESIDENT & FOUNDER documented as of this encounter Last Filed Vital Signs Vital Sign Reading Time Taken Comments Blood Pressure 136/82 05/28/2022 8:11 AM PRESIDENT & FOUNDER Pulse 86 05/28/2022 8:11 AM PRESIDENT & FOUNDER Temperature 37.1 ??C (98.7 ??F) 05/28/2022 8:11 AM CS T Respiratory Rate 16 05/28/2022 8:11 AM PRESIDENT & FOUNDER Oxygen Saturation 97% 05/28/2022 8:11 AM PRESIDENT & FOUNDER Inhaled Oxygen Concentration - - Weight 151.8 kg (334 lb 9.6 oz) 05/28/2022 8:11 AM PRESIDENT & FOUNDER Height 185.4 cm (6' 1 ) 05/28/2022 8:11 AM PRESIDENT & FOUNDER Body Mass Index 44.15 05/28/2022 8:11 AM PRESIDENT & FOUNDER documented in this encounter Patient Instructions * Patient Instructions* Meet Ang DO - 05/28/2022 8:00 AM PRESIDENT & FOUNDER Lateral epicondylitis brace, recommend the sleeve, use while biking or activities that worsen pain Recommend a neutral wrist splint for carpal tunnel syndrome. IDENT & FOUNDER IDENT & FOUNDER documented in this encounter Progress Notes * Meet Ang DO - 05/28/2022 8:00 AM CST Images from the original note were not included. GENERAL OFFICE VISIT Encounter Date: 05/28/2022 Chief Complaint: 31-year-old male presents for Psoriasis (6 month follow up) HPI: Pt presents for follow-up. Pt has psoriasis. Pt hasn't seen dermatology yet; he will see them though. He had negative rheumatological labs most recent. Pt has palpitations and anxiety. He has seen Dr. Badillo in the past for this with cardiology as well as psychiatry. Pt was on carvedilol but was switched to atenolol by cardiology to see if this wascausing his body issues. Pt has asthma. Pt sees Jaspal Ramos APRN. Pt had a PFT; it did show an obstructive component. He will see them to follow-up. Pt is on albuterol at this time. Pt is now on BIPAP for his KIMMY. He sees Jaspal Ramos APRN. This may need adjustment for reasons noted above. Pt does note some elbow pain on the right after riding his bike. Review of Systems Constitutional: Negative for fever. [...] of 40.0 to 44.9 in adult (CMS/HCC) ??? Psoriasis Past Medical History: Diagnosis Date ??? Agoraphobia [...] file Tobacco Use ??? Smoking status: Former Packs/day: 1.50 Years: 10.00 Pack years: 15.00 Types: Cigarettes, Cigars Quit date: 05/24/2014 Years since quittin.0 ??? Smokeless tobacco: Former Types: Chew ??? Tobacco comments: Also used chewing tobacco for [...] mL Prefilled Syringe) 03/28/2019, 04/26/2020, 03/04/2021, 05/28/2022 ??? Hepatitis B 12/15/1999, 01/19/2000, 06/14/2000 ??? Hib 11/21/1992 ??? MMR 11/21/1992, 02/27/1993 ??? Opv 1989, 01/19/1990, 11/21/1992, 12/17/1994 ??? PFIZER COVID-19 (ORIGINAL FORMULATION, PURPLE CAP), MRNA, LNP-S, PF, 30 MCG/0.3 ML DOSE 07/30/2020, 08/20/2020, 05/28/2021 ??? PFIZER COVID-19 BIVALENT BOOSTER (12+) mRNA, LNP-S, PF, 30 MCG/0.3 ML DOSE 02/16/2022 ??? Pneumococcal (Prevnar 20) 11/19/2021 ??? Tdap (Boostrix) 01/13/2019 Current Outpatient Medications Medication Sig Dispense Refill ??? atenolol (TENORMIN) 25 MG tablet Take 25 mg by mouth daily. ??? VENTOLIN HFA 108 (90 Base) MCG/ACT inhaler INHALE 1 PUFF INTO THE LUNGS EVERY 4 HOURS NEEDEDFOR WHEEZING 18 g 2 No current facility-administered medications for this visit. Current Outpatient Medications on File Prior to Visit Medication Sig ??? atenolol (TENORMIN) 25 MG tablet Take 25 mg by mouth daily. ??? VENTOLIN HFA 108 (90 Base) MCG/ACT inhaler INHALE 1 PUFF INTO THE LUNGS EVERY 4 HOURS NEEDEDFOR WHEEZING No current facility-administered medications on file prior to visit. Allergies Allergen Reactions ??? Bee Venom Swelling Objective: Filed Vitals: 05/28/22 0811 BP: 136/82 Pulse: 86 Resp: 16 Temp: 98.7 ??F (37.1 ??C) TempSrc: Skin SpO2: 97% Weight: (!) 151.8 kg (334 lb 9.6 oz) Height: 6' 1 (1.854 m) Physical [...] No edema. Left lower leg: No edema. Comments: Pain with palpation of the right lateral epicondyle Skin: Comments: Psoriasis noted on elbows, scalp, behind both ears, similar to previous Neurological: General: No focal deficit present. Mental Status: He is alert. Psychiatric: Mood and Affect: Mood normal. Assessment & Plan: Alex was seen today for psoriasis. Diagnoses and all orders for this visit: Psoriasis - Ambulatory referral to Dermatology Lateral epicondylitis of right elbow Palpitations Class 3 severe obesity due to excess calories with serious comorbidity and body mass index (BMI) of40.0 to 44.9 in adult ([facility]) KIMMY (obstructive sleep apnea) Mild intermittent asthma without complication Need for immunization against influenza - [57166] FLU VACC QUAD 6 MONTHS+ 0.5 ML (SINGLE DOSE SYRINGE FLUZONE, FLUARIX, FLULAVAL OR SINGLE DOSE VIAL FLUZONE) Screening for lipid disorders - CBC W/DIFF AUTOMATED; Future - COMPREHENSIVE METABOLIC PANEL; Future - TSH W/REFLEX; Future - LIPID PANEL; Future - CBC W/DIFF AUTOMATED - COMPREHENSIVE METABOLIC PANEL - TSH W/REFLEX - LIPID PANEL Screening for endocrine, metabolic and immunity disorder - CBC W/DIFF AUTOMATED; Future - COMPREHENSIVE METABOLIC PANEL; Future - TSH W/REFLEX; Future - LIPID PANEL; Future - CBC W/DIFF AUTOMATED - COMPREHENSIVE METABOLIC PANEL - TSH W/REFLEX - LIPID PANEL Annual physical exam - CBC W/DIFF AUTOMATED; Future - COMPREHENSIVE METABOLIC PANEL; Future - TSH W/REFLEX; Future - LIPID PANEL; Future - CBC W/DIFF AUTOMATED - COMPREHENSIVE METABOLIC PANEL - TSH W/REFLEX - LIPID PANEL Discussion/Summary: Will refer again to dermatology. Recommend conservative treatments for lateral epicondylitis at this time; given handout today. Continue atenolol; consider change in BiPAP treatment per pulmonology recommendations. Continue albuterol use. Order labs per above to be done prior to next office visit. Continue weight loss. Will have patient follow-up in 6 months or sooner if needed. Patient verbalized understanding. Meet Ang DO IDENT & FOUNDER * Shavonne Parada MA - 05/28/2022 8:00 AM CST 1. Are you allergic to eggs, chicken or chicken feathers? No 2. Do you currently have an illness or fever? No 3. Have you ever had an allergic reaction to the influenza vaccine? No 4. Do you have Guillain-Montcalm Syndrome? No Flu vaccine administered in Right Deltoid. No flashback seen and no adverse reactions were observedwhile the patient was in the clinic. Pt left clinic in no acute distress. Verified by: Dr. Ang. IDENT & FOUNDER documented in this encounter Plan of Treatment Upcoming Encounters Date Type Department Care Team (Late st Contact Info) Description 06/19/2024 8:45 AM PRESIDENT & FOUNDER Office Visit [facility], [place], [address] [address] Ren Morse MD [facility] [address] [facility] [place] [address] 07/19/2024 7:00 AM PRESIDENT & FOUNDER Office Visit [facility] Medical Group Family & Internal Medicine [facility] [address] [place] [address] Meet Ang DO [address] [place] [address] Scheduled Referrals Name Type Priority Associated Diagnoses Orde r Schedule Ambulatory referral to Dermatology Referral Routine Psoriasis Ordered: 05/28/2022 documented as of this encounter Procedures Procedure Name Priority Date/Time Associated Diagnosis Comments TSH W/REFLEX Routine 10/21/2022 9:17 AM CDT Screening for lipid disorders Screening for endocrine, metabolic and immunity disorder Annual physical exam COMPREHENSIVE METABOLIC PANEL Routine 10/21/2022 9:17 AM CDT Screening for lipid disorders Screening for endocrine, metabolic and immunity disorder Annual physical exam LIPID PANEL Routine 10/21/2022 9:17 AM CDT Screening for lipid disorders Screening for endocrine, metabolic and immunity disorder Annual physical exam CBC W/DIFF AUTOMATED Routine 10/21/2022 9:17 AM CDT Screening for lipid disorders Screening for endocrine, metabolic and immunity disorder Annual physical exam documented in this encounter Results * (ABNORMAL) LIPID PANEL (10/21/2022 9:17 AM CDT) CHOLESTEROL 136 <200 mg/dL [facility] HDL 36(L) > OR = 40 mg/dL [facility] TRIGLYCERIDES 130 <150 mg/dL [facility] LDL (CALCULATED) 77 mg/dL (calc) [facility] Comment: Reference range: <100 Desirable range <100 mg/dL for primary prevention; ?? <70 mg/dL for patients with CHD or diabetic patients with > or = 2 CHD risk factors. LDL-C is now calculated using the Shirley calculation, which is a validated novel method providing better accuracy than the Friedewald equation in the estimation of LDL-C. Keith SS et al. MACARIO. 2013;310(19): 8147-5963 (http://education.[employer]/faq/GRT880) CHOL/HDL RATIO 3.8 <5.0 (calc) [facility] NON HDL CHOLESTEROL 100 <130 mg/dL (calc) [facility] Comment: For patients with diabetes plus 1 major ASCVD risk factor, treating to a non-HDL-C goal of <100 mg/dL (LDL-C of <70 mg/dL) is considered a therapeutic option. 10/21/2022 9:17 AM CDT 10/21/2022 9:18 AM CDT Narrative [facility] - KARTHIK PRESCOTT - 10/22/2022 6:33 AM CDT FASTING:YES FASTING: YES Resulting Agency Comment Performing Organization Information: ?Site ID: [place] ?Name: [facility] ?Address: [address] [place] [address] ?Director: Aida Santoyo MD us Meet Ang DO LABORATORY Final Re sult [facility] - KARTHIK ORDERS [facility] [address] [place] [address], * TSH W/REFLEX (10/21/2022 9:17 AM CDT) [facility] TSH 1.45 0.40 - 4.50 mIU/L [facility] [employer] [facility] 10/21/2022 9:17 AM CDT 10/21/2022 9:18 AM CDT Narrative [facility] - KARTHIK ORDERS - 10/22/2022 6:33 AM CDT FASTING:YES FASTING: YES Resulting Agency Comment Performing Organization Information: ?Site ID: [place] ?Name: [facility] ?Address: [address] [place] [address] [place] [address] ?Director: Aida Santoyo MD Meet Ang DO LABORATORY Final Re sult Performing Organization Address [facility] Co de Phone Number [facility] TRACE PRESCOTT [facility] [id number] [place] [address], * (ABNORMAL) COMPREHENSIVE METABOLIC PANEL (10/21/2022 9:17 AM CDT) [facility] GLUCOSE 87 65 - 99 mg/dL [facility] [employer] [facility] Comment: ? Fasting reference interval BUN 10 7 - 25 mg/dL [facility] CREATININE S/P/B 0.79 0.60 - 1.26 mg/dL [facility] GFR ESTIMATE 120 > OR = 60 mL/min/1 .73m2 [facility] [employer] [facility] Comment: The eGFR is based on the CKD-EPI 2020 equation. To calculate the new eGFR from a previous Creatinine or Cystatin C result, go to https://www.kidney.org/professionals/ kdoqi/gfr%5Fcalculator BUN CREATININE RATIO NOT APPLICABLE (calc) [facility] SODIUM S/P/B 140 135 - 146 mmol/L [facility] POTASSIUM S/P/B 4.6 3.5 - 5.3 mmol/L [facility] CHLORIDE S/P/B 106 98 - 110 mmol/L [facility] CO2 25 20 - 32 mmol/L [facility] CALCIUM S/P/B 9.1 8.6 - 10.3 mg/dL [facility] TOTAL PROTEIN S/P/B 7.1 6.1 - 8.1 g/dL [facility] ALBUMIN S/P/B 4.2 3.6 - 5.1 g/dL [facility] GLOBULIN 2.9 1.9 - 3.7 g/dL (calc) [facility] ALBUMIN/GLOBULI N RATIO 1.4 1.0 - 2.5 (calc) [facility] BILIRUBIN TOTAL S/P/B 1.3(H) 0.2 - 1.2 mg/dL [facility] ALKALINE PHOSPHATASE S/P/B 64 36 - 130 U/L [facility] AST 19 10 - 40 U/L [facility] ALT 25 9 - 46 U/L [facility] 10/21/2022 9:17 AM CDT 10/21/2022 9:18 AM CDT Narrative [facility] - KARTHIK ORDERS - 10/22/2022 6:33 AM CDT FASTING:YES FASTING: YES Resulting Agency Comment Performing Organization Information: ?Site ID: [place] ?Name: [facility] ?Address: [address] [place] [phone] ?Director: Aida Santoyo MD us Meet Ang DO LABORATORY Final Re sult [facility] DIAGNOSTICS - KARTHIK ORDERS [facility] [id number] [place] [phone] * CBC W/DIFF AUTOMATED (10/21/2022 9:17 AM CDT) WBC 7.3 3.8 - 10.8 Thousand/u L [facility] RBC 4.91 4.20 - 5.80 Million/uL [facility] HGB 14.5 13.2 - 17.1 g/dL [facility] HCT 43.0 38.5 - 50.0 % [facility] MCV 87.6 80.0 - 100.0 fL [facility] [place] [place] MCH 29.5 27.0 - 33.0 pg [facility] [place] MCHC 33.7 32.0 - 36.0 g/dL [facility] [place] RDW 12.6 11.0 - 15.0 % [facility] [place] PLT 234 140 - 400 Thousand/u L [facility] [place] MPV 11.7 7.5 - 12.5 fL [facility] [place] ABS. NEUTROPHILS 4,081 1,500 - 7,800 cells/uL [facility] [place] ABS. LYMPHOCYTES 2,278 850 - 3,900 cells/uL [facility] [place] ABS. MONOCYTES 628 200 - 950 cells/uL [facility] [place] ABS. EOSINOPHILS 256 15 - 500 cells/uL [facility] [employer] [place] ABS. BASOPHILS 58 0 - 200 cells/uL [facility] [place] SEG NEUTROPHILS 55.9 % [facility] LYMPHOCYTES 31.2 % [facility] [place] MONOCYTES 8.6 % [facility] [place] EOSINOPHILS 3.5 % [facility] [place] BASOPHILS 0.8 % [facility] [place] 10/21/2022 9:17 AM CDT 10/21/2022 9:18 AM CDT Narrative [facility] - KARTHIK ORDERS - 10/22/2022 6:33 AM CDT FASTING:YES FASTING: YES Resulting Agency Comment Performing Organization Information: ?Site ID: [place] ?Name: [facility] ?Address: [address] [place] [phone] ?Director: Aida Santoyo MD us Meet Ang DO LABORATORY Final Re sult [facility] - KARTHIK ORDERS [facility] [address] [place] [address], documented in this encounter Visit Diagnoses Diagnosis Psoriasis- Primary Other psoriasis Lateral epicondylitis of right elbow Lateral epicondylitis of elbow Palpitations Class 3 severe obesity due to excess calories with serious comorbidity and body mass index (BMI) of 40.0 to 44.9 in adult ([facility]) KIMMY (obstructive sleep apnea) Obstructive sleep apnea (adult) (pediatric) Mild intermittent asthma without complication ([facility]) Unspecified asthma Need for immunization against influenza Need for prophylactic vaccination and inoculation against influenza Screening for lipid disorders Screening for endocrine, metabolic and immunity disorder Annual physical exam Routine general medical examination at a health care facility documented in this encounter Additional Health Concerns Assessment Noted Time PHQ-9 Depression Total Score: 7 11/20/19 22 2:00 PM CDT documented as of this encounter Care Teams High Density Finishing Operator Relationship Specialty Start Date End Date Meet Ang DO [address] [place] [address] PCP - General FAMILY PRACTICE 08/16/18 Paresh Gray MD [address] [address] EP Bricklayer Supervisor CLINICAL CARDIAC ELECTROPHYSIOLOGY 03/03/19 documented as of this encounter
--- OUTSIDE RECORDS SUMMARY | 2024-05-11 21:14 | XMS_ITS | Encounter Summary ---
Author Organization [facility] Address [address] [place] [address]. [place], [place] [address] [place] [address] Care Team Providers Care Cereal Maker Name Role Phone Meet Ang DO Primary Care Provider + Paresh Gray MD Unavailable Reason for Visit * Reason Onset Date Comments Request Note 01/14/2022 Encounter Details Date Type Department Care Team (Late st Contact Info) Description 01/14/2022 Telephone [facility] Medical Group Family & Internal Medicine [id number] [place] [address] Meet Ang DO [facility] [place] [address] Request Note Social History Tobacco Use Types Packs/Day Years [...] on file Legal Sex Male 2:37 PM SWITCHBOARD OPERATOR Gender Identity Male 05/16/2021 9:25 AM SWITCHBOARD OPERATOR Sexual Orientation Straight 05/16/2021 9: 25 AM SWITCHBOARD OPERATOR documented as of this encounter Progress Notes * Dolly Christensen MA - 01/14/2022 1:33 PM CDT Patient informed . Letter done Juror # [id number] * Meet Ang DO - 01/14/2022 12:55 PM CDT That's fine. Sometimes there is a form that needs to be filed out; OK to complete if so. Otherwise,OK to write that pt has IBS, agoraphobia, and anxiety which could be exacerbated. I would recommendexemption based on these symptoms. * Becky Warren - 01/14/2022 9:56 AM CDT Patient is scheduled for Jury duty on 02/02. He is asking if we can write an exemption for it. He states that he has IBS and is agoraphobic. documented in this encounter Plan of Treatment Upcoming Encounters Date Type Department Care Team (Late st Contact Info) Description 06/19/2024 8:45 AM SWITCHBOARD OPERATOR [facility] [address] [place] [address] Ren Morse MD [facility] [address] [place] [address] 07/19/2024 7:00 AM SWITCHBOARD OPERATOR Office Visit [facility] Medical Group Family & Internal Medicine [address] [phone] Meet Ang DO [address] [place] [address] documented as of this encounter Visit Diagnoses Not on filedocumented in this encounter Additional Health Concerns Assessment Noted Time PHQ-9 Depression Total Score: 7 11/20/19 22 2:00 PM CDT documented as of this encounter Care Teams Cereal Maker Relationship Specialty Start Date End Date Meet Ang DO [address] [place] [address] PCP - General FAMILY PRACTICE 08/16/18 Paresh Gray MD [address] [address] EP Barrelhead Inspector CLINICAL CARDIAC ELECTROPHYSIOLOGY 03/03/19 documented as of this encounter
--- OUTSIDE RECORDS SUMMARY | 2024-05-11 21:14 | XMS_ITS | Encounter Summary ---
Author Organization [facility] Address [address] [place] [address]. [place], [place] [phone] [place] [address] Care Team Providers Care Funeral Pre Arrangement Counselor Name Role Phone Meet Ang DO Primary Care Provider + Paresh Gray MD Unavailable Encounter Details Date Type Department Care Team (Latest Contact Info) Description 02/05/2023 Travel Social History Tobacco Use Types Packs/Day [...] on file Legal Sex Male 2:37 PM MUSEUM DOCENT Gender Identity Male 05/16/2021 9:25 AM MUSEUM DOCENT Sexual Orientation Straight 05/16/2021 9: 25 AM MUSEUM DOCENT documented as of this encounter Plan of Treatment Upcoming Encounters Date Type Department Care Team (Late st Contact Info) Description 06/19/2024 8:45 AM MUSEUM DOCENT [facility] [address] [phone] Ren Morse MD [facility] [address] [place] [address] 07/19/2024 7:00 AM MUSEUM DOCENT Office Visit [facility] Medical Group Family & Internal Medicine - [address] [phone] Meet Ang DO [address] [place] [address] documented as of this encounter Visit Diagnoses Not on filedocumented in this encounter Additional Health Concerns Assessment Noted Time PHQ-9 Depression Total Score: 7 11/20/19 22 2:00 PM CDT documented as of this encounter Care Teams Funeral Pre Arrangement Counselor Relationship Specialty Start Date End Date Meet Ang DO [address] [place] [address] PCP - General FAMILY PRACTICE 08/16/18 Paresh Gray MD Three [facility]. [facility] [place] [address] EP Pulp Operator CLINICAL CARDIAC ELECTROPHYSIOLOGY 03/03/19 documented as of this encounter
--- OUTSIDE RECORDS SUMMARY | 2024-05-11 21:14 | XMS_ITS | Encounter Summary ---
Author Organization [facility] Address [address] [place] [address]. [place], [place] [address] [place] [phone] Care Team Providers Care Federal Judge Name Role Phone Meet Ang DO Primary Care Provider + Paresh Gray MD Unavailable Encounter Details Date Type Department Care Team (Latest Contact Info) Description 05/16/2021 Travel Social History Tobacco Use Types Packs/Day [...] on file Legal Sex Male 2:37 PM SEWING PATTERN LAYOUT TECHNICIAN Gender Identity Male 05/16/2021 9:25 AM SEWING PATTERN LAYOUT TECHNICIAN Sexual Orientation Straight 05/16/2021 9: 25 AM SEWING PATTERN LAYOUT TECHNICIAN COVID-19 Exposure Response Date Recorded In the last month, have you been in contact with someone who was confirmed or suspected to have Coronavirus / COVID-19? Yes 05/16/2021 8:27 AM SEWING PATTERN LAYOUT TECHNICIAN documented as of this encounter Plan of Treatment Upcoming Encounters Date Type Department Care Team (Late st Contact Info) Description 06/19/2024 8:45 AM SEWING PATTERN LAYOUT TECHNICIAN [facility], [place] [address] [place] [address] Ren Morse MD Three [facility] [address] [place] [address] 07/19/2024 7:00 AM SEWING PATTERN LAYOUT TECHNICIAN Office Visit [facility] Family & Internal Medicine - [address] [phone] Meet Ang DO [address] [place] [address] documented as of this encounter Visit Diagnoses Not on filedocumented in this encounter Additional Health Concerns Assessment Noted Time PHQ-9 Depression Total Score: 13 07/12/ 021 10:25 AM SEWING PATTERN LAYOUT TECHNICIAN documented as of this encounter Care Teams Federal Judge Relationship Specialty Start Date End Date Meet Ang DO [address] [place] [phone] PCP - General FAMILY PRACTICE 08/16/18 Paresh Gray MD Three [facility]. [facility] [address] [place] [address] EP Slab Tripper CLINICAL CARDIAC ELECTROPHYSIOLOGY 03/03/19 documented as of this encounter
--- OUTSIDE RECORDS SUMMARY | 2024-05-11 21:14 | XMS_ITS | Encounter Summary ---
Author Organization [facility] Address [address] [place] [address]. [place], [place] [address] [place] [address] Care Team Providers Care Med Specialist Name Role Phone Meet Ang DO Primary Care Provider + Paresh Gray MD Unavailable Reason for Referral * Consultation (Routine) - Closed Specialty Diagnoses / Procedures Referred By Pepe gordon Referred To Contact DERMATOLOGY Diagnoses Psoriasis Meet Ang DO [address] [place] [address] Phone: tel: fax: [facility] [address], [place] [address] Phone: tel: fax: Referral ID Status Reason Start Date Expiration Date V isits Requested Visits Authorized [id number] Closed Specialty Services 05/19/2021 06/18/2022 99 99 GER STRATEGY Reason for Visit * Reason Comments Results cpap follow up Encounter Details Date Type Department Care Team (Late st Contact Info) Description 05/19/2021 1:40 PM MANAGER STRATEGY Office Visit [facility] Family & Internal Medicine - [place] [address] [place] [address] Meet Ang DO [address] [place] [address] Results (cpap follow up ) Social History Tobacco Use [...] file Legal Sex Male 2:37 PM MANAGER STRATEGY Gender Identity Male 05/16/2021 9:25 AM MANAGER STRATEGY Sexual Orientation Straight 05/16/2021 9: 25 AM MANAGER STRATEGY COVID-19 Exposure Response Date Recorded In the last month, have you been in contact with someone who was confirmed or suspected to have Coronavirus / COVID-19? No / Unsure 05/19/2021 1:34 PM MANAGER STRATEGY documented as of this encounter Last Filed Vital Signs Vital Sign Reading Time Taken Comments Blood Pressure 124/74 05/19/2021 1:42 PM MANAGER STRATEGY Pulse 66 05/19/2021 1:42 PM MANAGER STRATEGY Temperature 36.8 ??C (98.2 ??F) 05/19/2021 1:42 PM CS T Respiratory Rate 16 05/19/2021 1:42 PM MANAGER STRATEGY Oxygen Saturation 98% 05/19/2021 1:42 PM MANAGER STRATEGY Inhaled Oxygen Concentration - - Weight 155.1 kg (342 lb) 05/19/2021 1:42 PM MANAGER STRATEGY Height 185.4 cm (6' 1 ) 05/19/2021 1:42 PM MANAGER STRATEGY Body Mass Index 45.12 05/19/2021 1:42 PM MANAGER STRATEGY documented in this encounter Progress Notes * Meet Ang, DO - 05/19/2021 1:40 PM CST Images from the original note were not included. GENERAL OFFICE VISIT Encounter Date: 05/19/2021 Chief Complaint: 30-year-old male presents for Results (cpap follow up ) HPI: Pt presents for follow-up. Pt is now on BIPAP for his KIMMY. He sees Jaspal Ramos APRN. Pt would wake up and take it off. He is now using it 4-8 hours. He is not waking up gasping for air at this time. Pt will see them again in 6months. Pt has lost about 15 lbs for the past 3 weeks. He is working on this. Pt will see cardiology in November. Pt is having an issue with blood pressure cuff. Pt is checking it weekly, but he isn't able to check this due to his cuff not working. Pt notes more nightmares since adding metoprolol. Pt has likely psoriatic lesions noted on scalp, elbows, and back of ears. Pt needs treatment for this. Review of Systems Constitutional: Negative for fever. Respiratory: See HPI Cardiovascular: See HPI Skin: See HPI Patient Active Problem List Diagnosis ??? KIMMY (obstructive sleep apnea) ??? IBS (irritable bowel syndrome) ??? GERD (gastroesophageal reflux disease) ??? Depression ??? Asthma ??? Anxiety ??? Agoraphobia ??? Tachycardia ??? Elevated blood pressure reading ??? Elevated troponin level not due myocardial infarction ??? Palpitations ??? Class 3 severe obesity with body mass index (BMI) of 40.0 to 44.9 in adult ([facility]) Past Medical History: Diagnosis Date ??? [...] Cigarettes, Cigars Quit date: 05/24/2014 Years since quittin.9 ??? Smokeless tobacco: Former User Types: Chew [...] file Intimate Partner Violence: Not on file Immunization History Administered Date(s) Administered ??? Dtap 1989, 01/19/1990, 11/21/1992 ??? Dtp 12/17/1994 ??? Fluzone 6 Months+ Quad (0.5 mL Prefilled Syringe) 03/28/2019, 04/26/2020, 03/04/2021 ??? Hepatitis B 12/15/1999, 01/19/2000, 06/14/2000 ??? Hib 11/21/1992 ??? MMR 11/21/1992, 02/27/1993 ??? Opv 1989, 01/19/1990, 11/21/1992, 12/17/1994 ??? PFIZER COVID-19, MRNA, LNP-S, PF, 30 MCG/0.3 ML DOSE 07/30/2020, 08/20/2020 ??? Tdap (Boostrix) 01/13/2019 Current Outpatient Medications Medication Sig Dispense Refill ??? BLOOD PRESSURE CUFF, DME, 1 Device by Does not apply route every 7 days. 1 Device 0 ??? busPIRone 15 MG tablet 4 (four) times daily. ??? carvedilol 12.5 MG tablet Take 1 tablet (12.5 mg total) by mouth 2 (two) times daily. 60 tablet2 ??? clobetasol 0.05 % cream Apply topically 2 (two) times daily. Do not use for more than 4 weeks continuously. Do not apply to face or groin. 60 g 1 ??? Clobetasol Propionate 0.05 % Shampoo Apply thin film to dry scalp once daily (maximum dose: 50 mL/week); leave in place for 15 minutes, then add water, lather, and rinse thoroughly. Limit treatment to 4 consecutive weeks. 118 mL 1 ??? VENTOLIN HFA 108 (90 Base) MCG/ACT inhaler Inhale 1 puff into the lungs. Every 4 hours PRN ??? loratadine 10 MG tablet Take 10 mg by mouth daily. No current facility-administered medications for this visit. Current Outpatient Medications on File Prior to Visit Medication Sig ??? busPIRone 15 MG tablet 4 (four) times daily. ??? VENTOLIN HFA 108 (90 Base) MCG/ACT inhaler Inhale 1 puff into the lungs. Every 4 hours PRN ??? loratadine 10 MG tablet Take 10 mg by mouth daily. No current facility-administered medications on file prior to visit. Allergies Allergen Reactions ??? Bee Venom Swelling Objective: Filed Vitals: 05/19/21 1342 BP: 124/74 Pulse: 66 Resp: 16 Temp: 98.2 ??F (36.8 ??C) TempSrc: Skin SpO2: 98% Weight: (!) 155.1 kg (342 lb) Height: 6' 1 (1.854 m) Physical Exam [...] Normal breath sounds. No wheezing or rales. Skin: Comments: Psoriasis noted on elbows, scalp, behind both ears Assessment & Plan: Alex was seen today for results. Diagnoses and all orders for this visit: KIMMY (obstructive sleep apnea) - BLOOD PRESSURE CUFF, DME,; 1 Device by Does not apply route every 7 days. Elevated blood pressure reading - BLOOD PRESSURE CUFF, DME,; 1 Device by Does not apply route every 7 days. - carvedilol 12.5 MG tablet; Take 1 tablet (12.5 mg total) by mouth 2 (two) times daily. Psoriasis - clobetasol 0.05 % cream; Apply topically 2 (two) times daily. Do not use for more than 4 weeks continuously. Do not apply to face or groin. - Clobetasol Propionate 0.05 % Shampoo; Apply thin film to dry scalp once daily (maximum dose: 50 mL/week); leave in place for 15 minutes, then add water, lather, and rinse thoroughly. Limit treatment to 4 consecutive weeks. - Ambulatory referral to Dermatology Tachycardia - carvedilol 12.5 MG tablet; Take 1 tablet (12.5 mg total) by mouth 2 (two) times daily. BMI 45.0-49.9, adult ([facility]) Discussion/Summary: Will order blood pressure cuff today. Will switch from metoprolol to carvedilol. Will refer to [facility] start on clobetasol. Continue weight loss; commended on recent weight loss. Continue follow-up with cardiology and pulmonology. Will have patient follow-up in 6 months or sooner if needed. Patient verbalized understanding. Meet Ang DO GER STRATEGY documented in this encounter Plan of Treatment Upcoming Encounters Date Type Department Care Team (Late st Contact Info) Description 06/19/2024 8:45 AM MANAGER STRATEGY Office Visit [facility], [address] [address] Ren Morse MD [facility] [address] [place] [address] 07/19/2024 7:00 AM MANAGER STRATEGY Office Visit [facility] Family & Internal Medicine [facility] [address] [place] [phone] Meet Ang DO [address] [place] [address] Scheduled Referrals Name Type Priority Associated Diagnoses Orde r Schedule Ambulatory referral to Dermatology Referral Routine Psoriasis Ordered: 05/19/2021 documented as of this encounter Visit Diagnoses Diagnosis KIMMY (obstructive sleep apnea)- Primary Obstructive sleep apnea (adult) (pediatric) Elevated blood pressure reading Elevated blood pressure reading without diagnosis of hypertension Psoriasis Other psoriasis Tachycardia Tachycardia, unspecified BMI 45.0-49.9, adult ([facility]) Body Mass Index 45.0-49.9, adult documented in this encounter Additional Health Concerns Assessment Noted Time PHQ-9 Depression Total Score: 13 07/12/ 021 10:25 AM MANAGER STRATEGY documented as of this encounter Care Teams Med Specialist Relationship Specialty Start Date End Date Meet Ang DO [address] [place] [address] PCP - General FAMILY PRACTICE 08/16/18 Paresh Gray MD [address] [address] EP Orthopedic Shoe Fitter CLINICAL CARDIAC ELECTROPHYSIOLOGY 03/03/19 documented as of this encounter
--- OUTSIDE RECORDS SUMMARY | 2024-05-11 21:15 | XMS_ITS | Encounter Summary ---
Author Organization [facility] Address [address] [place] [address]. [place] [address] [place] [address] Care Team Providers Care Manager Inventory Control Name Role Phone Meet Ang DO Primary Care Provider + Paresh Gray MD Unavailable Reason for Visit * Reason Comments Image (SCAN) Encounter Details Date Type Department Care Team (Latest Contact Info) Description 07/16/2020 Scan HEALTH INFO SR[facility] Scanned, Documents Image (SCAN) Social History Tobacco Use Types Packs/Day [...] on file Legal Sex Male 2:37 PM STATE GAME WARDEN Gender Identity Male 05/16/2021 9:25 AM STATE GAME WARDEN Sexual Orientation Straight 05/16/2021 9: 25 AM STATE GAME WARDEN COVID-19 Exposure Response Date Recorded In the last month, have you been in contact with someone who was confirmed or suspected to have Coronavirus / COVID-19? No / Unsure 07/19/2020 7:52 AM STATE GAME WARDEN documented as of this encounter Plan of Treatment Upcoming Encounters Date Type Department Care Team (Late st Contact Info) Description 06/19/2024 8:45 AM STATE GAME WARDEN Office Visit [facility] [address] [facility] [address], [place] [address] [place] [address] Ren Morse MD Three [facility] [address] [place] [address] 07/19/2024 7:00 AM STATE GAME WARDEN Office Visit [facility] Family & Internal Medicine [facility] [address] [place] [address] [place] [address] [place] [address] documented as of this encounter Procedures Procedure Name Priority Date/Time Associated Diagnosis Comments IMAGE GENERIC 07/16/2020 documented in this encounter Results * IMAGE GENERIC (07/16/2020) Anatomical Region Laterality Modality Other 07/16/2020 Narrative 07/16/2020 Ordered by an unspecified provider. us Documents Scanned SCANNING Final Result documented in this encounter Visit Diagnoses Not on filedocumented in this encounter Additional Health Concerns Assessment Noted Time PHQ-9 Depression Total Score: 13 07/12/2 021 10:25 AM STATE GAME WARDEN documented as of this encounter Care Teams Manager Inventory Control Relationship Specialty Start Date End Date Meet Ang DO [address] [place] [address] PCP - General FAMILY PRACTICE 08/16/18 Paresh Gray MD Three [facility]. [place] [address] [place] [address] EP Trouble Tracer CLINICAL CARDIAC ELECTROPHYSIOLOGY 03/03/19 documented as of this encounter
--- OUTSIDE RECORDS SUMMARY | 2024-05-11 21:15 | XMS_ITS | Encounter Summary ---
Author Organization [facility] Address [address] [place] [address]. [place] [address] [place] [address] Care Team Providers Care Logistics Lead Name Role Phone Meet Ang DO Primary Care Provider + Paresh Gray MD Unavailable Reason for Visit * Reason Comments Palpitations 3 mo follow up Encounter Details Date Type Department Care Team (Late st Contact Info) Description 06/12/2019 1:30 PM RESIDENTIAL CARPENTER Office Visit [facility] [address] [place] [address] Lalita Sebastian PA-C [facility] [address] [place] [address] Palpitations (3 mo follow up) Social History Tobacco Use Types [...] 07/23 PHQ-2 Answer Date Recorded PHQ-2 Score 4 08/18/2018 Sex and Gender Information Value Date Recorded Sex Assigned at Not on file Legal Sex Male 2:37 PM RESIDENTIAL CARPENTER Gender Identity Male 05/16/2021 9:25 AM RESIDENTIAL CARPENTER Sexual Orientation Straight 05/16/2021 9: 25 AM RESIDENTIAL CARPENTER documented as of this encounter Last Filed Vital Signs Vital Sign Reading Time Taken Comments Blood Pressure 132/82 06/12/2019 1:26 PM RESIDENTIAL CARPENTER Pulse 120 06/12/2019 1:26 PM RESIDENTIAL CARPENTER Temperature - - Respiratory Rate - - Oxygen Saturation 98% 06/12/2019 1:26 PM RESIDENTIAL CARPENTER Inhaled Oxygen Concentration - - Weight 151 kg (333 lb) 06/12/2019 1:26 PM RESIDENTIAL CARPENTER Height 185.4 cm (6' 1 ) 06/12/2019 1:26 PM RESIDENTIAL CARPENTER Body Mass Index 43.93 06/12/2019 1:26 PM RESIDENTIAL CARPENTER documented in this encounter Patient Instructions * Patient Instructions* Ivet Meade - 06/12/2019 1:30 PM RESIDENTIAL CARPENTER Images from the original note were not included. Patient Education Patient Education Palpitations About this topic Sometimes you may have an awareness of your heart beating. It may feel like your heart is pounding or beating very fast. Sometimes it may feel like your heart is skipping a beat or is fluttering. Doctors may call this feeling a heart palpitation. You may be able to feel your abnormal heart beat in your chest, throat, or neck. Most of the time, the palpitations will go away after a short time and are not serious. Sometimes, they can be a sign of a more serious problem like an irregular heart beat or arrhythmia. What are the causes? ?? Stress, worry, panic, or fear ?? Smoking, caffeine, too much alcohol use, drug abuse ?? Some drugs, supplements, or herbals ?? Body chemicals like potassium, thyroid hormone, or calcium are out of balance. This may happen if you have an illness like kidney disease. Too much throwing up or loose stool can also cause this problem. So can some drugs you take. ?? Heart problems ?? Dehydration ?? Fever What can make this more likely to happen? You are more at risk if you have an abnormal heart rate. People who have problems with low mood or worry are also more likely to have palpitations. So do those who use street drugs. What are the main signs? You may feel: ?? Your heart skips a beat or flutters ?? A pounding or fluttering sensation in your chest, neck, or throat ?? Weak, dizzy, or lightheaded ?? Unusual sweating ?? Trouble breathing ?? Chest discomfort or pain How does the doctor diagnose this health problem? Your doctor will do an exam and ask about your history. Talk to your doctor about how often you feel this kind of heartbeat. Tell your doctor if anything makes it better or worse, like activity or lying down. The doctor may listen to your heartbeat or look for signs of some other health problem. The doctor may order: ?? Lab tests ?? Electrocardiogram (EKG) ?? A Holter or event monitor to check your heart signals for 1 to 3 days How does the doctor treat this health problem? Your care is based on what is causing your palpitations. Some people do not need anything to treat their palpitations. If your palpitations are caused by an irregular heartbeat, you may need to take drugs or have a procedure. Talk to your doctor to learn what is best for you. What drugs may be needed? The doctor may order drugs to: ?? Keep your heartbeat normal and steady What problems could happen? ?? Heart failure ?? Chest pain ?? Heart attack ?? Stroke What can be done to prevent this health problem? ?? Keep a healthy weight. If you are overweight, lose weight. ?? Exercise more often. This will improve your body's blood flow. Talk to your doctor about the right type of exercise for you. ?? Limit beer, wine, and mixed drinks (alcohol). ?? Avoid stress. Think about using guided imagery, yoga, akosua chi, etc. to help with relaxation. ?? Stay away from drugs that make the heartbeat faster, like those used for colds and cough. ?? Avoid caffeine or energy drinks. ?? Do not use street drugs like cocaine or methamphetamines. ?? Stop smoking. When do I need to call the doctor? Activate the emergency medical system right away if you have signs of a heart attack or stroke. Call 911 in the [place] or [place]. The sooner treatment begins, the better your chances for recovery. Call for emergency help right away if you have: ?? Signs of heart attack: ? Chest pain ? Trouble breathing ? Fast heartbeat ? Feeling dizzy ?? Signs of stroke: ? Sudden numbness or weakness of the face, arm, or leg, especially on one side of the body ? Sudden confusion, trouble speaking or understanding ? Sudden trouble seeing in one or both eyes ? Sudden trouble walking, dizziness, loss of balance or coordination ? Sudden severe headache with no known cause Call your doctor if you have: ?? Problems with breathing. These include change in shortness of breath, wheezing, need to sleep sitting up to be able to breathe, or other breathing troubles. ?? Blue or bae skin color ?? Sweating ?? Pain, pressure, tightness, or heaviness in your chest, arm, neck, or jaw ?? Very fast heartbeat ?? Trouble breathing with exercise ?? Gas pains or heartburn ?? You are not feeling better in 2 to 3 days or you are feeling worse Where can I learn more? [employer] http://familydoctor.org/familydoctor/en/diseases-conditions/heart-palpitations/c ybfva-rkez-kipqxes.html [employer] https://www.betterhealth.roxana.gov.au/health/conditionsandtreatments/heart-arrhyth anmb-fll-khzktexglxbx NHS Choices http://www.nhs.uk/conditions/Heart-palpitations/Pages/Introduction.aspx Last Reviewed Date 2017-09-28 Consumer Information Use and Disclaimer This information is not specific medical advice and does not replace information you receive from your health care provider. This is only a brief summary of general information. It does NOT include all information about conditions, illnesses, injuries, tests, procedures, treatments, therapies, discharge instructions or life-style choices that may apply to you. You must talk with your health care provider for complete information about your health and treatment options. This information should not be used to decide whether or not to accept your health care provider???s advice, instructions or recommendations. Only your health care provider has the knowledge and training to provide advice that is right for you. Copyright Copyright ?? 2019 [employer] and its affiliates and/or licensors. All rights reserved. DENTIAL CARPENTER documented in this encounter Progress Notes * Lalita Sebastian PA-C - 06/12/2019 1:30 PM CST Reason for Visit: Palpitations (3 mo follow up) History of Present Illness: Alex Blackwood is a 28-year-old male with a past medical history of palpitations, Agoraphobia, Anxiety, and obesity here today for scheduled follow up appointment. Patient has been doing well sincehis last office visit. No new chest pain, chest pressure/discomfort, dyspnea, near-syncope, fatigue, orthopnea, claudication or lower extremity edema. Patient does complain of palpitations and irregular heart beats occasionally, symptoms are unchanged. Patient remains mindful of his diet and tries to remain as active as possible. Patient reports that overall he doing well from an electrophysiology standpoint. Recommendations and Plan: 1. Palpitations 2. Sinus Tachycardia 3. KIMMY: On CPAP Overall Alex Blackwood is doing well from an electrophysiology standpoint. ECG today shows sinus tachycardia with stable ME and QT intervals. No significant arrhthymias noted on recent Holter monitoring. Suspect palpitations could be related to sinus tachycardia from anxiety/panic attacks. Discussed treatment for sustained palpitations with beta kristie. He wishes to trial a beta kristie at this time. Will start Toprol XL 25mg daily. He will contact us should his symptoms worsen. Encouraged his to remain active and mindful of his diet. ?? It is my pleasure to participate in Alex Bray care. We will follow up with the patient in 1year or sooner if needed. Data Reviewed ECG today shows sinus tachycardia with stable ME and QT intervals. HR 120s. 03/20/2019 24 hour holter monitor: No sustained supraventricular or ventricular arrhthymias noted. PVC burden of 1.5%. Average HR of 94 bpm. Medications: Current Outpatient Medications: ??? busPIRone 30 MG tablet, Take 15 mg by mouth 4 (four) times a day. , Disp: , Rfl: 1 ??? dicyclomine 10 MG capsule, Take 1 capsule (10 mg total) by mouth 3 (three) times daily., Disp: 90 capsule, Rfl: 2 ??? FAMOTIDINE 20 MG tablet, TAKE 1 TABLET(20 MG) BY MOUTH TWICE DAILY, Disp: 60 tablet, Rfl: 5 ??? fluoxetine 20 MG capsule, Take 20 mg by mouth daily. , Disp: , Rfl: 2 ??? metoprolol succinate ER 25 MG 24 hr tablet, Take 1 tablet (25 mg total) by mouth daily., Disp: 30 tablet, Rfl: 6 ??? trazodone 100 MG tablet, Take 100 mg by mouth. Take 1 to 3 tab at bedtime prn, Disp: , Rfl: 1 ??? VENTOLIN HFA 108 (90 Base) MCG/ACT inhaler, Inhale 1 puff into the lungs. Every 4 hours PRN, Disp: , Rfl: Allergies Allergen Reactions ??? Bee Venom Swelling Past Medical History: Diagnosis Date ??? Agoraphobia ??? Anxiety ??? Asthma ??? Depression ??? GERD (gastroesophageal reflux disease) ??? IBS (irritable bowel syndrome) ??? KIMMY (obstructive sleep apnea) Past Surgical History: Procedure Laterality Date ??? NONE Social History Tobacco Use ??? Smoking status: Former Smoker Packs/day: 1.00 Years: 6.00 Pack years: 6.00 ??? Smokeless tobacco: Former User Types: Chew Substance Use Topics ??? Alcohol use: No Frequency: Never ??? Drug use: No Family History Problem Relation Name Age of Onset ??? Hypertension Mother ??? Depression Mother ??? Heart Disease Mother ??? Anxiety Mother ??? Hyperlipidemia Mother ??? Diabetes Mother ??? Hypertension Father ??? Depression Father ??? Heart Disease Father ??? Hyperlipidemia Father ??? Alcohol Abuse Paternal Uncle ??? Cancer Paternal Uncle mouth ??? Diabetes Maternal Grandmother ??? Depression Maternal Grandmother ??? Depression Maternal Grandfather ??? Heart Attack Maternal Grandfather ??? Psoriasis Paternal Grandmother ??? Heart Attack Paternal Grandmother ??? Open Heart Brother ??? Diabetes Brother ??? Other (Down syndrome) Brother ??? Open Heart Paternal Grandfather ??? Hypertension Paternal Grandfather Family Status Relation Name Status ??? Mother Alive ??? Father Alive ??? PUncle (Not Specified) ??? MGM (Not Specified) ??? MGF at age 74 ??? PGM (Not Specified) ??? Brother Alive ??? PGF Alive Review of Systems Constitutional: Negative for recent unintentional weight gain, recent unintentional weight loss andnew or significant fatigue. HENT: Negative for new or significant hearing loss. Eyes: Negative for blurred vision and double vision. Respiratory: Negative for cough, new or significant shortness of breath and snoring. Cardiovascular: See HPINegative for chest pain, palpitations, claudication and leg swelling. Gastrointestinal: Negative for blood in stool and melena. Genitourinary: Negative for dysuria. Musculoskeletal: Negative for myalgias and new or worsening joint stiffness/pain. Skin: Negative for rash. Neurological: Negative for tingling/numbness and focal weakness. Endo/Heme/Allergies: Negative for new or significant bruising/bleeding and polydipsia. Psychiatric/Behavioral: Negative for depression and new or significant memory loss. Filed Vitals: 06/12/19 1326 BP: 132/82 Pulse: 120 SpO2: 98% Weight: (!) 151 kg (333 lb) Height: 6' 1 (1.854 m) Body mass index is 43.93 kg/m??. Physical Exam Rate/Rhythm: regular rhythm and normal rate . Heart Sounds: normal heart sounds, normal S1 and normal S2 no gallop, no S3 sound, no S4 sound and no murmur. . PMI: PMI not displaced. Pulses: normal pulses Right Carotid pulses 2+, Left Carotid pulses 2+, Right DP pulses 2+, Left DP pulses 2+, negative for edema Constitutional: healthy appearance not distressed. . Neck: neck supple no JVD. . Pulmonary/Chest Wall: effort normal and breath sounds normal no rales. . HEENT: teeth/gums normal and oropharynx clear and moist. . Abdomen: abdomen soft and bowel sounds normal No distention. no tenderness. no mass. No abdominal aortic bruit. . Eyes: conjunctivae normal. Neurological: alert, oriented x 3 and appropriate for situation, . Skin: dry and warm no cyanosis and no clubbing. Musculoskeletal: no kyphosis Cardiovascular Comments: Diagnoses/Impression: 1. Palpitations 2. Sinus tachycardia 3. KIMMY (obstructive sleep apnea) Referring Provider: No ref. provider found PCP: Meet Ang DO DENTIAL CARPENTER documented in this encounter Plan of Treatment Upcoming Encounters Date Type Department Care Team (Late st Contact Info) Description 06/19/2024 8:45 AM RESIDENTIAL CARPENTER Office Visit [address] [address] Ren Morse MD Three [facility] [address] [place] [address] 07/19/2024 7:00 AM RESIDENTIAL CARPENTER Office Visit [facility] Family & Internal Medicine - [address] [phone] Meet Ang DO [address] [place] [address] documented as of this encounter Visit Diagnoses Diagnosis Palpitations- Primary Sinus tachycardia Other specified cardiac dysrhythmias KIMMY (obstructive sleep apnea) Obstructive sleep apnea (adult) (pediatric) documented in this encounter Additional Health Concerns Assessment Noted Time PHQ-9 Depression Total Score: 18 019 3:33 PM CDT documented as of this encounter Care Teams Logistics Lead Relationship Specialty Start Date End Date Meet Ang DO [address] [place] [id number] PCP - General FAMILY PRACTICE 08/16/18 Paresh Gray MD Three [facility]. [place] [address] [place] [address] EP Breeder Service Technician CLINICAL CARDIAC ELECTROPHYSIOLOGY 03/03/19 documented as of this encounter
--- OUTSIDE RECORDS SUMMARY | 2024-05-11 21:15 | XMS_ITS | Encounter Summary ---
Author Organization [facility] Address [address] [place] [address]. [place], [place] [id number] [place] [address] Care Team Providers Care Press Writer Name Role Phone Meet Ang DO Primary Care Provider + Paresh Gray MD Unavailable Encounter Details Date Type Department Care Team (Late st Contact Info) Description 05/10/2020 Orders Only [facility] [place], [place] [address] Meet Ang DO [address] [place] [address] Social History Tobacco Use Types Packs/Day [...] 07/23 PHQ-2 Answer Date Recorded PHQ-2 Score 3 04/26/2020 Sex and Gender Information Value Date Recorded Sex Assigned at Not on file Legal Sex Male 2:37 PM VIDEO GAME REPAIR TECHNICIAN Gender Identity Male 05/16/2021 9:25 AM VIDEO GAME REPAIR TECHNICIAN Sexual Orientation Straight 05/16/2021 9: 25 AM VIDEO GAME REPAIR TECHNICIAN COVID-19 Exposure Response Date Recorded In the last month, have you been in contact with someone who was confirmed or suspected to have Coronavirus / COVID-19? No / Unsure 05/10/2020 8:54 AM VIDEO GAME REPAIR TECHNICIAN documented as of this encounter Plan of Treatment Upcoming Encounters Date Type Department Care Team (Late st Contact Info) Description 06/19/2024 8:45 AM VIDEO GAME REPAIR TECHNICIAN Office Visit [facility] [place] [address] [place] [address] Ren Morse MD Three [facility] [address] [place] [address] 07/19/2024 7:00 AM VIDEO GAME REPAIR TECHNICIAN Office Visit [facility] Family & Internal Medicine [address] [phone] Meet Ang DO [address] [place] [id number] documented as of this encounter Results * DIRECT BILIRUBIN (05/10/2020 11:00 AM VIDEO GAME REPAIR TECHNICIAN) BILIRUBIN DIRECT S/P/B 0.2 0.0 - 0.20 MG/DL 05/10/2020 8:18 PM VIDEO GAME REPAIR TECHNICIAN [facility] 05/10/2020 11:0 0 AM VIDEO GAME REPAIR TECHNICIAN Meet Ang DO LABORATORY Final Re sult [facility] [address] [place] [address], [place] [phone] * (ABNORMAL) COMPREHENSIVE METABOLIC PANEL (05/10/2020 11:00 AM VIDEO GAME REPAIR TECHNICIAN) GLUCOSE 83 70 - 99 MG/DL 05/10/2020 8:18 PM VIDEO GAME REPAIR TECHNICIAN [facility] BUN 5(L) 7 - 18 MG/DL 05/10/2020 8:18 PM [facility] CREATININE S/P/B 0.76 0.7 - 1.3 MG/DL 05/10/2020 8:18 PM [facility] SODIUM S/P/B 141 136 - 145 MMOL/L 05/10/2020 8:18 PM [facility] POTASSIUM S/P/B 3.9 3.5 - 5.1 MMOL/L 05/10/2020 8:18 PM [facility] CHLORIDE S/P/B 110(H) 100 - 108 MMOL/L 05/10/2020 8:18 PM [facility] CO2 25.6 21 - 32 MMOL/L 05/10/2020 8:18 PM [facility] CALCIUM S/P/B 8.2(L) 8.5 - 10.1 MG/DL 05/10/2020 8:18 PM [facility] BILIRUBIN TOTAL S/P/B 0.8 0.2 - 1.2 MG/DL 05/10/2020 8:18 PM [facility] Comment: THIS ASSAY IS NOT RECOMMENDED FOR PATIENTS UNDERGOING TREATMENT WITH ELTROMBOPAG DUE TO THE POTENTIAL FOR FALSELY ELEVATED RESULTS. TOTAL PROTEIN S/P/B 7.2 6.4 - 8.2 G/DL 05/10/2020 8:18 PM [facility] ALBUMIN S/P/B 3.9 3.4 - 5.0 G/DL 05/10/2020 8:18 PM [facility] AST 29 15 - 37 U/L 05/10/2020 8:18 PM [facility] ALT 62(H) 16 - 60 U/L 05/10/2020 8:18 PM [facility] ALKALINE PHOSPHATASE S/P/B 92 50 - 136 U/L 05/10/2020 8:18 PM [facility] ANION GAP 5.4 5 - 15 MMOL/L 05/10/2020 8:18 PM VIDEO GAME REPAIR TECHNICIAN [facility] BUN CREATININE RATIO 6.6 6 - 26 05/10/2020 8:18 PM VIDEO GAME REPAIR TECHNICIAN [facility] A/G RATIO 1.2 1.0 - 2.0 RATIO 05/10/2020 8:18 PM VIDEO GAME REPAIR TECHNICIAN [facility] EGFR NON-AFR. AMER. >90 >90 ML/MIN/1.7 3 M2 05/10/2020 8:18 PM VIDEO GAME REPAIR TECHNICIAN [facility] EGFR AFR. AMER. >90 >90 ML/MIN/1.7 3 M2 05/10/2020 8:18 PM [facility] Comment: NOTE: eGFR is not calculated for patients <18 years of age. This is an estimated GFR (CKD EPI) and should not be used for calculating drug doses. 05/10/2020 11:0 0 AM VIDEO GAME REPAIR TECHNICIAN Meet Ang DO LABORATORY Final Re sult [facility] [address] [place] [address], documented in this encounter Visit Diagnoses Diagnosis Serum total bilirubin elevated- Primary Jaundice, unspecified, not of documented in this encounter Additional Health Concerns Assessment Noted Time PHQ-9 Depression Total Score: 8 04/26/20 20 10:00 AM VIDEO GAME REPAIR TECHNICIAN documented as of this encounter Care Teams Press Writer Relationship Specialty Start Date End Date Meet Ang DO [address] [place] [id number] PCP - General FAMILY PRACTICE 08/16/18 Paresh Gray MD Three [facility] [address] [place] [address] EP Detective Youth Bureau CLINICAL CARDIAC ELECTROPHYSIOLOGY 03/03/19 documented as of this encounter
--- OUTSIDE RECORDS SUMMARY | 2024-05-11 21:15 | XMS_ITS | Encounter Summary ---
Author Organization [facility] Address [address] [place] [address]. [place], [place] [phone] [place] [address] Care Team Providers Care Siding Installer Name Role Phone Meet Ang DO Primary Care Provider + Paresh Gray MD Unavailable Reason for Visit * Reason Onset Date Comments Lab Results 09/26/2020 Encounter Details Date Type Department Care Team (Late st Contact Info) Description 09/26/2020 Telephone [facility] Family & Internal Medicine [address] [phone] [place] [phone] Meet Ang DO [address] [place] [address] Lab Results Social History Tobacco Use Types Packs/Day [...] on file Legal Sex Male 2:37 PM TIRE CURER Gender Identity Male 05/16/2021 9:25 AM TIRE CURER Sexual Orientation Straight 05/16/2021 9: 25 AM TIRE CURER COVID-19 Exposure Response Date Recorded In the last month, have you been in contact with someone who was confirmed or suspected to have Coronavirus / COVID-19? No / Unsure 08/29/2020 9:21 AM CDT documented as of this encounter Progress Notes * Dolly Christensen MA - 09/26/2020 11:16 AM CDT Patient informed or results and recommendations. tn * Dolly Christensen MA - 09/26/2020 11:14 AM CDT ----- Message from Meet Ang DO sent at 09/25/2020 3:53 PM CDT ----- Calcium is on low end of normal; we will monitor with regular blood tests going forward. documented in this encounter Plan of Treatment Upcoming Encounters Date Type Department Care Team (Late st Contact Info) Description 06/19/2024 8:45 AM TIRE CURER Office Visit [facility] [place] [address] [place] [address] Ren Morse MD Three [facility] [address] [place] [address] 07/19/2024 7:00 AM TIRE CURER Office Visit [facility] Family & Internal Medicine - [place] [address] [place] [phone] Meet Ang DO [address] [place] [address] documented as of this encounter Visit Diagnoses Not on filedocumented in this encounter Additional Health Concerns Assessment Noted Time PHQ-9 Depression Total Score: 13 07/12/ 021 10:25 AM TIRE CURER documented as of this encounter Care Teams Siding Installer Relationship Specialty Start Date End Date Meet Ang DO [address] [place] [address] PCP - General FAMILY PRACTICE 08/16/18 Paresh Gray MD [address] [address] EP Casket Inspector CLINICAL CARDIAC ELECTROPHYSIOLOGY 03/03/19 documented as of this encounter
--- OUTSIDE RECORDS SUMMARY | 2024-05-11 21:15 | XMS_ITS | Encounter Summary ---
Author Organization [facility] Address [address] [place] [address]. [place], [place] [address] [place] [id number] Care Team Providers Care Canvas Repairer Name Role Phone Meet Ang DO Primary Care Provider + Paresh Gray MD Unavailable Reason for Visit * Reason Comments GERD follow up Obstructive Sleep Apnea Encounter Details Date Type Department Care Team (Late st Contact Info) Description 04/26/2020 9:40 AM DETAIL ASSEMBLER Office Visit [facility] Family & Internal Medicine [address] [phone] Meet Ang DO [address] [place] [id number] GERD (follow up ); Obstructive Sleep Apnea Social History Tobacco Use Types Packs/Day Years [...] on file Legal Sex Male 2:37 PM DETAIL ASSEMBLER Gender Identity Male 05/16/2021 9:25 AM DETAIL ASSEMBLER Sexual Orientation Straight 05/16/2021 9: 25 AM DETAIL ASSEMBLER COVID-19 Exposure Response Date Recorded In the last month, have you been in contact with someone who was confirmed or suspected to have Coronavirus / COVID-19? No / Unsure 04/26/2020 9:42 AM DETAIL ASSEMBLER documented as of this encounter Last Filed Vital Signs Vital Sign Reading Time Taken Comments Blood Pressure 142/91 04/26/2020 9:50 AM DETAIL ASSEMBLER Pulse 104 04/26/2020 9:50 AM DETAIL ASSEMBLER Temperature 37.3 ??C (99.2 ??F) 04/26/2020 9:50 AM CS T Respiratory Rate 16 04/26/2020 9:50 AM DETAIL ASSEMBLER Oxygen Saturation 97% 04/26/2020 9:50 AM DETAIL ASSEMBLER Inhaled Oxygen Concentration - - Weight 152.5 kg (336 lb 3.2 oz) 04/26/2020 9:50 AM DETAIL ASSEMBLER Height 185.4 cm (6' 1 ) 04/26/2020 9:50 AM DETAIL ASSEMBLER Body Mass Index 44.36 04/26/2020 9:50 AM DETAIL ASSEMBLER documented in this encounter Progress Notes * Meet Ang, - 04/26/2020 9:40 AM CST Images from the original note were not included. GENERAL OFFICE VISIT Encounter Date: 04/26/2020 Chief Complaint: 29-year-old male presents for GERD (follow up ) and Obstructive Sleep Apnea HPI: Pt has seen cardiology since last visit. He is currently on Toprol 25 mg. His BP was better there. His BP he hasn't been able to monitor. Pt has KIMMY. He is needing [facility], but he won't go due to COVID. He is notcurrently on any device. Pt is currently seeing psychiatry at [place] for depression, anxiety, and agorophobia. No major changes recently. Pt has hx of IBS. He is less stressed and his symptoms are better since last time we saw him. Review of Systems Constitutional: Negative for fever. Respiratory: Negative for shortness of breath. Cardiovascular: See HPI Gastrointestinal: See HPI Genitourinary: See HPI Psychiatric/Behavioral: See HPI Patient Active Problem List Diagnosis ??? KIMMY (obstructive sleep apnea) ??? IBS (irritable bowel syndrome) ??? GERD (gastroesophageal reflux disease) ??? Depression ??? Asthma ??? Anxiety ??? Agoraphobia ??? Tachycardia ??? Elevated blood pressure reading Past Medical History: Diagnosis Date ??? Agoraphobia [...] Heart Paternal Grandfather ??? Hypertension Paternal Grandfather Social History Socioeconomic History ??? Marital status: Single Spouse name: Not on file ??? Number of children: 0 ??? Years of education: Not on file ??? Highest education level: Not on file Occupational History ??? Not on file Social Needs ??? Financial resource strain: Not on file ??? Food insecurity Worry: Not on file Inability: Not on file ??? Transportation needs Medical: Not on file Non-medical: Not on file Tobacco Use ??? Smoking status: Former Smoker Packs/day: 1.00 Years: 6.00 Pack years: 6.00 ??? Smokeless tobacco: Former User Types: Chew Substance and Sexual Activity ??? Alcohol use: No Frequency: Never ??? Drug use: No ??? Sexual activity: Not on file Lifestyle ??? Physical activity Days per week: Not on file Minutes per session: Not on file ??? Stress: Not on file Relationships ??? Social connections Talks on phone: Not on file Gets together: Not on file Attends orthodoxy service: Not on file Active member of club or organization: Not on file Attends meetings of clubs or organizations: Not on file Relationship status: Not on file ??? Intimate partner violence Fear of current or ex partner: Not on file Emotionally abused: Not on file Physically abused: Not on file Forced sexual activity: Not on file Other Topics Concern ??? Service Not Asked [...] Social History Narrative ??? Not on file Immunization History Administered Date(s) Administered ??? Dtap 1989, 01/19/1990, 11/21/1992 ??? Dtp 12/17/1994 ??? Fluzone 6 Months+ (0.5 mL Prefilled Syringe IIV4) 03/28/2019, 04/26/2020 ??? Hepatitis B 12/15/1999, 01/19/2000, 06/14/2000 ??? Hib 11/21/1992 ??? MMR 11/21/1992, 02/27/1993 ??? Opv 1989, 01/19/1990, 11/21/1992, 12/17/1994 ??? Tdap (Boostrix) 01/13/2019 Current Outpatient Medications Medication Sig Dispense Refill ??? busPIRone 15 MG tablet 4 (four) times daily. ??? dicyclomine 10 MG capsule Take 1 capsule (10 mg total) by mouth 3 (three) times a day. Patient is due for appt , no further refills until seen in office or for a virtual visit 45 capsule 0 ??? famotidine 20 MG tablet Take 1 tablet (20 mg total) by mouth 2 (two) times daily. Patient is due for appt , no further refills until seen in office or for a virtual visit 30 tablet 0 ??? FLUoxetine HCl 60 MG Tab TK 1 T PO QD IN THE MORNING ??? loratadine 10 MG tablet Take 10 mg by mouth daily. ??? metoprolol succinate ER 25 MG 24 hr tablet Take 1 tablet (25 mg total) by mouth daily. 30 tablet 6 ??? OLANZapine 7.5 MG tablet TK 1 T PO QD IN THE MORNING ??? trazodone 100 MG tablet Take 200 mg by mouth nightly at bedtime. 1 ??? VENTOLIN HFA 108 (90 Base) MCG/ACT inhaler Inhale 1 puff into the lungs. Every 4 hours PRN No current facility-administered medications for this visit. Current Outpatient Medications on File Prior to Visit Medication Sig ??? busPIRone 15 MG tablet 4 (four) times daily. ??? dicyclomine 10 MG capsule Take 1 capsule (10 mg total) by mouth 3 (three) times a day. Patient is due for appt , no further refills until seen in office or for a virtual visit ??? famotidine 20 MG tablet Take 1 tablet (20 mg total) by mouth 2 (two) times daily. Patient is due for appt , no further refills until seen in office or for a virtual visit ??? FLUoxetine HCl 60 MG Tab TK 1 T PO QD IN THE MORNING ??? loratadine 10 MG tablet Take 10 mg by mouth daily. ??? metoprolol succinate ER 25 MG 24 hr tablet Take 1 tablet (25 mg total) by mouth daily. ??? OLANZapine 7.5 MG tablet TK 1 T PO QD IN THE MORNING ??? trazodone 100 MG tablet Take 200 mg by mouth nightly at bedtime. ??? VENTOLIN HFA 108 (90 Base) MCG/ACT inhaler Inhale 1 puff into the lungs. Every 4 hours PRN No current facility-administered medications on file prior to visit. Allergies Allergen Reactions ??? Bee Venom Swelling Objective: Filed Vitals: 04/26/20 0950 BP: (!) 142/91 Pulse: 104 Resp: 16 Temp: 99.2 ??F (37.3 ??C) TempSrc: Skin SpO2: 97% Weight: (!) 152.5 kg (336 lb 3.2 oz) Height: 6' 1 (1.854 m) Physical Exam Constitutional: He is oriented to person, place, and time and well-developed, well-nourished, and in no distress. HENT: Head: Normocephalic and atraumatic. Right Ear: External ear normal. Left Ear: External ear normal. Eyes: Conjunctivae are normal. Neck: Neck supple. Cardiovascular: Regular rhythm and normal heart sounds. Exam reveals no gallop and no friction rub. No murmur heard. Tachycardia Pulmonary/Chest: Effort normal and breath sounds normal. No respiratory distress. He has no wheezes. He has no rales. Abdominal: Soft. Bowel sounds are normal. There is no abdominal tenderness. Musculoskeletal: General: No edema. Neurological: He is alert and oriented to person, place, and time. Skin: Skin is warm and dry. No rash noted. Psychiatric: Affect normal. Nursing note and vitals reviewed. Assessment & Plan: Alex was seen today for gerd and obstructive sleep apnea . Diagnoses and all orders for this visit: KIMMY (obstructive sleep apnea) Agoraphobia Irritable bowel syndrome, unspecified type Tachycardia Need for immunization against influenza - [38140] FLU VACC QUAD 6 MONTHS+ 0.5 ML (SINGLE DOSE SYRINGE FLUZONE, FLUARIX, FLULAVAL OR SINGLE DOSE VIAL FLUZONE) Screening for lipid disorders - LIPID PANEL; Future - LIPID PANEL Screening for endocrine, metabolic and immunity disorder - VITAMIN D 1,25 DIHYDROXY; Future - CBC W/DIFF AUTOMATED; Future - TSH W/REFLEX; Future - COMPREHENSIVE METABOLIC PANEL; Future - VITAMIN D 1,25 DIHYDROXY - CBC W/DIFF AUTOMATED - TSH W/REFLEX - COMPREHENSIVE METABOLIC PANEL Annual physical exam - VITAMIN D 1,25 DIHYDROXY; Future - CBC W/DIFF AUTOMATED; Future - LIPID PANEL; Future - TSH W/REFLEX; Future - COMPREHENSIVE METABOLIC PANEL; Future - VITAMIN D 1,25 DIHYDROXY - CBC W/DIFF AUTOMATED - LIPID PANEL - TSH W/REFLEX - COMPREHENSIVE METABOLIC PANEL BMI 40.0-44.9, adult ([facility]) - VITAMIN D 1,25 DIHYDROXY; Future - VITAMIN D 1,25 DIHYDROXY Elevated blood pressure reading Discussion/Summary: Pt will be obtaining a new BP cuff; continue to monitor BP's. Pt will also discuss with cardiology per their preference. Continue meds as prescribed. F/u with sleep lab as already directed. Will order labs as per above. Will give flu shot today. Continue f/u with psychiatry. Will likely have pt f/uin 6 months or sooner if needed. Pt v/u. Meet Ang DO [place] AS[place] documented in this encounter Plan of Treatment Upcoming Encounters Date Type Department Care Team (Late st Contact Info) Description 06/19/2024 8:45 AM DETAIL ASSEMBLER Office Visit [facility] [place] [address] Ren Morse MD [facility] [address] [place] [address] 07/19/2024 7:00 AM DETAIL ASSEMBLER Office Visit [facility] Family & Internal Medicine - [place] [address] [place] [address] Meet Ang DO [address] [place] [address] documented as of this encounter Procedures Procedure Name Priority Date/Time Associated Diagnosis Comments TSH W/REFLEX Routine 04/26/2020 10:22 AM DETAIL ASSEMBLER Screening for endocrine, metabolic and immunity disorder Annual physical exam COMPREHENSIVE METABOLIC PANEL Routine 04/26/2020 10:22 AM DETAIL ASSEMBLER Screening for endocrine, metabolic and immunity disorder Annual physical exam LIPID PANEL Routine 04/26/2020 10:22 AM DETAIL ASSEMBLER Screening for lipid disorders Annual physical exam CBC W/DIFF AUTOMATED Routine 04/26/2020 10:22 AM DETAIL ASSEMBLER Screening for endocrine, metabolic and immunity disorder Annual physical exam VITAMIN D 1,25 DIHYDROXY Routine 04/26/2020 10:22 AM DETAIL ASSEMBLER Screening for endocrine, metabolic and immunity disorder Annual physical exam BMI 40.0-44.9, adult (CMS/HCC HHS/HCC) documented in this encounter Results * (ABNORMAL) COMPREHENSIVE METABOLIC PANEL (04/26/2020 10:22 AM DETAIL ASSEMBLER) GLUCOSE 84 65 - 99 mg/dL [facility] Comment: ? Fasting reference interval BUN 9 7 - 25 mg/dL [facility] CREATININE S/P/B 0.67 0.60 - 1.35 mg/dL [facility] EGFR NON-AFR. AMER. 129 > OR = 60 mL/min/1. 73m2 [facility] EGFR AFR. AMER. 149 > OR = 60 mL/min/1. 73m2 [facility] BUN CREATININE RATIO NOT APPLICABLE 6 - 22 (calc) [facility] SODIUM S/P/B 142 135 - 146 mmol/L [facility] POTASSIUM S/P/B 4.2 3.5 - 5.3 mmol/L [facility] CHLORIDE S/P/B 104 98 - 110 mmol/L [facility] CO2 26 20 - 32 mmol/L [facility] CALCIUM S/P/B 9.5 8.6 - 10.3 mg/dL [facility] TOTAL PROTEIN S/P/B 7.4 6.1 - 8.1 g/dL [facility] ALBUMIN S/P/B 4.8 3.6 - 5.1 g/dL [facility] GLOBULIN 2.6 1.9 - 3.7 g/dL (calc) [facility] ALBUMIN/GLOBULI N RATIO 1.8 1.0 - 2.5 (calc) [facility] BILIRUBIN TOTAL S/P/B 1.7(H) 0.2 - 1.2 mg/dL [facility] ALKALINE PHOSPHATASE S/P/B 75 36 - 130 U/L [facility] AST 28 10 - 40 U/L [facility] ALT 41 9 - 46 U/L [facility] 04/26/2020 10:2 2 AM DETAIL ASSEMBLER 04/27/2020 6:18 AM DETAIL ASSEMBLER Meet Ang DO LABORATORY Final Re sult [facility] [address] [place] [phone] * TSH W/REFLEX (04/26/2020 10:22 AM DETAIL ASSEMBLER) TSH 2.29 0.40 - 4.50 mIU/L [facility] 04/26/2020 10:2 2 AM DETAIL ASSEMBLER 04/27/2020 6:18 AM DETAIL ASSEMBLER Meet Ang DO LABORATORY Final Re sult [facility] [address] [facility] [place] [phone] * (ABNORMAL) LIPID PANEL (04/26/2020 10:22 AM DETAIL ASSEMBLER) CHOLESTEROL 146 <200 mg/dL [facility] HDL 33(L) > OR = 40 mg/dL [facility] TRIGLYCERIDES 195(H) <150 mg/dL [facility] LDL (CALCULATED) 84 mg/dL (calc) [facility] Comment: Reference range: <100 Desirable range <100 mg/dL for primary prevention; ?? <70 mg/dL for patients with CHD or diabetic patients with > or = 2 CHD risk factors. LDL-C is now calculated using the Keith-Hodgson calculation, which is a validated novel method providing better accuracy than the Friedewald equation in the estimation of LDL-C. Keith SS et al. MACARIO. 2013;310(19): 5483-7886 (http://education.Foundshopping.com/faq/IRD902) CHOL/HDL RATIO 4.4 <5.0 (calc) [facility] NON HDL CHOLESTEROL 113 <130 mg/dL (calc) [facility] Comment: For patients with diabetes plus 1 major ASCVD risk factor, treating to a non-HDL-C goal of <100 mg/dL (LDL-C of <70 mg/dL) is considered a therapeutic option. 04/26/2020 10:2 2 AM DETAIL ASSEMBLER 04/27/2020 6:18 AM DETAIL ASSEMBLER us Meet Ang DO LABORATORY Final Re sult Performing Organization Address City/[facility]/ZIP Co de Phone Number [facility] [address] [place] [phone] * CBC W/DIFF AUTOMATED (04/26/2020 10:22 AM DETAIL ASSEMBLER) WBC 8.9 3.8 - 10.8 Thousand/u L [facility] RBC 5.58 4.20 - 5.80 Million/uL [facility] HGB 16.8 13.2 - 17.1 g/dL [facility] HCT 48.3 38.5 - 50.0 % [facility] MCV 86.6 80.0 - 100.0 fL [facility] MCH 30.1 27.0 - 33.0 pg [facility] MCHC 34.8 32.0 - 36.0 g/dL [facility] RDW 12.9 11.0 - 15.0 % [facility] PLT 271 140 - 400 Thousand/u L [facility] MPV 11.9 7.5 - 12.5 fL [facility] ABS. NEUTROPHILS 4,957 1,500 - 7,800 cells/uL [facility] ABS. LYMPHOCYTES 2,875 850 - 3,900 cells/uL [facility] ABS. MONOCYTES 712 200 - 950 cells/uL [facility] ABS. EOSINOPHILS 276 15 - 500 cells/uL [facility] ABS. BASOPHILS 80 0 - 200 cells/uL [facility] SEG NEUTROPHILS 55.7 % [facility] LYMPHOCYTES 32.3 % [facility] MONOCYTES 8.0 % [facility] EOSINOPHILS 3.1 % [facility] BASOPHILS 0.9 % [facility] 04/26/2020 10:2 2 AM DETAIL ASSEMBLER 04/27/2020 6:18 AM DETAIL ASSEMBLER Meet Ang DO LABORATORY Final Re sult [facility] [address] [place] [phone] * (ABNORMAL) VITAMIN D 1,25 DIHYDROXY (04/26/2020 10:22 AM DETAIL ASSEMBLER) VITAMIN D 1 25 DIHYDROXY S/P/B 75(H) 18 - 72 pg/mL [facility] Comment:See Note 1 VITAMIN D3 1 25 DIHYDROXY S/P/B 75 pg/mL [facility] Comment:See Note 1 VITAMIN D2 1 25 DIHYDROXY S/P/B <8 pg/mL [facility] Comment: Vitamin D3, 1,25(OH)2 indicates both endogenous production and supplementation. Vitamin D2, 1,25(OH)2 is an indicator of exogenous sources, such as diet or supplementation. Interpretation and therapy are based on measurement of Vitamin D, 1,25 (OH)2, Total. See Note 1 See Note 2 Note 1 This test was developed and its analytical performance characteristics have been determined by [facility]. It has not been cleared or approved by the FDA. This assay has been validated pursuant to the CLIA regulations and is used for clinical purposes. 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 Irritable bowel syndrome, unspecified type Tachycardia Tachycardia, unspecified Need for immunization against influenza Need for prophylactic vaccination and inoculation against influenza Screening for lipid disorders Screening for endocrine, metabolic and immunity disorder Annual physical exam Routine general medical examination at a health care facility BMI 40.0-44.9, adult ([facility]) Body Mass Index 40.0-44.9, adult Elevated blood pressure reading Elevated blood pressure reading without diagnosis of hypertension documented in this encounter Additional Health Concerns Assessment Noted Time PHQ-9 Depression Total Score: 8 04/26/20 20 10:00 AM DETAIL ASSEMBLER documented as of this encounter Care Teams Canvas Repairer Relationship Specialty Start Date End Date Meet Ang DO [address] [place] [id number] PCP - General FAMILY PRACTICE 08/16/18 Paresh Gray MD [address] [address] EP Room Cooler Installer CLINICAL CARDIAC ELECTROPHYSIOLOGY 03/03/19 documented as of this encounter
--- OUTSIDE RECORDS SUMMARY | 2024-05-11 21:15 | XMS_ITS | Encounter Summary ---
Author Organization [facility] Address [address] [place] [address]. [place], [place] [address] [place] [address] Care Team Providers Care Compliance Testing Analyst Name Role Phone Miranda Villafana DO Primary Care Provider + Paresh Gray MD Unavailable Reason for Visit * Reason Comments [facility] fo r chest pain Encounter Details Date Type Department Care Team (Late st Contact Info) Description 07/12/2020 10:20 AM ASSISTANT STATISTICIAN Office Visit [facility] Medical Group Family & Internal Medicine [address] [address] Miranda Villafana DO [facility] [place], [place] [id number] [facility] ([facility] for chest pain ) Social History Tobacco Use Types Packs/Day [...] on file Legal Sex Male 2:37 PM ASSISTANT STATISTICIAN Gender Identity Male 05/16/2021 9:25 AM ASSISTANT STATISTICIAN Sexual Orientation Straight 05/16/2021 9: 25 AM ASSISTANT STATISTICIAN COVID-19 Exposure Response Date Recorded In the last month, have you been in contact with someone who was confirmed or suspected to have Coronavirus / COVID-19? No / Unsure 07/19/2020 7:52 AM ASSISTANT STATISTICIAN documented as of this encounter Last Filed Vital Signs Vital Sign Reading Time Taken Comments Blood Pressure 128/84 07/12/2020 10:21 AM ASSISTANT STATISTICIAN Pulse 110 07/12/2020 10:21 AM ASSISTANT STATISTICIAN Temperature 36.7 ??C (98.1 ??F) 07/12/2020 10:[address] Respiratory Rate 16 07/12/2020 10:21 AM ASSISTANT STATISTICIAN Oxygen Saturation 98% 07/12/2020 10:21 AM ASSISTANT STATISTICIAN Inhaled Oxygen Concentration - - Weight 151.5 kg (334 lb) 07/12/2020 10:21 AM ASSISTANT STATISTICIAN Height 185.4 cm (6' 1 ) 07/12/2020 10:21 AM ASSISTANT STATISTICIAN Body Mass Index 44.07 07/12/2020 10:21 AM ASSISTANT STATISTICIAN documented in this encounter Progress Notes * Miranda Villafana DO - 07/12/2020 10:20 AM CSTAddended by: MIRANDA VILLAFANA on: 07/23/2020 01:57 PM Modules accepted: Level of Service STANT STATISTICIAN * Miranda Villafana DO - 07/12/2020 10:20 AM CST Images from the original note were not included. GENERAL OFFICE VISIT Encounter Date: 07/12/2020 Chief Complaint: 29-year-old male presents for TCM ([facility] ) History of Present Illness: Transitional Care Note: Pt was admitted on: 07/07/20 Pt was discharged on: 07/08/20 Admit Diagnosis: Elevated troponin, NSTEMI Discharge Diagnosis: Elevated troponin, tachycardia Initial Nursing contact: See telephone encounter on: 07/10/[address] Kendy Miner was reviewed In summary: Pt had tachycardia. Pt had elevated troponin while there. Pt had negative stress test and echo, EF 60-65%. Pt was instructed to increased metoprolol to 50 mg daily, f/u with cardiology, and obtain a 30 day electronic device monitor. Since Discharge: Alex has been doing okay. Pt states he feels like it's a small, constant panic attack. Pt took all of his medicines three days before going to the ER. Since discharge, he has not been taking any of his medications as prescribed. Pt is needing to do a 30 day monitor still. Pt will be seeing Dr. Badillo (who he saw in the ER) after obtaining the monitor, around 08/21/20. Pt wentto ER last night because his back was hurting as well, but his work-up was negative at that time. No new symptoms today. ROS: Review of Systems Constitutional: Negative for fever. Respiratory: Negative for shortness of breath. Cardiovascular: See HPI Psychiatric/Behavioral: See HPI Medications: Current Outpatient Medications: ??? metoprolol succinate ER 50 MG 24 hr tablet, Take 1 tablet (50 mg total) by mouth daily., Disp: 30 tablet, Rfl: 2 ??? busPIRone 15 MG tablet, 4 (four) times daily. , Disp: , Rfl: ??? dicyclomine 10 MG capsule, Take 1 capsule (10 mg total) by mouth 3 (three) times a day., Disp: 45 capsule, Rfl: 1 ??? famotidine 20 MG tablet, Take 1 tablet (20 mg total) by mouth 2 (two) times daily., Disp: 90 tablet, Rfl: 1 ??? FLUoxetine 20 MG tablet, Take 20 mg by mouth every morning., Disp: , Rfl: ??? loratadine 10 MG tablet, Take 10 mg by mouth daily., Disp: , Rfl: ??? OLANZapine 7.5 MG tablet, TK 1 T PO QD IN THE MORNING, Disp: , Rfl: ??? trazodone 100 MG tablet, Take 200 mg by mouth nightly at bedtime. , Disp: , Rfl: 1 ??? VENTOLIN HFA 108 (90 Base) MCG/ACT inhaler, Inhale 1 puff into the lungs. Every 4 hours PRN, Disp: , Rfl: Current Outpatient Medications on File Prior to Visit Medication Sig ??? busPIRone 15 MG tablet 4 (four) times daily. ??? dicyclomine 10 MG capsule Take 1 capsule (10 mg total) by mouth 3 (three) times a day. ??? famotidine 20 MG tablet Take 1 tablet (20 mg total) by mouth 2 (two) times daily. ??? FLUoxetine 20 MG tablet Take 20 mg by mouth every morning. ??? loratadine 10 MG tablet Take 10 mg by mouth daily. ??? OLANZapine 7.5 MG tablet TK 1 T PO QD IN THE MORNING ??? trazodone 100 MG tablet Take 200 mg by mouth nightly at bedtime. ??? VENTOLIN HFA 108 (90 Base) MCG/ACT inhaler Inhale 1 puff into the lungs. Every 4 hours PRN No current facility-administered medications on file prior to visit. Allergies Allergen Reactions ??? Bee Venom Swelling Patient Active Problem List Diagnosis ??? KIMMY [...] Procedure Laterality Date ??? NONE Social History Socioeconomic History ??? Marital status: [...] file Gets together: Not on file Attends temple service: Not on file Active member of [...] Social History Narrative ??? Not on file Family History Problem Relation Name Age of [...] Specified) ??? Brother Alive ??? PGF Alive Objective: Filed Vitals: 07/12/20 1021 BP: 128/84 Pulse: 110 Resp: 16 Temp: 98.1 ??F (36.7 ??C) TempSrc: Skin SpO2: 98% Weight: (!) 151.5 kg (334 lb) Height: 6' 1 (1.854 m) Physical Exam Constitutional: He is oriented to person, place, and time. He appears well- developed and well-nourished. obesity HENT: Head: Normocephalic and atraumatic. Right Ear: External ear normal. Left Ear: External ear normal. Eyes: Conjunctivae are normal. Neck: Neck supple. Cardiovascular: Regular rhythm and normal heart sounds. Exam reveals no gallop and no friction rub. No murmur heard. Tachycardia Pulmonary/Chest: Effort normal and breath sounds normal. Abdominal: Soft. There is no abdominal tenderness. Musculoskeletal: General: No edema. Neurological: He is alert and oriented to person, place, and time. Skin: Skin is warm and dry. No rash noted. Psychiatric: Similar to previous Nursing note and vitals reviewed. Assessment & Plan: Alex was seen today for tcm. Diagnoses and all orders for this visit: Elevated troponin level not due myocardial infarction Palpitations Tachycardia - metoprolol succinate ER 50 MG 24 hr tablet; Take 1 tablet (50 mg total) by mouth daily. Discussion & Summary: 1. Medications/DME - Continue current medications. Will restart medicines slowly to see if one medication is causing an issue. Will start with metorpolol which he will take at 25 mg daily and then 50mg daily after 3 days. 2. Lab/Diagnostics - None. 3. Education - Current treatment discussed and patient education given as appropriate. 4. Referrals - Specialist referral: F/u with cardiology as directed.. 5. RTC - 1 week(s) I spent 47 minutes today reviewing the patient's medical record, obtaining history, performing an exam, ordering medications, tests, and/or procedures, documenting in the medical record, referring and/or communicating with other health care providers, counseling and educating the patient/family/caregiver, reviewing and communicating test results and coordination of care. Miranda Villafana DO STANT STATISTICIAN STANT STATISTICIAN documented in this encounter Plan of Treatment Upcoming Encounters Date Type Department Care Team (Late st Contact Info) Description 06/19/2024 8:45 AM ASSISTANT STATISTICIAN Office Visit [facility] [address] [facility] [address] [place] [address] Ren Morse MD [address] [facility] [address] [place] [address] 07/19/2024 7:00 AM ASSISTANT STATISTICIAN Office Visit [facility] Medical Group Family & Internal Medicine - [place] [address] [place] [address] Miranda Villafana DO [address] [place] [address] documented as of this encounter Visit Diagnoses Diagnosis Elevated troponin level not due myocardial infarction- Primary Palpitations Tachycardia Tachycardia, unspecified documented in this encounter Additional Health Concerns Assessment Noted Time PHQ-9 Depression Total Score: 13 021 10:25 AM ASSISTANT STATISTICIAN documented as of this encounter Care Teams Compliance Testing Analyst Relationship Specialty Start Date End Date Miranda Villafana DO [address] [place] [address] PCP - General FAMILY PRACTICE 08/16/18 Paresh Gray MD Three [facility]. [address] [place] [address] EP Sealing Machine Operator CLINICAL CARDIAC ELECTROPHYSIOLOGY 03/03/19 documented as of this encounter
--- OUTSIDE RECORDS SUMMARY | 2024-05-11 21:15 | XMS_ITS | Encounter Summary ---
Author Organization [facility] Address [address] [place] [address]. [place] [address] [place] [address] Care Team Providers Care Habilitation Training Specialist Name Role Phone Meet Ang DO Primary Care Provider + Paresh Gray MD Unavailable Reason for Visit * Reason Comments Sleep Study (SCAN) Encounter Details Date Type Department Care Team ([facility] Contact Info) Description 01/15/2021 Scan HEALTH INFO SRVCS Scanned, Documents Sleep [...] file Legal Sex Male 2:37 PM INSPECTOR AND MENDER Gender Identity Male 05/16/2021 9:25 AM INSPECTOR AND MENDER Sexual Orientation Straight 05/16/2021 9: 25 AM INSPECTOR AND MENDER documented as of this encounter Plan of Treatment Upcoming Encounters Date Type Department Care Team ([facility] Contact Info) Description 06/19/2024 8:45 AM INSPECTOR AND MENDER [facility] [address] [address] Ren Morse MD [address] [facility] [address] [place] [address] 07/19/2024 7:00 AM INSPECTOR AND MENDER Office Visit [facility] Medical Group Family & Internal Medicine - [place] [address] [place] [address] Meet Ang DO [address] [place] [address] documented as of this encounter Procedures Procedure Name Priority Date/Time Associated Diagnosis Comments SLEEP STUDY GENERIC (SCAN ORDER) 01/15/2021 documented in this encounter Results * SLEEP STUDY GENERIC (01/15/2021) 01/15/2021 Narrative 01/15/2021 Ordered by an unspecified provider. us Documents Scanned SCANNING Final Result documented in this encounter Visit Diagnoses Not on filedocumented in this encounter Additional Health Concerns Assessment Noted Time PHQ-9 Depression Total Score: 13 07/12/ 021 10:25 AM INSPECTOR AND MENDER documented as of this encounter Care Teams Habilitation Training Specialist Relationship Specialty Start Date End Date Meet Ang DO [facility] [place] [address] PCP - General FAMILY PRACTICE 08/16/18 Paresh Gray MD Three [facility]. [address] [place] [address] EP Interior Design Coordinator CLINICAL CARDIAC ELECTROPHYSIOLOGY 03/03/19 documented as of this encounter
--- OUTSIDE RECORDS SUMMARY | 2024-05-11 21:15 | XMS_ITS | Encounter Summary ---
Author Organization [facility] Address [address] [place] [address]. [place], [place] [id number] [place] [address] Care Team Providers Care [employer] Name Role Phone Meet Ang DO Primary Care Provider + Reason for Referral * Consultation (Routine) - Closed Specialty Diagnoses / Procedures Referred By Pepe gordon Referred To Contact HEART & VASCULAR CARE Diagnoses Tachycardia Meet Ang DO [address] [place] [address] Phone: tel: fax: Referral ID Status Reason Start Date Expiration Date V isits Requested Visits Authorized [id number] Closed Specialty Services 01/13/2019 02/14/2020 1 1 Reason for Visit * Reason Comments Follow Up Sleep apnea, IBS iss ues and GERD Hypertension Encounter Details Date Type Department Care Team (Late st Contact Info) Description 01/13/2019 2:20 PM CDT Office Visit [facility] Medical Group Family & Internal Medicine [facility] [address] [place] [address] Meet Ang DO [address] [place], [place] [id number] Follow Up (Sleep apnea, IBS issues and GERD ); Hypertension Social History Tobacco Use Types Packs/Day Years [...] on file Legal Sex Male 2:37 PM CAMELID FIBER SORTER Gender Identity Male 05/16/2021 9:25 AM CAMELID FIBER SORTER Sexual Orientation Straight 05/16/2021 9: 25 AM CAMELID FIBER SORTER documented as of this encounter Last Filed Vital Signs Vital Sign Reading Time Taken Comments Blood Pressure 136/80 01/13/2019 2:03 PM CDT Pulse 107 01/13/2019 2:03 PM CDT Temperature 36.9 ??C (98.5 ??F) 01/13/2019 2:03 PM CD T Respiratory Rate 16 01/13/2019 2:03 PM CDT Oxygen Saturation 98% 01/13/2019 2:03 PM CDT Inhaled Oxygen Concentration - - Weight 151.6 kg (334 lb 3 oz) 01/13/2019 2:03 PM CDT Height 185.4 cm (6' 1 ) 01/13/2019 2:03 PM CDT Body Mass Index 44.09 01/13/2019 2:03 PM CDT documented in this encounter Progress Notes * Meet Ang, DO - 01/13/2019 2:20 PM CDTAssociated Order(s): ECG Review/Interpret Only Images from the original note were not included. GENERAL OFFICE VISIT Encounter Date: 01/13/2019 Chief Complaint: 28-year-old male presents for Follow Up (Sleep apnea, IBS issues and GERD ) and Hypertension HPI: Pt had diagnosis of elevated BP. His numbers have been good in the 120s/80s when he is not anxious.He does not have his list with him today what his blood pressure has been running at home. Pt has KIMMY. Pt has diagnosed sleep apnea. He needs a medicaiton to help him deal with a panic attack. He is going to [place] sleep lab. He has failed testing multiple times 2/2 panic attacks. Pt has buspirone, vraylar, fluoxetine, and lorazepam. They are asking what medication to take prior to going to the sleep lab. Pt has hx of IBS. It has been worsening per patient. He is currently taking dicyclomine BID; he is requesting an increase. He also is on ranitidine 300 mg daily which helps mildly. Pt is noted to be tachycardic again on exam. He notes no cardiac or pulmonary symptoms on examination today. Review of Systems Constitutional: Negative for fever. Respiratory: See HPI Cardiovascular: See HPI Gastrointestinal: See HPI Psychiatric/Behavioral: See HPI Patient Active Problem List Diagnosis ??? KIMMY (obstructive sleep apnea) ??? IBS (irritable bowel syndrome) ??? GERD (gastroesophageal reflux disease) ??? Depression ??? Asthma ??? Anxiety ??? Agoraphobia Past Medical History: Diagnosis Date ??? Agoraphobia ??? Anxiety ??? Asthma ??? Depression ??? GERD (gastroesophageal reflux disease) ??? IBS (irritable bowel syndrome) ??? KIMMY (obstructive sleep apnea) History reviewed. No pertinent surgical history. Family History Problem Relation Name Age of Onset ??? Hypertension Mother ??? Depression Mother ??? Heart Disease Mother ??? Anxiety Mother ??? Hypertension Father ??? Depression Father ??? Heart Disease Father ??? Alcohol Abuse Paternal Uncle ??? Cancer Paternal Uncle mouth ??? Diabetes Maternal Grandmother ??? Depression Maternal Grandmother ??? Diabetes Maternal Grandfather ??? Depression Maternal Grandfather ??? Psoriasis Paternal Grandmother Social History Socioeconomic History ??? Marital status: Single Spouse name: Not on file ??? Number of children: Not on file ??? Years of education: Not on file ??? Highest education level: Not on file Occupational History ??? Not on file Social Needs ??? Financial resource strain: Not on file ??? Food insecurity: Worry: Not on file Inability: Not on file ??? Transportation needs: Medical: Not on file Non-medical: Not on file Tobacco Use ??? Smoking status: Former Smoker Packs/day: 1.00 Years: 6.00 Pack years: 6.00 ??? Smokeless tobacco: Former User Types: Chew Substance and Sexual Activity ??? Alcohol use: No Frequency: Never ??? Drug use: No ??? Sexual activity: Not on file Lifestyle ??? Physical activity: Days per week: Not on file Minutes per session: Not on file ??? Stress: Not on file Relationships ??? Social connections: Talks on phone: Not on file Gets together: Not on file Attends church service: Not on file Active member of club or organization: Not on file Attends meetings of clubs or organizations: Not on file Relationship status: Not on file ??? Intimate partner violence: Fear of current or ex partner: Not on file Emotionally abused: Not on file Physically abused: Not on file Forced sexual activity: Not on file Other Topics Concern ??? Not on file Social History Narrative ??? Not on file Immunization History Administered Date(s) Administered ??? Tdap (Boostrix) 01/13/2019 Current Outpatient Medications Medication Sig Dispense Refill ??? busPIRone 30 MG tablet Take 15 mg by mouth. 1 ??? Cariprazine HCl (VRAYLAR) 1.5 MG Cap Take 1 capsule by mouth daily. ??? dicyclomine 10 MG capsule Take 1 capsule (10 mg total) by mouth 3 (three) times daily. 90 capsule 2 ??? famotidine 20 MG tablet Take 1 tablet (20 mg total) by mouth 2 (two) times daily. 60 tablet 2 ??? fluoxetine 10 MG capsule Take 2 capsules by mouth daily. 2 ??? loratadine 10 MG tablet Take 10 mg by mouth as needed for Allergies. ??? lorazepam 1 MG tablet Take 1 mg by mouth. Take 1/2 to 1 if needed 0 ??? trazodone 100 MG tablet Take 100 mg by mouth. Take 1 to 3 tab at bedtime prn 1 ??? triamcinolone 0.1 % ointment Apply topically as needed. ??? VENTOLIN HFA 108 (90 Base) MCG/ACT inhaler Inhale 1 puff into the lungs. Every 4 hours PRN No current facility-administered medications for this visit. Current Outpatient Medications on File Prior to Visit Medication Sig ??? busPIRone 30 MG tablet Take 15 mg by mouth. ??? Cariprazine HCl (VRAYLAR) 1.5 MG Cap Take 1 capsule by mouth daily. ??? fluoxetine 10 MG capsule Take 2 capsules by mouth daily. ??? loratadine 10 MG tablet Take 10 mg by mouth as needed for Allergies. ??? lorazepam 1 MG tablet Take 1 mg by mouth. Take 1/2 to 1 if needed ??? trazodone 100 MG tablet Take 100 mg by mouth. Take 1 to 3 tab at bedtime prn ??? triamcinolone 0.1 % ointment Apply topically as needed. ??? VENTOLIN HFA 108 (90 Base) MCG/ACT inhaler Inhale 1 puff into the lungs. Every 4 hours PRN No current facility-administered medications on file prior to visit. Allergies Allergen Reactions ??? Bee Venom Swelling Objective: Filed Vitals: 01/13/19 1403 BP: 136/80 Pulse: 107 Resp: 16 Temp: 98.5 ??F (36.9 ??C) SpO2: 98% Weight: (!) 151.6 kg (334 lb 3 oz) Height: 6' 1 (1.854 m) Physical [...] Bowel sounds are normal. There is no tenderness. Musculoskeletal: He exhibits no edema. Neurological: He is alert and oriented to person, place, and time. Skin: Skin is warm and dry. No rash noted. Psychiatric: Affect normal. Nursing note and vitals reviewed. ECG Review/Interpret Only Date/Time: 01/15/2019 5:27 PM Performed by: Meet Ang DO Authorized by: Meet Ang DO Comparison: not compared with previous ECG Rhythm: sinus tachycardia Rate: tachycardic QRS axis: normal Conduction: conduction normal ST Segments: ST segments normal T Waves: T waves normal Other: no other findings Clinical impression: abnormal ECG Assessment & Plan: Alex was seen today for follow up and hypertension. Diagnoses and all orders for this visit: Elevated blood pressure reading Gastroesophageal reflux disease, esophagitis presence not specified - famotidine 20 MG tablet; Take 1 tablet (20 mg total) by mouth 2 (two) times daily. Irritable bowel syndrome, unspecified type - dicyclomine 10 MG capsule; Take 1 capsule (10 mg total) by mouth 3 (three) times daily. Tachycardia - ELECTROCARDIOGRAM, COMPLETE - AMB REFERRAL TO CARDIOLOGY, ADULT Anxiety Agoraphobia Need for rilitlhtml-obvlizj-vnkyqirjn (Tdap) vaccine - TETANUS, DIPHTHERIA TOXOIDS AND ACELLULAR PERTUSIS VACCINE (TDAP), > 7 YEARS, IM USE Other orders - ECG Review/Interpret Only Discussion/Summary: Will await BP reading list and further evaluate. Will switch to pepcid and increase dicyclomine. Will refer to cardiology. Will give tetanus immunization. Time Spent: Approximately 45 minutes was spent in direct patient consultation and the majority of that time (>50%) was spent on counseling and coordination of care. Meet Ang DO documented in this encounter Plan of Treatment Upcoming Encounters Date Type Department Care Team (Late st Contact Info) Description 06/19/2024 8:45 AM CAMELID FIBER SORTER Office Visit [facility], [address] [address] Ren Morse MD [facility] [address] [facility] [place] [address] 07/19/2024 7:00 AM CAMELID FIBER SORTER Office Visit [facility] Medical Group Family & Internal Medicine - [place] [address] [place] [address] Meet Ang DO [address] [place] [address] Scheduled Referrals Name Type Priority Associated Diagnoses Orde r Schedule Ambulatory referral to Cardiology, Adult (OTHER) Referral Routine Tachycardia Ordered: 01/13/2019 documented as of this encounter Procedures Procedure Name Priority Date/Time Associated Diagnosis Comments EVENT RECORDER (ECG) UP TO 30 DAYS REVIEW/INTERP Routine 01/13/2019 2:20 PM CDT Tachycardia ELECTROCARDIOGRAM, COMPLETE Routine 01/13/2019 Tachycardia documented in this encounter Results * ECG Review/Interpret Only (01/13/2019 2:20 PM CDT) Narrative Meet Ang DO - 01/13/2019 2:20 PM CDT Meet Ang DO ? 01/31/2019 ??4:06 PM ECG Review/Interpret Only Date/Time: 01/15/2019 5:27 PM Performed by: Meet Ang DO Authorized by: Meet Ang DO Comparison: not compared with previous ECG Rhythm: sinus tachycardia Rate: tachycardic QRS axis: normal Conduction: conduction normal ST Segments: ST segments normal T Waves: T waves normal Other: no other findings Clinical impression: abnormal ECG us Meet Ang DO ECG ORDERABLES Final Re sult * [id number] - EKG (In Clinic Complete tracing, interp & report) (01/13/2019) us Meet Ang DO PROCEDURES-RESULTABLE Fi nal Result documented in this encounter Visit Diagnoses Diagnosis Elevated blood pressure reading- Primary Elevated blood pressure reading without diagnosis of hypertension Gastroesophageal reflux disease, esophagitis presence not specified Irritable bowel syndrome, unspecified type Tachycardia Tachycardia, unspecified Anxiety Anxiety state, unspecified Agoraphobia Agoraphobia without mention of panic attacks Need for ynkqwgbqcm-mooieou-elblficwl (Tdap) vaccine Need for prophylactic vaccination with combined bvidfjqzey-rsjmxfm-kpkzabgrb (DTP) vaccine documented in this encounter Additional Health Concerns Assessment Noted Time PHQ-9 Depression Total Score: 18 019 3:33 PM CDT documented as of this encounter Care Teams Mechanical Engineering Coop Relationship Specialty Start Date End Date Meet Ang DO [address] [place] [id number] PCP - General FAMILY PRACTICE 08/16/18 documented as of this encounter
--- OUTSIDE RECORDS SUMMARY | 2024-05-11 21:15 | XMS_ITS | Encounter Summary ---
Author Organization [facility] Address [address] [place] [address]. [place], [place] [id number] [place] [address] Care Team Providers Care Studio Designer Name Role Phone Meet Ang DO Primary Care Provider + Paresh Gray MD Unavailable Reason for Visit * Reason Comments Imm/Inj Encounter Details Date Type Department Care Team (Late st Contact Info) Description 03/04/2021 2:00 PM CDT Allied Health/Nurse Visit [facility] Family & Internal Medicine [address] [address] Imm/Inj Social History Tobacco Use Types Packs/Day Years [...] on file Legal Sex Male 2:37 PM FRUIT CUTTER Gender Identity Male 05/16/2021 9:25 AM FRUIT CUTTER Sexual Orientation Straight 05/16/2021 9: 25 AM FRUIT CUTTER COVID-19 Exposure Response Date Recorded In the last month, have you been in contact with someone who was confirmed or suspected to have Coronavirus / COVID-19? No / Unsure 03/04/2021 2:10 PM CDT documented as of this encounter Plan of Treatment Upcoming Encounters Date Type Department Care Team (Late st Contact Info) Description 06/19/2024 8:45 AM FRUIT CUTTER [facility], [place] [address] [place] [address] Ren Morse MD Three [facility] [address] [place] [address] 07/19/2024 7:00 AM FRUIT CUTTER Office Visit [facility] Medical Group Family & Internal Medicine - [address] [address] Meet Ang DO [address] [place] [address] documented as of this encounter Visit Diagnoses Diagnosis Need for prophylactic vaccination and inoculation against influenza- Primary documented in this encounter Additional Health Concerns Assessment Noted Time PHQ-9 Depression Total Score: 13 021 10:25 AM FRUIT CUTTER documented as of this encounter Care Teams Studio Designer Relationship Specialty Start Date End Date Meet Ang DO [address] [place] [address] PCP - General FAMILY PRACTICE 08/16/[address] [facility]. [facility] [address] [place] [address] EP Obiee Report Developer CLINICAL CARDIAC ELECTROPHYSIOLOGY 03/03/19 documented as of this encounter
--- OUTSIDE RECORDS SUMMARY | 2024-05-11 21:15 | XMS_ITS | Encounter Summary ---
Author Organization [facility] Address [address] [place] [address]. [place], [place] [address] [place] [address] Care Team Providers Care Sql Report Analyst Name Role Phone Meet Ang DO Primary Care Provider + Paresh Gray MD Unavailable Encounter Details Date Type Department Care Team (Latest Contact Info) Description 05/10/2020 Travel Social History Tobacco Use Types Packs/Day [...] on file Legal Sex Male 2:37 PM LEARNING DESIGN SPECIALIST Gender Identity Male 05/16/2021 9:25 AM LEARNING DESIGN SPECIALIST Sexual Orientation Straight 05/16/2021 9: 25 AM LEARNING DESIGN SPECIALIST COVID-19 Exposure Response Date Recorded In the last month, have you been in contact with someone who was confirmed or suspected to have Coronavirus / COVID-19? No / Unsure 05/10/2020 8:54 AM LEARNING DESIGN SPECIALIST documented as of this encounter Plan of Treatment Upcoming Encounters Date Type Department Care Team (Late st Contact Info) Description 06/19/2024 8:45 AM LEARNING DESIGN SPECIALIST [facility] [place] [address] [place] [address] Ren Morse MD Three [facility] [address] [place] [address] 07/19/2024 7:00 AM LEARNING DESIGN SPECIALIST Office Visit [facility] Medical Group Family & Internal Medicine - [address] [address] Meet Ang DO [address] [place] [address] documented as of this encounter Visit Diagnoses Not on filedocumented in this encounter Additional Health Concerns Assessment Noted Time PHQ-9 Depression Total Score: 8 04/26/20 20 10:00 AM LEARNING DESIGN SPECIALIST documented as of this encounter Care Teams Sql Report Analyst Relationship Specialty Start Date End Date Meet Ang DO [address] [place] [address] PCP - General FAMILY PRACTICE 08/16/18 Paresh Gray MD Three [facility] [place]. [facility] [address] [place] [address] EP Electrical Research Engineer CLINICAL CARDIAC ELECTROPHYSIOLOGY 03/03/19 documented as of this encounter
--- OUTSIDE RECORDS SUMMARY | 2024-05-11 21:15 | XMS_ITS | Encounter Summary ---
Author Organization [facility] - [facility] Address [address] [place] [address]. [place] [address] [place] [address] Care Team Providers Care Central Office Repairer Name Role Phone Meet Ang DO Primary Care Provider + Paresh Gray MD Unavailable Encounter Details Date Type Department Care Team (Late st Contact Info) Description 07/29/2020 Orders Only [facility] [place] [address] Javi Tellez MD Social History Tobacco Use Types Packs/Day Years [...] on file Legal Sex Male 2:37 PM FLIGHT DIRECTOR Gender Identity Male 05/16/2021 9:25 AM FLIGHT DIRECTOR Sexual Orientation Straight 05/16/2021 9: 25 AM FLIGHT DIRECTOR COVID-19 Exposure Response Date Recorded In the last month, have you been in contact with someone who was confirmed or suspected to have Coronavirus / COVID-19? No / Unsure 07/26/2020 9:19 AM FLIGHT DIRECTOR documented as of this encounter Plan of Treatment Upcoming Encounters Date Type Department Care Team (Late st Contact Info) Description 06/19/2024 8:45 AM FLIGHT DIRECTOR Office Visit [facility] THREE [facility], [place] [address] [place] [address] Ren Morse MD Three [facility] [address] [place] [address] 07/19/2024 7:00 AM FLIGHT DIRECTOR Office Visit [facility] Medical Group Family & Internal Medicine - [place] [address] [place] [address] Meet Ang DO [address] [place] [address] documented as of this encounter Visit Diagnoses Not on filedocumented in this encounter Additional Health Concerns Assessment Noted Time PHQ-9 Depression Total Score: 13 07/12/ 021 10:25 AM FLIGHT DIRECTOR documented as of this encounter Care Teams Central Office Repairer Relationship Specialty Start Date End Date Meet Ang DO [address] [place] [address] PCP - General FAMILY PRACTICE 08/16/18 Paresh Gray MD Three [facility]. [place] [address] [place] [address] EP Production Tester CLINICAL CARDIAC ELECTROPHYSIOLOGY 03/03/19 documented as of this encounter
--- OUTSIDE RECORDS SUMMARY | 2024-05-11 21:15 | XMS_ITS | Encounter Summary ---
Author Organization [facility] Address [address] [place] [address]. [place], [place] [address] [place] [address] Care Team Providers Care Spring Coiler Hand Name Role Phone Meet Ang DO Primary Care Provider + Reason for Visit * Reason Comments Establish Care Encounter Details Date Type Department Care Team (Late st Contact Info) Description 08/16/2018 2:00 PM CDT Office Visit [facility] Medical Group Family & Internal Medicine [place] [address] [place] [address] Meet Ang DO [facility] [place] [address] Establish Care Social History Tobacco Use Types Packs/Day Years [...] on file Legal Sex Male 2:37 PM STAMPING PRESS OPERATOR Gender Identity Male 05/16/2021 9:25 AM STAMPING PRESS OPERATOR Sexual Orientation Straight 05/16/2021 9: 25 AM STAMPING PRESS OPERATOR documented as of this encounter Last Filed Vital Signs Vital Sign Reading Time Taken Comments Blood Pressure 136/100 08/16/2018 2:29 PM CDT Pulse 115 08/16/2018 2:29 PM CDT Temperature 37.3 ??C (99.1 ??F) 08/16/2018 2:29 PM CD T Respiratory Rate 16 08/16/2018 2:29 PM CDT Oxygen Saturation 97% 08/16/2018 2:29 PM CDT Inhaled Oxygen Concentration - - Weight 149.7 kg (330 lb) 08/16/2018 2:29 PM CDT Height 185.4 cm (6' 1 ) 08/16/2018 2:29 PM CDT Body Mass Index 43.54 08/16/2018 2:29 PM CDT documented in this encounter Progress Notes * Meet Ang, DO - 08/16/2018 2:00 PM CDT Images from the original note were not included. GENERAL OFFICE VISIT Encounter Date: 08/16/2018 Chief Complaint: 27-year-old male presents for Establish Care HPI: Pt is here for BP check. Pt notes elevated BP today. He is noted to have BP WNL at home when he is not at the office. Pt has agorophobia and is very anxious today. No acute symptoms with this. Review of Systems Constitutional: Negative for fever. HENT: Negative for congestion. Eyes: Negative for discharge. Respiratory: Negative for shortness of breath. Cardiovascular: Negative for chest pain. Gastrointestinal: Negative for abdominal pain, nausea and vomiting. Genitourinary: Negative for dysuria. Skin: Negative for rash. Neurological: Negative for loss of consciousness. Endo/Heme/Allergies: Does not bruise/bleed easily. Psychiatric/Behavioral: See HPI Patient Active Problem List [...] file Gets together: Not on file Attends islam service: Not on file Active member of [...] Social History Narrative ??? Not on file There is no immunization history on file for this patient. Current Outpatient Medications Medication Sig Dispense Refill ??? busPIRone 30 MG tablet Take 30 mg by mouth 2 (two) times daily. 1 ??? dicyclomine 10 MG capsule Take 10 mg by mouth. 2 to 3 tabs daily 3 ??? escitalopram 20 MG tablet Take 0.5 mg by mouth 2 (two) times daily. ??? loratadine 10 MG tablet Take 10 mg by mouth as needed for Allergies. ??? lorazepam 1 MG tablet Take 1 mg by mouth. Take 1/2 to 1 if needed 0 ??? ranitidine 300 MG tablet Take 300 mg by mouth nightly at bedtime. 11 ??? trazodone 100 MG tablet Take 100 [...] Sig ??? busPIRone 30 MG tablet Take 30 mg by mouth 2 (two) times daily. ??? dicyclomine 10 MG capsule Take 10 mg by mouth. 2 to 3 tabs daily ??? escitalopram 20 MG tablet Take 0.5 mg by mouth 2 (two) times daily. ??? loratadine 10 MG tablet Take 10 mg by mouth as needed for Allergies. ??? lorazepam 1 MG tablet Take 1 mg by mouth. Take 1/2 to 1 if needed ??? ranitidine 300 MG tablet Take 300 mg by mouth nightly at bedtime. ??? trazodone 100 MG tablet Take 100 [...] ??? Bee Venom Swelling Objective: Filed Vitals: 08/16/18 1429 BP: (!) 136/100 Pulse: 115 Resp: 16 Temp: 99.1 ??F (37.3 ??C) TempSrc: Oral SpO2: 97% Weight: (!) 149.7 kg (330 lb) Height: 6' 1 (1.854 m) Physical Exam Constitutional: He is oriented to person, place, and time and well-developed, well-nourished, and in no distress. HENT: Head: Normocephalic and atraumatic. Right Ear: External ear normal. Left Ear: External ear normal. Eyes: Conjunctivae are normal. Neck: Neck supple. Cardiovascular: Normal rate, regular rhythm and normal heart sounds. Exam reveals no gallop and no friction rub. No murmur heard. Pulmonary/Chest: Effort normal and breath sounds normal. No respiratory distress. He has no wheezes. He has no rales. Abdominal: Soft. Bowel sounds are normal. There is no tenderness. Neurological: He is alert and oriented to person, place, and time. Gait normal. Skin: Skin is warm and dry. No rash noted. Nursing note and vitals reviewed. Assessment & Plan: Alex was seen today for establish care. Diagnoses and all orders for this visit: Elevated BP without diagnosis of hypertension Discussion/Summary: Continue to monitor at this time given controlled numbers at home. Call back with numbers. Will await labs to be given to us. Will have pt f/u later this year for preventative visit. Meet Ang DO documented in this encounter Plan of Treatment Upcoming Encounters Date Type Department Care Team (Late st Contact Info) Description 06/19/2024 8:45 AM STAMPING PRESS OPERATOR Office [facility], [place] [address] [place] [address] Ren Morse MD [facility] [address] [place] [address] 07/19/2024 7:00 AM STAMPING PRESS OPERATOR Office Visit [facility] Medical Group Family & Internal Medicine - [place] [address] [place] [address] Meet Ang DO [address] [place] [address] documented as of this encounter Visit Diagnoses Diagnosis Elevated BP without diagnosis of hypertension- Primary documented in this encounter Additional Health Concerns Assessment Noted Time PHQ-9 Depression Total Score: 18 08/16/2 019 3:33 PM CDT documented as of this encounter Care Teams Spring Coiler Hand Relationship Specialty Start Date End Date Meet Ang, [facility] [place] [address] PCP - General FAMILY PRACTICE 08/16/18 documented as of this encounter
--- OUTSIDE RECORDS SUMMARY | 2024-05-11 21:15 | XMS_ITS | Encounter Summary ---
Author Organization [facility] Address [address] [place] [address]. [place] [address] [place] [address] Care Team Providers Care Sales Outfitter Name Role Phone Meet Ang DO Primary Care Provider + Ariella Gray MD Unavailable Encounter Details Date Type Department Care Team (Late st Contact Info) Description 06/12/2019 Orders Only [facility] [address] [place] [address] Ariella Gray MD [facility]. [place] [address] [place] [address] Social History Tobacco Use Types Packs/Day Years [...] on file Legal Sex Male 2:37 PM PATTERN REPAIR PERSON Gender Identity Male 05/16/2021 9:25 AM PATTERN REPAIR PERSON Sexual Orientation Straight 05/16/2021 9: 25 AM PATTERN REPAIR PERSON documented as of this encounter Plan of Treatment Upcoming Encounters Date Type Department Care Team (Late st Contact Info) Description 06/19/2024 8:45 AM PATTERN REPAIR PERSON [facility] [facility] [place] [address] [place] [address] Ren Morse MD Three [facility] [address] [place] [address] 07/19/2024 7:00 AM PATTERN REPAIR PERSON Office Visit [facility] Medical Group Family & Internal Medicine [facility] [address] [place] [address] Meet Ang DO [address] [place], [place] [id number] documented as of this encounter Procedures Procedure Name Priority Date/Time Associated Diagnosis Comments ELECTROCARDIOGRAM (NON MIDMARK ACQUIRED) Routine 06/12/2019 1:35 PM PATTERN REPAIR PERSON Tachycardia documented in this encounter Results * ELECTROCARDIOGRAM (06/12/2019 1:35 PM PATTERN REPAIR PERSON) 06/12/2019 1:35 PM PATTERN REPAIR PERSON Narrative [facility] - 06/13/2019 2:34 PM PATTERN REPAIR PERSON ?[facility] ? Test Date: ?2019-06-12 Pat Name: ? MADAY GUY ? Department: ? Room: ? Gender: ? Male ? Mechanical Systems Control Engineer: ?? : ?1990 ? Requested By: ARIELLA GRAY Order Number: [id number] ?Reading : ?? Ariella Gray ? Measurements Intervals ?[place] ? Rate: ? 106 ?P: ?71 VT: ? 158 ?QRS: ?46 QRSD: ? 98 ? T: ?54 QT: ? 316 ? QTc: ?420 ? Interpretive Statements SINUS TACHYCARDIA ABNORMAL RHYTHM ECG Compared to ECG dated 03/20/19, findings are similar. ERN REPAIR PERSON Procedure Note Ariella Gray MD - 06/13/2019 [facility] Test Date: 2019-06-12 Pat Name: MADAY TOVAR Department: Room: Gender: Male Mechanical Systems Control Engineer: : 1990 Requested By: ARIELLA GRAY Order Number: [id number] Reading MD: Ariella Gray Measurements Intervals [place] Rate: 106 P: 71 VT: 158 QRS: 46 QRSD: 98 T: 54 QT: 316 QTc: 420 Interpretive Statements SINUS TACHYCARDIA ABNORMAL RHYTHM ECG Compared to ECG dated 03/20/19, findings are similar. ERN REPAIR PERSON us Ariella Gray MD PROCEDURES-ORDERABLE NO CHARGE F inal Result [facility] [address] [place] [address] documented in this encounter Visit Diagnoses Diagnosis Tachycardia- Primary Tachycardia, unspecified documented in this encounter Additional Health Concerns Assessment Noted Time PHQ-9 Depression Total Score: 18 019 3:33 PM CDT documented as of this encounter Care Teams Sales Outfitter Relationship Specialty Start Date End Date Meet Ang DO [facility] [place] [address] PCP - General FAMILY PRACTICE 08/16/18 Ariella Gray MD Three [facility]. [place] [address] [place] [address] EP Lounge Car Attendant CLINICAL CARDIAC ELECTROPHYSIOLOGY 03/03/19 documented as of this encounter
--- OUTSIDE RECORDS SUMMARY | 2024-05-11 21:15 | XMS_ITS | Encounter Summary ---
Author Organization [facility] Address [address] [place] [address]. [place] [address] [place] [address] Care Team Providers Care Procedural Nurse Name Role Phone Meet Ang DO Primary Care Provider + Paresh Gray MD Unavailable Encounter Details Date Type Department Care Team (Late st Contact Info) Description 11/02/2017 Scan [facility] at [address] [address] Scanned, Documents Social History Tobacco Use Types Packs/Day Years Used Date Smoking Tobacco: Never Assessed AUDIT-C Answer Date Recorded Frequency of Alcohol Consumption Never 08/16/2018 Average Number of Drinks Not on file 019 Frequency of Binge Drinking Not on file 07/23 PHQ-2 Answer Date Recorded PHQ-2 Score 4 08/18/2018 Sex and Gender Information Value Date Recorded Sex Assigned at Not on file Legal Sex Male 2:37 PM SPINNING FRAME CLEANER Gender Identity Male 05/16/2021 9:25 AM SPINNING FRAME CLEANER Sexual Orientation Straight 05/16/2021 9: 25 AM SPINNING FRAME CLEANER documented as of this encounter Plan of Treatment Upcoming Encounters Date Type Department Care Team (Late st Contact Info) Description 06/19/2024 8:45 AM SPINNING FRAME CLEANER Office Visit [facility], [facility] [address] [place] [address] Ren Morse MD [facility] [address] [place] [address] 07/19/2024 7:00 AM SPINNING FRAME CLEANER Office Visit [facility] Medical Group Family & Internal Medicine [facility] [address] [place] [address] [place] [address] [place] [address] documented as of this encounter Procedures Procedure Name Priority Date/Time Associated Diagnosis Comments ECHO GENERIC (SCAN ORDER) Routine 11/02/2017 documented in this encounter Results * ECHO (11/02/2017) Anatomical Region Laterality Modality Other us Documents Scanned SCANNING Final Result documented in this encounter Visit Diagnoses Not on filedocumented in this encounter Care Teams Procedural Nurse Relationship Specialty Start Date End Date Meet Ang DO [address] [place] [address] PCP - General FAMILY PRACTICE 08/16/18 Paresh Gray MD Three [facility]. [place] [address] [place] [address] EP Work Manager CLINICAL CARDIAC ELECTROPHYSIOLOGY 03/03/19 documented as of this encounter
--- OUTSIDE RECORDS SUMMARY | 2024-05-11 21:15 | XMS_ITS | Encounter Summary ---
Author Organization [facility] Address [address] [place] [address]. [place], [place] [address] [place] [address] Care Team Providers Care Physical Design Engineer Name Role Phone Meet Ang DO Primary Care Provider + Reason for Visit * Reason Onset Date Comments Lab Order 10/07/2018 Encounter Details Date Type Department Care Team (Late st Contact Info) Description 10/07/2018 Telephone [facility] Medical Group Family & Internal Medicine [facility] [address] [place] [address] Meet Ang DO [address] [place] [address] Lab Order Social History Tobacco Use Types Packs/Day Years [...] on file Legal Sex Male 2:37 PM AMERICAN INDIAN STUDIES PROFESSOR Gender Identity Male 05/16/2021 9:25 AM AMERICAN INDIAN STUDIES PROFESSOR Sexual Orientation Straight 05/16/2021 9: 25 AM AMERICAN INDIAN STUDIES PROFESSOR documented as of this encounter Progress Notes * Keesha Yang RN - 10/07/2018 10:52 AM CDT We have no records of labs. * Maria Fernanda Duffy Paddy - 10/07/2018 9:02 AM CDT He came in with an address of [address], [facility]. He would like last lab that he had sent to [facility] AIRCRAFT SHEET METAL MECHANIC. . documented in this encounter Plan of Treatment Upcoming Encounters Date Type Department Care Team (Late st Contact Info) Description 06/19/2024 8:45 AM AMERICAN INDIAN STUDIES PROFESSOR Office Visit [facility] THREE [facility], [place] [address] [place] [address] Ren Morse MD Three [facility] [address] [place] [address] 07/19/2024 7:00 AM AMERICAN INDIAN STUDIES PROFESSOR Office Visit [facility] Medical Group Family & Internal Medicine - [address] [address] Meet Ang DO [address] [place] [address] documented as of this encounter Visit Diagnoses Not on filedocumented in this encounter Additional Health Concerns Assessment Noted Time PHQ-9 Depression Total Score: 18 2 019 3:33 PM CDT documented as of this encounter Care Teams Physical Design Engineer Relationship Specialty Start Date End Date Meet Ang DO [address] [place] [address] PCP - General FAMILY PRACTICE 08/16/18 documented as of this encounter
--- OUTSIDE RECORDS SUMMARY | 2024-05-11 21:15 | XMS_ITS | Encounter Summary ---
Author Organization [facility] Address [address] [place] [address]. [place], [place] [address] [place] [address] Care Team Providers Care Grades 1 Through 6 Teacher Name Role Phone Meet Ang DO Primary Care Provider + Paresh Gray MD Unavailable Reason for Visit * Reason Onset Date Comments Referral 07/26/2020 Encounter Details Date Type Department Care Team (Late st Contact Info) Description 07/26/2020 Telephone [facility] Family & Internal Medicine [facility] [address] [place] [address] Meet Ang DO [address] [place] [address] Referral Social History Tobacco Use Types Packs/Day [...] on file Legal Sex Male 2:37 PM PREPRINT ANALYST Gender Identity Male 05/16/2021 9:25 AM PREPRINT ANALYST Sexual Orientation Straight 05/16/2021 9: 25 AM PREPRINT ANALYST COVID-19 Exposure Response Date Recorded In the last month, have you been in contact with someone who was confirmed or suspected to have Coronavirus / COVID-19? No / Unsure 07/26/2020 9:19 AM PREPRINT ANALYST documented as of this encounter Progress Notes * Dolly Christensen MA - 07/29/2020 8:08 AM CST Patient contacted, given referral team # to contact. Voiced understanding to call them. tn RINT ANALYST * Dolly Christensen MA - 07/26/2020 3:15 PM CST In the notes of the referrals the referral team has called the patient and provided the # for appt but the other referral has not been done. Patient can call referral department at [phone] RINT ANALYST * Dolly Christensen MA - 07/26/2020 10:20 AM CST No answer and no voicemail Tn RINT ANALYST * Meet Ang DO - 07/26/2020 9:53 AM CST Can we reach out to referral service? Pt believes he was contacted by them, but I don't see that either of his referrals from 07/19/20 have been addressed. RINT ANALYST documented in this encounter Plan of Treatment Upcoming Encounters Date Type Department Care Team (Late st Contact Info) Description 06/19/2024 8:45 AM PREPRINT ANALYST [facility] [place] [address] [place] [address] Ren Morse MD [facility] [address] [place] [address] 07/19/2024 7:00 AM PREPRINT ANALYST Office Visit [facility] Family & Internal Medicine - [address] [address] Meet Ang DO [address] [place] [address] documented as of this encounter Visit Diagnoses Not on filedocumented in this encounter Additional Health Concerns Assessment Noted Time PHQ-9 Depression Total Score: 13 021 10:25 AM PREPRINT ANALYST documented as of this encounter Care Teams Grades 1 Through 6 Teacher Relationship Specialty Start Date End Date Meet Ang DO [address] [place] [address] PCP - General FAMILY PRACTICE 08/16/18 Paresh Gray MD [facility]. [place] [facility] [place] [address] EP Vending Stand Supervisor CLINICAL CARDIAC ELECTROPHYSIOLOGY 03/03/19 documented as of this encounter
--- OUTSIDE RECORDS SUMMARY | 2024-05-11 21:15 | XMS_ITS | Encounter Summary ---
Author Organization [facility] Address [address] [place] [address]. [place], [place] [address] [place] [address] Care Team Providers Care Strip Feeder Name Role Phone Meet Ang DO Primary Care Provider + Paresh Gray MD Unavailable Encounter Details Date Type Department Care Team (Latest Contact Info) Description 07/26/2020 Travel Social History Tobacco Use Types Packs/Day [...] on file Legal Sex Male 2:37 PM TOOL RADIAL DRILL PRESS SET UP OPERATOR Gender Identity Male 05/16/2021 9:25 AM TOOL RADIAL DRILL PRESS SET UP OPERATOR Sexual Orientation Straight 05/16/2021 9: 25 AM TOOL RADIAL DRILL PRESS SET UP OPERATOR COVID-19 Exposure Response Date Recorded In the last month, have you been in contact with someone who was confirmed or suspected to have Coronavirus / COVID-19? No / Unsure 07/26/2020 9:19 AM TOOL RADIAL DRILL PRESS SET UP OPERATOR documented as of this encounter Plan of Treatment Upcoming Encounters Date Type Department Care Team (Late st Contact Info) Description 06/19/2024 8:45 AM TOOL RADIAL DRILL PRESS SET UP OPERATOR Office Visit [facility], [place] [address] [place] [address] Ren Morse MD Three [facility] [address] [place] [address] 07/19/2024 7:00 AM TOOL RADIAL DRILL PRESS SET UP OPERATOR Office Visit [facility] Medical Group Family & Internal Medicine - [address] [address] Meet Ang DO [address] [place] [address] documented as of this encounter Visit Diagnoses Not on filedocumented in this encounter Additional Health Concerns Assessment Noted Time PHQ-9 Depression Total Score: 13 021 10:25 AM TOOL RADIAL DRILL PRESS SET UP OPERATOR documented as of this encounter Care Teams Strip Feeder Relationship Specialty Start Date End Date Meet Ang DO [address] [place] [address] PCP - General FAMILY PRACTICE 08/16/18 Paresh Gray MD [facility]. [place] [address] [place] [address] EP Plastic Battery Assembler CLINICAL CARDIAC ELECTROPHYSIOLOGY 03/03/19 documented as of this encounter
--- OUTSIDE RECORDS SUMMARY | 2024-05-11 21:15 | XMS_ITS | Encounter Summary ---
Author Organization [facility] Address [address] [place] [address]. [place], [place] [address] [place] [address] Care Team Providers Care Coding Consultant Name Role Phone Meet Ang DO Primary Care Provider + Paresh Gray MD Unavailable Reason for Visit * Reason Comments Imm/Inj Encounter Details Date Type Department Care Team (Late Contact Info) Description 03/28/2019 1:40 PM MATCHER LEATHER PARTS Allied Health/Nurse Visit [facility] Medical Group Family & Internal Medicine [address] [address] Imm/Inj Social History Tobacco Use [...] on file Legal Sex Male 2:37 PM MATCHER LEATHER PARTS Gender Identity Male 05/16/2021 9:25 AM MATCHER LEATHER PARTS Sexual Orientation Straight 05/16/2021 9: 25 AM MATCHER LEATHER PARTS documented as of this encounter Plan of Treatment Upcoming Encounters Date Type Department Care Team (Late Contact Info) Description 06/19/2024 8:45 AM MATCHER LEATHER PARTS Office Visit [facility], [place] [address] [place] [address] Ren Morse MD Three [facility] [address] [place] [address] 07/19/2024 7:00 AM MATCHER LEATHER PARTS Office Visit [facility] Group Family & Internal Medicine - [address] [address] Meet Ang DO [address] [place] [address] documented as of this encounter Visit Diagnoses Diagnosis Need for immunization against influenza- Primary Need for prophylactic vaccination and inoculation against influenza documented in this encounter Additional Health Concerns Assessment Noted Time PHQ-9 Depression Total Score: 18 019 3:33 PM CDT documented as of this encounter Care Teams Coding Consultant Relationship Specialty Start Date End Date Meet Ang DO [address] [place] [address] PCP - General FAMILY PRACTICE 08/16/18 Paresh Gray MD Three [facility]. [facility] [address] [place] [address] EP Marine Machinist CLINICAL CARDIAC ELECTROPHYSIOLOGY 03/03/19 documented as of this encounter
--- OUTSIDE RECORDS SUMMARY | 2024-05-11 21:15 | XMS_ITS | Encounter Summary ---
Author Organization [facility] Address [address] [place] [address]. [place], [place] [address] [place] [address] Care Team Providers Care Editorial Cartoonist Name Role Phone Meet Ang DO Primary Care Provider + Paresh Gray MD Unavailable Reason for Visit * Reason Onset Date Comments Medication Problem 07/10/2020 Encounter Details Date Type Department Care Team (Late st Contact Info) Description 07/10/2020 Telephone [facility] Medical Group Family & Internal Medicine [place] [id number] [place] [address] Meet Ang DO [address] [place] [address] Medication Problem Social History Tobacco [...] on file Legal Sex Male 2:37 PM LEGAL INSTRUCTOR Gender Identity Male 05/16/2021 9:25 AM LEGAL INSTRUCTOR Sexual Orientation Straight 05/16/2021 9: 25 AM LEGAL INSTRUCTOR documented as of this encounter Progress Notes * TIAN Bourgeois 07/10/2020 11:07 AM CST Follow up call to patient post hospitalization Date of hospital discharge: 07/08/20 Patient discharged from: [facility] diagnosis/diagnoses: chest pain Procedures performed while inpatient: stress test, echo Begin the medication reconciliation process (completed at first face to face visit) Any follow up services needed:: cardiology follow up Education on self management: No Assess adherence with treatment (medication) regimen and provide support. Does patient have access to care and services (rides, etc)? Yes Appointment scheduled for follow up in the office (7 days if high complexity or within 14 days for medium complexity) Appointment Date: 07/12/20 Time: 10:20 am L INSTRUCTOR L INSTRUCTOR * Adrianne Dorantes - 07/10/2020 10:58 AM CST Patient calling in with some questions about medications. Would like to speak with a nursing produce production team member to help figure out what he is on and what he needs. L INSTRUCTOR documented in this encounter Plan of Treatment Upcoming Encounters Date Type Department Care Team (Late st Contact Info) Description 06/19/2024 8:45 AM LEGAL INSTRUCTOR Office Visit [facility], [place] [address] [place] [address] Ren Morse MD [facility] [address] [place] [address] 07/19/2024 7:00 AM LEGAL INSTRUCTOR Office Visit [facility] Medical Group Family & Internal Medicine [address] [address] Meet Ang DO [address] [place] [address] documented as of this encounter Visit Diagnoses Not on filedocumented in this encounter Additional Health Concerns Assessment Noted Time PHQ-9 Depression Total Score: 8 04/26/20 20 10:00 AM LEGAL INSTRUCTOR documented as of this encounter Care Teams Editorial Cartoonist Relationship Specialty Start Date End Date Meet Ang DO [address] [place] [address] PCP - General FAMILY PRACTICE 08/16/18 Paresh Gray MD [address] [address] EP Patient Portal Concierge CLINICAL CARDIAC ELECTROPHYSIOLOGY 03/03/19 documented as of this encounter
--- OUTSIDE RECORDS SUMMARY | 2024-05-11 21:15 | XMS_ITS | Encounter Summary ---
Author Organization [facility] Address [address] [place] [address]. [place], [place] [address] [place] [address] Care Team Providers Care Crop Consultant Name Role Phone Meet Ang DO Primary Care Provider + Paresh Gray MD Unavailable Reason for Visit * Reason Onset Date Comments Palpitations 07/15/2020 Encounter Details Date Type Department Care Team (Late st Contact Info) Description 07/15/2020 Telephone [facility] Family & Internal Medicine [address] [address] [place] [address] Meet Ang DO [address] [place] [address] Palpitations Social History Tobacco Use Types Packs/Day Years [...] on file Legal Sex Male 2:37 PM ELEVATOR ATTENDANT Gender Identity Male 05/16/2021 9:25 AM ELEVATOR ATTENDANT Sexual Orientation Straight 05/16/2021 9: 25 AM ELEVATOR ATTENDANT COVID-19 Exposure Response Date Recorded In the last month, have you been in contact with someone who was confirmed or suspected to have Coronavirus / COVID-19? No / Unsure 07/12/2020 10:10 AM ELEVATOR ATTENDANT documented as of this encounter Progress Notes * Meet Ang DO - 07/16/2020 9:59 AM CST Yes, we can do the sleep study order at visit; the ER doctor talked to me about it today. Yes, increase dose. Yes, reach out to psych again. ATOR ATTENDANT * Dolly Christensen MA - 07/16/2020 9:44 AM CST Patient called back and was just released from [facility]. Requesting to have a sleep study done. Informed [facility] 07[facility]20 Tn Patient states he has only been taking 25 mg of the metoprolol. Informed to increase to 50 mg. His heart rate was good he states at discharge today. He states phsych called and he missed the call today but he will call them back. ATOR ATTENDANT * Meet Ang DO - 07/15/2020 6:28 PM CST Please request records if not already done so. Has pt discussed with psych about the previous SI? Margarito at visit I instructed pt to only take metoprolol and increase to 50 mg daily; is this what he is doing at this time? What is his resting heart rate if so? ATOR ATTENDANT * Dolly Christensen MA - 07/15/2020 2:37 PM CST Patient is feeling chills short of breath and heart racing since starting medications. States he isonly on Metoprolol Succ 25 mg qd now. Also wanting you to know he went to [facility] ER last night due to suicidal ideations. Better today.Denies SI. Allergies nkda Cierra Ofallon ATOR ATTENDANT documented in this encounter Plan of Treatment Upcoming Encounters Date Type Department Care Team (Late st Contact Info) Description 06/19/2024 8:45 AM ELEVATOR ATTENDANT [facility] [place] [address] [place] [address] Ren Morse MD Three [facility] [address] [place] [address] 07/19/2024 7:00 AM ELEVATOR ATTENDANT Office Visit [facility] Medical Group Family & Internal Medicine [facility] [address] [place] [address] Meet Ang DO [address] [place] [address] documented as of this encounter Visit Diagnoses Not on filedocumented in this encounter Additional Health Concerns Assessment Noted Time PHQ-9 Depression Total Score: 13 021 10:25 AM ELEVATOR ATTENDANT documented as of this encounter Care Teams Crop Consultant Relationship Specialty Start Date End Date Meet Ang DO [address] [place] [address] PCP - General FAMILY PRACTICE 08/16/18 Paresh Gray MD Three [facility]. [place] [address] [place] [address] EP Ecclesiastical Worker CLINICAL CARDIAC ELECTROPHYSIOLOGY 03/03/19 documented as of this encounter
--- OUTSIDE RECORDS SUMMARY | 2024-05-11 21:15 | XMS_ITS | Encounter Summary ---
Author Organization [facility] Address [address] [place] [address]. [place], [place] [address] [place] [address] Care Team Providers Care Cloth Bale Header Name Role Phone Meet Ang DO Primary Care Provider + Paresh Gray MD Unavailable Reason for Visit * Reason Comments Stress Test (SCAN) Encounter Details Date Type Department Care Team ([facility] Contact Info) Description 07/08/2020 Scan HEALTH INFO SRVCS Scanned, Documents Stress Test (SCAN) Social History Tobacco Use Types Packs/Day [...] file Legal Sex Male 2:37 PM RN POSTPARTUM Gender Identity Male 05/16/2021 9:25 AM RN POSTPARTUM Sexual Orientation Straight 05/16/2021 9: 25 AM RN POSTPARTUM COVID-19 Exposure Response Date Recorded In the last month, have you been in contact with someone who was confirmed or suspected to have Coronavirus / COVID-19? No / Unsure 07/12/2020 10:10 AM RN POSTPARTUM documented as of this encounter Plan of Treatment Upcoming Encounters Date Type Department Care Team (Late st Contact Info) Description 06/19/2024 8:45 AM RN POSTPARTUM Office Visit [facility] [place] [address] [place] [address] Ren Morse MD [address] [facility] [address] [place] [address] 07/19/2024 7:00 AM RN POSTPARTUM Office Visit [facility] Medical Group Family & Internal Medicine - [place] [address] [place] [address] Meet Ang DO [address] [place] [address] documented as of this encounter Procedures Procedure Name Priority Date/Time Associated Diagnosis Comments STRESS TEST (SCAN ORDER) 07/08/2020 documented in this encounter Results * STRESS TEST (07/08/2020) 07/08/2020 Narrative 07/08/2020 Ordered by an unspecified provider. us Documents Scanned SCANNING Final Result documented in this encounter Visit Diagnoses Not on filedocumented in this encounter Additional Health Concerns Assessment Noted Time PHQ-9 Depression Total Score: 8 04/26/20 20 10:00 AM RN POSTPARTUM documented as of this encounter Care Teams Cloth Bale Header Relationship Specialty Start Date End Date Meet Ang DO [address] [place] [address] PCP - General FAMILY PRACTICE 08/16/18 Paresh Gray MD Three [facility]. [place] [address] [place] [address] EP Bookkeeping Clerk CLINICAL CARDIAC ELECTROPHYSIOLOGY 03/03/19 documented as of this encounter
--- OUTSIDE RECORDS SUMMARY | 2024-05-11 21:15 | XMS_ITS | Encounter Summary ---
Author Organization [facility] Address [address] [place] [address]. [place], [place] [address] [place] [address] Care Team Providers Care State Director Name Role Phone Meet Ang DO Primary Care Provider + Paresh Gray MD Unavailable Encounter Details Date Type Department Care Team (Late st Contact Info) Description 05/10/2020 9:20 AM PLATE STACKER HAND Laboratory Only [facility] Medical Group Family & Internal Medicine [address] [address] Social History Tobacco Use Types Packs/Day Years [...] on file Legal Sex Male 2:37 PM PLATE STACKER HAND Gender Identity Male 05/16/2021 9:25 AM PLATE STACKER HAND Sexual Orientation Straight 05/16/2021 9: 25 AM PLATE STACKER HAND COVID-19 Exposure Response Date Recorded In the last month, have you been in contact with someone who was confirmed or suspected to have Coronavirus / COVID-19? No / Unsure 05/10/2020 8:54 AM PLATE STACKER HAND documented as of this encounter Progress Notes * Debi HillsZULLY - 05/10/2020 9:20 AM CSTAddended by: DEBI HILLS on: 05/10/2020 09:29 AM Modules accepted: Orders E STACKER HAND documented in this encounter Plan of Treatment Upcoming Encounters Date Type Department Care Team (Late st Contact Info) Description 06/19/2024 8:45 AM PLATE STACKER HAND [facility] [place] [address] [place] [address] Ren Morse MD [facility] [address] [place], [place] [address] 07/19/2024 7:00 AM PLATE STACKER HAND Office Visit [facility] Medical Group Family & Internal Medicine [address] [address] Meet Ang DO [address] [place] [address] documented as of this encounter Procedures Procedure Name Priority Date/Time Associated Diagnosis Comments VENIPUNC ARM DRAW Routine 05/10/2020 9:29 AM PLATE STACKER HAND Serum total bilirubin elevated documented in this encounter Visit Diagnoses Diagnosis Serum total bilirubin elevated- Primary Jaundice, unspecified, not of Macrocytosis Other specified diseases of blood and blood-forming organs documented in this encounter Additional Health Concerns Assessment Noted Time PHQ-9 Depression Total Score: 8 04/26/20 20 10:00 AM PLATE STACKER HAND documented as of this encounter Care Teams State Director Relationship Specialty Start Date End Date Meet Ang DO [address] [place] [address] PCP - General FAMILY PRACTICE 08/16/18 Paresh Gray MD [facility]. [place] [address] [place] [address] EP Bulk Sealer CLINICAL CARDIAC ELECTROPHYSIOLOGY 03/03/19 documented as of this encounter
--- OUTSIDE RECORDS SUMMARY | 2024-05-11 21:15 | XMS_ITS | Encounter Summary ---
Author Organization [facility] Address [address] [place] [address]. [place], [place] [address] [place] [address] Care Team Providers Care Irrigator Head Name Role Phone Meet Ang DO Primary Care Provider + Paresh Gray MD Unavailable Reason for Visit * Reason Onset Date Comments Lab Order 05/02/2020 Encounter Details Date Type Department Care Team (Late st Contact Info) Description 05/02/2020 Telephone [facility] Medical Group Family & Internal Medicine [facility] [address] [place] [address] Meet Ang DO [address] [place] [address] Lab Order Social History Tobacco [...] on file Legal Sex Male 2:37 PM LOT ATTENDANT Gender Identity Male 05/16/2021 9:25 AM LOT ATTENDANT Sexual Orientation Straight 05/16/2021 9: 25 AM LOT ATTENDANT COVID-19 Exposure Response Date Recorded In the last month, have you been in contact with someone who was confirmed or suspected to have Coronavirus / COVID-19? No / Unsure 04/26/2020 9:42 AM LOT ATTENDANT documented as of this encounter Progress Notes * Izabel Lawson MA - 05/09/2020 3:14 PM CST Patient notified and v/u ATTENDANT * Izabel Lawson MA - 05/08/2020 4:30 PM CST lmtc 05/08/20. Orders pended ATTENDANT * Keesha Yang RN - 05/03/2020 12:27 PM CST No answer, no voicemail 05/03/20 ATTENDANT * Meet Ang DO - 05/03/2020 9:48 AM CST Will need to have him do it at [facility] then. Needs to obtain a CMP at the same time. ATTENDANT * Keesha Yang RN - 05/03/2020 9:40 AM CST Unable to add on per [facility]. 05/03/20 ATTENDANT * Meet Ang DO - 05/02/2020 5:05 PM CST Can we add on direct bilirubin? [facility] ATTENDANT documented in this encounter Plan of Treatment Upcoming Encounters Date Type Department Care Team (Late st Contact Info) Description 06/19/2024 8:45 AM LOT ATTENDANT [facility] [place] [address] [place] [address] Ren Morse MD Three [facility] [address] [place] [address] 07/19/2024 7:00 AM LOT ATTENDANT Office Visit [facility] Medical Group Family & Internal Medicine - [place] [address] [place] [address] Meet Ang DO [address] [place] [address] Scheduled Orders Name Type Priority Associated Diagnoses Orde r Schedule COMPREHENSIVE METABOLIC PANEL Lab Routine Serum total bilirubin elevated Expected: 05/09/2020, Expires: 05/08/2021 DIRECT BILIRUBIN Lab Routine Serum total bilirubin elevated Expected: 05/09/2020, Expires: 05/08/2021 documented as of this encounter Visit Diagnoses Diagnosis Serum total bilirubin elevated- Primary Jaundice, unspecified, not of documented in this encounter Additional Health Concerns Assessment Noted Time PHQ-9 Depression Total Score: 8 04/26/20 20 10:00 AM LOT ATTENDANT documented as of this encounter Care Teams Irrigator Head Relationship Specialty Start Date End Date Meet Ang DO [address] [place] [address] PCP - General FAMILY PRACTICE 08/16/18 Paresh Gray MD Three [facility]. [place] [address] [place] [address] EP Director Of Accreditation CLINICAL CARDIAC ELECTROPHYSIOLOGY 03/03/19 documented as of this encounter
--- OUTSIDE RECORDS SUMMARY | 2024-05-11 21:15 | XMS_ITS | Encounter Summary ---
Author Organization [facility] Address [address] [place] [address]. [place] [address] [place] [address] Care Team Providers Care Title I Assistant Name Role Phone Meet Ang DO Primary Care Provider + Paresh Gray MD Unavailable Reason for Visit * Reason Onset Date Comments Results 03/22/2019 Encounter Details Date Type Department Care Team (Late st Contact Info) Description 03/22/2019 Telephone [facility] at [facility], [address] [address] Ambreen Hawk RN Results Social History Tobacco Use Types Packs/Day [...] on file Legal Sex Male 2:37 PM CAPACITY PLANNING MANAGER Gender Identity Male 05/16/2021 9:25 AM CAPACITY PLANNING MANAGER Sexual Orientation Straight 05/16/2021 9: 25 AM CAPACITY PLANNING MANAGER documented as of this encounter Progress Notes * Ailyn Putnam RN - 03/24/2019 4:08 PM CDT Received a return call from patient's mother Libby regarding HM results. Informed mother of the above per Dr. Gray. Verbalized understanding. * Ambreen Hawk RN - 03/22/2019 11:12 AM CDT 1.5% PVC burden. No real symptom/rhythm correlation. Above message from Dr. Gray (after review of the monitor). I left a voicemail for the patient to call our office. The office number and my extension were provided. documented in this encounter Plan of Treatment Upcoming Encounters Date Type Department Care Team (Late st Contact Info) Description 06/19/2024 8:45 AM CAPACITY PLANNING MANAGER [facility] [address] [place] [address] Ren Morse MD [facility] [address] [place] [address] 07/19/2024 7:00 AM CAPACITY PLANNING MANAGER Office Visit [facility] Family & Internal Medicine - [address] [phone] Meet Ang DO [address] [place] [phone] documented as of this encounter Visit Diagnoses Not on filedocumented in this encounter Additional Health Concerns Assessment Noted Time PHQ-9 Depression Total Score: 18 019 3:33 PM CDT documented as of this encounter Care Teams Title I Assistant Relationship Specialty Start Date End Date Meet Ang DO [address] [place] [id number] PCP - General FAMILY PRACTICE 08/16/18 Paresh Gray MD [facility]. [address] [place] [address] EP Boat Canvas Installer CLINICAL CARDIAC ELECTROPHYSIOLOGY 03/03/19 documented as of this encounter
--- OUTSIDE RECORDS SUMMARY | 2024-05-11 21:15 | XMS_ITS | Encounter Summary ---
Author Organization [facility] Address [address] [place] [address]. [place] [address] [place] [address] Care Team Providers Care Social Work Administrator Name Role Phone Meet Ang DO Primary Care Provider + Encounter Details Date Type Department Care Team (Latest Contact Info) Description 09/29/2018 Scan HEALTH INFO SRVCS Scanned, Documents Social [...] on file Legal Sex Male 2:37 PM AUTOMATIC RIVETING MACHINE OPERATOR Gender Identity Male 05/16/2021 9:25 AM AUTOMATIC RIVETING MACHINE OPERATOR Sexual Orientation Straight 05/16/2021 9: 25 AM AUTOMATIC RIVETING MACHINE OPERATOR documented as of this encounter Plan of Treatment Upcoming Encounters Date Type Department Care Team (Late st Contact Info) Description 06/19/2024 8:45 AM AUTOMATIC RIVETING MACHINE OPERATOR [facility] [place] [address] [place] [address] Ren Morse MD [facility] [address] [place] [address] 07/19/2024 7:00 AM AUTOMATIC RIVETING MACHINE OPERATOR Office Visit [facility] Family & Internal Medicine - [address] [phone] Meet Ang DO [address] [place] [address] documented as of this encounter Visit Diagnoses Not on filedocumented in this encounter Additional Health Concerns Assessment Noted Time PHQ-9 Depression Total Score: 18 019 3:33 PM CDT documented as of this encounter Care Teams Social Work Administrator Relationship Specialty Start Date End Date Meet Ang DO [address] [place] [id number] PCP - General FAMILY PRACTICE 08/16/18 documented as of this encounter
--- OUTSIDE RECORDS SUMMARY | 2024-05-11 21:15 | XMS_ITS | Encounter Summary ---
Author Organization [facility] Address [address] [place] [address]. [place], [place] [address] [place] [address] Care Team Providers Care Crop Specialist Name Role Phone Meet Ang DO Primary Care Provider + Paresh Gray MD Unavailable Reason for Visit * Reason Comments Hypertension follow up Encounter Details Date Type Department Care Team (Late st Contact Info) Description 07/26/2020 9:20 AM APPLICATION PROCESSOR Office Visit [facility] Family & Internal Medicine [address] [phone] Meet Ang DO [address] [place] [phone] Hypertension (follow up) Social History Tobacco Use Types Packs/Day [...] on file Legal Sex Male 2:37 PM APPLICATION PROCESSOR Gender Identity Male 05/16/2021 9:25 AM APPLICATION PROCESSOR Sexual Orientation Straight 05/16/2021 9: 25 AM APPLICATION PROCESSOR COVID-19 Exposure Response Date Recorded In the last month, have you been in contact with someone who was confirmed or suspected to have Coronavirus / COVID-19? No / Unsure 07/26/2020 9:19 AM APPLICATION PROCESSOR documented as of this encounter Last Filed Vital Signs Vital Sign Reading Time Taken Comments Blood Pressure 128/72 07/26/2020 9:23 AM APPLICATION PROCESSOR Pulse 86 07/26/2020 9:23 AM APPLICATION PROCESSOR Temperature 36.2 ??C (97.2 ??F) 07/26/2020 9:23 AM CS T Respiratory Rate 16 07/26/2020 9:23 AM APPLICATION PROCESSOR Oxygen Saturation 98% 07/26/2020 9:23 AM APPLICATION PROCESSOR Inhaled Oxygen Concentration - - Weight 150.7 kg (332 lb 3.2 oz) 07/26/2020 9:23 AM APPLICATION PROCESSOR Height 185.4 cm (6' 1 ) 07/26/2020 9:23 AM APPLICATION PROCESSOR Body Mass Index 43.83 07/26/2020 9:23 AM APPLICATION PROCESSOR documented in this encounter Progress Notes * Meet Ang, DO - 07/26/2020 9:20 AM CST Images from the original note were not included. GENERAL OFFICE VISIT Encounter Date: 07/26/20 Chief Complaint: 29-year-old male presents for Hypertension (follow up) HPI: Pt is noting considerably improvement since last visit. He has some mild trouble with sleeping at this time, but otherwise he is feeling well. He is wearing a 30 day monitor at this time. No acute issues at this time. Review of Systems Constitutional: Negative for fever. Cardiovascular: See HPI Skin: Negative for rash. Psychiatric/Behavioral: See HPI Medications: Current Outpatient Medications: ??? busPIRone 15 MG tablet, 4 (four) times daily. , Disp: , Rfl: ??? metoprolol succinate ER 50 MG 24 hr tablet, Take 1 tablet (50 mg total) by mouth daily., Disp: 90 tablet, Rfl: 2 ??? dicyclomine 10 MG capsule, Take 1 [...] MG tablet 4 (four) times daily. ??? metoprolol succinate ER 50 MG 24 hr tablet Take 1 tablet (50 mg total) by mouth daily. ??? dicyclomine 10 MG [...] file Gets together: Not on file Attends rastafari service: Not on file Active member of [...] Alive ??? PGF Alive Objective: Filed Vitals: 07/26/20 0923 BP: 128/72 Pulse: 86 Resp: 16 Temp: 97.2 ??F (36.2 ??C) TempSrc: Skin SpO2: 98% Weight: (!) 150.7 kg (332 lb 3.2 oz) Height: 6' 1 (1.854 m) Physical Exam Constitutional: General: He is not in acute distress. Appearance: He is well-developed. He is obese. HENT: Head: Normocephalic and atraumatic. Eyes: General: No scleral icterus. Conjunctiva/sclera: Conjunctivae normal. Cardiovascular: Rate and Rhythm: Normal rate and regular rhythm. Pulmonary: Effort: Pulmonary effort is normal. Breath sounds: Normal breath sounds. Skin: General: Skin is warm and dry. Psychiatric: Comments: Improved from last visit Assessment & Plan: Alex was seen today for hypertension. Diagnoses and all orders for this visit: Tachycardia Anxiety Depression, unspecified depression type Discussion & Summary: Pt has improved considerably from last visit. Continue buspirone at this time; f/u with psych to find out about going back on other meds. F/u with cardiology as well as other referrals placed. F/u after seeing cardiology or sooner if needed. Pt v/u. Meet Ang DO ICATION PROCESSOR documented in this encounter Plan of Treatment Upcoming Encounters Date Type Department Care Team (Late st Contact Info) Description 06/19/2024 8:45 AM APPLICATION PROCESSOR [facility], [place] [address] [place] [address] [facility] [address] [place] [address] 07/19/2024 7:00 AM APPLICATION PROCESSOR Office Visit [facility] Family & Internal Medicine - [address] [phone] Meet Ang DO [address] [place] [address] documented as of this encounter Visit Diagnoses Diagnosis Tachycardia- Primary Tachycardia, unspecified Anxiety Anxiety state, unspecified Depression, unspecified depression type documented in this encounter Additional Health Concerns Assessment Noted Time PHQ-9 Depression Total Score: 13 021 10:25 AM APPLICATION PROCESSOR documented as of this encounter Care Teams Crop Specialist Relationship Specialty Start Date End Date Meet Ang DO [address] [place] [id number] PCP - General FAMILY PRACTICE 08/16/18 Paresh Gray MD [facility]. [place] [address] [place] [address] EP Representative CLINICAL CARDIAC ELECTROPHYSIOLOGY 03/03/19 documented as of this encounter
--- OUTSIDE RECORDS SUMMARY | 2024-05-11 21:15 | XMS_ITS | Encounter Summary ---
Author Organization [facility] Address [address] [place] [address]. [place] [address] [place] [address] Care Team Providers Care Ash Conveyor Operator Name Role Phone Meet Ang DO Primary Care Provider + Paresh Gray MD Unavailable Reason for Visit * Reason Onset Date Comments Information 03/21/2019 [facility] - Records rec'd Encounter Details Date Type Department Care Team (Late st Contact Info) Description 03/21/2019 Telephone [facility] at [place] [facility], [facility] [address] [place] [address] Paresh Gray MD [facility]. [facility] [address] [place] [address] Information ([facility] - Records rec'd) Social History Tobacco Use Types Packs/Day Years [...] on file Legal Sex Male 2:37 PM SEMICONDUCTOR TECHNICIAN Gender Identity Male 05/16/2021 9:25 AM SEMICONDUCTOR TECHNICIAN Sexual Orientation Straight 05/16/2021 9: 25 AM SEMICONDUCTOR TECHNICIAN documented as of this encounter Progress Notes * Krystal Grimes MA - 03/21/2019 3:56 PM CDT 03/21/19 [facility]# [phone] Fax # [phone] Echocardiogram Report 11/02/[address] Gray's bin. documented in this encounter Plan of Treatment Upcoming Encounters Date Type Department Care Team (Late st Contact Info) Description 06/19/2024 8:45 AM SEMICONDUCTOR TECHNICIAN Office Visit [facility], [facility] [address] [place] [address] Ren Morse MD [facility] [address] [place], [place] [id number] 07/19/2024 7:00 AM SEMICONDUCTOR TECHNICIAN Office Visit [facility] Family & Internal Medicine - [place] [address] [place] [address] Meet Ang DO [facility] [place] [address] documented as of this encounter Visit Diagnoses Not on filedocumented in this encounter Additional Health Concerns Assessment Noted Time PHQ-9 Depression Total Score: 18 019 3:33 PM CDT documented as of this encounter Care Teams Ash Conveyor Operator Relationship Specialty Start Date End Date Meet Ang DO [address] [place] [address] PCP - General FAMILY PRACTICE 08/16/18 Paresh Grya MD Three [facility]. [place] [address] [place], [place] [address] EP Modular Set Crew Member CLINICAL CARDIAC ELECTROPHYSIOLOGY 03/03/19 documented as of this encounter
--- OUTSIDE RECORDS SUMMARY | 2024-05-11 21:15 | XMS_ITS | Encounter Summary ---
Author Organization [facility] Address [address] [place] [address]. [place] [address] [place] [address] Care Team Providers Care Fire Chief Name Role Phone Meet Ang DO Primary Care Provider + Encounter Details Date Type Department Care Team (Latest Contact Info) Description 01/13/2019 Scan HEALTH INFO SRVCS Scanned, Documents Social [...] on file Legal Sex Male 2:37 PM FLARE MAKER Gender Identity Male 05/16/2021 9:25 AM FLARE MAKER Sexual Orientation Straight 05/16/2021 9: 25 AM FLARE MAKER documented as of this encounter Plan of Treatment Upcoming Encounters Date Type Department Care Team (Late st Contact Info) Description 06/19/2024 8:45 AM FLARE MAKER [facility] [place] [address] [place] [address] Ren Morse MD [facility] [address] [place] [address] 07/19/2024 7:00 AM FLARE MAKER Office Visit [facility] Family & Internal Medicine - [address] [phone] Meet Ang DO [address] [place] [address] documented as of this encounter Visit Diagnoses Not on filedocumented in this encounter Additional Health Concerns Assessment Noted Time PHQ-9 Depression Total Score: 18 019 3:33 PM CDT documented as of this encounter Care Teams Fire Chief Relationship Specialty Start Date End Date Meet Ang DO [address] [place] [id number] PCP - General FAMILY PRACTICE 08/16/18 documented as of this encounter
--- OUTSIDE RECORDS SUMMARY | 2024-05-11 21:15 | XMS_ITS | Encounter Summary ---
Author Organization [facility] Address [address] [place] [address]. [place] [address] [place] [address] Care Team Providers Care Car Distributor Name Role Phone Meet Ang Primary Care Provider + Ariella Gray MD Unavailable Reason for Referral * Diagnostic Lab (Routine) - Closed Specialty Diagnoses / Procedures Referred By Pepe gordon Referred To Contact CARDIOLOGY / Cardiology Diagnoses Tachycardia Palpitations Procedures ECG MONITOR/24 HRS,COMPLETE Ariella Gray MD [facility]. [facility] [address] [place] [address] Phone: tel: fax: [facility] [place] [address] Phone: tel: fax: Referral ID Status Reason Start Date Expiration Date Visits Re quested Visits Authorized [id number] Closed 03/20/2019 04/20/2019 1 1 Reason for Visit * Reason Comments Tachycardia Consult Encounter Details Date Type Department Care Team (Late st Contact Info) Description 03/20/2019 12:30 PM CDT Office [facility] [address] [place] [address] Ariella Gray MD [address] [address] Tachycardia (Consult) Social History Tobacco Use Types Packs/Day Years [...] on file Legal Sex Male 2:37 PM PHARMACY DELIVERY DRIVER Gender Identity Male 05/16/2021 9:25 AM PHARMACY DELIVERY DRIVER Sexual Orientation Straight 05/16/2021 9: 25 AM PHARMACY DELIVERY DRIVER documented as of this encounter Last Filed Vital Signs Vital Sign Reading Time Taken Comments Blood Pressure 130/96 03/20/2019 12:58 PM CDT Pulse 90 03/20/2019 12:58 PM CDT Temperature - - Respiratory Rate - - Oxygen Saturation - - Inhaled Oxygen Concentration - - Weight 153.8 kg (339 lb) 03/20/2019 12:58 PM CDT Height 185.4 cm (6' 1 ) 03/20/2019 12:58 PM CDT Body Mass Index 44.73 03/20/2019 12:58 PM CDT documented in this encounter Patient Instructions * Patient Instructions* Cynthia Miller - 03/20/2019 12:30 PM CDT Images from the original note were not included. Patient Education Patient Education Tachycardia The Basics Written by the doctors and editors at [facility] What is tachycardia???--?? Tachycardia is the medical term for a heartbeat that is faster than normal. Sometimes, a fast heartbeat is a normal response to exercising or feeling very worried. But other times, a fast heartbeat is a sign of another problem. What causes tachycardia???--??Exercising or feeling worried, stressed, or afraid can all cause tachycardia. Other things that can cause tachycardia include: ?? Having too many drinks with caffeine, such as coffee, tea, or soda ?? Smoking or using chewing tobacco ?? Taking certain illegal drugs, such as cocaine ?? Having a fever Problems with your heart's electrical system can also cause tachycardia. Some people are born with these problems. Other people get them because of high blood pressure, a heart attack, or other heartproblems. What are the symptoms of tachycardia???--??Most people with tachycardia have no symptoms. But they might notice that their heart is beating fast, beating hard, or seems to skip a beat. These kinds ofheartbeat changes are called palpitations. Sometimes, a fast heartbeat makes it harder for your heart to pump blood to your body. This can cause symptoms such as: ?? Dizziness ?? Trouble breathing ?? Chest pain ?? Fainting Is there a test for tachycardia???--??Yes. Your doctor or nurse will probably do a test called an electrocardiogram. This test, also known as an ECG, measures the electrical activity in your heart (figure 1). You might also need other tests to see if another condition is causing your fast heartbeat. Should I see a doctor or nurse???--??If you have trouble breathing or have chest pain that lasts for more than a few minutes, call for an ambulance (in the [place] and [place], dial [id number]). If you do not have these problems, but you often feel your heart beating fast or irregularly, talk to your doctor or nurse. How is tachycardia treated???--??The treatment depends on the cause of the tachycardia. When your heartbeat is very fast, your doctor might suggest ways to slow it down. He or she might have you cough, or bear down as if you're having a bowel movement. He or she might also put an ice pack on your face. Doing these things can affect the nerve that helps control your heartbeat. Other treatments can include: ?? Medicines to control the speed or rhythm of your heartbeat ?? A treatment called cardioversion that involves applying a mild electrical current to the heartto fix its rhythm ?? A device called an implantable cardioverter defibrillator ( ICD for short) that the doctor can put in your body. The ICD can help make your heart rhythm normal using mild electrical currents. ?? Treatments called ablation. Ablation treatments use heat (called radiofrequency ablation ) orcold (called cryoablation ) to destroy the small part of the heart that is sending the abnormal electrical signals. ?? Surgery to create scar tissue in the heart. This will block the flow of the electrical signals that make your heart beat abnormal. Can tachycardia be prevented???--??If drinking too much caffeine or smoking caused your tachycardia, stopping those habits can prevent the problem. Heart disease can increase your chance of having tachycardia. Doing things that keep your heart healthy can help. This includes: ?? Eating lots of fruits and vegetables and low-fat dairy products, but not a lot of meat or fatty foods. ?? Walking or doing a physical activity on most days of the week. ?? Losing weight, if you are overweight. All topics are updated as new evidence becomes available and our peer review process is complete. This topic retrieved from [employer] on: Jan 04, 2019. Topic 51360 Version 12.0 Release: 27.3.2 - C27.227 ?2019??[employer] and/or its affiliates.??All rights reserved. figure 1: Person having an ECG This drawing shows a man having an ECG (also called an electrocardiogram or EKG). He has patches, called electrodes, stuck onto his chest, arms, and legs. Wires run from the electrodes to the ECG machine. An ECG measures the electrical activity in the heart. Graphic 81531 Version 2.0 Consumer Information Use and Disclaimer This information [...] or not to accept your health care provider's advice, instructions or recommendations. Only your health care provider has the knowledge and training to provide advice that is right for you.The use of [employer] content is governed by the [employer] Terms of Use. ??2019 [employer]. All rights reserved. Copyright ?2019??[employer] and/or its affiliates.??All rights reserved. documented in this encounter Progress Notes * Ariella Gray MD - 03/20/2019 12:30 PM CDT Chief complaint: Palpitations. This is a referral from Dr. Ang. Assessment and plan: In summary, Maday Tovar is here today for evaluation regarding palpitations. Given relatively infrequent symptoms, and unclear etiology, would like to start with a holter monitor, and a trans thoracic echocardiogram to evaluate systolic function and evaluate for valvular disease. Thus far we have not documented a clear tachyarrhythmia that correlates with symptoms. We briefly discussed mechanisms of supraventricular tachycardia (AV emmy reentrant tachycardia, AV reentrant tachycardia utilizing a pathway, and atrial tachycardia) among other diagnoses such as sinus tachycardia. We will see him back in 3 months to reassess. Thank you for this interesting consultation. History of present illness: I had the pleasure of seeing your patient,Maday Tovar, for evaluation of palpitations. As you are aware, he is a 28-year-old male with a history of KIMMY, anxiety and palpitations. Episodes typically occur daily without any particular pattern. He does have palpitations with panic attacks as well. He denies chest pain, shortness of breath, palpitations, syncope or presyncope. He denies PND, orthopnea, LE edema, cough, hemoptysis. Current Outpatient Medications Medication Sig Dispense Refill [...] 2 capsules by mouth daily. 2 ??? trazodone 100 MG tablet Take 100 mg by mouth. Take 1 to 3 tab at bedtime prn 1 ??? VENTOLIN HFA 108 (90 Base) MCG/ACT inhaler Inhale 1 puff into the lungs. Every 4 hours PRN No current facility-administered medications for this visit. Allergies Allergen Reactions ??? Bee Venom Swelling has a past medical history of Agoraphobia, Anxiety, Asthma, Depression, GERD (gastroesophageal reflux disease), IBS (irritable bowel syndrome), and KIMMY (obstructive sleep apnea). Past Surgical History: Procedure Laterality Date ??? NONE Review of Systems Constitutional: Negative for chills, fever, malaise/fatigue and weight loss. HENT: Negative for congestion, nosebleeds and sore throat. Eyes: Negative for blurred vision, photophobia and pain. Respiratory: Negative for cough, hemoptysis, sputum production, shortness of breath and wheezing. Cardiovascular: As per HPI. Gastrointestinal: Negative for abdominal pain, blood in stool, constipation, diarrhea, heartburn, melena, nausea and vomiting. Genitourinary: Negative for dysuria, hematuria and urgency. Musculoskeletal: Negative for myalgias and neck pain. Skin: Negative for rash. Neurological: Negative for dizziness and headaches. Endo/Heme/Allergies: Negative for environmental allergies. Does not bruise/bleed easily. Psychiatric/Behavioral: Negative for depression, substance abuse and suicidal ideas. All other systems reviewed and are negative. Filed Vitals: 03/20/19 1258 BP: (!) 130/96 Pulse: 90 Weight: (!) 153.8 kg (339 lb) Height: 6' 1 (1.854 m) Physical Exam Constitutional: He is oriented to person, place, and time. He appears well- developed and well-nourished. No distress. HENT: Head: Normocephalic and atraumatic. Nose: No mucosal edema. Mouth/Throat: Mucous membranes are normal. No oropharyngeal exudate. Eyes: Conjunctivae and EOM are normal. Pupils are equal, round, and reactive to light. Neck: Neck supple. No JVD present. No thyromegaly present. Cardiovascular: Normal rate, regular rhythm, S1 normal, S2 normal and intact distal pulses. PMI is not displaced. Exam reveals no gallop. No murmur heard. Pulses: Radial pulses are 2+ on the right side, and 2+ on the left side. Pulmonary/Chest: Effort normal and breath sounds normal. No respiratory distress. Abdominal: Soft. Normal appearance and bowel sounds are normal. He exhibits no abdominal bruit. There is no hepatosplenomegaly. There is no tenderness. There is no rebound. Musculoskeletal: Normal range of motion. He exhibits no deformity. Neurological: He is alert and oriented to person, place, and time. Skin: Skin is warm and dry. Psychiatric: He has a normal mood and affect. His behavior is normal. Thought content normal. Data reviewed: ECG reviewed in the office today shows normal sinus rhythm, normal intervals, no acute st/t changes, no signs consistant with Brugada pattern, epsilon waves, or preexcitation. MACY DELIVERY DRIVER documented in this encounter Plan of Treatment Upcoming Encounters Date Type Department Care Team (Late st Contact Info) Description 06/19/2024 8:45 AM PHARMACY DELIVERY DRIVER [facility] [place] [address] [place] [address] Ren Morse MD [facility] [address] [place], [place] [address] 07/19/2024 7:00 AM PHARMACY DELIVERY DRIVER Office Visit [facility] Family & Internal Medicine [facility] [address] [place] [address] Meet Ang DO [address] [place] [address] documented as of this encounter Procedures Procedure Name Priority Date/Time Associated Diagnosis Comments ELECTROCARDIOGRAM (NON MIDMARK ACQUIRED) Routine 03/20/2019 1:18 PM CDT Tachycardia HOLTER MONITOR (ECG) UP TO 48 HRS COMPLETE Routine 03/20/2019 Tachycardia Palpitations documented in this encounter Results * ELECTROCARDIOGRAM (03/20/2019 1:18 PM CDT) 03/20/2019 1:18 PM CDT Narrative [facility] - 03/24/2019 11:51 AM CDT ?Adam Becker, O? [place] ? Test Date: ?2019-03-20 Pat Name: ? MADAY GAVILLET ? Department: ? Room: ? Gender: ? Male ? Plastic Bubble Packer: ?? jf : ?1990 ? Requested By: PABAN EVERARDO Order Number: [id number] ?Reading MD: ?? Paban Everardo ? Measurements Intervals ?[place] ? Rate: ? 90 ? P: ?73 ID: ? [id number] ?QRS: ?70 QRSD: ? 95 ? T: ?64 QT: ? 330 ? QTc: ?404 ? Interpretive Statements SINUS RHYTHM No prior ECG available for comparison Procedure Note Ariella Gray MD - 03/24/2019 [facility], O? [facility] Test Date: 2019-03-20 Pat Name: MADAY TOVAR Department: Room: Gender: Male Plastic Bubble Packer: : 1990 Requested By: ARIELLA GRAY Order Number: [id number] Reading MD: Ariella Gray Measurements Intervals [place] Rate: 90 P: 73 ID: 163 QRS: 70 QRSD: 95 T: 64 QT: 330 QTc: 404 Interpretive Statements SINUS RHYTHM No prior ECG available for comparison us Ariella Gray MD PROCEDURES-ORDERABLE NO CHARGE F inal Result Performing Organization Address City/State/[facility] Co de Phone Number [facility] [address] [place] [address] * ECG MONITOR/24 HRS,COMPLETE (03/20/2019) us Ariella Gray MD CV VASCULAR ORDERABLES Final Res ult documented in this encounter Visit Diagnoses Diagnosis Tachycardia- Primary Tachycardia, unspecified Palpitations documented in this encounter Additional Health Concerns Assessment Noted Time PHQ-9 Depression Total Score: 18 08/16/ 019 3:33 PM CDT documented as of this encounter Care Teams Car Distributor Relationship Specialty Start Date End Date Meet Ang DO [address] [place] [address] PCP - General FAMILY PRACTICE 08/16/18 Ariella Gray MD Three [facility]. [address] [id number] EP Corsage Maker CLINICAL CARDIAC ELECTROPHYSIOLOGY 03/03/19 documented as of this encounter
--- OUTSIDE RECORDS SUMMARY | 2024-05-11 21:15 | XMS_ITS | Encounter Summary ---
Author Organization [facility] Address [address] [place] [address]. [place], [place] [address] [place] [address] Care Team Providers Care Supervisor Orchard Name Role Phone eMet Ang DO Primary Care Provider + Paresh Gray MD Unavailable Reason for Visit * Reason Onset Date Comments CT (SCAN) 07/19/2020 Encounter Details Date Type Department Care Team (Late st Contact Info) Description 07/19/2020 Telephone [facility] Family & Internal Medicine [id number] [place] [address] Meet Ang DO [address] [place] [address] CT (SCAN) Social History Tobacco Use Types Packs/Day [...] file Legal Sex Male 2:37 PM GENERAL STUDIES PROGRAM CHAIR Gender Identity Male 05/16/2021 9:25 AM GENERAL STUDIES PROGRAM CHAIR Sexual Orientation Straight 05/16/2021 9: 25 AM GENERAL STUDIES PROGRAM CHAIR COVID-19 Exposure Response Date Recorded In the last month, have you been in contact with someone who was confirmed or suspected to have Coronavirus / COVID-19? No / Unsure 05/19/2021 1:34 PM GENERAL STUDIES PROGRAM CHAIR documented as of this encounter Progress Notes * Dolly Christensen MA - 07/22/2020 4:45 PM CST Patient contacted and ok with vascular doctor. Informed to cb if he does not hear from them within 2 weeks of the referral being placed. Pt voiced understanding tn RAL STUDIES PROGRAM CHAIR * Adrianne Dorantes - 07/22/2020 1:20 PM CST Patient called back in no one free. Please callback. RAL STUDIES PROGRAM CHAIR * So Allen MA - 07/19/2020 3:39 PM CST LMT[facility] 07/19/20 RAL STUDIES PROGRAM CHAIR * Meet Ang DO - 07/19/2020 1:22 PM CST Let's just refer to Dr. Jimenez with vascular for evaluation to see what he recommends. Already placed order in today's visit encounter, but please contact pt to let him know. RAL STUDIES PROGRAM CHAIR RAL STUDIES PROGRAM CHAIR RAL STUDIES PROGRAM CHAIR * So Allen MA - 07/19/2020 11:28 AM CST [facility] or [facility] for this test RAL STUDIES PROGRAM CHAIR * So Allen MA - 07/19/2020 11:[address] at [facility] states preferred modality would be MRI for this protocol. TC for [facility] MRI department to return call on specification with ordering. RAL STUDIES PROGRAM CHAIR * Meet Ang DO - 07/19/2020 8:29 AM CST Can we reach out to [facility] radiology? Pt had a CTA of the chest at outside facility that recommended checking median arcuate ligament syndrome protocol in the impression. I would assume this is a CT of the abdomen, but they did not specify and I do not know how to order it in such a way. RAL STUDIES PROGRAM CHAIR documented in this encounter Plan of Treatment Upcoming Encounters Date Type Department Care Team (Late st Contact Info) Description 06/19/2024 8:45 AM GENERAL STUDIES PROGRAM CHAIR Office Visit [facility] [address] [facility], [place] [address] [place] [address] Ren Morse MD Three [facility] [address] [place] [address] 07/19/2024 7:00 AM GENERAL STUDIES PROGRAM CHAIR Office Visit [facility] Family & Internal Medicine [facility] [address] [place] [phone] Meet Ang DO [address] [place] [address] documented as of this encounter Visit Diagnoses Not on filedocumented in this encounter Additional Health Concerns Assessment Noted Time PHQ-9 Depression Total Score: 13 021 10:25 AM GENERAL STUDIES PROGRAM CHAIR documented as of this encounter Care Teams Supervisor Orchard Relationship Specialty Start Date End Date Meet Ang DO [address] [place] [address] [place] [address] PCP - General FAMILY PRACTICE 08/16/18 Paresh Gray MD [address] [address] EP Work Order Detailer CLINICAL CARDIAC ELECTROPHYSIOLOGY 03/03/19 documented as of this encounter
--- OUTSIDE RECORDS SUMMARY | 2024-05-11 21:15 | XMS_ITS | Encounter Summary ---
Author Organization [facility] Address [address] [place] [address]. [place] [address] [place] [address] Care Team Providers Care Mechanic Recovery Name Role Phone Meet Ang DO Primary Care Provider + Paresh Gray MD Unavailable Reason for Visit * Reason Comments CT (SCAN) Encounter Details Date Type Department Care Team (Latest Contact Info) Description 07/15/2020 Scan HEALTH INFO SR[facility] Scanned, Documents CT (SCAN) Social History Tobacco Use Types [...] file Legal Sex Male 2:37 PM RESEARCH AND EVALUATION ANALYST Gender Identity Male 05/16/2021 9:25 AM RESEARCH AND EVALUATION ANALYST Sexual Orientation Straight 05/16/2021 9: 25 AM RESEARCH AND EVALUATION ANALYST COVID-19 Exposure Response Date Recorded In the last month, have you been in contact with someone who was confirmed or suspected to have Coronavirus / COVID-19? No / Unsure 07/19/2020 7:52 AM RESEARCH AND EVALUATION ANALYST documented as of this encounter Plan of Treatment Upcoming Encounters Date Type Department Care Team (Late st Contact Info) Description 06/19/2024 8:45 AM RESEARCH AND EVALUATION ANALYST Office Visit [facility] [address] [facility] [address], [place] [address] [place] [address] Ren Morse MD [address] [facility] [address] [place] [address] 07/19/2024 7:00 AM RESEARCH AND EVALUATION ANALYST Office Visit [facility] Family & Internal Medicine [facility] [address] [place] [address] [place] [address] [place] [address] documented as of this encounter Procedures Procedure Name Priority Date/Time Associated Diagnosis Comments CT GENERIC 07/15/2020 documented in this encounter Results * CT GENERIC (07/15/2020) Anatomical Region Laterality Modality Other 07/15/2020 Narrative 07/15/2020 Ordered by an unspecified provider. us Documents Scanned SCANNING Final Result documented in this encounter Visit Diagnoses Not on filedocumented in this encounter Additional Health Concerns Assessment Noted Time PHQ-9 Depression Total Score: 13 07/12/ 021 10:25 AM RESEARCH AND EVALUATION ANALYST documented as of this encounter Care Teams Mechanic Recovery Relationship Specialty Start Date End Date Meet Ang DO [address] [place] [address] PCP - General FAMILY PRACTICE 08/16/18 Paersh Gray MD Three [facility]. [place] [address] [place] [address] EP Special Assets Officer CLINICAL CARDIAC ELECTROPHYSIOLOGY 03/03/19 documented as of this encounter
--- OUTSIDE RECORDS SUMMARY | 2024-05-11 21:15 | XMS_ITS | Encounter Summary ---
Author Organization [facility] Address [address] [place] [address]. 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 * Keesha Yang RN - 01/20/2019 9:34 AM CDT Can I call this in to his pharmacy then? * Meet Ang DO - 01/19/2019 9:52 AM CDT Please let pt know that he can take 1.5 mg of his lorazepam prior to his sleep study. * Keesha Yang RN - 01/19/2019 9:32 AM CDT Spoke to Lior and she stated that they can have lorazepam prior to having the sleep study done. * Meet Ang DO - 01/18/2019 9:59 PM CDT Can we call over to [facility] and inquire if we would be able to give pt lorazepam prior to his sleep study testing? Apparently, per patient, he is having panic attacks while there, and Ibelieve these would be beneficial. However, I want to ensure they do not have a policy against this. We did not order this sleep study; it was ordered by a different provider. * Ariadne Worthy MA - 01/16/2019 2:52 PM CDT Fax sent to [facility] at [phone] requesting last 3yrs worth of pt labs. * Meet Ang DO - 01/13/2019 2:52 PM CDT Can we request lab results from [facility] for the past 3 years? documented in this encounter Plan of Treatment Upcoming Encounters Date Type Department Care Team (Late st Contact Info) Description 06/19/2024 8:45 AM PIPE INSTALLER [facility] THREE [facility], [place] [address] [place] [address] Ren Morse MD Three [facility] [address] [place] [address] 07/19/2024 7:00 AM PIPE INSTALLER Office Visit [facility] Family & Internal Medicine - [place] [address] [place] [phone] Meet Ang DO [facility] [place] [address] documented as of this encounter Visit Diagnoses Diagnosis Anxiety- Primary Anxiety state, unspecified documented in this encounter Additional Health Concerns Assessment Noted Time PHQ-9 Depression Total Score: 18 03/26/2 019 3:33 PM CDT documented as of this encounter Care Teams Publication Designer Relationship Specialty Start Date End Date Meet Ang DO [address] [place] [address] PCP - General FAMILY PRACTICE 08/16/18 documented as of this encounter
--- OUTSIDE RECORDS SUMMARY | 2024-05-11 21:15 | XMS_ITS | Encounter Summary ---
Author Organization [facility] Address [address] [place] [address]. [place] [address] [place] [address] Care Team Providers Care Solar Designer/Installer Name Role Phone Meet Ang DO Primary Care Provider + Paresh Gray MD Unavailable Reason for Visit * Reason Comments Image (SCAN) Encounter Details Date Type Department Care Team (Latest Contact Info) Description 07/07/2020 Scan HEALTH INFO SRVCS Scanned, Documents Image [...] on file Legal Sex Male 2:37 PM CORRUGATOR MACHINE OPERATOR Gender Identity Male 05/16/2021 9:25 AM CORRUGATOR MACHINE OPERATOR Sexual Orientation Straight 05/16/2021 9: 25 AM CORRUGATOR MACHINE OPERATOR COVID-19 Exposure Response Date Recorded In the last month, have you been in contact with someone who was confirmed or suspected to have Coronavirus / COVID-19? No / Unsure 07/12/2020 10:10 AM CORRUGATOR MACHINE OPERATOR documented as of this encounter Plan of Treatment Upcoming Encounters Date Type Department Care Team (Late st Contact Info) Description 06/19/2024 8:45 AM CORRUGATOR MACHINE OPERATOR Office Visit [facility] [address] [facility] [address], [place] [address] [place] [address] Ren Morse MD [address] [facility] [address] [place] [address] 07/19/2024 7:00 AM CORRUGATOR MACHINE OPERATOR Office Visit [facility] Family & Internal Medicine [facility] [address] [place] [address] [place] [address] [place] [address] documented as of this encounter Procedures Procedure Name Priority Date/Time Associated Diagnosis Comments IMAGE GENERIC 07/07/2020 documented in this encounter Results * IMAGE GENERIC (07/07/2020) Anatomical Region Laterality Modality Other 07/07/2020 Narrative 07/07/2020 Ordered by an unspecified provider. us Documents Scanned SCANNING Final Result documented in this encounter Visit Diagnoses Not on filedocumented in this encounter Additional Health Concerns Assessment Noted Time PHQ-9 Depression Total Score: 8 04/26/20 20 10:00 AM CORRUGATOR MACHINE OPERATOR documented as of this encounter Care Teams Solar Designer/Installer Relationship Specialty Start Date End Date Meet Ang DO [address] [place] [address] PCP - General FAMILY PRACTICE 08/16/18 Paresh Gray MD Three [facility]. [place] [address] [place] [address] EP Assistant Director Of Admissions CLINICAL CARDIAC ELECTROPHYSIOLOGY 03/03/19 documented as of this encounter
--- OUTSIDE RECORDS SUMMARY | 2024-05-11 21:15 | XMS_ITS | Encounter Summary ---
Author Organization [facility] Address [address] [place] [address]. [place], [place] [address] [place] [address] Care Team Providers Care Home Economist Consumer Service Name Role Phone Meet Ang DO Primary Care Provider + Paresh Gray MD Unavailable Encounter Details Date Type Department Care Team (Latest Contact Info) Description 07/19/2020 Travel Social History Tobacco Use Types Packs/Day [...] on file Legal Sex Male 2:37 PM CIGAR BANDER HAND Gender Identity Male 05/16/2021 9:25 AM CIGAR BANDER HAND Sexual Orientation Straight 05/16/2021 9: 25 AM CIGAR BANDER HAND COVID-19 Exposure Response Date Recorded In the last month, have you been in contact with someone who was confirmed or suspected to have Coronavirus / COVID-19? No / Unsure 07/19/2020 7:52 AM CIGAR BANDER HAND documented as of this encounter Plan of Treatment Upcoming Encounters Date Type Department Care Team (Late st Contact Info) Description 06/19/2024 8:45 AM CIGAR BANDER HAND Office Visit [place] [facility] [facility], [place] [address] [place] [address] Ren Morse MD Three [facility] [address] [place] [address] 07/19/2024 7:00 AM CIGAR BANDER HAND Office Visit [facility] Family & Internal Medicine - [address] [address] Meet Ang DO [address] [place] [address] documented as of this encounter Visit Diagnoses Not on filedocumented in this encounter Additional Health Concerns Assessment Noted Time PHQ-9 Depression Total Score: 13 021 10:25 AM CIGAR BANDER HAND documented as of this encounter Care Teams Home Economist Consumer Service Relationship Specialty Start Date End Date Meet Ang DO [address] [place] [address] PCP - General FAMILY PRACTICE 08/16/18 Paresh Gray MD [facility]. [place] [place] [address] EP Third Officer CLINICAL CARDIAC ELECTROPHYSIOLOGY 03/03/19 documented as of this encounter
--- OUTSIDE RECORDS SUMMARY | 2024-05-11 21:15 | XMS_ITS | Encounter Summary ---
Author Organization [facility] Address [address] [place] [address]. [place], [place] [address] [place] [address] Care Team Providers Care Sand And Gravel Plant Operator Name Role Phone Meet Ang DO Primary Care Provider + Paresh Gray MD Unavailable Reason for Referral * Surgical (Routine) - Canceled Specialty Diagnoses / Procedures Referred By Pepe gordon Referred To Contact VASCULAR SURGERY / Cardiology Diagnoses Median arcuate ligament syndrome (CMS/HCC) Meet Ang DO [address] [place] [address] Phone: tel: fax: Vitaly Jimenez MD [address] [address] Phone: tel: fax: Referral ID Status Reason Start Date Expiration Date Visits Requested Visits Authorized [id number] Canceled Specialty Services 07/19/2020 08/20/2021 1 1 ARTISAN * Consultation (Urgent) - Closed Specialty Diagnoses / Procedures Referred By Pepe gordon Referred To Contact CRITICAL CARE MEDICINE Diagnoses KIMMY (obstructive sleep apnea) Meet Ang DO [address] [place] [address] Phone: tel: fax: Shyla Cox MD [address] [place] [address] Phone: tel: fax: Referral ID Status Reason Start Date Expiration Date V isits Requested Visits Authorized [id number] Closed Specialty Services 07/19/2020 08/16/2021 99 99 Scheduling Instructions Needs to go to [facility] sleep specialists; pt already has sleep study which showed sleep apnea through their office. He was supposed to be mask fitted before COVID occurred. ARTISAN Reason for Visit * Reason Comments ER F/U [facility] Encounter Details Date Type Department Care Team (Late st Contact Info) Description 07/19/2020 8:00 AM CLAY ARTISAN Office Visit [facility] Medical [facility] Family & Internal Medicine - [address] [address] Meet Ang DO [address] [place] [address] ER F/U ([facility] ) Social History Tobacco Use Types Packs/Day [...] on file Legal Sex Male 2:37 PM CLAY ARTISAN Gender Identity Male 05/16/2021 9:25 AM CLAY ARTISAN Sexual Orientation Straight 05/16/2021 9: 25 AM CLAY ARTISAN COVID-19 Exposure Response Date Recorded In the last month, have you been in contact with someone who was confirmed or suspected to have Coronavirus / COVID-19? No / Unsure 07/19/2020 7:52 AM CLAY ARTISAN documented as of this encounter Last Filed Vital Signs Vital Sign Reading Time Taken Comments Blood Pressure 106/74 07/19/2020 7:58 AM CLAY ARTISAN Pulse 97 07/19/2020 7:58 AM CLAY ARTISAN Temperature 36.7 ??C (98 ??F) 07/19/2020 7:58 AM CLAY ARTISAN Respiratory Rate 16 07/19/2020 7:5 8 AM CLAY ARTISAN Oxygen Saturation 98% 07/19/2020 7:58 AM CLAY ARTISAN Inhaled Oxygen Concentration - - Weight 147.1 kg (324 lb 4.8 oz) 07/19/2020 7:58 AM CLAY ARTISAN Height 185.4 cm (6' 1 ) 07/19/2020 7:58 AM CLAY ARTISAN Body Mass Index 42.79 07/19/2020 7:58 AM CLAY ARTISAN documented in this encounter Progress Notes * Meet Ang, DO - 07/19/2020 8:00 AM CST Images from the original note were not included. GENERAL OFFICE VISIT Encounter Date: 07/19/20 Chief Complaint: 29-year-old male presents for ER F/U ([facility] ) HPI: Pt presents for ER f/u. At last visit, Discharge note from Dr. Kendy Miner was reviewed In summary: Pt had tachycardia. Pt had elevated troponin while there. Pt had negative stress test and echo, EF 60-65%. Pt was instructed to increased metoprolol to 50 mg daily, f/u with cardiology, and obtain a 30 day worsted winder. Since Discharge: Alex has been doing okay. [...] at that time. No new symptoms today. Pt has been to ER again since last visit. Pt was noted to have desaturations at ER consistent with KIMMY. He had sleep study in the past but had panic attacks for the fitting. Pt is still noting nauseaduring and after eating. He feels he isn't breathing right. Pt has been using albuterol without improvement. He feels dread as well. He has had multiple EKGs, CXR, CTA, the NM stress test, and echo. Most of these tests have not shown significant correlating pathology. Pt still hasn't gotten heart monitor, although he is still within the time frame to receive it. Pt also notes a lump near his groin. He states it is like a bead that hurts really bad if you squeeze it. There is no discharge. It has been there since the beginning of the month. Pt's CTA on 07/15/20 did show findings that could be found with median arcuate ligament syndrome. Pt does have nausea as well as 20 lbs of weight loss in the past month or so. He has had all of the above issues as well at the same time. Review of Systems Constitutional: Negative for fever. Respiratory: See HPI Cardiovascular: See HPI Skin: See HPI Psychiatric/Behavioral: See HPI Medications: Current Outpatient Medications: ??? metoprolol succinate ER 50 MG 24 hr tablet, Take 1 tablet (50 mg total) by mouth daily., Disp: 90 tablet, Rfl: 2 ??? VENTOLIN HFA 108 (90 Base) MCG/ACT inhaler, Inhale 1 puff into the lungs. Every 4 hours PRN, Disp: , Rfl: ??? busPIRone 15 MG tablet, 4 (four) [...] at bedtime. , Disp: , Rfl: 1 Current Outpatient Medications on File Prior to Visit Medication Sig ??? VENTOLIN HFA 108 (90 Base) MCG/ACT inhaler Inhale 1 puff into the lungs. Every 4 hours PRN ??? busPIRone 15 MG tablet 4 (four) [...] 200 mg by mouth nightly at bedtime. No current facility-administered medications on file prior [...] file Gets together: Not on file Attends tenriism service: Not on file Active member of [...] Alive ??? PGF Alive Objective: Filed Vitals: 07/19/20 0758 BP: 106/74 Pulse: 97 Resp: 16 Temp: 98 ??F (36.7 ??C) TempSrc: Skin SpO2: 98% Weight: (!) 147.1 kg (324 lb 4.8 oz) Height: 6' 1 (1.854 m) Physical Exam Vitals signs and nursing note reviewed. Constitutional: Appearance: He is well-developed. He is obese. HENT: Head: Normocephalic and atraumatic. Right Ear: External ear normal. Left Ear: External ear normal. Eyes: Conjunctiva/sclera: Conjunctivae normal. Neck: Musculoskeletal: Neck supple. Cardiovascular: Rate and Rhythm: Normal rate and regular rhythm. Heart sounds: Normal heart sounds. No murmur. No friction rub. No gallop. Pulmonary: Effort: Pulmonary effort is normal. Breath sounds: Normal breath sounds. Abdominal: Palpations: Abdomen is soft. Tenderness: There is no abdominal tenderness. Skin: General: Skin is warm and dry. Comments: Folliculitis in thigh of left leg Neurological: Mental Status: He is alert and oriented to person, place, and time. Assessment & Plan: Alex was seen today for er f/u. Diagnoses and all orders for this visit: KIMMY (obstructive sleep apnea) - Ambulatory referral to Pulmonology (OTHER) Tachycardia - metoprolol succinate ER 50 MG 24 hr tablet; Take 1 tablet (50 mg total) by mouth daily. Folliculitis Anxiety Depression, unspecified depression type Median arcuate ligament syndrome (CMS/HCC) - Ambulatory referral to Vascular Surgery ([facility]) Discussion & Summary: Pt's pulmonary symptoms appear to be psychiatric in origin, given lack of findings on previous exams and failure to improve with albuterol. Will have pt restart buspirone and fluoxetine. Pt is nervous about doing so, as he attributes the mixture of fluoxetine and olanzapine to some of these symptoms. He is agreeable to restarting buspirone and fluoxetine at this time. Continue metoprolol as prescribed. Monitor folliculitis; no evidence on infection only inflammation. Will place new referral forpulmonology as pt has diagnosed KIMMY but needs in lab titration. Will order refer pt to vascular surgeon for further eval for possible median arcuate ligament syndrome. F/u with psychiatry and cardiolo gy as recommended. Will have pt f/u in 1 week for reassessment. Pt v/u. I spent 42 minutes today reviewing the patient's medical record, obtaining history, performing an exam, ordering medications, tests, and/or procedures, documenting in the medical record, referring and/or communicating with other health care providers, counseling and educating the patient/family/caregiver, reviewing and communicating test results and coordination of care. Meet Ang DO ARTISAN documented in this encounter Plan of Treatment Upcoming Encounters Date Type Department Care Team (Late st Contact Info) Description 06/19/2024 8:45 AM CLAY ARTISAN Office Visit [facility], [address] [address] Ren Morse MD [facility] [address] [facility] [place] [address] 07/19/2024 7:00 AM CLAY ARTISAN Office Visit [facility] Medical Group Family & Internal Medicine [facility] [address] [place] [address] Meet Ang DO [address] [place] [address] Scheduled Referrals Name Type Priority Associated Diagnoses Orde r Schedule Ambulatory referral to Pulmonology (OTHER) Referral Routine KIMMY (obstructive sleep apnea) Ordered: 07/19/2020 Ambulatory referral to Vascular Surgery ([facility]) Referral Routine Median arcuate ligament syndrome Ordered: 07/19/2020 documented as of this encounter Visit Diagnoses Diagnosis KIMMY (obstructive sleep apnea)- Primary Obstructive sleep apnea (adult) (pediatric) Tachycardia Tachycardia, unspecified Folliculitis Other specified disease of hair and hair follicles Anxiety Anxiety state, unspecified Depression, unspecified depression type Median arcuate ligament syndrome (CMS/HCC) Celiac artery compression syndrome documented in this encounter Additional Health Concerns Assessment Noted Time PHQ-9 Depression Total Score: 13 07/12/ 021 10:25 AM CLAY ARTISAN documented as of this encounter Care Teams Sand And Gravel Plant Operator Relationship Specialty Start Date End Date Meet Ang DO [address] [place] [address] PCP - General FAMILY PRACTICE 08/16/18 Paresh Gray MD [address] [address] EP Wildlife Control Operator CLINICAL CARDIAC ELECTROPHYSIOLOGY 03/03/19 documented as of this encounter
--- OUTSIDE RECORDS SUMMARY | 2024-05-11 21:15 | XMS_ITS | Encounter Summary ---
Author Organization [facility] Address [address] [place] [address]. [place], [place] [address] [place] [address] Care Team Providers Care Hogshead Inspector Name Role Phone Meet Ang DO Primary Care Provider + Paresh Gray MD Unavailable Reason for Visit * Reason Onset Date Comments Lab Results 05/13/2020 Encounter Details Date Type Department Care Team (Late st Contact Info) Description 05/13/2020 Telephone [facility] Medical Group Family & Internal Medicine [facility] [address] [place] [address] Meet Ang DO [address] [place] [address] Lab Results Social History Tobacco [...] on file Legal Sex Male 2:37 PM PRODUCE DEPARTMENT MANAGER Gender Identity Male 05/16/2021 9:25 AM PRODUCE DEPARTMENT MANAGER Sexual Orientation Straight 05/16/2021 9: 25 AM PRODUCE DEPARTMENT MANAGER COVID-19 Exposure Response Date Recorded In the last month, have you been in contact with someone who was confirmed or suspected to have Coronavirus / COVID-19? No / Unsure 05/10/2020 8:54 AM PRODUCE DEPARTMENT MANAGER documented as of this encounter Progress Notes * Dolly Christensen MA - 05/20/2020 12:14 PM CSTAddended by: DOLLY CHRISTENSEN on: 05/20/2020 12:14 PM Modules accepted: Orders UCE DEPARTMENT MANAGER * Dolly Christensen MA - 05/20/2020 12:13 PM CST Patient informed, order mailed tn UCE DEPARTMENT MANAGER * Meet Ang DO - 05/20/2020 8:57 AM CST Let's recheck Vitamin D and PTH then as well. Can be done at same time as calcium. UCE DEPARTMENT MANAGER * Dolly Christensen MA - 05/20/2020 8:21 AM CSTAddended by: DOLLY CHRISTENSEN on: 05/20/2020 08:21 AM Modules accepted: Orders UCE DEPARTMENT MANAGER * Dolly Christensen MA - 05/20/2020 8:20 AM CST Informed of labs results and that we would like to check ionized calcium levels in 2-3 months. Lab order mailed. Patient states he is not on any vitamin d supplements or MTV. UCE DEPARTMENT MANAGER * Dolly Christensen MA - 05/15/2020 8:18 AM CST Lm 05/15/20 , contact letter mailed. UCE DEPARTMENT MANAGER * So Allen MA - 05/14/2020 10:14 AM CST LMTC 05/14/20 UCE DEPARTMENT MANAGER * So Allen MA - 05/13/2020 4:56 PM CST LMTC 05/13/20 UCE DEPARTMENT MANAGER * So Allen MA - 05/13/2020 9:49 AM CST ----- Message from Meet Ang DO sent at 05/12/2020 12:09 PM PRODUCE DEPARTMENT MANAGER ----- Pt has some somewhat conflicting data. Pt's bilirubin is back WNL. His calcium went down but was WNL previously. Pt's Vitamin D was high on recent checks. I'd recommend to stop any Vitamin D supplementation if he is on any. Recommend increased exercise as HDL was low. We can do ionized calcium lab (will need to order) in 2-3 months. UCE DEPARTMENT MANAGER documented in this encounter Plan of Treatment Upcoming Encounters Date Type Department Care Team (Late st Contact Info) Description 06/19/2024 8:45 AM PRODUCE DEPARTMENT MANAGER Office Visit [facility], [facility] [address] [place] [address] Ren Morse MD [facility] [address] [place] [address] 07/19/2024 7:00 AM PRODUCE DEPARTMENT MANAGER Office Visit [facility] Medical Group Family & Internal Medicine - [place] [address] [place] [phone] Meet Ang DO [facility] [place] [address] documented as of this encounter Visit Diagnoses Diagnosis Low calcium levels- Primary Hypocalcemia High vitamin D level Hypervitaminosis D documented in this encounter Additional Health Concerns Assessment Noted Time PHQ-9 Depression Total Score: 8 04/26/20 20 10:00 AM PRODUCE DEPARTMENT MANAGER documented as of this encounter Care Teams Hogshead Inspector Relationship Specialty Start Date End Date Meet Ang DO [address] [place] [address] PCP - General FAMILY PRACTICE 08/16/18 Paresh Gray MD [address] [address] EP Point Of Care Specialist CLINICAL CARDIAC ELECTROPHYSIOLOGY 03/03/19 documented as of this encounter
--- OUTSIDE RECORDS SUMMARY | 2024-05-11 21:15 | XMS_ITS | Encounter Summary ---
Author Organization [facility] Address [address] [place] [address]. [place], [place] [address] [place] [address] Care Team Providers Care Director Investment Banking Name Role Phone Meet Ang DO Primary Care Provider + Paresh Gray MD Unavailable Encounter Details Date Type Department Care Team (Latest Contact Info) Description 07/12/2020 Scan HEALTH INFO SRVCS Scanned, Documents Social [...] on file Legal Sex Male 2:37 PM LODGING FACILITIES ATTENDANT Gender Identity Male 05/16/2021 9:25 AM LODGING FACILITIES ATTENDANT Sexual Orientation Straight 05/16/2021 9: 25 AM LODGING FACILITIES ATTENDANT COVID-19 Exposure Response Date Recorded In the last month, have you been in contact with someone who was confirmed or suspected to have Coronavirus / COVID-19? No / Unsure 07/19/2020 7:52 AM LODGING FACILITIES ATTENDANT documented as of this encounter Plan of Treatment Upcoming Encounters Date Type Department Care Team ( Contact Info) Description 06/19/2024 8:45 AM LODGING FACILITIES ATTENDANT Office Visit [facility] THREE [facility], [place] [address] [place] [address] Ren Morse MD Three [facility] [address] [place] [address] 07/19/2024 7:00 AM LODGING FACILITIES ATTENDANT Office Visit [facility] Medical Group Family & Internal Medicine - [address] [address] Meet Ang DO [address] [place] [address] documented as of this encounter Visit Diagnoses Not on filedocumented in this encounter Additional Health Concerns Assessment Noted Time PHQ-9 Depression Total Score: 13 07/12/ 021 10:25 AM LODGING FACILITIES ATTENDANT documented as of this encounter Care Teams Director Investment Banking Relationship Specialty Start Date End Date Meet Ang DO [address] [place] [address] PCP - General FAMILY PRACTICE 08/16/18 Paresh Gray MD [facility]. [address] [place] [address] EP Package Delivery Room Service Runner CLINICAL CARDIAC ELECTROPHYSIOLOGY 03/03/19 documented as of this encounter
--- OUTSIDE RECORDS SUMMARY | 2024-05-11 21:15 | XMS_ITS | Encounter Summary ---
Author Organization [facility] Address [address] [place] [address]. [place], [place] [address] [place] [address] Care Team Providers Care Senior Programmer Name Role Phone Meet Ang DO Primary Care Provider + Paresh Gray MD Unavailable Encounter Details Date Type Department Care Team (Latest Contact Info) Description 07/12/2020 Travel Social History Tobacco Use Types Packs/Day [...] on file Legal Sex Male 2:37 PM DIESEL MOTOR MECHANIC Gender Identity Male 05/16/2021 9:25 AM DIESEL MOTOR MECHANIC Sexual Orientation Straight 05/16/2021 9: 25 AM DIESEL MOTOR MECHANIC COVID-19 Exposure Response Date Recorded In the last month, have you been in contact with someone who was confirmed or suspected to have Coronavirus / COVID-19? No / Unsure 07/12/2020 10:10 AM DIESEL MOTOR MECHANIC documented as of this encounter Plan of Treatment Upcoming Encounters Date Type Department Care Team (Late st Contact Info) Description 06/19/2024 8:45 AM DIESEL MOTOR MECHANIC Office Visit [facility] [facility], [place] [address] [place] [address] Ren Morse MD Three [facility] [address] [place] [address] 07/19/2024 7:00 AM DIESEL MOTOR MECHANIC Office Visit [facility] Medical Group Family & Internal Medicine - [address] [address] Meet Ang DO [address] [place] [address] documented as of this encounter Visit Diagnoses Not on filedocumented in this encounter Additional Health Concerns Assessment Noted Time PHQ-9 Depression Total Score: 13 021 10:25 AM DIESEL MOTOR MECHANIC documented as of this encounter Care Teams Senior Programmer Relationship Specialty Start Date End Date Meet Ang DO [address] [place] [address] PCP - General FAMILY PRACTICE 08/16/18 Paresh Gray MD [facility]. [address] [place] [address] EP Training Executive CLINICAL CARDIAC ELECTROPHYSIOLOGY 03/03/19 documented as of this encounter
--- OUTSIDE RECORDS SUMMARY | 2024-05-11 21:15 | XMS_ITS | Encounter Summary ---
Author Organization [facility] Address [address] [place] [address]. [place], [place] [address] [place] [address] Care Team Providers Care Director Non Profit Name Role Phone Meet Ang DO Primary Care Provider + Paresh Gray MD Unavailable Encounter Details Date Type Department Care Team (Latest Contact Info) Description 05/10/2020 5:36 PM DENTURE FINISHER - 05/10/2020 11:59 PM DENTURE FINISHER Hospital Encounter [facility] [place], [place] [id number] Meet Ang DO [address] [place] [address] Discharge Disposition: Home or Self [...] on file Legal Sex Male 2:37 PM DENTURE FINISHER Gender Identity Male 05/16/2021 9:25 AM DENTURE FINISHER Sexual Orientation Straight 05/16/2021 9: 25 AM DENTURE FINISHER COVID-19 Exposure Response Date Recorded In the last month, have you been in contact with someone who was confirmed or suspected to have Coronavirus / COVID-19? No / Unsure 05/10/2020 8:54 AM DENTURE FINISHER documented as of this encounter Medications at Time of Discharge busPIRone 15 MG tablet 4 (four) times daily. 03/26/2020 05/28/2022 dicyclomine 10 MG capsuleIndication s:Irritable bowel syndrome, unspecified type Take 1 capsule (10 mg total) by mouth 3 (three) times a day. Patient is due for appt , no further refills until seen in office or for a virtual visit 45 capsule 03/28/2020 06/27/2020 famotidine 20 MG tabletIndications :Gastroesophageal reflux disease, unspecified whether esophagitis present Take 1 tablet (20 mg total) by mouth 2 (two) times daily. Patient is due for appt , no further refills until seen in office or for a virtual visit 30 tablet 03/28/2020 06/27/2020 FLUoxetine HCl 60 MG Tab TK 1 T PO QD IN THE MORNING 03/26/2020 07/10/2020 loratadine 10 MG tablet Take 10 mg by mouth daily. 05/28/2022 metoprolol succinate ER 25 MG 24 hr tablet Take 1 tablet (25 mg total) by mouth daily. 30 tablet 6 06/12/2019 06/24/2020 OLANZapine 7.5 MG tablet TK 1 T PO QD IN THE MORNING 03/30/2020 05/19/2021 trazodone 100 MG tablet Take 200 mg by mouth nightly at bedtime. 1 02/21/2018 05/19/2021 VENTOLIN HFA 108 (90 Base) MCG/ACT inhaler Inhale 1 puff into the lungs. Every 4 hours PRN 06/15/2018 11/03/2021 documented as of this encounter Progress Notes * Meet Ang, DO - 05/10/2020 5:36 PM CST Pt has some somewhat conflicting data. Pt's bilirubin is back WNL. His calcium went down but was WNL previously. Pt's Vitamin D was high on recent checks. I'd recommend to stop any Vitamin D supplementation if he is on any. Recommend increased exercise as HDL was low. We can do ionized calcium lab (will need to order) in 2-3 months. URE FINISHER documented in this encounter Plan of Treatment Upcoming Encounters Date Type Department Care Team (Late st Contact Info) Description 06/19/2024 8:45 AM DENTURE FINISHER Office Visit [facility] [place] [address] [place] [address] Ren Morse MD Three [facility] [address] [place], [place] [address] 07/19/2024 7:00 AM DENTURE FINISHER Office Visit [facility] Family & Internal Medicine [place] [address] [place] [address] Meet Ang DO [facility] [place] [address] documented as of this encounter Procedures Procedure Name Priority Date/Time Associated Diagnosis Comments COMPREHENSIVE METABOLIC PANEL Routine 05/10/2020 11:00 AM DENTURE FINISHER Serum total bilirubin elevated DIRECT BILIRUBIN Routine 05/10/2020 11:0 0 AM DENTURE FINISHER Serum total bilirubin elevated documented in this encounter Results * (ABNORMAL) COMPREHENSIVE METABOLIC PANEL (05/10/2020 11:00 AM DENTURE FINISHER) GLUCOSE 83 70 - 99 MG/DL 05/10/2020 8:18 PM DENTURE FINISHER [facility] BUN 5(L) 7 - 18 MG/DL 05/10/2020 8:18 PM DENTURE FINISHER [facility] CREATININE S/P/B 0.76 0.7 - 1.3 MG/DL 05/10/2020 8:18 PM DENTURE FINISHER [facility] SODIUM S/P/B 141 136 - 145 MMOL/L 05/10/2020 8:18 PM [facility] POTASSIUM S/P/B 3.9 3.5 - 5.1 MMOL/L 05/10/2020 8:18 PM [facility] CHLORIDE S/P/B 110(H) 100 - 108 MMOL/L 05/10/2020 8:18 PM [facility] CO2 25.6 21 - 32 MMOL/L 05/10/2020 8:18 PM [facility] CALCIUM S/P/B 8.2(L) 8.5 - 10.1 MG/DL 05/10/2020 8:18 PM [facility] BILIRUBIN TOTAL S/P/B 0.8 0.2 - 1.2 MG/DL 05/10/2020 8:18 PM [facility] Comment: THIS ASSAY IS NOT RECOMMENDED FOR PATIENTS UNDERGOING TREATMENT WITH ELTROMBOPAG DUE TO THE POTENTIAL FOR FALSELY ELEVATED RESULTS. TOTAL PROTEIN S/P/B 7.2 6.4 - 8.2 G/DL 05/10/2020 8:18 PM [facility] ALBUMIN S/P/B 3.9 3.4 - 5.0 G/DL 05/10/2020 8:18 PM [facility] AST 29 15 - 37 U/L 05/10/2020 8:18 PM [facility] ALT 62(H) 16 - 60 U/L 05/10/2020 8:18 PM [facility] ALKALINE PHOSPHATASE S/P/B 92 50 - 136 U/L 05/10/2020 8:18 PM [facility] ANION GAP 5.4 5 - 15 MMOL/L 05/10/2020 8:18 PM [facility] BUN CREATININE RATIO 6.6 6 - 26 05/10/2020 8:18 PM [facility] A/G RATIO 1.2 1.0 - 2.0 RATIO 05/10/2020 8:18 PM DENTURE FINISHER [facility] EGFR NON-AFR. AMER. >90 >90 ML/MIN/1.7 3 M2 05/10/2020 8:18 PM DENTURE FINISHER [facility] EGFR AFR. AMER. >90 >90 ML/MIN/1.7 3 M2 05/10/2020 8:18 PM DENTURE FINISHER [facility] Comment: NOTE: eGFR is not calculated for patients <18 years of age. This is an estimated GFR (CKD EPI) and should not be used for calculating drug doses. 05/10/2020 11:0 0 AM DENTURE FINISHER Meet Ang DO LABORATORY Final Re sult Performing Organization Address [facility] Co de Phone Number [facility] [address] [place] [address], [place] [phone] * DIRECT BILIRUBIN (05/10/2020 11:00 AM DENTURE FINISHER) BILIRUBIN DIRECT S/P/B 0.2 0.0 - 0.20 MG/DL 05/10/2020 8:18 PM DENTURE FINISHER [facility] 05/10/2020 11:0 0 AM DENTURE FINISHER Meet Ang DO LABORATORY Final Re sult Performing Organization Address [facility] [place] [facility] Co de Phone Number [facility] [address] [place] [address], [place] [phone] documented in this encounter Visit Diagnoses Diagnosis Serum total bilirubin elevated Jaundice, unspecified, not of documented in this encounter Additional Health Concerns Assessment Noted Time PHQ-9 Depression Total Score: 8 04/26/20 20 10:00 AM DENTURE FINISHER documented as of this encounter Care Teams Director Non Profit Relationship Specialty Start Date End Date Meet Ang DO [address] [place] [address] PCP - General FAMILY PRACTICE 08/16/18 Paresh Gray MD [address] [address] EP Cutting And Boning Supervisor CLINICAL CARDIAC ELECTROPHYSIOLOGY 03/03/19 documented as of this encounter
--- OUTSIDE RECORDS SUMMARY | 2024-05-11 21:15 | XMS_ITS | Encounter Summary ---
Author Organization [facility] Address [address] [place] [address]. [place], [place] [address] [place] [address] Care Team Providers Care Rolled Glass Crosscutter Name Role Phone Meet Ang DO Primary Care Provider + Paresh Gray MD Unavailable Reason for Visit * Reason Comments Follow Up after cardiology manish ointment Encounter Details Date Type Department Care Team (Late st Contact Info) Description 08/29/2020 9:20 AM CDT Office Visit [facility] Family & Internal Medicine [address] [address] Meet Ang DO [address] [place] [phone] Follow Up (after cardiology appointment) Social History Tobacco Use Types Packs/Day Years [...] on file Legal Sex Male 2:37 PM PLASTIC EYE TECHNICIAN Gender Identity Male 05/16/2021 9:25 AM PLASTIC EYE TECHNICIAN Sexual Orientation Straight 05/16/2021 9: 25 AM PLASTIC EYE TECHNICIAN COVID-19 Exposure Response Date Recorded In the last month, have you been in contact with someone who was confirmed or suspected to have Coronavirus / COVID-19? No / Unsure 08/29/2020 9:21 AM CDT documented as of this encounter Last Filed Vital Signs Vital Sign Reading Time Taken Comments Blood Pressure 106/66 08/29/2020 9:24 AM CDT Pulse 100 08/29/2020 9:24 AM CDT Temperature 36.2 ??C (97.2 ??F) 08/29/2020 9:24 AM CD T Respiratory Rate 16 08/29/2020 9:24 AM CDT Oxygen Saturation 98% 08/29/2020 9:24 AM CDT Inhaled Oxygen Concentration - - Weight 154.7 kg (341 lb) 08/29/2020 9:24 AM CDT Height 185.4 cm (6' 1 ) 08/29/2020 9:24 AM CDT Body Mass Index 44.99 08/29/2020 9:24 AM CDT documented in this encounter Progress Notes * Meet Ang, - 08/29/2020 9:20 AM CDT Images from the original note were not included. GENERAL OFFICE VISIT Encounter Date: 08/29/2020 Chief Complaint: 29-year-old male presents for Follow Up (after cardiology appointment) HPI: Pt saw cardiology since last evaluation. Pt was recommended to continue metoprolol succinate. He reinforced that he did not have a heart attack. He was also recommended to see Dr. Henry for sleep medicine for his KIMMY. He will be seen in October for this. Pt may have had a panic attack since last evaluation, but he's typically doing well. Pt does need ionized calcium still and will have drawn with blood. Review of Systems Constitutional: Negative for fever. Respiratory: See HPI Cardiovascular: See HPI Patient Active Problem List Diagnosis [...] of 40.0 to 44.9 in adult ([facility]) Past Medical History: Diagnosis Date ??? [...] file Gets together: Not on file Attends sikhism service: Not on file Active member of [...] tablet (50 mg total) by mouth daily. 90 tablet 2 ??? VENTOLIN HFA 108 (90 Base) MCG/ACT inhaler Inhale 1 puff into the lungs. Every 4 hours PRN ??? dicyclomine 10 MG capsule Take 1 capsule (10 mg total) by mouth 3 (three) times a day. 45 capsule 1 ??? famotidine 20 MG tablet Take 1 tablet (20 mg total) by mouth 2 (two) times daily. 90 tablet 1 ??? FLUoxetine 20 MG tablet Take 20 mg by mouth every morning. ??? loratadine 10 MG tablet Take 10 mg by mouth daily. ??? OLANZapine 7.5 MG tablet TK 1 T PO QD IN THE MORNING ??? trazodone 100 MG tablet Take 200 mg by mouth nightly at bedtime. 1 No current facility-administered medications for this visit. Current Outpatient Medications on File Prior to Visit Medication Sig ??? busPIRone 15 MG tablet 4 (four) times daily. ??? metoprolol succinate ER 50 MG 24 hr tablet Take 1 tablet (50 mg total) by mouth daily. ??? VENTOLIN HFA 108 (90 Base) MCG/ACT inhaler Inhale 1 puff into the lungs. Every 4 hours PRN ??? dicyclomine 10 MG capsule Take 1 [...] ??? Bee Venom Swelling Objective: Filed Vitals: 08/29/20 0924 BP: 106/66 Pulse: 100 Resp: 16 Temp: 97.2 ??F (36.2 ??C) TempSrc: Skin SpO2: 98% Weight: (!) 154.7 kg (341 lb) Height: 6' 1 (1.854 m) Physical Exam Constitutional: Obese, in no distress HENT: Head: Normocephalic and atraumatic. Right Ear: External ear normal. Left Ear: External ear normal. Eyes: Conjunctivae are normal. Cardiovascular: Normal rate, regular rhythm and normal heart sounds. Exam reveals no gallop and no friction rub. No murmur heard. Pulmonary/Chest: Effort normal and breath sounds normal. No respiratory distress. He has no wheezes. He has no rales. Nursing note and vitals reviewed. Assessment & Plan: Alex was seen today for follow up. Diagnoses and all orders for this visit: Tachycardia Palpitations Class 3 severe obesity due to excess calories with serious comorbidity and body mass index (BMI) of40.0 to 44.9 in adult ([facility]) KIMMY (obstructive sleep apnea) Anxiety Discussion/Summary: Continue current medications. F/u with cariology and sleep medicine. Obtain ionizied calcium as ordered. F/u in office in 6 months or sooner if needed. Pt v/u. Meet Ang DO documented in this encounter Plan of Treatment Upcoming Encounters Date Type Department Care Team (Late st Contact Info) Description 06/19/2024 8:45 AM PLASTIC EYE TECHNICIAN Office Visit [facility], [address] [address] Ren Morse MD [facility] [address] [place] [address] 07/19/2024 7:00 AM PLASTIC EYE TECHNICIAN Office Visit [facility] Family & Internal Medicine - [place] [address] [place] [address] Meet Ang DO [facility] [place] [address] documented as of this encounter Visit Diagnoses Diagnosis Tachycardia- Primary Tachycardia, unspecified Palpitations Class 3 severe obesity due to excess calories with serious comorbidity and body mass index (BMI) of 40.0 to 44.9 in adult ([facility]) KIMMY (obstructive sleep apnea) Obstructive sleep apnea (adult) (pediatric) Anxiety Anxiety state, unspecified documented in this encounter Additional Health Concerns Assessment Noted Time PHQ-9 Depression Total Score: 13 021 10:25 AM PLASTIC EYE TECHNICIAN documented as of this encounter Care Teams Rolled Glass Crosscutter Relationship Specialty Start Date End Date Meet Ang DO [address] [place] [address] PCP - General FAMILY PRACTICE 08/16/18 Paresh Gray MD [address] [address] EP Weight Loss Consultant CLINICAL CARDIAC ELECTROPHYSIOLOGY 03/03/19 documented as of this encounter
--- OUTSIDE RECORDS SUMMARY | 2024-05-11 21:15 | XMS_ITS | Encounter Summary ---
Author Organization [facility] Address [address] [place] [address]. [place], [place] [address] [place] [address] Care Team Providers Care Gauge And Weigh Machine Operator Name Role Phone Meet Ang DO Primary Care Provider + Paresh Gray MD Unavailable Encounter Details Date Type Department Care Team (Latest Contact Info) Description 08/29/2020 Travel Social History Tobacco Use Types Packs/Day [...] on file Legal Sex Male 2:37 PM BANDER AND CELLOPHANER HELPER MACHINE Gender Identity Male 05/16/2021 9:25 AM BANDER AND CELLOPHANER HELPER MACHINE Sexual Orientation Straight 05/16/2021 9: 25 AM BANDER AND CELLOPHANER HELPER MACHINE COVID-19 Exposure Response Date Recorded In the last month, have you been in contact with someone who was confirmed or suspected to have Coronavirus / COVID-19? No / Unsure 08/29/2020 9:21 AM CDT documented as of this encounter Plan of Treatment Upcoming Encounters Date Type Department Care Team (Late st Contact Info) Description 06/19/2024 8:45 AM BANDER AND CELLOPHANER HELPER MACHINE Office Visit [facility], [place] [place] [address] Ren Morse MD Three [facility] [address] [place] [address] 07/19/2024 7:00 AM BANDER AND CELLOPHANER HELPER MACHINE Office Visit [facility] Family & Internal Medicine - [address] [address] Meet Ang DO [address] [place] [address] documented as of this encounter Visit Diagnoses Not on filedocumented in this encounter Additional Health Concerns Assessment Noted Time PHQ-9 Depression Total Score: 13 07/12/ 021 10:25 AM BANDER AND CELLOPHANER HELPER MACHINE documented as of this encounter Care Teams Gauge And Weigh Machine Operator Relationship Specialty Start Date End Date Meet Ang DO [address] [place] [address] PCP - General FAMILY PRACTICE 08/16/18 Paresh Gray MD [facility]. [facility] [address] [place] [address] EP Automatic Gluing Machine Operator CLINICAL CARDIAC ELECTROPHYSIOLOGY 03/03/19 documented as of this encounter
--- OUTSIDE RECORDS SUMMARY | 2024-05-11 21:15 | XMS_ITS | Encounter Summary ---
Author Organization [facility] Address [address] [place] [address]. 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 No / Unsure 08/29/2020 9:21 AM CDT documented as of this encounter Progress Notes * Meet Ang DO - 09/25/2020 3:53 PM CDT Calcium is on low end of normal; we will monitor with regular blood tests going forward. documented in this encounter Plan of Treatment Upcoming Encounters Date Type Department Care Team (Late st Contact Info) Description 06/19/2024 8:45 AM BONDING MACHINE SETTER Office Visit [facility], [place] [place] [address] Ren Morse MD [facility] [address] [place] [address] 07/19/2024 7:00 AM BONDING MACHINE SETTER Office Visit [facility] Family & Internal Medicine - [place] [address] [place] [address] Meet Ang DO [facility] [place] [address] documented as of this encounter Procedures Procedure Name Priority Date/Time Associated Diagnosis Comments CALCIUM, IONIZED Routine 09/24/2020 8:37 AM CDT documented in this encounter Results * CALCIUM, IONIZED (09/24/2020 8:37 AM CDT) CALCIUM IONIZED 4.8 4.8 - 5.6 mg/dL [facility] 09/24/2020 8:37 AM CDT 09/24/2020 8:39 AM CDT Meet P Luchtefeld DO LABORATORY Final Re sult [facility] [address] [place] [address] documented in this encounter Visit Diagnoses Not on filedocumented in this encounter Additional Health Concerns Assessment Noted Time PHQ-9 Depression Total Score: 13 07/12/ 021 10:25 AM BONDING MACHINE SETTER documented as of this encounter Care Teams Operating System Designer Relationship Specialty Start Date End Date Meet Ang DO [address] [place] [address] PCP - General FAMILY PRACTICE 08/16/18 Paresh Grya MD [address] [address] EP Resource Management Specialist CLINICAL CARDIAC ELECTROPHYSIOLOGY 03/03/19 documented as of this encounter
--- OUTSIDE RECORDS SUMMARY | 2024-05-11 21:15 | XMS_ITS | Encounter Summary ---
Author Organization [facility] Address [address] [place] [address]. [place] [address] [place] [address] Care Team Providers Care Stoneworking Sander Name Role Phone Meet Ang DO Primary Care Provider + Paresh Gray MD Unavailable Reason for Visit * Reason Comments Image (SCAN) Encounter Details Date Type Department Care Team (Latest Contact Info) Description 07/11/2020 Scan HEALTH INFO SRVCS Scanned, Documents Image [...] on file Legal Sex Male 2:37 PM MACHINE II COREMAKER Gender Identity Male 05/16/2021 9:25 AM MACHINE II COREMAKER Sexual Orientation Straight 05/16/2021 9: 25 AM MACHINE II COREMAKER COVID-19 Exposure Response Date Recorded In the last month, have you been in contact with someone who was confirmed or suspected to have Coronavirus / COVID-19? No / Unsure 07/12/2020 10:10 AM MACHINE II COREMAKER documented as of this encounter Plan of Treatment Upcoming Encounters Date Type Department Care Team (Late st Contact Info) Description 06/19/2024 8:45 AM MACHINE II COREMAKER Office Visit [facility] [address] [facility] [address], [place] [address] [place] [address] Ren Morse MD [address] [facility] [address] [place] [address] 07/19/2024 7:00 AM MACHINE II COREMAKER Office Visit [facility] Group Family & Internal Medicine [facility] [address] [place] [address] [place] [address] [place] [address] documented as of this encounter Procedures Procedure Name Priority Date/Time Associated Diagnosis Comments IMAGE GENERIC 07/11/2020 documented in this encounter Results * IMAGE GENERIC (07/11/2020) Anatomical Region Laterality Modality Other 07/11/2020 Narrative 07/11/2020 Ordered by an unspecified provider. us Documents Scanned SCANNING Final Result documented in this encounter Visit Diagnoses Not on filedocumented in this encounter Additional Health Concerns Assessment Noted Time PHQ-9 Depression Total Score: 8 04/26/20 20 10:00 AM MACHINE II COREMAKER documented as of this encounter Care Teams Stoneworking Sander Relationship Specialty Start Date End Date Meet Ang DO [address] [place] [address] PCP - General FAMILY PRACTICE 08/16/18 Paresh Gray MD Three [facility]. [place] [address] [place] [address] EP Regional Account Manager CLINICAL CARDIAC ELECTROPHYSIOLOGY 03/03/19 documented as of this encounter
--- OUTSIDE RECORDS SUMMARY | 2024-05-11 21:15 | XMS_ITS | Encounter Summary ---
Author Organization [facility] Address [address] [place] [address]. 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 Gender Identity Male 05/16/2021 9:25 AM FISHING TACKLE REPAIRER Sexual Orientation Straight 05/16/2021 9: 25 AM FISHING TACKLE REPAIRER documented as of this encounter Plan of Treatment Upcoming Encounters Date Type Department Care Team (Late st Contact Info) Description 06/19/2024 8:45 AM FISHING TACKLE REPAIRER [facility], [place] [place] [address] Ren Morse MD [facility] [address] [place] [address] 07/19/2024 7:00 AM FISHING TACKLE REPAIRER Office Visit [facility] Family & Internal Medicine - [address] [address] Meet Ang DO [address] [place] [address] documented as of this encounter Visit Diagnoses Not on filedocumented in this encounter Additional Health Concerns Assessment Noted Time PHQ-9 Depression Total Score: 18 019 3:33 PM CDT documented as of this encounter Care Teams Caregivers Homecare Relationship Specialty Start Date End Date Meet Ang DO [address] [place] [address] PCP - General FAMILY PRACTICE 08/16/18 documented as of this encounter
--- OUTSIDE RECORDS SUMMARY | 2024-05-11 21:15 | XMS_ITS | Encounter Summary ---
Author Organization [facility] Address [address] [place] [address]. [place], [place] [id number] [place] [id number] Care Team Providers Care Garment Inspector Name Role Phone Meet Ang DO Primary Care Provider + Paresh Gray MD Unavailable Encounter Details Date Type Department Care Team (Latest Contact Info) Description 04/26/2020 Travel Social History Tobacco Use Types Packs/Day [...] on file Legal Sex Male 2:37 PM PURCHASE REQUEST EDITOR Gender Identity Male 05/16/2021 9:25 AM PURCHASE REQUEST EDITOR Sexual Orientation Straight 05/16/2021 9: 25 AM PURCHASE REQUEST EDITOR COVID-19 Exposure Response Date Recorded In the last month, have you been in contact with someone who was confirmed or suspected to have Coronavirus / COVID-19? No / Unsure 04/26/2020 9:42 AM PURCHASE REQUEST EDITOR documented as of this encounter Plan of Treatment Upcoming Encounters Date Type Department Care Team (Late st Contact Info) Description 06/19/2024 8:45 AM PURCHASE REQUEST EDITOR [facility] [address] [address] [place] [address] Ren Morse MD [facility] [address] [place] [address] 07/19/2024 7:00 AM PURCHASE REQUEST EDITOR Office Visit [facility] Family [facility] Internal Medicine - [address] [phone] Meet Ang DO [address] [place] [phone] documented as of this encounter Visit Diagnoses Not on filedocumented in this encounter Additional Health Concerns Assessment Noted Time PHQ-9 Depression Total Score: 8 04/26/20 20 10:00 AM PURCHASE REQUEST EDITOR documented as of this encounter Care Teams Garment Inspector Relationship Specialty Start Date End Date Meet Ang DO [address] [place] [phone] PCP - General FAMILY PRACTICE 08/16/18 Paresh Gray MD Three [facility]. [address] [place] [address] EP Glass Cylinder Flanger CLINICAL CARDIAC ELECTROPHYSIOLOGY 03/03/19 documented as of this encounter
--- OUTSIDE RECORDS SUMMARY | 2024-05-11 21:17 | XMS_ITS | Clinical Summary ---
Author Organization [facility] Address [address] [place] [address] Care Team Providers Care Invisible Braces Orthodontist Name Role Phone Meet Ang DO Primary Care Provide r Allergies Active Allergy Reactions Criticality Noted Date Comments Venom-Honey Bee Swelling Medium 08/16/2018 Medications busPIRone (BUSPAR) 15 mg tablet Take 15 mg by mouth daily 1 Active albuterol HFA (PROVENTIL HFA,VENTOLIN HFA,PROAIR HFA) 90 mcg/actuation inhaler Inhale 1 puff 9 Active clobetasoL (CLOBEX) 0.05 % shampoo 1 Active triamcinolone (KENALOG) 0.025 % ointment Apply to ear twice daily as needed psoriasis. 30 days supply. Reasons: Psoriasis 3 Active ketoconazole (NIZORAL) 2 % shampoo Apply topically 3 Active atenoloL (TENORMIN) 25 mg tablet Take 1 tablet (25 mg total) by mouth daily 90 tablet 3 3 Active Active Problems Problem Noted Date Diagnosed Date Dyspnea 03/26/2022 Elevated troponin level not due myocardial infar ction 08/21/2020 Class 3 severe obesity with body mass index (BMI) of 40.0 to 44.9 in adult 08/21/2020 Palpitations 08/21/2020 Leukocytosis 08/21/2020 Medical History Medical History Date Comments Asthma Depression Family History Medical History Relation Name Comments Heart attack Maternal Grandfather bypass Paternal Grandfather Relation Name Status Comments Maternal Grandfather Paternal Grandfather Alive Social History Tobacco Use Types Packs/Day Years Used Date Smoking Tobacco: Former Cigarettes Smokeless Tobacco: Never Personal Safety Answer Date Recorded Getting School Help Needed Not on file 05/21 Sex and Gender Information Value Date Recorded Sex Assigned at Not on file Legal Sex Male 5:38 PM HYDRAULIC OPERATOR Gender Identity Not on file Sexual Orientation Not on file Obstetrics History Last Filed Vital Signs Vital Sign Reading Time Taken Comments Blood Pressure 136/76 03/30/2023 9:58 AM HYDRAULIC OPERATOR Pulse 84 03/30/2023 9:58 AM HYDRAULIC OPERATOR Temperature 36.8 ??C (98.3 ??F) 04/09/2022 9:38 AM CS T Respiratory Rate 14 04/09/2022 11:01 AM HYDRAULIC OPERATOR Oxygen Saturation 98% 03/30/2023 9:58 AM HYDRAULIC OPERATOR Inhaled Oxygen Concentration - - Weight 153.3 kg (338 lb) 03/30/2023 9:58 AM HYDRAULIC OPERATOR Height 188 cm (6' 2 ) 04/09/2022 9:38 AM HYDRAULIC OPERATOR Body Mass Index 43.4 04/09/2022 9:38 AM HYDRAULIC OPERATOR Plan of Treatment Health Maintenance Due Date Last Done Comments Depression Screening 1989 Hepatitis C Screening 1989 Pneumococcal vaccine <65 (1 of 2 - PCV) 09/17/1995 Varicella Vaccines (1 of 2 - 13+ 2-dose series) 2002 Regular Well Visit/Exam 18-64 09/17/2007 Covid-19 Vaccine ( season) 2024 08/20/2020, 07/30/2020 Influenza Vaccine (#1) 2024 , 03/04/2021, 04/26/2020, Additional history exists DTaP/Tdap/Td Vaccine (6 - Td or Tdap) 01/13/2029 01/13/2019, 12/17/1994, 11/21/1992, Additional history exists HPV Vaccines Aged Out No longer eligi ble based on patient's age to complete this topic Insurance [facility] Care Teams Invisible Braces Orthodontist Relationship Specialty Start Date End Date Meet Ang DO [address] [place] [id number] PCP - General 07/07/20
--- OUTSIDE RECORDS SUMMARY | 2024-05-11 21:17 | XMS_ITS | Encounter Summary ---
Author Organization [facility] Healthcare Address [address] [place] [address] Care Team Providers Care Insurance Rater Name Role Phone Meet Ang DO Primary Care Provide r Reason for Visit * Reason Comments Numbness Encounter Details Date Type Department Care Team (Late st Contact Info) Description 04/09/2022 10:27 AM DIRECTOR INDEPENDENT - 04/09/2022 11:06 AM [facility] Emergency [facility] Emergency Department [address] [place], [place] [address] Sharon Lea MD [address] [place] [address] [place] [address] Radiculopathy, unspecified spinal region (Primary Dx) Discharge Disposition: Discharge to home or self care Social History Tobacco Use Types Packs/Day Years Used Date Smoking Tobacco: Former Cigarettes Smokeless Tobacco: Never Sex and Gender Information Value Date Recorded Sex Assigned at Not on file Legal Sex Male 5:38 PM DIRECTOR INDEPENDENT Gender Identity Not on file Sexual Orientation Not on file documented as of this encounter Last Filed Vital Signs Vital Sign Reading Time Taken Comments Blood Pressure 130/84 04/09/2022 11:01 AM DIRECTOR INDEPENDENT Pulse 80 04/09/2022 11:01 AM DIRECTOR INDEPENDENT Temperature 36.8 ??C (98.3 ??F) 04/09/2022 9:38 AM CS T Respiratory Rate 14 04/09/2022 11:0 1 AM DIRECTOR INDEPENDENT Oxygen Saturation 95% 04/09/2022 11: 01 AM DIRECTOR INDEPENDENT Inhaled Oxygen Concentration - - Weight 146.6 kg (323 lb 3.1 oz) 04/09/2022 9:38 AM DIRECTOR INDEPENDENT Height 188 cm (6' 2 ) 04/09/2022 9:38 AM DIRECTOR INDEPENDENT Body Mass Index 41.5 04/09/2022 9:38 AM DIRECTOR INDEPENDENT documented in this encounter Discharge Instructions * Attachments The following attachments cannot be sent through Care Everywhere. * Lower Back Exercises (AfterCare(R) Instructions(ER/ED)) (Burmese) documented in this encounter Medications at Time of Discharge albuterol HFA (PROVENTIL HFA,VENTOLIN HFA,PROAIR HFA) 90 mcg/actuation inhaler Inhale 1 puff 06/15/2018 busPIRone (BUSPAR) 15 mg tablet Take 15 mg by mouth daily 06/24/2020 clobetasoL (CLOBEX) 0.05 % shampoo 05/19/2021 atenoloL (TENORMIN) 25 mg tablet Take 1 tablet (25 mg total) by mouth daily 90 tablet 3 03/26/2022 03/30/2023 documented as of this encounter Discharge Disposition Disposition Code Departure Means Destination Discharge to home or self care documented in this encounter ED Notes * Sharon Lea MD - 04/09/2022 10:47 AM CST HPI Chief Complaint Patient presents with Numbness HPI 31-year-old male history is [place] presents with numbness and tingling. Patient states for the last 4 5days has been experiencing intermittent numbness and tingling of his left leg. He occasionally has tingling in his left under armpit. He denies any chest pain or shortness of breath. No trauma or falls. No weakness. Patient History: Patient Active Problem List Diagnosis Date Noted Dyspnea 03/26/2022 Elevated troponin level not due myocardial infarction 08/21/2020 Class 3 severe obesity with body mass index (BMI) of 45.0 to 49.9 in adult (CMS/HCC) (HCC) 08/21/2020 Palpitations 08/21/2020 Leukocytosis 08/21/2020 Past Medical History: Diagnosis Date Asthma Depression No past surgical history on file. Family History Problem Relation Age of Onset Heart attack Maternal Grandfather Other (bypass) Paternal Grandfather Social History Tobacco Use Smoking status: Former Years: 5.00 Types: Cigarettes Smokeless tobacco: Never Substance and Sexual Activity Alcohol use: Not on file Drug use: Never Sexual activity: Defer Social History Social History Narrative Not on file Review of Systems Review of Systems Constitutional: Negative for chills and fever. HENT: Negative for ear pain and sore throat. Eyes: Negative for pain and visual disturbance. Respiratory: Negative for cough and shortness of breath. Cardiovascular: Negative for chest pain and palpitations. Gastrointestinal: Negative for abdominal pain and vomiting. Genitourinary: Negative for dysuria and hematuria. Musculoskeletal: Negative for arthralgias and back pain. Skin: Negative for color change and rash. Neurological: Positive for numbness. Negative for seizures and syncope. All other systems reviewed and are negative. Physical Exam ED Triage Vitals [04/09/22 0938] Temp Pulse Resp BP SpO2 36.8 ??C (98.3 ??F) 87 18 111/79 96 % Temp src Heart Rate Source Patient Position BP Location FiO2 (%) Oral -- -- -- -- Height Height Method Weight Weight Method 1.88 m (6' 2 ) Stated (!) 146.6 kg (323 lb 3.1 oz) Standing scale Physical Exam Vitals and nursing note reviewed. Constitutional: General: He is not in acute distress. Appearance: He is well-developed. HENT: Head: Normocephalic and atraumatic. Eyes: Conjunctiva/sclera: Conjunctivae normal. Cardiovascular: Rate and Rhythm: Normal rate and regular rhythm. Heart sounds: No murmur heard. Pulmonary: Effort: Pulmonary effort is normal. No respiratory distress. Breath sounds: Normal breath sounds. Abdominal: Palpations: Abdomen is soft. Tenderness: There is no abdominal tenderness. Musculoskeletal: General: No swelling. Cervical back: Neck supple. Skin: General: Skin is warm and dry. Capillary Refill: Capillary refill takes less than 2 seconds. Neurological: Mental Status: He is alert. Psychiatric: Mood and Affect: Mood normal. MDM MDM No focal deficits noted on examination. CT head negative for acute process. No suspicion for stroke. Likely has a radiculopathy. Final diagnoses: Radiculopathy, unspecified spinal region Sharon Lea MD 04/09/22 1049 CTOR INDEPENDENT * Kaci Hackett, RN - 04/09/2022 9:35 AM CST Pt c/o numbness to LT arm and leg for a day and a half. Pt states starting to have some in RT foot for a couple of seconds then goes away. Has not happened to him before. CTOR INDEPENDENT documented in this encounter Plan of Treatment Not on file documented as of this encounter Procedures Procedure Name Priority Date/Time Associated Diagnosis Comments XR CHEST 1 VIEW ED 04/09/2022 10:16 AM DIRECTOR INDEPENDENT TROPONIN T HIGH-SENSITIVITY SERIES (BASELINE, 2HR, 4HR, 6HR) STAT 04/09/2022 10:10 AM DIRECTOR INDEPENDENT EGFR STAT 04/09/2022 10:10 AM DIRECTOR INDEPENDENT DIFFERENTIAL AUTO STAT 04/09/2022 10: 10 AM DIRECTOR INDEPENDENT CBC WITH AUTO DIFFERENTIAL STAT 04/09/2022 10:10 AM DIRECTOR INDEPENDENT APTT STAT 04/09/2022 10:10 AM DIRECTOR INDEPENDENT PROTIME-INR STAT 04/09/2022 10:10 AM DIRECTOR INDEPENDENT COMPREHENSIVE METABOLIC PANEL STAT 04/09/2022 10:10 AM DIRECTOR INDEPENDENT ECG 12-LEAD STAT 04/09/2022 10:[address] HEAD WO CONTRAST ED 04/09/2022 9 :56 AM DIRECTOR INDEPENDENT POCT GLUCOSE DEVICE Routine 04/09/2022 9 :42 AM DIRECTOR INDEPENDENT documented in this encounter Results * XR Chest 1 Vw Portable (04/09/2022 10:16 AM DIRECTOR INDEPENDENT) Anatomical Region Laterality Modality Body, Chest N/A Computed Radiogr aphy 04/09/2022 10:1 8 AM DIRECTOR INDEPENDENT Narrative 04/09/2022 10:28 AM DIRECTOR INDEPENDENT EXAM DESCRIPTION: ?? XR CHEST 1 VIEW REASON FOR STUDY: ?? cp ?? Pt c/o numbness to LT arm and leg for a day and a half. Pt states starting to have some in RT foot for a couple of seconds then goes away ?? TECHNIQUE: ?? One ??radiographic view of the chest acquired. COMPARISON: ?? 11/03/2021 FINDINGS: LUNGS/PLEURA: ?? No focal consolidation or pneumothorax. No pleural effusion. HEART/MEDIASTINUM: ?? Heart size is normal. Normal mediastinal and hilar contours. HARDWARE/LINES/TUBES: ?? None. BONES: ?? No acute findings. OTHER: ?? No other significant finding. IMPRESSION: ?? No acute cardiopulmonary abnormality. THIS IS AN ELECTRONICALLY VERIFIED FINAL REPORT 04/09/2022 10:28 AM - Electronically signed by ??Vin Carrillo M.D. BG: D: ??04/09/2022 10:28 AM T: ??04/09/2022 10:28 AM Report ID: [id number] Reading Location: ??[id number] Procedure Note Vin Carrillo MD - 04/09/2022 EXAM DESCRIPTION: XR CHEST 1 VIEW REASON FOR STUDY: cp Pt c/o numbness to LT arm and leg for a day and a half. Pt states startingto have some in RT foot for a couple of seconds then goes away TECHNIQUE: One radiographic view of the chest acquired. COMPARISON: 11/03/2021 FINDINGS: LUNGS/PLEURA: No focal consolidation or pneumothorax. Nopleural effusion. HEART/MEDIASTINUM: Heart size is normal. Normal mediastinal and hilar contours. HARDWARE/LINES/TUBES: None. BONES: No acute findings. OTHER: No other significant finding. IMPRESSION: No acute cardiopulmonary abnormality. THIS IS AN ELECTRONICALLY VERIFIED FINAL REPORT 04/09/2022 10:28 AM - Electronically signed by Vin Carrillo M.D. BG: BG Report ID: [id number] Reading Location: [id number] Katrina BONILLA IMG XR PROCEDURES Final R esult * eGFR (04/09/2022 10:10 AM DIRECTOR INDEPENDENT) eGFR 132 mL/min/1. 73 m2 SARAH SWANSON Comment: Interpretive Data Reference Interval Normal ?>/= 90 mL/min/1.73m2 Mildly decreased* ? 60 - 89 mL/min/1.73m2 Mildly to moderately decreased ?45 - 59 mL/min/1.73m2 Moderately to severely decreased ??30 - 44 mL/min/1.73m2 Severely decreased ?15 - 29 mL/min/1.73m2 Kidney Failure ?< 15 ??mL/min/1.73m2 *Relative to young adult level Estimated glomerular filtration rate is determined by the 2020 CKD-EPI equation recommended by the National Kidney Foundation (A Unifying Approach to GFR Estimation: Recommendations of the NKF-ASK Task Force on Reassessing the Inclusion of Race in Diagnosing Kidney Disease, JASN 2020). The CKD-EPI equation should not be used for patients with unstable renal function and has not been validated in children and those over 70. Current interpretive data was last reviewed 2021. Testing performed by: [facility], [address] [place] [address]., [id number] Blood 04/09/2022 10:1 0 AM DIRECTOR INDEPENDENT 04/09/2022 10:20 AM DIRECTOR INDEPENDENT Katrina BONILLA LAB BLOOD ORDERABLES Lynn l Result SARAH SWANSON [address] [facility] Department [place] [address] * Differential, auto (04/09/2022 10:10 AM DIRECTOR INDEPENDENT) Neutrophil abs 5.4 1.7 - 6.5 K/cumm SARAH Comment:Testing performed by : [address] [address] Imm gran abs 0.0 0.0 - 0.1 K/cumm SARAH Comment:Testing performed by : [address] [address] Lymphocyte abs 2.9 0.8 - 3.3 K/cumm SARAH Comment:Testing performed by : [address] [address] Monocyte abs 0.8 0.2 - 0.8 K/cumm SARAH Comment:Testing performed by : [address] [address] Eosinophil abs 0.3 0.0 - 0.5 K/cumm SARAH Comment:Testing performed by : [address] [address] Basophil abs 0.0 0.0 - 0.1 K/cumm [facility] Comment:Testing performed by : [address] [address] Neutrophil pct 57.7 % [facility] Comment: Interpretive Data Percent cell count reference ranges are not reported, since discordance with absolute values may lead to misinterpretation of CBC data. Current Interpretive Data was last revised on 2017. Testing performed by: [address] [address] Imm gran pct 0.2 % [facility] Comment: Interpretive Data Percent cell count reference ranges are not reported, since discordance with absolute values may lead to misinterpretation of CBC data. Current Interpretive Data was last revised on 2017. Testing performed by: [address] [address] Lymphocyte pct 30.4 % [facility] Comment: Interpretive Data Percent cell count reference ranges are not reported, since discordance with absolute values may lead to misinterpretation of CBC data. Current Interpretive Data was last revised on 2017. Testing performed by: [address] [address] Monocyte pct 8.4 % SARAH Comment: Interpretive Data Percent cell count reference ranges are not reported, since discordance with absolute values may lead to misinterpretation of CBC data. Current Interpretive Data was last revised on 2017. Testing performed by: [address] [address] Eosinophil pct 2.9 % SARAH Comment: Interpretive Data Percent cell count reference ranges are not reported, since discordance with absolute values may lead to misinterpretation of CBC data. Current Interpretive Data was last revised on 2017. Testing performed by: [address] [address] Basophil pct 0.4 % SARAH Comment: Interpretive Data Percent cell count reference ranges are not reported, since discordance with absolute values may lead to misinterpretation of CBC data. Current Interpretive Data was last revised on 2017. Testing performed by: [address] [address] Blood 04/09/2022 10:1 0 AM DIRECTOR INDEPENDENT 04/09/2022 10:20 AM DIRECTOR INDEPENDENT Katrina BONILLA LAB BLOOD ORDERABLES Lynn l Result [facility] [address] [facility] Department [place] [address] * Protime-INR (04/09/2022 10:10 AM DIRECTOR INDEPENDENT) PT 14.1 12.0 - 14.6 sec SARAH Comment:Testing performed by : [address] [address] INR 1.1 0.9 - 1.2 SARAH Comment: Ref Range High Interpretive data Oral anticoagulant therapeutic ranges: Venous thromboembolism prophylaxis or treatment: 2.0-3.0 CARDIOLOGY Standard range: 2.0-3.0 High-intensity range: 2.5-3.5 Refer to indication-specific guidelines for appropriate target ranges for prosthetic heart valve replacement. Current interpretive data was last revised on 2019. Testing performed by: [address] [address] Blood 04/09/2022 10:1 0 AM DIRECTOR INDEPENDENT 04/09/2022 10:20 AM DIRECTOR INDEPENDENT Katrina BONILLA LAB BLOOD ORDERABLES Lynn l Result Performing Organization Address [facility] Co de Phone Number [address] [address] * aPTT (04/09/2022 10:10 AM DIRECTOR INDEPENDENT) aPTT 31 22 - 37 sec SARAH Comment: Interpretive data aPTT test has not been evaluated for monitoring heparin therapy. The anti-Xa is the preferred test. Current interpretive data was last revised on 2019. Testing performed by: [address] [address] Blood 04/09/2022 10:1 0 AM DIRECTOR INDEPENDENT 04/09/2022 10:20 AM DIRECTOR INDEPENDENT Katrina BONILLA LAB BLOOD ORDERABLES Lynn l Result Performing Organization Address [facility] de Phone Number [address] [address] * Troponin T high-sensitivity series (baseline, 2hr, 4hr, 6hr) (04/09/2022 10:10 AM DIRECTOR INDEPENDENT) Trop T hs <6 <=22 ng/L SARAH Comment: REDRAW: HEMOLYZED SPECIMEN Interpretive Data For further hscTnT resources including the diagnostic algorithm and an aid in interpretation, copy and paste this link: https://nrl.testcatalog.org/show/hsTrop Current Interpretive Data last revised 2020. Testing performed by: [address] [address] Blood 04/09/2022 10:1 0 AM DIRECTOR INDEPENDENT 04/09/2022 10:20 AM DIRECTOR INDEPENDENT us Katrina BONILLA LAB BLOOD ORDERABLES Lynn pratt Result SARAH [address] [facility] Department [place] [address] * (ABNORMAL) Comprehensive metabolic panel (04/09/2022 10:10 AM DIRECTOR INDEPENDENT) [facility] Sodium 137 135 - 145 mmol/L SARAH Comment:Testing performed by : [address] [address] Potassium, pl 4.3 3.3 - 4.9 mmol/L SARAH Comment: HEMOLYZED: Hemolysis interferes with the above test. Testing performed by: [address] [address] Chloride 104 97 - 110 mmol/L SARAH Comment:Testing performed by : [address] [address] CO2 25 22 - 32 mmol/L SARAH Comment:Testing performed by : [address] [address] Anion gap 8 2 - 15 mmol/L SARAH Comment:Testing performed by : [address] [address] BUN 9 8 - 25 mg/dL SARAH Comment:Testing performed by : [address] [address] Creatinine 0.60(L) 0.80 - 1.30 mg/dL SARAH Comment:Testing performed by : [address] [address] Glucose 90 70 - 199 mg/dL SARAH Comment: Interpretive Data Fasting glucose >/= 126 mg/dl is diagnostic for diabetes. ?? Fasting is defined as no caloric intake for at least 8 hours. Fasting glucose between 100 mg/dl to 125 mg/dl is diagnostic of prediabetes. In a patient with classic symptoms of hyperglycemia or hyperglycemic crisis, a random glucose >/= 200 mg/dl is diagnostic for diabetes. In the absence of unequivocal hyperglycemia, results should be confirmed by repeat testing. The classification and Diagnosis of Diabetes Diabetes Care 2017;40 (Suppl. 1):S11. Current interpretive data was last revised 2017. Testing performed by: [address] [address] Calcium 9.5 8.5 - 10.3 mg/dL SARAH Comment:Testing performed by : [address], [address] Bilirubin, total 1.4(H) 0.1 - 1.2 mg/dL SARAH Comment:Testing performed by : [address], [address] Protein, pl 7.8 6.5 - 8.5 g/dL SARAH Comment:Testing performed by : [address] [address] Albumin 4.7 3.5 - 5.0 g/dL [facility] Comment:Testing performed by : [address], [address] Alk phos 75 40 - 130 Units/L [facility] Comment:Testing performed by : [address], [address] ALT 29 7 - 55 Units/L [facility] Comment: HEMOLYZED: Hemolysis interferes with the above test. Testing performed by: [address] [address] AST 31 10 - 50 Units/L [facility] Comment: HEMOLYZED: Hemolysis interferes with the above test. Testing performed by: [address] [address] Blood 04/09/2022 10:1 0 AM DIRECTOR INDEPENDENT 04/09/2022 10:20 AM DIRECTOR INDEPENDENT us Katrina BONILLA LAB BLOOD ORDERABLES Lynn pratt Result SARAH [address] [facility] Department [place] [address] * CBC with auto differential (04/09/2022 10:10 AM DIRECTOR INDEPENDENT) [facility] WBC 9.4 3.8 - 9.9 K/cumm SARAH Comment:Testing performed by : [address], [address] Hgb 15.6 13.0 - 17.5 g/dL SARAH Comment:Testing performed by : [address] [address] Hct 44.4 38.9 - 50.3 % SARAH Comment:Testing performed by : [address], [address] Plt 262 150 - 400 K/cumm SARAH Comment:Testing performed by : [address], [address] MPV 11.3 9.1 - 12.3 fL SARAH Comment:Testing performed by : [address], [address] RBC 5.23 4.30 - 5.80 M/cumm SARAH Comment:Testing performed by : [address], [address] MCV 84.9 81.3 - 96.4 fL SARAH Comment:Testing performed by : [address], [address] MCH 29.8 27.1 - 33.3 pg SARAH Comment:Testing performed by : [address], [address] MCHC 35.1 32.3 - 35.7 g/dL SARAH Comment:Testing performed by : [address], [address] RDW CV 11.9 11.1 - 14.9 % SARAH Comment:Testing performed by : [address], [address] RDW SD 36.4 35.7 - 48.1 fL SARAH Comment:Testing performed by : [address], [address] NRBC abs 0.00 0.00 - 0.01 K/cumm SARAH Comment:Testing performed by : [address], [address] Blood 04/09/2022 10:1 0 AM DIRECTOR INDEPENDENT 04/09/2022 10:20 AM DIRECTOR INDEPENDENT Katrina BONILLA LAB BLOOD ORDERABLES Lynn l Result SARAH [address] [facility] Department [place] [address] * ECG 12 lead (04/09/2022 10:08 AM DIRECTOR INDEPENDENT) Pathologist [facility] Ventricular Rate EKG/Min 71 BPM [facility] Atrial Rate 71 BPM [facility] CO-Interval (MSEC) 162 ms [facility] QRS-Interval (MSEC) 98 ms [facility] QT-Interval (MSEC) 374 ms [facility] QTc 406 ms [facility] P Chandler 38 degrees [facility] R Chandler 35 degrees [facility] T Chandler 40 degrees [facility] Diagnosis Normal sinus rhythm ST elevation, consider early repolarizatio n, pericarditis, or injury When compared with ECG of 03-NOV-2021 01:42, St elevation in the inferior leads is unchanged from the prior ecg [facility] 04/09/2022 10:0 8 AM DIRECTOR INDEPENDENT 04/09/2022 5:56 PM DIRECTOR INDEPENDENT Katrina BONILLA ECG ORDERABLES Final Res ult Performing Organization Address [facility]/ZIP Co de Phone Number [facility] * CT Head WO Contrast (04/09/2022 9:56 AM DIRECTOR INDEPENDENT) Anatomical Region Laterality Modality Head and Neck N/A Computed Tomogra phy 04/09/2022 9:59 AM DIRECTOR INDEPENDENT Narrative 04/09/2022 10:01 AM DIRECTOR INDEPENDENT EXAM DESCRIPTION: ?? CT HEAD WO CONTRAST REASON FOR STUDY: ?? Neuro deficit, acute, stroke suspected ?? Pt c/o numbness to LT arm and leg for a day and a half. Pt states starting to have some in RT foot for a couple of seconds then goes away. Has not happened to him before ?? TECHNIQUE: Axial images acquired through the brain without intravenous contrast. ??Images stored on PACS. ?? Automated exposure control was used as a dose optimization technique for this examination. COMPARISON: ?? None FINDINGS: BRAIN: ??There is no definite evidence of acute intracranial hemorrhage. ??There is no definite evidence of an extra-axial fluid collection. There is no significant midline shift or focal mass effect. ??The ventricles are normal in size and position. CALVARIUM: ?? No fracture. SINUSES/MASTOIDS: ?? There is minimal mucosal thickening of the bilateral ethmoid air cells. ??The remainder of the visualized paranasal sinuses and bilateral mastoid air cells are grossly clear. ORBITS: ?? No significant abnormality. OTHER: ?? No other significant abnormality. IMPRESSION: ?? 1. ?? No definite evidence of acute intracranial hemorrhage. ??If there is continued clinical concern for acute ischemia, then further evaluation with MRI is recommended. THIS IS AN ELECTRONICALLY VERIFIED FINAL REPORT 04/09/2022 10:01 AM - Electronically signed by ??Sonia Dolan D.O. PS: PS D: ??04/09/2022 10:01 AM T: ??04/09/2022 10:01 AM Report ID: [id number] Reading Location: ??[id number] Procedure Note Sonia Dolan, DO - 04/09/2022 EXAM DESCRIPTION: CT HEAD WO CONTRAST REASON FOR STUDY: Neuro deficit, acute, stroke suspected Pt c/o numbness to LT arm and leg for a day and a half. Pt states startingto have some in RT foot for a couple of seconds then goes away. Has nothappened to him before TECHNIQUE: Axial images acquired through the brain without intravenous contrast. Images stored on PACS. Automated exposure control was used asa dose optimization technique for this examination. COMPARISON: None FINDINGS: BRAIN: There is no definite evidence of acute intracranial hemorrhage. There is no definite evidence of an extra-axial fluidcollection. There is no significant midline shift or focal mass effect. Theventricles are normal in size and position. CALVARIUM: No fracture. SINUSES/MASTOIDS: There is minimal mucosal thickening of the bilateral ethmoid air cells. The remainder of the visualized paranasal sinuses and bilateral mastoid air cells are grossly clear. ORBITS: No significant abnormality. OTHER: No other significant abnormality. IMPRESSION: 1. No definite evidence of acute intracranial hemorrhage. If there is continued clinical concern for acute ischemia, then further evaluationwith MRI is recommended. THIS IS AN ELECTRONICALLY VERIFIED FINAL REPORT 04/09/2022 10:01 AM - Electronically signed by Sonia Dolan D.O. PS: PS Report ID: [id number] Reading Location: [id number] us Katrina BONILLA IMG CT PROCEDURES Final R esult * POCT glucose (04/09/2022 9:42 AM DIRECTOR INDEPENDENT) [facility] Signature Glucose, POC 89 70 - 199 mg/dL SARAH SWANSON Comment:Testing performed by : [facility], [address] [place] [address]., [id number] Glucose comment 1 Use This Result SARAH Comment:Testing performed by : [facility], [address] [place] [address]., [id number] Blood 04/09/2022 9:42 AM DIRECTOR INDEPENDENT 04/09/2022 9:42 AM DIRECTOR INDEPENDENT Notinfile Unknown LAB POCT ORDERABLES - DEVICE F inal Result SARAH [address] [facility] Department [place] [address] documented in this encounter Visit Diagnoses Diagnosis Radiculopathy, unspecified spinal region- Primary documented in this encounter Orders Nursing Count Last Ordered Date First Orde red Date CONTINUOUS PULSE OXIMETRY 1 04/09/2022 IV Count Last Ordered Date First Orde red Date SALINE LOCK IV 1 04/09/2022 documented in this encounter Care Teams Insurance Rater Relationship Specialty Start Date End Date Meet Ang DO [address] [place] [id number] PCP - General 07/07/20 documented as of this encounter
--- OUTSIDE RECORDS SUMMARY | 2024-05-11 21:17 | XMS_ITS | Encounter Summary ---
Author Organization [facility] Address [address] [place] [id number] Care Team Providers Care Plate Glass Installer Name Role Phone Meet Ang DO Primary Care Provide r Reason for Visit * Reason Comments Palpitations Encounter Details Date Type Department Care Team (Late st Contact Info) Description 03/30/2023 10:00 AM SAND TESTER Office Visit [facility] Cardiology [facility] [address] [place] [phone] Maira Badillo MD [address] [place] [phone] Palpitations (Primary Dx); Elevated troponin level not due myocardial infarction; Class 3 severe obesity with body mass index (BMI) of 40.0 to 44.9 in adult, unspecified obesity type, unspecified whether serious comorbidity present (HCC) Social History Tobacco Use Types Packs/Day Years Used Date Smoking Tobacco: Former Cigarettes Smokeless Tobacco: Never Sex and Gender Information Value Date Recorded Sex Assigned at Not on file Legal Sex Male 5:38 PM SAND TESTER Gender Identity Not on file Sexual Orientation Not on file documented as of this encounter Last Filed Vital Signs Vital Sign Reading Time Taken Comments Blood Pressure 136/76 03/30/2023 9:58 AM SAND TESTER Pulse 84 03/30/2023 9:58 AM SAND TESTER Temperature - - Respiratory Rate - - Oxygen Saturation 98% 03/30/2023 9:58 AM SAND TESTER Inhaled Oxygen Concentration - - Weight 153.3 kg (338 lb) 03/30/2023 9:58 AM SAND TESTER Height - - Body Mass Index 43.4 04/09/2022 9:38 AM SAND TESTER documented in this encounter Ordered Prescriptions Prescription Sig Dispense Quantity Refills Last Filled Start Date End Date atenoloL (TENORMIN) 25 mg tablet Take 1 tablet (25 mg total) by mouth daily 90 tablet 3 03/30/2023 documented in this encounter Progress Notes * Maira Badillo MD - 03/30/2023 10:00 AM CST Subjective/Objective Patient ID: Alex Blackwood is a 32 y.o. male. Chief Complaint Palpitations HPI Alex is a 32 year-old male who returns for follow up visit. He slipped on the steps back in and fractured his right 5th toe which did not require any intervention in his now better. He remains on the atenolol 25 mg daily with no significant palpitations. For the last 2 weeks has been riding outdoor bike for for more than 6 miles at a time without any chest pain or any shortness of breat h. He does not use alcohol. He does drink 1 cup of caffeinated coffee a day his weight up 6 lb since he was last here about a year ago. Although he still remains down 11 lb over the past 28 months. He is compliant with his BiPAP. He does check his blood pressures regularly at home and they been normal typically running 120s over 70 mmHg. He is compliant with his medications. He denies any side effects from his medications. He denies any chest pain, shortness of breath, paroxysmal nocturnal dyspnea, dizziness, syncope, or lower extremity edema. Current Outpatient Medications: albuterol HFA (PROVENTIL HFA,VENTOLIN HFA,PROAIR HFA) 90 mcg/actuation inhaler, Inhale 1 puff, Disp: , Rfl: clobetasoL (CLOBEX) 0.05 % shampoo, , Disp: , Rfl: ketoconazole (NIZORAL) 2 % shampoo, Apply topically, Disp: , Rfl: triamcinolone (KENALOG) 0.025 % ointment, Apply to ear twice daily as needed psoriasis. 30 days supply. Reasons: Psoriasis, Disp: , Rfl: atenoloL (TENORMIN) 25 mg tablet, Take 1 tablet (25 mg total) by mouth daily, Disp: 90 tablet, Rfl:3 busPIRone (BUSPAR) 15 mg tablet, Take 15 mg by mouth daily (Patient not taking: Reported on 11/26/2021), Disp: , Rfl: Review of Systems Constitutional: Negative for chills, fatigue, fever and unexpected weight change. HENT: Negative for hearing loss, nosebleeds and tinnitus. Eyes: Negative for photophobia. Respiratory: Negative for cough and wheezing. Gastrointestinal: Positive for abdominal pain. Negative for blood in stool, constipation, diarrhea,nausea and vomiting. Endocrine: Negative for cold intolerance and heat intolerance. Genitourinary: Negative for frequency, hematuria and urgency. Musculoskeletal: Negative for back pain. Skin: Negative for rash. Allergic/Immunologic: Negative for immunocompromised state. Neurological: Negative for tremors and seizures. Hematological: Negative for adenopathy. Psychiatric/Behavioral: Positive for sleep disturbance. Negative for confusion. BP 136/76 (BP Location: Left arm, Patient Position: Sitting) Pulse 84 Wt (!) 153.3 kg (338 lb) SpO2 98% BMI 43.40 kg/m?? 03/26/2022 was 332 lb Physical Exam GENERAL APPEARANCE: The patient is in no acute distress. HEAD: Atraumatic, normocephalic. EYES: No scleral icterus. NECK/THYROID: Neck is supple without lymphadenopathy. Carotid pulses 2+, normal carotid upstroke, no carotid bruits. SKIN: No rashes and no jaundice seen. HEART: The rhythm and rate regular. S1 and S2 were auscultated with no murmurs gallops or rubs. LUNGS: Clear to auscultation bilaterally. ABDOMEN: Normal bowel sounds, soft nondistended, no tenderness. EXTREMITIES: No cyanosis, clubbing or edema. NEUROLOGIC: Grossly intact. PSYCH: Alert and oriented x 3. I have reviewed and analyzed the labs below as they are relevant to my patient's medical conditionsand assisted me in making the best medical decisions for my patient's care. Lab Results Component Value Date CHOL 145 09/24/2020 HDL 36 (L) 09/24/2020 LDL 80 09/24/2020 CHOLHDL 4.0 09/24/2020 TRIG 196 (H) 09/24/2020 CK 111 07/08/2020 SODIUM 137 04/09/2022 POTASSIUM 4.3 04/09/2022 MAGNESIUM 1.9 07/11/2020 CO2 25 04/09/2022 BUNSER 9 04/09/2022 BUN 10 07/16/2020 GLUCOSE 90 04/09/2022 CREATININE 0.60 (L) 04/09/2022 CALCIUM 9.5 04/09/2022 CHLORIDE 104 04/09/2022 ALBUMIN 4.7 04/09/2022 ALT 29 04/09/2022 AST 31 04/09/2022 ALKPHOS 75 04/09/2022 BILITOT 1.4 (H) 04/09/2022 PROT 7.8 04/09/2022 WBC 9.4 04/09/2022 HGB 15.6 04/09/2022 LABPLAT 262 04/09/2022 TSH 3.260 07/15/2020 ECG done 03/30/2023 shows normal sinus rhythm with rate 76 beats per minute, normal EKG. Assessment/Plan Diagnoses and all orders for this visit: Palpitations (R00.2) (Primary) - ECG 12 lead Elevated troponin level not due myocardial infarction (R79.89) Class 3 severe obesity with body mass index (BMI) of 40.0 to 44.9 in adult, unspecified obesity type, unspecified whether serious comorbidity present ([facility]) (E66.01, Z68.41) Other orders - atenoloL (TENORMIN) 25 mg tablet; Take 1 tablet (25 mg total) by mouth daily Palpitations, PVCs seen in the hospital as well some sinus tachycardia, with normal event monitor between 07/23/2020 on 08/21/2020 with heart rates ranging between 50 and 120 beats per minute with anaverage heart rate of 85 beats per minute with less than 1% PVC burden less than 1% Pac burden withno arrhythmias and no pauses, resolved with atenolol. HISTORY OF CHRONICALLY ELEVATED PERSISTENT ELEVATION OF HIS LAB TROPONIN I'S. HOWEVER HIS POINT OF SERVICE TROPONIN I IS NORMAL IS HIS TROPONIN T AND CPKS. FELT BY THE LAB TO BE DUE TO SOME ANTIBODY WHICH IS INTERACTING WITH THE LAB TROPONIN I ASSAY, Dyspnea, likely secondary a non selective beta-kristie carvedilol flaring up his asthma, now resolved with the use of atenolol causing him no problems Obesity Obstructive sleep apnea, now compliant with his CPAP, managed by physician at [facility] GERD History of asthma, tolerating atenolol without a flare up as he had had flare- ups with the nonselective carvedilol Leukocytosis, now normalized History of anxiety and depressive disorder with panic attacks Nightmares, worse on metoprolol better on carvedilol but not completely resolved Dyspnea and body aches since switching over from metoprolol to carvedilol, clearly the dyspnea can be from the fact that he has asthma any seems like he had a flare-up of asthma with the non selective beta-kristie carvedilol as opposed to the selective beta-kristie carvedilol. He was switched from m etoprolol to carvedilol due to nightmares and now tolerating atenolol. Plan-I recommend minimize his caffeine and avoid all decongestants. I just recommend he exercise regularly and try to lose some weight. I will continue his atenolol at 25 mg daily. I would like him to return in 1 year's time. I asked him return sooner if he has any cardiac issues or problems. CARDIAC TESTING: ECHOCARDIOGRAM 07/08/2020 which showed normal left ventricular systolic function with an ejection fraction of 60-65% with no significant valvular disease. TREADMILL MYOVIEW STRESS TEST 07/07/2020 which showed normal echocardiographic portion of a treadmill Myoview stress test patientwalking total of 9 minutes 30 seconds in standard Moreno protocol attaining heart rate of 166 beats per minute which is 87% of his age predicted maximal heart rate achieving a work level of 10.4 Mets of exercise with no ischemic EKG changes. Normal blood pressure appropriate blood pressure month exercise, normal chronotropic response exercise, occasional isolated PVCs noted at rest and exercise and recovery at similar frequencies which were asymptomatic. No chest pain or chest pressure. Myoview images showed normal myocardial perfusion study, no scintigraphic evidence of myocardial ischemia, no rmal left ventricular ejection fraction of 75% and normal left ventricular wall motion. 30 DAY EVENT MONITOR 07/23/2020 through 08/21/2020 was normal with no arrhythmias asymptomatic or symptomatic, he had less than 1% PVC burden less than 1% Pac burden. He had no atrial fibrillation, SVT, ventricular tachycardia, significant pauses or any heart block. Symptoms do not correlate with any arrhythmia. TESTER documented in this encounter Plan of Treatment Not on file documented as of this encounter Procedures Procedure Name Priority Date/Time Associated Diagnosis Comments ECG 12-LEAD Routine 03/30/2023 Palpitations documented in this encounter Results * ECG 12 lead (03/30/2023) us Maira Badillo MD ECG ORDERABLES Edited Resul t - Final documented in this encounter Visit Diagnoses Diagnosis Palpitations- Primary Elevated troponin level not due myocardial infarction Class 3 severe obesity with body mass index (BMI) of 40.0 to 44.9 in adult, unspecified obesity type, unspecified whether serious comorbidity present (HCC) documented in this encounter Discontinued Medications Medication Sig Discontinue Reason Start Date End Da te atenoloL (TENORMIN) 25 mg tablet Take 1 tablet (25 mg total) by mouth daily Reorder 03/26/2022 03/30/2023 documented as of this encounter Historical Medications * This list may reflect changes made after this encounter. ketoconazole (NIZORAL) 2 % shampoo Apply topically 10/01/2022 triamcinolone (KENALOG) 0.025 % ointment Apply to ear twice daily as needed psoriasis. 30 days supply. Reasons: Psoriasis 10/01/2022 added in this encounter Care Teams Plate Glass Installer Relationship Specialty Start Date End Date Meet Ang DO [address] [place] [phone] PCP - General 07/07/20 documented as of this encounter
--- OUTSIDE RECORDS SUMMARY | 2024-05-11 21:17 | XMS_ITS | Referral Summary ---
Author Organization [facility] Address [address] [place] [address] Care Team Providers Care Psychometric Examiner Name Role Phone Meet Ang DO Primary [...] in adult 08/21/2020 Palpitations 08/21/2020 Leukocytosis 08/21/2020 Social History Tobacco Use Types Packs/Day Years Used Date Smoking Tobacco: Former Cigarettes Smokeless Tobacco: Never Personal Safety Answer Date Recorded Getting School Help Needed Not on file 05/21 Sex and Gender Information Value Date Recorded Sex Assigned at Not on file Legal Sex Male 5:38 PM DRUG SAFETY COORDINATOR Gender Identity Not on file Sexual Orientation Not on file Last Filed Vital Signs Vital Sign Reading Time Taken Comments Blood Pressure 136/76 03/30/2023 9:58 AM DRUG SAFETY COORDINATOR Pulse 84 03/30/2023 9:58 AM DRUG SAFETY COORDINATOR Temperature 36.8 ??C (98.3 ??F) 04/09/2022 9:38 AM CS T Respiratory Rate 14 04/09/2022 11:01 AM DRUG SAFETY COORDINATOR Oxygen Saturation 98% 03/30/2023 9:58 AM DRUG SAFETY COORDINATOR Inhaled Oxygen Concentration - - Weight 153.3 kg (338 lb) 03/30/2023 9:58 AM DRUG SAFETY COORDINATOR Height 188 cm (6' 2 ) 04/09/2022 9:38 AM DRUG SAFETY COORDINATOR Body Mass Index 43.4 04/09/2022 9:38 AM DRUG SAFETY COORDINATOR Plan of Treatment Not on file Insurance [facility] Care Teams Psychometric Examiner Relationship Specialty Start Date End Date Meet Ang DO [address] [place] [phone] PCP - General 07/07/20
--- OUTSIDE RECORDS SUMMARY | 2024-05-11 21:18 | XMS_ITS | Encounter Summary ---
Author Organization [facility] Address [address] [address] Care Team Providers Care Store Stock Help Name Role Phone Meet Ang DO Primary Care Provide r Reason for Visit * Reason Comments Hospital Follow Up Palpitations Encounter Details Date Type Department Care Team (Late st Contact Info) Description 08/21/2020 9:45 AM CDT Office Visit [facility] Cardiology [address] [facility] [address] [place] [address] Maira Badillo MD [address] [place] [phone] Palpitations (Primary Dx); Elevated troponin level not due myocardial infarction; Class 3 severe obesity with body mass index (BMI) of 40.0 to 44.9 in adult, unspecified obesity type, unspecified whether serious comorbidity present (CMS/HCC); Leukocytosis, unspecified type; Lipid screening Social History Tobacco Use Types Packs/Day Years Used Date Smoking Tobacco: Never Smokeless Tobacco: Never Sex and Gender Information Value Date Recorded Sex Assigned at Not on file Legal Sex Male 5:38 PM SLIP BOX CHANGER Gender Identity Not on file Sexual Orientation Not on file documented as of this encounter Last Filed Vital Signs Vital Sign Reading Time Taken Comments Blood Pressure 125/83 08/21/2020 9:53 AM CDT Pulse 90 08/21/2020 9:53 AM CDT Temperature - - Respiratory Rate - - Oxygen Saturation 95% 08/21/2020 9:53 AM CDT Inhaled Oxygen Concentration - - Weight 154.1 kg (339 lb 12.8 oz) 08/21/2020 9:53 AM CDT Height 185.4 cm (6' 1 ) 08/21/2020 9:53 AM CDT Body Mass Index 44.83 08/21/2020 9:53 AM CDT documented in this encounter Progress Notes * Maira Badillo MD - 08/21/2020 9:45 AM CDT Subjective/Objective Patient ID: Alex Blackwood is a 29 y.o. male. Chief Complaint Hospital Follow Up and Palpitations HPI Alex is a 29-year-old male who was admitted to the hospital on 07/07/2020 for palpitations. He did have positive troponin I's which were consistently elevated but had a normal troponin T and a normal point of Service troponin I. The laboratory felt it was related to his having some sort of antibody interacting with her immuno assay on their lab troponin. So this was not consistent with a non ST elevation [place]. His telemetry just showed he had occasional PVCs and some sinus tachycardia to explain his palpitations. He was evaluated with a transthoracic echocardiogram done on 07/08/2020 which showed normal left ventricular systolic function with an ejection fraction of 60-65% with no significant valvular disease. He did have a treadmill Myoview stress test performed on 07/07/2020 which showed normal echocardiographic portion of a treadmill Myoview stress test patient walking total of 9 minutes 30 seconds in [...] study, no scintigraphic evidence of myocardial ischemia, normal left ventricularejection fraction of 75% and normal left ventricular wall motion. He is still wearing his 30 day event monitor he has had so far 2 symptoms other than listed which just showed normal sinus rhythm with rates between 86-91 beats per minute with no arrhythmias and 1 complaint of shortness of breath which was associated with normal sinus rhythm with rate of 66 beats minute and no arrhythmias. Of the asymptomatic strips there was just an isolated PVC in low level sinus tachycardia rate of 108 beats per minute on 1 strip otherwise no other arrhythmias. Since being on the metoprolol his palpitationsare resolved. He is not having any chest pain. He has avoid all caffeine out of his diet. He is trying to get set up with sleep medicine as he has have known obstructive sleep apnea but does not havea CPAP. He is compliant with his medications. He denies any side effects from his medications. He denies any chest pain, shortness of breath, paroxysmal nocturnal dyspnea, dizziness, syncope, or lower extremity edema. Current Outpatient Medications: ??? busPIRone (BUSPAR) 15 mg tablet, Take 15 mg by mouth daily , Disp: , Rfl: ??? metoprolol XL (TOPROL-XL) 50 mg extended release tablet, Take 50 mg by mouth daily , Disp: , Rfl: Review of Systems Constitutional: [...] for sleep disturbance. Negative for confusion. BP 125/83 Pulse 90 Ht 185.4 cm (6' 1 ) Wt (!) 154.1 kg (339 lb 12.8 oz) SpO2 95% BMI 44.83 kg/m?? Physical Exam GENERAL APPEARANCE: The patient is [...] PSYCH: Alert and oriented x 3. I personally reviewed and interpreted the following Lab Results Component Value Date CK 111 07/08/2020 SODIUM 138 07/16/2020 POTASSIUM 3.4 07/16/2020 MAGNESIUM 1.9 07/11/2020 CO2 25 07/16/2020 BUN 10 07/16/2020 GLUCOSE 112 (H) 07/16/2020 CREATININE 0.8 07/16/2020 CALCIUM 8.9 07/16/2020 CHLORIDE 103 07/16/2020 ALBUMIN 4.5 07/16/2020 ALT 49 (H) 07/16/2020 AST 25 07/16/2020 ALKPHOS 83 07/16/2020 BILITOT 1.6 (H) 07/16/2020 PROT 7.4 07/16/2020 WBC 12.6 (H) 07/16/2020 HGB 15.2 07/16/2020 LABPLAT 292 07/16/2020 TSH 3.260 07/15/2020 Assessment/Plan Diagnoses and all orders for this visit: Palpitations (R00.2) (Primary) Elevated troponin level not due myocardial infarction (R77.8) Class 3 severe obesity with body mass index (BMI) of 40.0 to 44.9 in adult, unspecified obesity type, unspecified whether serious comorbidity present (CMS/[facility]) (E66.01, Z68.41) Leukocytosis, unspecified type (D72.829) Palpitations, PVCs seen in the hospital as well some sinus tachycardia, currently wearing his 30 day event monitor which just an isolated PVC and some low level sinus tachycardia his event monitor isnot completed as he still wearing it, palpitations resolved with Toprol-XL.. HISTORY OF CHRONICALLY ELEVATED PERSISTENT ELEVATION OF HIS LAB TROPONIN I'S. HOWEVER HIS POINT OF SERVICE TROPONIN I IS NORMAL IS HIS TROPONIN T AND CPKS. FELT BY THE LAB TO BE DUE TO SOME ANTIBODY WHICH IS INTERACTING WITH THE LAB TROPONIN I ASSAY. Obesity Obstructive sleep apnea GERD Leukocytosis History of anxiety and depressive disorder with panic attacks Plan-I recommend minimize his caffeine and avoid all decongestants. I recommended weight loss and regular exercise. I recommend he continue on his current dose of metoprolol succinate 50 mg daily. I will review his 30 day event monitor when completed. I will check a fasting lipid profile, CMP and aCBC prior to follow-up visit.. I told if he can get in with the sleep physician over a near Per in [place] then I told to call me and I will get him in with of Dr. Henry of Sleep Medicine here in [facility]. I will have him return in 3 months time. CARDIAC TESTING: ECHOCARDIOGRAM 07/08/2020 which showed normal [...] 75% and normal left ventricular wall motion. documented in this encounter Plan of Treatment Scheduled Orders Name Type Priority Associated Diagnoses Orde r Schedule Lipid panel Lab Routine Lipid screening Expected: 11/20/2020, Expires: 08/21/2021 CBC with auto differential Lab Routine Palpitations Expected: 11/20/2020, Expires: 08/21/2021 Comprehensive metabolic panel Lab Routine Palpitations Expected: 11/20/2020, Expires: 08/21/2021 documented as of this encounter Visit Diagnoses Diagnosis Palpitations- Primary Elevated troponin level not due myocardial infarction Class 3 severe obesity with body mass index (BMI) of 40.0 to 44.9 in adult, unspecified obesity type, unspecified whether serious comorbidity present (HCC) Leukocytosis, unspecified type Lipid screening Screening for lipoid disorders documented in this encounter Historical Medications * This list may reflect changes made after this encounter. busPIRone (BUSPAR) 15 mg tablet Take 15 mg by mouth daily 06/24/2020 metoprolol XL (TOPROL-XL) 50 mg extended release tablet Take 50 mg by mouth daily 07/20/2020 11/26/2021 added in this encounter Care Teams Store Stock Help Relationship Specialty Start Date End Date Meet Ang DO [address] [place] [id number] PCP - General 07/07/20 documented as of this encounter
--- OUTSIDE RECORDS SUMMARY | 2024-05-11 21:18 | XMS_ITS | Encounter Summary ---
Author Organization [facility] Medical [facility] Address [address] [facility] [address] [place] [address] Care Team Providers Care Artistic Associate Name Role Phone Meet Ang Primary Care Provide r Reason for Referral * Cardiology (Routine) - Closed Specialty Diagnoses / Procedures Referred By Pepe gordon Referred To Contact Diagnoses Palpitations Procedures Event Monitor, 30 Day Event Maira Badillo MD Phone: tel: fax: [facility] Referral ID Status Reason Start Date Expiration Date Visits Re quested Visits Authorized [id number] Closed 07/10/2020 08/09/2021 1 1 [employer] Encounter Details Date Type Department Care Team (Late st Contact Info) Description 07/10/2020 Telephone [facility] Cardiology [facility] [address] [phone] Maira Badillo MD [address] [place] [address] Social History Tobacco Use Types Packs/Day Years Used Date Smoking Tobacco: Never Assessed Sex and Gender Information Value Date Recorded Sex Assigned at Not on file Legal Sex Male 5:38 PM ASSEMBLER P[employer]AT Gender Identity Not on file Sexual Orientation Not on file documented as of this encounter Miscellaneous Notes * Telephone Encounter - Taryn Garsia LPN - 07/10/2020 11:41 AM ASSEMBLER PLASTIC BOAT Per Dr. Badillo's hospital note, wants pt to have 30 day event monitor for palpitations. [employer] * Telephone Encounter - Racheal Broussard - 07/10/2020 11:35 AM ASSEMBLER PLASTIC [employer]AT Patient is scheduled for a one month hospital followup with Dr. Badillo and he needs to have an event monitor sent to him. I verified patient's address. His followup is 08/21/20 9:45. [employer] documented in this encounter Plan of Treatment Not on file documented as of this encounter Results * Event Monitor, 30 Day Event (08/21/2020 9:55 AM CDT) Anatomical Region Laterality Modality Other Narrative 12/26/2020 1:57 PM CDT 30 DAY EVENT MONITOR INDICATION: ??Palpitations ENROLLMENT PERIOD: ??07/23/2020-08/21/2020 INTERPRETATION: ??Minimal heart rate is 60 beats per minute, average heart rate was 85 beats minute, maximal heart rate was 120 beats per minute. ?? There was a less than 1% PVC burden and less than 1% Pac burden ??There were 8 strips recorded 3 were symptomatic 5 were asymptomatic. His his 3 symptomatic strips 2 said symptoms other than listed in 1 was said shortness of breath was associated with sinus rhythm with rate of 66-91 beats per minute with no arrhythmias. ??The asymptomatic strips just showed an isolated PVC otherwise no arrhythmias. ??He had no atrial fibrillation, no ventricular tachycardia, no SVT, no pauses, no first-degree, second-degree or third-degree heart block. CONCLUSIONS: 1. Normal event monitor with heart rates ranging between 60-120 beats minute with an average heart rate of 85 beats per minute with less than 1% PVC burden less than 1% Pac burden ?2. Symptoms were not associated with any arrhythmia. ??There were no asymptomatic arrhythmias. ?3. No ventricular tachycardia, SVT, atrial fibrillation, pauses, first-degree, second-degree, third-degree or complete heart block seen. us Maira Badillo MD CV CARDIAC SERVICES PROCEDUR ES Final Result documented in this encounter Visit Diagnoses Diagnosis Palpitations- Primary Palpitations documented in this encounter Care Teams Artistic Associate Relationship Specialty Start Date End Date Meet Ang DO [address] [place] [id number] PCP - General 07/07/20 documented as of this encounter
--- OUTSIDE RECORDS SUMMARY | 2024-05-11 21:18 | XMS_ITS | Encounter Summary ---
Author Organization [facility] Medical [facility] Address [address] [address] Care Team Providers Care Comparator Operator Name Role Phone Meet Ang Primary Care Provide r Reason for Visit * Cardiology (Routine) - Closed Specialty Diagnoses / Procedures Referred By Pepe gordon Referred To Contact Diagnoses Palpitations Procedures Event Monitor, 30 Day Event Maira Badillo MD Phone: tel: fax: [facility] Referral ID Status Reason Start Date Expiration Date Visits Re quested Visits Authorized [id number] Closed 07/10/2020 08/09/2021 1 1 Encounter Details Date Type Department Care Team (Late st Contact Info) Description 08/21/2020 10:15 AM CDT Ancillary Procedure [facility] Cardiology [facility] [address] [place] [phone] Palpitations Social History Tobacco Use Types Packs/Day Years Used Date Smoking Tobacco: Never Smokeless Tobacco: Never Sex and Gender Information Value Date Recorded Sex Assigned at Not on file 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[employer] Gender Identity Not on file Sexual Orientation Not on file documented as of this encounter Plan of Treatment Not on file documented as of this encounter Procedures Procedure Name Priority Date/Time Associated Diagnosis Comments EVENT MONITOR Routine 08/21/2020 9:55 AM CDT Palpitations documented in this encounter Results * Event Monitor, 30 [...] documented in this encounter Visit Diagnoses Diagnosis Palpitations documented in this encounter Care Teams Comparator Operator Relationship Specialty Start Date End Date Meet Ang DO [address] [place] [phone] PCP - General 07/07/20 documented as of this encounter
--- OUTSIDE RECORDS SUMMARY | 2024-05-11 21:18 | XMS_ITS | Encounter Summary ---
Author Organization [facility] Medical Group Address [address] [facility] [address] [place] [address] Care Team Providers Care Magistrate Assistant Name Role Phone Meet Ang DO Primary Care Provide r Reason for Visit * Reason Comments Palpitations Encounter Details Date Type Department Care Team (Late st Contact Info) Description 03/26/2022 11:15 AM CDT Office Visit [facility] Medical [facility] Cardiology [address] [facility] [address] [facility] [place] [address] Maira Badillo MD [address] [place] [address] Palpitations (Primary Dx); Elevated troponin level not due myocardial infarction; Class 3 severe obesity with body mass index (BMI) of 40.0 to 44.9 in adult, unspecified obesity type, unspecified whether serious comorbidity present (HCC); Dyspnea, unspecified type Social History Tobacco Use Types Packs/Day Years Used Date Smoking Tobacco: Former Cigarettes Smokeless Tobacco: Never Sex and Gender Information Value Date Recorded Sex Assigned at Not on file 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 Gender Identity Not on file Sexual Orientation Not on file documented as of this encounter Last Filed Vital Signs Vital Sign Reading Time Taken Comments Blood Pressure 120/84 03/26/2022 11:54 AM CDT Pulse 88 03/26/2022 11:54 AM CDT Temperature - - Respiratory Rate - - Oxygen Saturation 98% 03/26/2022 11:54 AM CDT Inhaled Oxygen Concentration - - Weight 150.6 kg (332 lb) 03/26/2022 11:54 AM CDT Height 185.4 cm (6' 1 ) 03/26/2022 11:54 AM CDT Body Mass Index 43.8 03/26/2022 11:54 AM CDT documented in this encounter Ordered Prescriptions Prescription Sig Dispense Quantity Refills Last Filled Start Date End Date atenoloL (TENORMIN) 25 mg tablet Take 1 tablet (25 mg total) by mouth daily 90 tablet 3 03/26/2022 03/30/2023 documented in this encounter Progress Notes * Maira Badillo MD - 03/26/2022 11:15 AM CDT Subjective/Objective Patient ID: Alex Blackwood is a 31 y.o. male. Chief Complaint Palpitations HPI Alex is a 31 year-old male who returns for follow up visit. His insurance company would not cover bisoprolol so we switched him over to atenolol in November of 2021. He is not having any palpitations with the atenolol. He is tolerating the atenolol without any nightmares as he had had with metoprolol and no flare- up of his asthma as he had with a nonselective beta-kristie carvedilol. He tells me he is exercising regularly trying to ride his bicycle outdoors for about 1 mile at a time during the week and usually on the weekends he will ride for 10- 15 miles without any chest pain or shortness ofbreath. He tells me does try to limit how much he eats although when he does his long 10-15 mi bikeride he gets very hungry afterwards. He is gained about 19 lb since he was last here a 4 months ago. Although he is still down 17 lb over the last 16 months. He is compliant with his BiPAP. He is compliant with his medications. He denies any side effects from his medications. He denies any chest pain, shortness of breath, paroxysmal nocturnal dyspnea, dizziness, syncope, or lower extremity edema. Current Outpatient Medications: albuterol HFA (PROVENTIL HFA,VENTOLIN HFA,PROAIR HFA) 90 mcg/actuation inhaler, Inhale 1 puff, Disp: , Rfl: atenoloL (TENORMIN) 25 mg tablet, Take 1 tablet (25 mg total) by mouth daily, Disp: 90 tablet, Rfl:3 busPIRone (BUSPAR) 15 mg tablet, Take 15 mg by mouth daily (Patient not taking: Reported on 11/26/2021), Disp: , Rfl: clobetasoL (CLOBEX) 0.05 % shampoo, Apply thin film to dry scalp once daily (maximum dose: 50 mL/week); leave in place for 15 minutes, then add water, lather, and rinse thoroughly. Limit treatment to4 consecutive weeks. (Patient not taking: Reported on 11/26/2021), Disp: [...] for sleep disturbance. Negative for confusion. BP 120/84 (BP Location: Right arm, Patient Position: Sitting) Pulse 88 Ht 185.4 cm (6' 1 ) Wt(!) 150.6 kg (332 lb) SpO2 98% BMI 43.80 kg/m?? 11/26/2020 weight was 313 lb Physical Exam GENERAL APPEARANCE: The patient [...] 196 (H) 09/24/2020 CK 111 07/08/2020 SODIUM 138 07/20/2021 POTASSIUM 3.7 07/20/2021 MAGNESIUM 1.9 07/11/2020 CO2 24 07/20/2021 BUNSER 9 07/20/2021 BUN 10 07/16/2020 GLUCOSE 114 07/20/2021 CREATININE 0.80 07/20/2021 CALCIUM 8.9 07/20/2021 CHLORIDE 101 07/20/2021 ALBUMIN 4.3 07/20/2021 ALT 40 07/20/2021 AST 27 07/20/2021 ALKPHOS 85 07/20/2021 BILITOT 1.7 (H) 07/20/2021 PROT 7.6 07/20/2021 WBC 9.4 07/20/2021 HGB 15.7 07/20/2021 LABPLAT 278 07/20/2021 TSH 3.260 07/15/2020 Assessment/Plan Diagnoses and all orders for this visit: Palpitations (R00.2) (Primary) Elevated troponin level not due myocardial infarction (R77.8) Class 3 severe obesity with body mass index (BMI) of 40.0 to 44.9 in adult, unspecified obesity type, unspecified whether serious comorbidity present (HCC) (E66.01, Z68.41) Dyspnea, unspecified type (R06.00) Other orders - atenoloL (TENORMIN) 25 mg [...] withno arrhythmias and no pauses, resolved with Toprol-XL.. HISTORY OF CHRONICALLY ELEVATED [...] with his CPAP, managed by physician at [facility] GERD History of asthma, tolerating atenolol without a flare up as he had had flare- ups with the nonselective carvedilol Leukocytosis, now normalized History of anxiety and depressive disorder with panic attacks Status post Pfizer COVID-19 vaccine with the last dose being in late September of 2020, 1st booster is inJanuary of 2021 and his 2nd booster in February 2022 with the new bivalent vaccine Nightmares, worse on metoprolol better on carvedilol [...] from m etoprolol to carvedilol due to nightmares. Plan-I recommend minimize his caffeine and avoid all decongestants. I recommend he get his influenza vaccine he is already been vaccinated for the latest booster for COVID. I will continue his treatment with his atenolol 25 mg daily as it is controlling his palpitations and it is not causing him any problems with his asthma. I asked him to try to minimize his caffeine intake try to exercise regularly and try to figure out what he is going to do once it gets cold outside with regards to exercising indoors. I also asked him to try to lose some weight. I told him to return in about 1 year's time. I told to return sooner if he has any cardiac [...] Symptoms do not correlate with any arrhythmia. documented in this encounter Plan of Treatment Not on file documented as of this encounter Visit Diagnoses Diagnosis Palpitations- Primary Elevated troponin level not due myocardial infarction Class 3 severe obesity with body mass index (BMI) of 40.0 to 44.9 in adult, unspecified obesity type, unspecified whether serious comorbidity present (HCC) Dyspnea, unspecified type documented in this encounter Discontinued Medications Medication Sig Discontinue Reason Start Date End Da te atenoloL (TENORMIN) 25 mg tablet Take 1 tablet (25 mg total) by mouth daily Reorder 12/05/2021 03/26/2022 documented as of this encounter Care Teams Magistrate Assistant Relationship Specialty Start Date End Date Meet Ang DO [address] [place] [id number] PCP - General 07/07/20 documented as of this encounter
--- OUTSIDE RECORDS SUMMARY | 2024-05-11 21:18 | XMS_ITS | Encounter Summary ---
Author Organization [facility] Medical Group Address [address] [facility] [address] [place] [address] Care Team Providers Care Strap Buckler Machine Name Role Phone Meet Ang DO Primary Care Provide r Encounter Details Date Type Department Care Team (Late st Contact Info) Description 09/24/2020 Orders Only [facility] Medical [facility] Cardiology [address] [facility] [address] [place] [address] Maira Badillo MD [address] [place] [address] Social History Tobacco Use Types Packs/Day Years Used Date Smoking Tobacco: Never Smokeless Tobacco: Never Sex and Gender Information Value Date Recorded Sex Assigned at Not on file 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 Fasting reference interval BUN 10 7 - 25 mg/dL [facility] [place] Creatinine 0.83 0.60 - 1.35 mg/dL [facility] [place] eGFR NON-AFR. KITTITIAN 117 > OR = 60 mL/min/1. 73m2 [facility] [place] EGFR 136 > OR = 60 mL/min/1. 73m2 [facility] [place] BUN/creat ratio NOT APPLICABLE 6 - 22 (calc) [facility] [place] Sodium 141 135 - 146 mmol/L [facility] [place] Potassium, pl 4.1 3.5 - 5.3 mmol/L [facility] [place] Chloride 102 98 - 110 mmol/L [facility] [place] CO2 33(H) 20 - 32 mmol/L [facility] [place] Calcium 9.1 8.6 - 10.3 mg/dL [facility] [place] Protein, sr 7.1 6.1 - 8.1 g/dL [facility] [place] Albumin 4.5 3.6 - 5.1 g/dL [facility] [place] GLOBULIN 2.6 1.9 - 3.7 g/dL (calc) [facility] [place] Alb/glob ratio 1.7 1.0 - 2.5 (calc) [facility] [place] Bilirubin, total 1.9(H) 0.2 - 1.2 mg/dL [facility] [place] Alk phos 73 36 - 130 U/L [facility] AST 22 10 - 40 U/L [facility] ALT (SGPT) 36 9 - 46 U/L [facility] [place] 09/24/2020 8:41 AM CDT 09/24/2020 8:43 AM CDT Narrative [facility] - 09/25/2020 7:07 AM CDT FASTING:YES FASTING: YES us Maira Badillo MD LAB BLOOD ORDERABLES Final R esult [facility] [address] [place] [address] * (ABNORMAL) Lipid panel (09/24/2020 8:41 AM CDT) Cholesterol 145 <200 mg/dL [facility] HDL 36(L) > OR = 40 mg/dL [facility] Triglycerides 196(H) <150 mg/dL [facility] LDL 80 mg/dL (calc) [facility] Comment: Reference range: <100 Desirable range <100 mg/dL for primary prevention; ?? <70 mg/dL for patients with CHD or diabetic patients with > or = 2 CHD risk factors. LDL-C is now calculated using the Shirley calculation, which is a validated novel method providing better accuracy than the Friedewald equation in the estimation of LDL-C. Keith TOPETE et al. MACARIO. 2013;310(19): 0977-0320 (http://education.mohchi/faq/MMX759) Chol/HDL ratio 4.0 <5.0 (calc) [facility] Non-HDL, (LDL+VLDL) 109 <130 mg/dL (calc) [facility] Comment: For patients with diabetes plus 1 major ASCVD risk factor, treating to a non-HDL-C goal of <100 mg/dL (LDL-C of <70 mg/dL) is considered a therapeutic option. 09/24/2020 8:41 AM CDT 09/24/2020 8:43 AM CDT Narrative [facility] - 09/25/2020 7:07 AM CDT FASTING:YES FASTING: YES us Maira Badillo MD LAB BLOOD ORDERABLES Final R esult [facility] [place] [address] [place] [address] * (ABNORMAL) CBC with auto differential (09/24/2020 8:41 AM CDT) WBC 11.0(H) 3.8 - 10.8 Thousand/u L [facility] RBC, POC 5.44 4.20 - 5.80 Million/uL [facility] Hgb 16.4 13.2 - 17.1 g/dL [facility] Hct 48.6 38.5 - 50.0 % [facility] MCV 89.3 80.0 - 100.0 fL [facility] MCH 30.1 27.0 - 33.0 pg [facility] MCHC 33.7 32.0 - 36.0 g/dL [facility] Rdw 13.2 11.0 - 15.0 % [facility] Platelets 277 140 - 400 Thousand/u L [facility] MPV 11.6 7.5 - 12.5 fL [facility] Neutrophils, abs 6,699 1,500 - 7,800 cells/uL [facility] Lymphocytes, abs 3,124 850 - 3,900 cells/uL [facility] Monocyte abs 781 200 - 950 cells/uL [facility] Eosinophils, abs 330 15 - 500 cells/uL [facility] Basophils, abs 66 0 - 200 cells/uL [facility] Neutrophils 60.9 % [facility] Lymphocyte pct 28.4 % [facility] Monocytes 7.1 % [facility] Eosinophils 3.0 % [facility] Basophils 0.6 % [facility] 09/24/2020 8:41 AM CDT 09/24/2020 8:43 AM CDT Narrative [facility] - 09/25/2020 7:07 AM CDT FASTING:YES FASTING: YES us Maira Badillo MD LAB BLOOD ORDERABLES Final R esult [facility] [address] [place] [address] documented in this encounter Visit Diagnoses Not on filedocumented in this encounter Care Teams Strap Buckler Machine Relationship Specialty Start Date End Date Meet Ang DO [address] [place] [phone] PCP - General 07/07/20 documented as of this encounter
--- OUTSIDE RECORDS SUMMARY | 2024-05-11 21:18 | XMS_ITS | Encounter Summary ---
Author Organization [facility] Healthcare Address [address] [place] [address] Care Team Providers Care Director Of Convention Services Name Role Phone Meet Ang DO Primary Care Provide r Reason for Visit * Reason Comments Palpitations Encounter Details Date Type Department Care Team (Late st Contact Info) Description 07/20/2021 1:01 AM MIRROR POLISHER - 07/20/2021 2:21 AM MIRROR POLISHER Emergency [facility] Emergency Department [address] [place], [place] [id number] Tung Trivedi MD [address] [place] [address] [place], [place] [id number] Chest wall pain (Primary Dx) Discharge Disposition: Discharge to home or self care Social History Tobacco Use Types Packs/Day Years Used Date Smoking Tobacco: Former Cigarettes Smokeless Tobacco: Never Sex and Gender Information Value Date Recorded Sex Assigned at Not on file Legal Sex Male 5:38 PM MIRROR POLISHER Gender Identity Not on file Sexual Orientation Not on file documented as of this encounter Last Filed Vital Signs Vital Sign Reading Time Taken Comments Blood Pressure 120/78 07/20/2021 2:16 AM MIRROR POLISHER Pulse 94 07/20/2021 2:16 AM MIRROR POLISHER Temperature 36.8 ??C (98.2 ??F) 07/20/2021 1 2:36 AM MIRROR POLISHER Respiratory Rate 18 07/20/2021 12:3 6 AM MIRROR POLISHER Oxygen Saturation 98% 07/20/2021 2:16 AM MIRROR POLISHER Inhaled Oxygen Concentration - - Weight 145.5 kg (320 lb 12.3 oz) 2021 12:36 AM MIRROR POLISHER Height 185.4 cm (6' 1 ) 07/20/2021 12:3 6 AM MIRROR POLISHER Body Mass Index 42.32 07/20/2021 12:36 AM MIRROR POLISHER documented in this encounter Discharge Instructions * Discharge Instructions* Tung Trivedi MD - 07/20/2021 2:16 AM MIRROR POLISHER You were evaluated in the Emergency Department today for chest pain. Your evaluation has shown no signs of medical conditions requiring emergent intervention at this time, however we recommend that you follow up with your primary care physician or your vmware administrator as soon as possible for further te sting as an outpatient. Please schedule an appointment for follow up with your primary care physician as soon as possible. Return to the Emergency Department if you experience worsening or uncontrolled chest pain, shortness of breath, light headedness, feeling faint, nausea, vomiting, or any other concerning symptoms. Thank you for choosing us for your care. OR POLISHER OR POLISHER * Attachments The following attachments cannot be sent through Care Everywhere. * Chest Pain (AfterCare(R) Instructions(ER/ED)) (Honduran) documented in this encounter Medications at Time of Discharge albuterol HFA (PROVENTIL HFA,VENTOLIN HFA,PROAIR HFA) 90 mcg/actuation inhaler Inhale 1 puff 06/15/2018 busPIRone (BUSPAR) 15 mg tablet Take 15 mg by mouth daily 06/24/2020 clobetasoL (CLOBEX) 0.05 % shampoo 05/19/2021 metoprolol XL (TOPROL-XL) 50 mg extended release tablet Take 50 mg by mouth daily 07/20/2020 11/26/2021 documented as of this encounter Discharge Disposition Disposition Code Departure Means Destination Discharge to home or self care documented in this encounter ED Notes * Tung Trivedi MD - 07/20/2021 1:04 AM CST HPI Chief Complaint Patient presents with ??? Palpitations HPI Mr. Blackwood is a 30-year-old gentleman who presents to ED for chest pain. Patient states that he has been having intermittent chest pain for past couple days. Patient also endorses pain and posterior neck. Patient states that it hurts to take a deep breath. Patient states that he has a history of anxiety and thinks this may be due to his anxiety previously. Patient denies any history of DVT or PE. Patient denies any recent surgeries or recent trauma. Patient denies any fever chills. Patient states that he has not take anything for his anxiety. Patient History: Patient Active Problem List Diagnosis Date Noted ??? Elevated troponin level not due myocardial infarction 08/21/2020 ??? Class 3 severe obesity with body mass index (BMI) of 45.0 to 49.9 in adult ([facility]) ([facility]) 08/21/2020 ??? Palpitations 08/21/2020 ??? Leukocytosis 08/21/2020 Past Medical History: Diagnosis Date ??? Asthma ??? Depression No past surgical history on file. Family History Problem Relation Age of Onset ??? Heart attack Maternal Grandfather ??? Other (bypass) Paternal Grandfather Social History Tobacco Use ??? Smoking status: Former Smoker Years: 5.00 ??? Smokeless tobacco: Never Used Substance Use Topics ??? Drug use: Never Social History Social History Narrative ??? Not on file Review of Systems Review [...] Negative for color change and rash. Neurological: Negative for seizures and syncope. All other systems reviewed and are negative. Physical Exam ED Triage Vitals [07/20/21 0036] Temp Pulse Resp BP SpO2 36.8 ??C (98.2 ??F) 110 18 153/79 98 % Temp src Heart Rate Source Patient Position BP Location FiO2 (%) Oral -- -- -- -- Physical Exam Vitals and nursing note reviewed. Constitutional: Appearance: He is well-developed. HENT: Head: Normocephalic and atraumatic. Eyes: Conjunctiva/sclera: Conjunctivae normal. Cardiovascular: Rate and Rhythm: Normal rate and regular rhythm. Heart sounds: Normal heart sounds. No murmur heard. Pulmonary: Effort: Pulmonary effort is normal. No respiratory distress. Breath sounds: Normal breath sounds. Abdominal: Palpations: Abdomen is soft. Tenderness: There is no abdominal tenderness. Musculoskeletal: Cervical back: Neck supple. Skin: General: Skin is warm and dry. Neurological: Mental Status: He is alert and oriented to person, place, and time. MDM MDM Workup: ECG, CXR, CBC, BMP, Troponin Findings: ECG: No overt evidence of STEMI. No evidence of Brugada???s sign, delta wave, epsilon wave, significantly prolonged QTc, or malignant arrhythmia Troponin: Negative Other Labs unremarkable for emergent problems. CXR: Without PTX, PNA, or widened mediastinum Last Stress Test: never Last Heart Catheterization: never HEART Score: 0 Given History, Exam, and Workup I have low suspicion for ACS, Pneumothorax, Pneumonia, Pulmonary Embolus, Tamponade, Aortic Dissection or other emergent problem as a cause for this presentation. Reassesment: Prior to discharge patient???s pain was controlled and they were well appearing. Disposition: Discharge. Strict return precautions discussed with patient with full understanding. Advised patient to follow up promptly with primary care provider Final diagnoses: Chest wall pain Tung Trivedi MD 07/23/21 0640 OR POLISHER * Mayra Sandoval RN - 07/20/2021 12:32 AM CST Palpitation onset , intermittent brief chest pains since yesterday. Currently pain free, pain in posterior neck. Feels like unable to take deep breath. NKI. Reports hx anxiety OR POLISHER documented in this encounter Plan of Treatment Not on file documented as of this encounter Procedures Procedure Name Priority Date/Time Associated Diagnosis Comments XR CHEST 1 VIEW ED 07/20/2021 1:05 AM MIRROR POLISHER TROPONIN T HIGH-SENSITIVITY SERIES (BASELINE, 2HR, 4HR, 6HR) STAT 07/20/2021 12:50 AM MIRROR POLISHER EGFR STAT 07/20/2021 12:50 AM MIRROR POLISHER DIFFERENTIAL AUTO STAT 07/20/2021 12: 50 AM MIRROR POLISHER CBC WITH AUTO DIFFERENTIAL STAT 07/20/2021 12:50 AM MIRROR POLISHER COMPREHENSIVE METABOLIC PANEL STAT 07/20/2021 12:50 AM MIRROR POLISHER ECG 12-LEAD STAT 07/20/2021 12:42 AM MIRROR POLISHER documented in this encounter Results * XR Chest 1 Vw Portable (07/20/2021 1:05 AM MIRROR POLISHER) Anatomical Region Laterality Modality Body, Chest N/A Computed Radiogr aphy 07/20/2021 1:09 AM MIRROR POLISHER Narrative 07/20/2021 1:09 AM MIRROR POLISHER EXAM DESCRIPTION: ?? XR CHEST 1 VIEW REASON FOR STUDY: ?? CAD, symptomatic, previous revascularization ?? Palpitation onset , intermittent brief chest pains since yesterday. ?? Currently pain free, pain in posterior neck. Feels like unable to take deep breath. NKI. ??Reports hx anxiety ?? TECHNIQUE: ?? Frontal ??radiographic view of the chest acquired. COMPARISON: 07/16/2020 FINDINGS: LUNGS/PLEURA: ?? No focal consolidation or pneumothorax. No pleural effusion. HEART/MEDIASTINUM: ?? Heart size is normal. Normal mediastinal and hilar contours. HARDWARE/LINES/TUBES: ?? None. BONES: ?? No acute findings. OTHER: ?? No other significant finding. IMPRESSION: ??No acute cardiopulmonary disease. THIS IS AN ELECTRONICALLY VERIFIED FINAL REPORT 07/20/2021 1:09 AM - Electronically signed by ??Jaspal Basilio M.D. RW: TERELL D: ??07/20/2021 1:09 AM T: ??07/20/2021 1:09 AM Report ID: [id number] Reading Location: ??[id number] Procedure Note Jaspal Basilio MD - 07/20/2021 EXAM DESCRIPTION: XR CHEST 1 VIEW REASON FOR STUDY: CAD, symptomatic, previous revascularization Palpitation onset day, intermittent brief chest pains sinceyesterday. Currently pain free, pain in posterior neck. Feels like unable to takedeep breath. NKI. Reports hx anxiety TECHNIQUE: Frontal radiographic view of the chest acquired. COMPARISON: 07/16/2020 FINDINGS: LUNGS/PLEURA: No focal consolidation or pneumothorax. No pleuraleffusion. HEART/MEDIASTINUM: Heart size is normal. Normal mediastinal and hilar contours. HARDWARE/LINES/TUBES: None. BONES: No acute findings. OTHER: No other significant finding. IMPRESSION: No acute cardiopulmonary disease. THIS IS AN ELECTRONICALLY VERIFIED FINAL REPORT 07/20/2021 1:09 AM - Electronically signed by Jaspal Basilio M.D. RW: TERELL Report ID: [id number] Reading Location: [id number] us Tung Trivedi MD IMG XR PROCEDURES F inal Result * eGFR (07/20/2021 12:50 AM MIRROR POLISHER) eGFR 121 mL/min/1. 73 m2 SARAH Comment: Interpretive Data Reference Interval Normal ?>/= [...] of Race in Diagnosing Kidney Disease, JASN 202). The CKD-EPI equation should not be used for patients with unstable renal function and has not been validated in children and those over 70. Current interpretive data was last reviewed 2021. Testing performed by: [address] [address] Blood 07/20/2021 12:5 0 AM MIRROR POLISHER 07/20/2021 1:13 AM MIRROR POLISHER us Tung Trivedi MD LAB BLOOD ORDERABLE S Final Result SARAH [facility] [facility] Department [place] [address] * Differential, auto (07/20/2021 12:50 AM MIRROR POLISHER) Neutrophil abs 6.2 1.7 - 6.5 K/cumm SARAH Comment:Testing performed by : [address] [address] Imm gran abs 0.0 0.0 - 0.1 K/cumm SARAH Comment:Testing performed by : [address] [address] Lymphocyte abs 2.3 0.8 - 3.3 K/cumm SARAH Comment:Testing performed by : [address] [address] Monocyte abs 0.7 0.2 - 0.8 K/cumm SARAH Comment:Testing performed by : [address] [address] Eosinophil abs 0.2 0.0 - 0.5 K/cumm SARAH Comment:Testing performed by : [address] [place] [address] Basophil abs 0.1 0.0 - 0.1 K/cumm SARAH Comment:Testing performed by : [address] [address] Neutrophil pct 65.4 % [facility] Comment: Interpretive Data Percent cell count reference ranges are not reported, since discordance with absolute values may lead to misinterpretation of CBC data. Current Interpretive Data was last revised on 2017. Testing performed by: [address] [address] Imm gran pct 0.2 % [facility] Comment: Interpretive Data Percent cell count reference ranges are not reported, since discordance with absolute values may lead to misinterpretation of CBC data. Current Interpretive Data was last revised on 2017. Testing performed by: [address] [address] Lymphocyte pct 24.1 % [facility] Comment: Interpretive Data Percent cell count reference ranges are not reported, since discordance with absolute values may lead to misinterpretation of CBC data. Current Interpretive Data was last revised on 2017. Testing performed by: [address] [address] Monocyte pct 7.7 % [facility] Comment: Interpretive Data Percent cell count reference ranges are not reported, since discordance with absolute values may lead to misinterpretation of CBC data. Current Interpretive Data was last revised on 2017. Testing performed by: [address] [address] Eosinophil pct 1.9 % [facility] Comment: Interpretive Data Percent cell count reference ranges are not reported, since discordance with absolute values may lead to misinterpretation of CBC data. Current Interpretive Data was last revised on 2017. Testing performed by: [address] [address] Basophil pct 0.7 % [facility] Comment: Interpretive Data Percent cell count reference ranges are not reported, since discordance with absolute values may lead to misinterpretation of CBC data. Current Interpretive Data was last revised on 2017. Testing performed by: [address] [address] Blood 07/20/2021 12:5 0 AM MIRROR POLISHER 07/20/2021 1:13 AM MIRROR POLISHER us Tung Trivedi MD LAB BLOOD ORDERABLE S Final Result [facility] [address] [facility] Department [place] [address] * (ABNORMAL) Comprehensive metabolic panel (07/20/2021 12:50 AM MIRROR POLISHER) Sodium 138 135 - 145 mmol/L SARAH Comment:Testing performed by : [address] [address] Potassium, pl 3.7 3.3 - 4.9 mmol/L SARAH Comment:Testing performed by : [address] [address] Chloride 101 97 - 110 mmol/L SARAH Comment:Testing performed by : [address] [address] CO2 24 22 - 32 mmol/L SARAH Comment:Testing performed by : [address] [address] Anion gap 13 2 - 15 mmol/L SARAH Comment:Testing performed by : [address] [address] BUN 9 8 - 25 mg/dL SARAH Comment:Testing performed by : [address] [address] Creatinine 0.80 0.80 - 1.30 mg/dL SARAH Comment:Testing performed by : [address] [address] Glucose 114 70 - 199 mg/dL SARAH Comment: Interpretive [...] was last revised 2017. Testing performed by: [address] [address] Calcium 8.9 8.5 - 10.3 mg/dL SARAH Comment:Testing performed by : [address] [address] Bilirubin, total 1.7(H) 0.1 - 1.2 mg/dL SARAH Comment:Testing performed by : [address] [address] Protein, pl 7.6 6.5 - 8.5 g/dL SARAH Comment:Testing performed by : [address] [address] Albumin 4.3 3.5 - 5.0 g/dL SARAH Comment:Testing performed by : [address] [address] Alk phos 85 40 - 130 Units/L SARAH Comment:Testing performed by : [address] [address] ALT 40 7 - 55 Units/L SARAH Comment:Testing performed by : [address] [address] AST 27 10 - 50 Units/L [facility]:Testing performed by : [address] [address] Blood 07/20/2021 12:5 0 AM MIRROR POLISHER 07/20/2021 1:13 AM MIRROR POLISHER us Tung Trivedi MD LAB BLOOD ORDERABLE S Final Result SARAH [address] [facility] [facility] Department of Laboratories [place], [place] [id number] * (ABNORMAL) CBC with auto differential (07/20/2021 12:50 AM MIRROR POLISHER) WBC 9.4 3.8 - 9.9 K/cumm SARAH Comment:Testing performed by : [address], [address] Hgb 15.7 13.0 - 17.5 g/dL SARAH Comment:Testing performed by : [address], [address] Hct 44.9 38.9 - 50.3 % SARAH Comment:Testing performed by : [address], [address] Plt 278 150 - 400 K/cumm SARAH Comment:Testing performed by : [address], [address] MPV 11.7 9.1 - 12.3 fL SARAH Comment:Testing performed by : [address], [address] RBC 5.22 4.30 - 5.80 M/cumm SARAH Comment:Testing performed by : [address], [address] MCV 86.0 81.3 - 96.4 fL SARAH Comment:Testing performed by : [address], [address] MCH 30.1 27.1 - 33.3 pg SARAH Comment:Testing performed by : [address], [address] MCHC 35.0 32.3 - 35.7 g/dL SARAH Comment:Testing performed by : [address], [address] RDW CV 11.5 11.1 - 14.9 % SARAH Comment:Testing performed by : [address], [address] RDW SD 35.6(L) 35.7 - 48.1 fL SARAH Comment:Testing performed by : [address] [address] NRBC abs 0.00 0.00 - 0.01 K/cumm SARAH Comment:Testing performed by : [address], [address] Blood 07/20/2021 12:5 0 AM MIRROR POLISHER 07/20/2021 1:13 AM MIRROR POLISHER us Tung Trivedi MD LAB BLOOD ORDERABLE S Final Result Performing Organization Address [facility] Co de Phone Number SARAH [address] [facility] Department [place] [address] * Troponin T high-sensitivity series (baseline, 2hr, 4hr, 6hr) (07/20/2021 12:50 AM MIRROR POLISHER) Pathologist [facility] Trop T hs <6 <=22 ng/L SARAH Comment: Interpretive Data For further hscTnT resources including the diagnostic algorithm and an aid in interpretation, copy and paste this link: [email or web address].testcatalog.org/show/hsTrop Current Interpretive Data last revised 2020. Testing performed by: [facility], [address] [place] [address]., [address] Blood 07/20/2021 12:5 0 AM MIRROR POLISHER 07/20/2021 1:13 AM MIRROR POLISHER us Tung Trivedi MD LAB BLOOD ORDERABLE S Final Result Performing Organization Address [facility] Co de Phone Number SARAH [facility] [place] [address] * ECG 12 lead (07/20/2021 12:42 AM MIRROR POLISHER) Ventricular Rate EKG/Min 104 BPM [facility] Atrial Rate [address] [facility] OR-Interval (MSEC) [address] [facility] QRS-Interval (MSEC) [address] [facility] QT-Interval (MSEC) [address] [facility] QTc [address] [facility] P [place] [address] [facility] R [place] [address] [facility] T [place] [address] [facility] Diagnosis Sinus tachycardia Otherwise normal ECG When compared with ECG of 16-JUL-2020 07:08, No significant change was found [facility] 07/20/2021 12:4 2 AM MIRROR POLISHER 07/20/2021 2:35 PM MIRROR POLISHER us Tung Trivedi MD ECG ORDERABLES Fin al Result [facility] documented in this encounter Visit Diagnoses Diagnosis Chest wall pain- Primary Painful respiration documented in this encounter Administered Medications Inactive Administered Medications - up to 3 most recent administrations Medication Order MAR Action Action Date Dose Rate Site hydrOXYzine (ATARAX) tablet 50 mg 50 mg, oral, Once, On 07/20/21 at 0123, For 1 dose Given 07/20/2021 1:55 AM MIRROR POLISHER 50 mg documented in this encounter Active and Recently Administered Medications Times are shown in MIRROR POLISHER. Scheduled Medication Order 07/18/2021 07/19/2021 07/20/2021 hydrOXYzine (ATARAX) tablet 50 mg (COMPLETED) 50 mg, oral, Once, On 07/20/21 at 0123, For 1 dose 0155 (Given - Provid er: Lanie David RN) documented in this encounter Orders Medications Ordered That Juan ht Not Have Been Administered Count Last Ordered Date First Ordered Date LORazepam (ATIVAN) tablet 0.5 mg 1 07/20/19 documented in this encounter Care Teams Director Of Convention Services Relationship Specialty Start Date End Date Meet Ang DO [address] [place] [id number] PCP - General 07/07/20 documented as of this encounter
--- OUTSIDE RECORDS SUMMARY | 2024-05-11 21:18 | XMS_ITS | Encounter Summary ---
Author Organization [facility] Address [address] [address] Care Team Providers Care Diesel Powerplant Supervisor Name Role Phone Meet Ang DO Primary Care Provide r Encounter Details Date Type Department Care Team (Late st Contact Info) Description 12/04/2021 Telephone [facility] Cardiology [address] [facility] [address] [facility] [place] [address] Maira Badillo MD [address] [place] [address] Social History Tobacco Use Types Packs/Day Years Used Date Smoking Tobacco: Former Cigarettes Smokeless Tobacco: Never Sex and Gender Information Value Date Recorded Sex Assigned at Not on file 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 Gender Identity Not on file Sexual Orientation Not on file documented as of this encounter Ordered Prescriptions Prescription Sig Dispense Quantity Refills Last Filled Start Date End Date atenoloL (TENORMIN) 25 mg tablet Take 1 tablet (25 mg total) by mouth daily 30 tablet 3 12/05/2021 03/26/2022 atenoloL (TENORMIN) 25 mg tablet Take 1 tablet (25 mg total) by mouth daily 30 tablet 3 12/05/2021 12/05/2021 documented in this encounter Miscellaneous Notes * Addendum Note - Lior Tinajero LPN - 12/05/2021 8:09 AM CDTAddended by: LIOR TINAJERO on: 12/05/2021 08:09 AM Modules accepted: Orders * Telephone Encounter - Lior Tinajero LPN - 12/05/2021 8:05 AM CDT I called and informed pt, he voiced understanding.Rx Atenolol 25mg sent to [facility]. * Telephone Encounter - Maira Badillo MD - 12/04/2021 1:09 PM CDT Try atenolol 25 mg daily * Telephone Encounter - Judit Wooten - 12/04/2021 9:41 AM CDT Pt called because he said his insurance wont cover bisoprolol. Pt also stated that he could go backto taking metoprolol. documented in this encounter Plan of Treatment Not on file documented as of this encounter Visit Diagnoses Not on filedocumented in this encounter Discontinued Medications Medication Sig Discontinue Reason Start Date End Da te bisoprolol (ZEBETA) 5 mg tablet Take 1 tablet (5 mg total) by mouth daily Take 1 tablet by mouth daily for 1 week then half a tablet daily thereafter. Alternate therapy 11/26/2021 12/05/2021 atenoloL (TENORMIN) 25 mg tablet Take 1 tablet (25 mg total) by mouth daily Error 12/05/2021 12/05/2021 documented as of this encounter Care Teams Diesel Powerplant Supervisor Relationship Specialty Start Date End Date Meet Ang DO [address] [place] [id number] PCP - General 07/07/20 documented as of this encounter
--- OUTSIDE RECORDS SUMMARY | 2024-05-11 21:18 | XMS_ITS | Encounter Summary ---
Author Organization [facility] Address [address] [facility] [address] [place] [address] Care Team Providers Care Routing Clerk Name Role Phone Meet Ang DO Primary Care Provide r Reason for Visit * Reason Comments Palpitations 3 mo fu/labs Encounter Details Date Type Department Care Team (Late st Contact Info) Description 11/21/2020 10:00 AM CDT Office Visit [facility] Cardiology [address] [facility] [address] [place] [address] Maira Badillo MD [address] [place] [address] Palpitations (Primary Dx); Elevated troponin level not due myocardial infarction; Class 3 severe obesity with body mass index (BMI) of 45.0 to 49.9 in adult, unspecified obesity type, unspecified whether serious comorbidity present (CMS/HCC) Social History Tobacco Use Types Packs/Day Years Used Date Smoking Tobacco: Former Cigarettes Smokeless Tobacco: Never Sex and Gender Information Value Date Recorded Sex Assigned at Not on file 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 Gender Identity Not on file Sexual Orientation Not on file documented as of this encounter Last Filed Vital Signs Vital Sign Reading Time Taken Comments Blood Pressure 130/82 11/21/2020 10:02 AM CDT Pulse 82 11/21/2020 10:02 AM CDT Temperature - - Respiratory Rate - - Oxygen Saturation 97% 11/21/2020 10: 02 AM CDT Inhaled Oxygen Concentration - - Weight 158.6 kg (349 lb 9.6 oz) 021 10:02 AM CDT Height 185.4 cm (6' 1 ) 11/21/2020 10:0 2 AM CDT Body Mass Index 46.12 11/21/2020 10:02 AM CDT documented in this encounter Progress Notes * Maira Badillo MD - 11/21/2020 10:00 AM CDT Subjective/Objective Patient ID: Alex Blackwood is a 30 y.o. male. Chief Complaint Palpitations (3 mo fu/labs) HPI Alex is a 30 year-old male who returns for follow up visit. He did have his series of his PfizerCOVID-19 vaccine with the last dose being in late September of 2020. His event monitor done between 07/23/2020 through 08/21/2020was normal with no arrhythmias asymptomatic or symptomatic, he had less than1% PVC burden less than 1% Pac burden. His symptoms did not correlate with any arrhythmia. He had no atrial fibrillation, SVT, ventricular tachycardia, significant pauses or any heart block. He is scheduled to get a sleep study. Since being on the metoprolol XL he has not had any further palpitations. He is not following any diet is been under a significant amount of stress but does avoid caffeine and decongestants. His weight is up 10 lb since his last visit about 3 months ago. He is not exercising regularly. He is compliant with his medications. He denies any side effects from his medications. He denies any chest pain, shortness of breath, paroxysmal nocturnal dyspnea, dizziness, syncope,or lower extremity edema. Current Outpatient Medications: ??? albuterol HFA (Ventolin HFA) 90 mcg/actuation inhaler, Inhale 1 puff, Disp: , Rfl: ??? busPIRone (BUSPAR) 15 mg tablet, Take [...] for sleep disturbance. Negative for confusion. BP 130/82 (BP Location: Left arm, Patient Position: Sitting) Pulse 82 Ht 185.4 cm (6' 1 ) Wt (!) 158.6 kg (349 lb 9.6 oz) SpO2 97% BMI 46.12 kg/m?? Physical Exam GENERAL APPEARANCE: The patient [...] 196 (H) 09/24/2020 CK 111 07/08/2020 SODIUM 141 09/24/2020 POTASSIUM 4.1 09/24/2020 MAGNESIUM 1.9 07/11/2020 CO2 33 (H) 09/24/2020 BUNSER 10 09/24/2020 BUN 10 07/16/2020 GLUCOSE 88 09/24/2020 CREATININE 0.83 09/24/2020 CALCIUM 9.1 09/24/2020 CHLORIDE 102 09/24/2020 ALBUMIN 4.5 09/24/2020 ALT 36 09/24/2020 AST 22 09/24/2020 ALKPHOS 73 09/24/2020 BILITOT 1.9 (H) 09/24/2020 PROT 7.4 07/16/2020 WBC 11.0 (H) 09/24/2020 HGB 16.4 09/24/2020 LABPLAT 277 09/24/2020 TSH 3.260 07/15/2020 Assessment/Plan Diagnoses and all orders for this visit: Palpitations (R00.2) (Primary) Elevated troponin level not due myocardial infarction (R77.8) Class 3 severe obesity with body mass index (BMI) of 45.0 to 49.9 in adult, unspecified obesity type, unspecified whether serious comorbidity present ([facility]) (E66.01, Z68.42) Palpitations, PVCs seen in the hospital as [...] LAB TROPONIN I ASSAY. Obesity Obstructive sleep apnea, scheduled to get a sleep study in the next couple weeks GERD Leukocytosis, persistent History of anxiety and depressive disorder with panic attacks Status post Pfizer COVID-19 vaccine with the last dose being in late September of 2020. Plan-I recommend minimize his caffeine and avoid all decongestants. I recommended weight loss and regular exercise. I recommend he continue his metoprolol XL/succinate 50 mg daily. He will follow up with his sleep study. I will have him follow-up with me in a year's time. I asked him return sooner if he has any cardiac issues or problems. CARDIAC TESTING: ECHOCARDIOGRAM 07/08/2020 which showed normal left ventricular systolic function with an ejection fraction of 60-65% with no significant valvular disease. TREADMILL MYOVIEW STRESS TEST 07/07/2020 which showed normal echocardiographic portion of a treadmill Myoview stress test patientwalking total of 9 minutes 30 seconds in standard Morneo protocol attaining heart rate of 166 beats [...] index (BMI) of 45.0 to 49.9 in adult, unspecified obesity type, unspecified whether serious comorbidity present (HCC) documented in this encounter Historical Medications * This list may reflect changes made after this encounter. albuterol HFA (PROVENTIL HFA,VENTOLIN HFA,PROAIR HFA) 90 mcg/actuation inhaler Inhale 1 puff 06/15/2018 added in this encounter Care Teams Routing Clerk Relationship Specialty Start Date End Date Meet Ang DO [address] [place] [address] PCP - General 07/07/20 documented as of this encounter
--- OUTSIDE RECORDS SUMMARY | 2024-05-11 21:18 | XMS_ITS | Encounter Summary ---
Author Organization [facility] Address [address] [place] [address] Care Team Providers Care Photoengraver Apprentice Name Role Phone Meet Ang DO Primary Care Provide r Encounter Details Date Type Department Care Team (Late st Contact Info) Description 07/11/2020 11:43 PM BOBBIN WINDER - 07/12/2020 4:45 AM 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 Gender Identity Not on file Sexual Orientation Not on file documented as of this encounter Last Filed Vital Signs Vital Sign Reading Time Taken Comments Blood Pressure 138/89 07/11/2020 11:09 PM BOBBIN WINDER Pulse 102 07/11/2020 11:09 PM BOBBIN WINDER Temperature 36.7 ??C (98.1 ??F) 07/11/2020 1 1:09 PM BOBBIN WINDER Respiratory Rate - - Oxygen Saturation 97% 07/11/2020 11: 09 PM BOBBIN WINDER Inhaled Oxygen Concentration - - Weight 151.6 kg (334 lb 3.5 oz) 021 11:09 PM BOBBIN WINDER Height 185.4 cm (6' 1 ) 07/11/2020 11:0 9 PM BOBBIN WINDER Body Mass Index 44.1 07/11/2020 11:09 PM BOBBIN WINDER documented in this encounter Medications at Time of Discharge albuterol HFA (PROVENTIL HFA,VENTOLIN HFA,PROAIR HFA) 90 mcg/actuation inhaler Inhale 1 puff 06/15/2018 busPIRone (BUSPAR) 15 mg tablet Take 15 mg by mouth daily 06/24/2020 documented as of this encounter Discharge Disposition Disposition Code Departure Means Destination Discharge to home or self care documented in this encounter Plan of Treatment Not on file documented as of this encounter Procedures Procedure Name Priority Date/Time Associated Diagnosis Comments SCAN - LABS 07/12/2020 12:00 AM BOBBIN WINDER THYROID FUNCTION CASCADE Routine 07/11/2020 11:23 PM BOBBIN WINDER CBC WITH AUTO DIFFERENTIAL Routine 07/11/2020 11:23 PM BOBBIN WINDER TROPONIN T Routine 07/11/2020 11:23 PM BOBBIN WINDER MAGNESIUM Routine 07/11/2020 11:23 PM [facility]OBBIN WINDER COMPREHENSIVE METABOLIC PANEL Routine 07/11/2020 11:23 PM BOBBIN WINDER ECG 12-LEAD 07/11/2020 11:17 PM BOBBIN WINDER XR CHEST 1 VIEW 07/11/2020 11:13 PM BOBBIN WINDER documented in this encounter Results * SCAN - LABS (07/12/2020 12:00 AM BOBBIN WINDER) Narrative 07/12/2020 12:00 AM BOBBIN WINDER Ordered by an unspecified provider. us Historical Provider MD Final Res ult * TSH reflex to free T4 (07/11/2020 11:23 PM BOBBIN WINDER) TSH W REFLEX TO FT4 3.670 0.27 - 4.20 uIU/mL [facility] 07/11/2020 11:2 3 PM BOBBIN WINDER 07/11/2020 11:34 PM BOBBIN WINDER Narrative Resulting Agency Comment ER Alex Parrish MD LAB BLOOD ORDERABLES F inal Result Performing Organization Address City/[facility]/ZIP Co de Phone Number [address] [phone] * Magnesium (07/11/2020 11:23 PM BOBBIN WINDER) [facility] Magnesium 1.9 1.6 - 2.6 mg/dL [facility] Comment: Magnesium sulfate therapy: ??3.0-9.1 mg/dL 07/11/2020 11:2 3 PM BOBBIN WINDER 07/11/2020 11:34 PM BOBBIN WINDER Narrative Resulting Agency Comment ER Alex Parrish MD LAB BLOOD ORDERABLES F inal Result Performing Organization Address [facility] Co de Phone Number [address] [phone] * Troponin T (07/11/2020 11:23 PM BOBBIN WINDER) [facility] Troponin T <0.01 0.0 - 0.10 ng/mL [facility] Comment: Values obtained using Troponin I assay cannot be used interchangeably with Troponin T values. 07/11/2020 11:2 3 PM BOBBIN WINDER 07/11/2020 11:34 PM BOBBIN WINDER Narrative Resulting Agency Comment ER Alex Parrish MD LAB BLOOD ORDERABLES F inal Result Performing Organization Address City/[facility] Co de Phone Number [facility] [address] [place], [place] [id number] [place] [address] * (ABNORMAL) Comprehensive metabolic panel (07/11/2020 11:23 PM BOBBIN WINDER) [facility] Sodium 141 135 - 145 mmol/L [facility] Potassium 3.9 3.3 - 5.1 mmol/L [facility] Chloride 105 96 - 108 mmol/L [facility] Carbon Dioxide 30 22 - 32 mmol/L [facility] Anion Gap 6(L) 7 - [address] [facility] Glucose 91 70 - 100 mg/dL [facility] BUN 11 8 - 25 mg/dL [facility] Creatinine 0.7 0.5 - 1.3 mg/dL [facility] Comment: NOTE: Estimated GFR (Cockroft-Gault) will NOT be calculated unless patient Height and Weight were entered. Also, Kidney Disease Stage (GFR) and Estimated GFR (Cockroft-Gault) will NOT be calculated if Creatinine result is <0.2. Kidney Disease Stage >90 mL/MIN [facility] Comment: NOTE; ??The GFR is an estimated value using the creatinine, sex, age, and race of the patient. THE Estimated Kidney Disease GFR is validated for AGES 18-70 YEARS STAGE ?mL/Min ?DESCRIPTION ??1 ?90 mL/min or more ?Normal or elevated GFR ??2 ? 60-89 mL/min ?Mildly decreased GFR ??3 ? 30-59 mL/min ?Moderately decreased GFR ??4 ? 15-29 mL/min ?Severely decreased GFR ??5 ? <15 mL/min ? Kidney failure or on dialysis Est GFR (Cockcroft-G) 237 ml/MIN [facility] Comment: Estimated GFR(Cockroft-Gault)is used to calculate patient medication dosage Calcium 9.6 8.6 - 10.3 mg/dL [facility] Total Protein 7.9 6.4 - 8.3 g/dL [facility] Albumin 4.4 3.5 - 5.0 g/dL [facility] Globulin 3.5 2.3 - 3.5 gm/dL [facility] Albumin/Globulin Ratio 1.3 1.1 - 1.8 [facility] Total Bilirubin 1.0 0.0 - 1.2 mg/dL [facility] AST 29 0 - 40 U/L [facility] ALT 54(H) 0 - 41 U/L [facility] Alkaline Phosphatase 85 40 - 129 U/L [facility] 07/11/2020 11:2 3 PM BOBBIN WINDER 07/11/2020 11:34 PM BOBBIN WINDER Narrative Resulting Agency Comment ER us Alex Parrish MD LAB BLOOD ORDERABLES E dited Result - Final Performing Organization Address City/State/[facility] Co de Phone Number [facility] [address] [place] [address] * (ABNORMAL) CBC with auto differential (07/11/2020 11:23 PM BOBBIN WINDER) WBC 12.6(H) 3.8 - 9.9 X10 3/ul [facility] RBC 5.32 4.30 - 5.80 x10 6/ul [facility] Hemoglobin 16.0 13.0 - 17.5 g/dL [facility] Hct 45.7 38.9 - 50.3 % [facility] MCV 85.9 81.3 - 96.4 fl [facility] MCH 30.1 27.1 - 33.3 pg [facility] MCHC 35.0 32.3 - 35.7 g/dl [facility] RDW 11.9 11.1 - 14.9 % [facility] Plt Count 289 150 - 400 x10 3/ul [facility] MPV 11.3 9.1 - 12.3 fl [facility] Neut % 56.8 % [facility] Immature Gran % 0.4 % [facility] Lymph % 31.6 % [facility] [place] % 8.1 % [facility] Eos % 2.6 % [facility] AUT[place] % 0.5 % [facility] NEUTROPHIL ABS # 7.1(H) 1.7 - 6.5 x10 3/ul [facility] Immature Gran # 0.1 0.0 - 0.1 x10 3/ul [facility] Absolute Lymphs (auto) 4.0(H) 0.8 - 3.3 x10 3/ul [facility] Absolute Monos (auto) 1.0(H) 0.2 - 0.8 x10 3/ul [facility] Absolute Eos (auto) 0.3 0.0 - 0.5 x10 3/ul [facility] BASOPHIL ABS # 0.1 0.0 - 0.1 x10 3/ul [facility] Nucleat RBC Rel Count 0.0 #/100WBC [facility] NRBC abs 0.00 0.00 - 0.01 x10 3/ul [facility] Absolute Neutrophils 7,100 200 - 8,000 /ul [facility] 07/11/2020 11:2 3 PM BOBBIN WINDER 07/11/2020 11:34 PM BOBBIN WINDER Narrative Resulting Agency Comment ER us Alex Parrish MD LAB BLOOD ORDERABLES F inal Result Performing Organization Address City/State/[facility] Co de Phone Number [facility] [address] [place] [address] * ECG 12 lead (07/11/2020 11:17 PM BOBBIN WINDER) Ventricular Rate EKG/Min 108 BPM [facility] Atrial Rate 108 BPM [facility] NM-Interval (MSEC) 136 ms [facility] QRS-Interval (MSEC) 94 ms [facility] QT-Interval (MSEC) 338 ms [facility] QTc 452 ms [facility] P [place] 58 degrees [facility] R [place] 56 degrees [facility] T [place] 44 degrees [facility] Diagnosis Sinus tachycardia Cannot rule out Anterior infarct , age undetermined Abnormal ECG When compared with ECG of 08-JUL-2020 14:05, No significant change was found [facility] 07/11/2020 11:1 7 PM BOBBIN WINDER 07/12/2020 1:56 PM BOBBIN WINDER Narrative Resulting Agency Comment RHONDA us Alex Parrish MD ECG ORDERABLES Final Result [facility] * XR Chest 1 View (07/11/2020 11:13 PM BOBBIN WINDER) Anatomical Region Laterality Modality Body, Chest N/A Radiographic Zoe ging 07/11/2020 11:3 9 PM BOBBIN WINDER Narrative 07/11/2020 11:40 PM BOBBIN WINDER Patient Name: ALEX TOVAR ?Ordering Dr: Alex Parrish MD ?? D.O.B: 1990 ? Exam Date: 07/11/20 ?? 2313 ?? Age: 29 ?Sex: Male ? MR#: [id number] ?? Loc: ? RADIOLOGY REPORT ?? Order #[id number] ?? Radiology ? Chest 1 View Portable ? Signed ? EXAM DESCRIPTION: ?? Chest 1 View Portable ? REASON FOR STUDY: ?? palpatations w/ bilateral shoulder pain starting tonight ? TECHNIQUE: ?? Portable upright AP view of the chest. ? COMPARISON: ??07/07/2020 ? FINDINGS: ? LUNGS AND PLEURA: No focal opacity, large effusion, or pneumothorax identified. ? HEART/MEDIASTINUM: Trachea midline. Cardiac silhouette normal in size. ?? Mediastinal contours appear normal. ? BONES: Unremarkable. ? UPPER ABDOMEN: Unremarkable. ? IMPRESSION: ??No acute abnormality identified. ? THIS IS AN ELECTRONICALLY VERIFIED FINAL REPORT ?? 07/11/2020 11:40 PM - Electronically signed by Varun Shay M.D. ?? Varun Shay M.D. ? AR: AR ?? D: ??07/11/2020 11:40 PM ?? T: ??07/11/2020 11:40 PM ? Report ID: [id number] ?? Reading Location: ??[id number] ? REPORT ELECTRONICALLY SIGNED IN OTHER VENDOR SYSTEM ?? Resulting Agency Comment E Procedure Note Varun Shay MD - 07/11/2020 Patient Name: ALEX TOVAR Dr: Alex Parrish MD D.O.B: 1990 Exam Date: 07/11/202312 Age: 29 Sex: Male MR#: [id number] Loc: RADIOLOGY REPORT Order #[id number] Radiology Chest 1 View Portable Signed EXAM DESCRIPTION: Chest 1 View Portable REASON FOR STUDY: palpatations w/ bilateral shoulder pain startingtonight TECHNIQUE: Portable upright AP view of the chest. COMPARISON: 07/07/2020 FINDINGS: LUNGS AND PLEURA: No focal opacity, large effusion, or pneumothoraxidentified. HEART/MEDIASTINUM: Trachea midline. Cardiac silhouette normal in size. Mediastinal contours appear normal. BONES: Unremarkable. UPPER ABDOMEN: Unremarkable. IMPRESSION: No acute abnormality identified. THIS IS AN ELECTRONICALLY VERIFIED FINAL REPORT 07/11/2020 11:40 PM - Electronically signed by Varun Shay M.D. AR: ADDI Report ID: [id number] Reading Location: [place] [address] REPORT ELECTRONICALLY SIGNED IN OTHER VENDOR SYSTEM Alex Parrish MD IMG XR PROCEDURES Lynn l Result documented in this encounter Visit Diagnoses Not on filedocumented in this encounter Care Teams Photoengraver Apprentice Relationship Specialty Start Date End Date Meet Ang DO [address] [place] [id number] PCP - General 07/07/20 documented as of this encounter
--- OUTSIDE RECORDS SUMMARY | 2024-05-11 21:18 | XMS_ITS | Encounter Summary ---
Author Organization [facility] Address [address] [facility] [address] [place] [id number] Care Team Providers Care Career Services Manager Name Role Phone Meet Ang DO Primary Care Provide r Reason for Visit * Reason Comments Palpitations Encounter Details Date Type Department Care Team (Late st Contact Info) Description 11/26/2021 10:00 AM CDT Office Visit [facility] Cardiology [address] [facility] [address] [place] [address] Maira Badillo MD [address] [place] [id number] Palpitations (Primary Dx); Elevated troponin level [...] on file 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 Gender Identity Not on file Sexual Orientation Not on file documented as of this encounter Last Filed Vital Signs Vital Sign Reading Time Taken Comments Blood Pressure 110/88 11/26/2021 9:59 AM CDT Pulse 93 11/26/2021 9:59 AM CDT Temperature - - Respiratory Rate - - Oxygen Saturation 97% 11/26/2021 9:59 AM CDT Inhaled Oxygen Concentration - - Weight 142 kg (313 lb) 11/26/2021 9:59 AM CDT Height 185.4 cm (6' 1 ) 11/26/2021 9:59 AM CDT Body Mass Index 41.3 11/26/2021 9:59 AM CDT documented in this encounter Ordered Prescriptions Prescription Sig Dispense Quantity Refills Last Filled Start Date End Date bisoprolol (ZEBETA) 5 mg tablet Take 1 tablet (5 mg total) by mouth daily Take 1 tablet by mouth daily for 1 week then half a tablet daily thereafter. 30 tablet 3 11/26/2021 12/05/2021 bisoprolol (ZEBETA) 5 mg tablet Take 1 tablet (5 mg total) by mouth daily Take 1 tablet by mouth daily for 1 week then half a tablet daily thereafter. 30 tablet 3 11/26/2021 11/26/2021 documented in this encounter Progress Notes * Maira Badillo MD - 11/26/2021 10:00 AM CDT Subjective/Objective Patient ID: Alex Blackwood is a 31 y.o. male. Chief Complaint Palpitations HPI Alex is a 31 year-old male who returns for follow up visit. He was changed from metoprolol to carvedilol by his primary care physician due to nightmares there are improved but not resolved still occurring once a week and had noticed some shortness of breath and body aches which occurred about 2 weeks after changing to carvedilol and was actually seen in the emergency department on 11/03/2021 and the had a negative respiratory panel negative for COVID, influenza A/B and RSV and EKG at that time showed normal sinus rhythm with rate of 85 beats per minute he had a normal EKG.. However he has noticed the symptoms have occurred about 2 weeks after changing from metoprolol to carvedilol still p ersist and has a known history of asthma. He has been trying to follow a low- calorie diet and he has been successful as he has lost 36 lb in the last 1 year. He is not doing regular exercise but he does work out in the ER in actually says his breathing is better with activity than it is at rest. Heis feeling much better now that he is on CPAP. He is compliant with his medications. He denies any side effects from his medications. He denies any chest pain, shortness of breath, paroxysmal nocturnal dyspnea, dizziness, syncope, or lower extremity edema. Current Outpatient Medications: ??? albuterol HFA (PROVENTIL HFA,VENTOLIN HFA,PROAIR HFA) 90 mcg/actuation inhaler, Inhale 1 puff, Disp: , Rfl: ??? carvediloL (COREG) 12.5 mg tablet, TAKE 1 TABLET(12.5 MG) BY MOUTH TWICE DAILY, Disp: , Rfl: ??? busPIRone (BUSPAR) 15 mg tablet, Take 15 mg by mouth daily (Patient not taking: Reported on 11/26/2021), Disp: , Rfl: ??? clobetasoL (CLOBEX) 0.05 % shampoo, Apply thin film to dry scalp once daily (maximum dose: 50 mL/week); leave in place for 15 minutes, then add water, lather, and rinse thoroughly. Limit treatment to 4 consecutive weeks. (Patient not taking: Reported on 11/26/2021), Disp: , Rfl: ??? metoprolol XL (TOPROL-XL) 50 mg extended release tablet, Take 50 mg by mouth daily (Patient nottaking: Reported on 11/26/2021), Disp: , Rfl: Review [...] for sleep disturbance. Negative for confusion. BP 110/88 (BP Location: Right arm, Patient Position: Sitting) Pulse 93 Ht 185.4 cm (6' 1 ) Wt(!) 142 kg (313 lb) SpO2 97% BMI 41.30 kg/m?? 11/21/2020, 349 lb Physical Exam GENERAL APPEARANCE: The patient [...] whether serious comorbidity present (HCC) (E66.01, Z68.41) Dyspnea and body aches since switching over from metoprolol to carvedilol, clearly the dyspnea can be from the fact that he has asthma any seems like he had a flare-up of asthma with the non selective beta-kristie carvedilol as opposed to the selective beta-kristie carvedilol. He was switched from m etoprolol to carvedilol due to nightmares. Palpitations, PVCs seen in the hospital as [...] Dyspnea, likely secondary a non selective beta-kristie flaring up his asthma Obesity, 36 lb weight loss in the last 1 year Obstructive sleep apnea, now compliant with his CPAP, managed by physician at [facility] GERD History of asthma Leukocytosis, now normalized History of anxiety and depressive disorder with panic attacks Status post Pfizer COVID-19 vaccine with the last dose being in late September of 2020, 1st booster is inJanuary of 2021 and is planning to get his 2nd booster in the next week or 2. . Nightmares, worse on metoprolol better on carvedilol but not completely resolved Plan-I recommend minimize his caffeine and avoid all decongestants. I recommend he continue to try to lose some weight and exercise regularly. I will discontinue his carvedilol but we cannot completely abruptly stop a beta-kristie without starting another so I will start him on bisoprolol 5 mg daily and then I told him to go to on to 2.5 mg daily a week later. He is enquiring on trying to get offof the beta-kristie altogether I have return in 3 months time will see how his heart rate is and see if he still has problems with sinus tachycardia if not then will plan to discontinue it. If he still has problems with the bisoprolol at the 2.5 mg dose then we could plan to discontinue it and place him on diltiazem if he needs something for sinus tachycardia which should not cause any problems with his asthma or nightmares. I will have him follow-up with me in 3 months time. I asked him returnsooner if he has any cardiac issues or [...] Discontinue Reason Start Date End Da te carvediloL (COREG) 12.5 mg tablet TAKE 1 TABLET(12.5 MG) BY MOUTH TWICE DAILY Alternate therapy 08/18/2021 11/26/2021 metoprolol XL (TOPROL-XL) 50 mg extended release tablet Take 50 mg by mouth daily Alternate therapy 07/20/2020 11/26/2021 bisoprolol (ZEBETA) 5 mg tablet Take 1 tablet (5 mg total) by mouth daily Take 1 tablet by mouth daily for 1 week then half a tablet daily thereafter. 11/26/2021 11/26/2021 documented as of this encounter Historical Medications * This list may reflect changes made after this encounter. clobetasoL (CLOBEX) 0.05 % shampoo 05/19/2021 carvediloL (COREG) 12.5 mg tablet TAKE 1 TABLET(12.5 MG) BY MOUTH TWICE DAILY 08/18/2021 11/26/2021 added in this encounter Care Teams Career Services Manager Relationship Specialty Start Date End Date Meet Ang DO [address] [place] [phone] PCP - General 07/07/20 documented as of this encounter
--- OUTSIDE RECORDS SUMMARY | 2024-05-11 21:18 | XMS_ITS | Encounter Summary ---
Author Organization [facility] Healthcare Address [address] [place] [address] Care Team Providers Care Lead Ios Developer Name Role Phone Meet Ang DO Primary Care Provide r Encounter Details Date Type Department Care Team (Late st Contact Info) Description 07/12/2020 10:30 PM PROFESSOR OF SURGERY - 07/13/2020 12:05 AM PROFESSOR OF SURGERY Emergency [facility] Emergency Department [address] [place] [address] Isabel Goldberg MD [address] [place] [phone] Unknown, Notinfile Discharge Disposition: Discharge to home or self care Social History Tobacco Use Types Packs/Day Years Used Date Smoking Tobacco: Never Assessed Sex and Gender Information Value Date Recorded Sex Assigned at Not on file Legal Sex Male 5:38 PM PROFESSOR OF SURGERY Gender Identity Not on file Sexual Orientation Not on file documented as of this encounter Last Filed Vital Signs Vital Sign Reading Time Taken Comments Blood Pressure 153/103 07/12/2020 9:49 PM PROFESSOR OF SURGERY Pulse 90 07/12/2020 9:49 PM PROFESSOR OF SURGERY Temperature 36.4 ??C (97.5 ??F) 07/12/2020 9:49 PM CS T Respiratory Rate - - Oxygen Saturation 98% 07/12/2020 9:49 PM PROFESSOR OF SURGERY Inhaled Oxygen Concentration - - Weight 150.2 kg (331 lb 2.2 oz) 07/12/2020 9:49 PM PROFESSOR OF SURGERY Height 185.4 cm (6' 1 ) 07/12/2020 9:49 PM PROFESSOR OF SURGERY Body Mass Index 43.69 07/12/2020 9:49 PM PROFESSOR OF SURGERY documented in this encounter Medications at Time [...] Date/Time Associated Diagnosis Comments SCAN - LABS 07/15/2020 12:00 AM PROFESSOR OF SURGERY documented in this encounter Results * SCAN - LABS (07/15/2020 12:00 AM PROFESSOR OF SURGERY) Narrative 07/15/2020 12:00 AM PROFESSOR OF SURGERY Ordered by an unspecified provider. us Historical Provider MD Final Res ult documented in this encounter Visit Diagnoses Not on filedocumented in this encounter Care Teams Lead Ios Developer Relationship Specialty Start Date End Date Meet Ang DO [address] [place] [id number] PCP - General 07/07/20 documented as of this encounter
--- OUTSIDE RECORDS SUMMARY | 2024-05-11 21:18 | XMS_ITS | Encounter Summary ---
Author Organization [facility] Healthcare Address [address] [place] [address] Care Team Providers Care Strategic Debriefing Specialist Name Role Phone Meet Ang DO Primary Care Provide r Reason for Visit * Reason Comments Shortness of Breath Encounter Details Date Type Department Care Team (Late st Contact Info) Description 11/03/2021 1:44 AM CDT - 11/03/2021 3:31 AM CDT Emergency [facility] Emergency Department [facility] [place], [place] [id number] Vitaly Maciel MD [address] [place] [address] [place] [address] Shortness of breath (Primary Dx); Exacerbation of asthma, unspecified asthma severity, unspecified whether persistent Discharge Disposition: Discharge to home or self care Social History Tobacco Use Types Packs/Day Years Used Date Smoking Tobacco: Former Cigarettes Smokeless Tobacco: Never Sex and Gender Information Value Date Recorded Sex Assigned at Not on file 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 Gender Identity Not on file Sexual Orientation Not on file documented as of this encounter Last Filed Vital Signs Vital Sign Reading Time Taken Comments Blood Pressure 181/98 11/03/2021 1:34 AM CDT Pulse 86 11/03/2021 1:34 AM CDT Temperature 36.7 ??C (98 ??F) 11/03/2021 1:34 AM CDT Respiratory Rate 28 11/03/2021 1:34 AM CDT Oxygen Saturation 99% 11/03/2021 2:54 AM CDT Inhaled Oxygen Concentration - - Weight 141.7 kg (312 lb 6.3 oz) 11/03/2021 1:34 AM CDT Height 185.4 cm (6' 1 ) 11/03/2021 1:34 AM CDT Body Mass Index 41.22 11/03/2021 1:34 AM CDT documented in this encounter Discharge Instructions * Attachments The following attachments cannot be sent through Care Everywhere. * Asthma (AfterCare(R) Instructions(ER/ED)) ([place]) documented in this encounter Medications at Time of Discharge albuterol HFA (PROVENTIL HFA,VENTOLIN HFA,PROAIR HFA) 90 mcg/actuation inhaler Inhale 1 puff 06/15/2018 busPIRone (BUSPAR) 15 mg tablet Take 15 mg by mouth daily 06/24/2020 clobetasoL (CLOBEX) 0.05 % shampoo 05/19/2021 predniSONE (DELTASONE) 20 mg tablet Take 1 tablet (20 mg) by mouth daily for 4 days 4 tablet 11/04/2021 11/08/2021 carvediloL (COREG) 12.5 mg tablet TAKE 1 TABLET(12.5 MG) BY MOUTH TWICE DAILY 08/18/2021 11/26/2021 metoprolol XL (TOPROL-XL) 50 mg extended release tablet Take 50 mg by mouth daily 07/20/2020 11/26/2021 documented as of this encounter Ordered Prescriptions Prescription Sig Dispense Quantity Refills Last Filled Start Date End Date predniSONE (DELTASONE) 20 mg tablet Take 1 tablet (20 mg) by mouth daily for 4 days 4 tablet 11/04/2021 11/08/2021 documented in this encounter Discharge Disposition Disposition Code Departure Means Destination Discharge to home or self care documented in this encounter ED Notes * Vitaly Maciel MD - 11/03/2021 1:46 AM CDT HPI Chief Complaint Patient presents with ??? Shortness of Breath HPI 31yo male with pmhx of asthma presents with SOB for x3 days. Sob was mild, today felt worse, tried bipap at home to no relief. No cough fever runny nose. Has chest tightness but no chest pain. Patient History: Patient Active Problem List Diagnosis Date Noted ??? Elevated troponin level not due myocardial infarction 08/21/2020 ??? Class 3 severe obesity with body mass index (BMI) of 45.0 to 49.9 in adult ([facility]) ([facility]) 08/21/2020 ??? Palpitations 08/21/2020 ??? Leukocytosis 08/21/2020 [...] Systems Review of Systems Constitutional: Negative for activity change, chills and fever. HENT: Negative for sore throat. Respiratory: Positive for shortness of breath. Negative for cough. Cardiovascular: Negative for chest pain. Gastrointestinal: Negative for abdominal pain, diarrhea, nausea and vomiting. Genitourinary: Negative for dysuria. Musculoskeletal: Negative for back pain. Skin: Negative for rash. Neurological: Negative for dizziness, syncope and headaches. Physical Exam ED Triage Vitals [11/03/21 0134] Temp Pulse Resp BP SpO2 36.7 ??C (98 ??F) 86 28 (!) 181/98 99 % Temp src Heart Rate Source Patient Position BP Location FiO2 (%) Oral -- -- -- -- Height Height Method Weight Weight Method 1.854 m (6' 1 ) Stated (!) 141.7 kg (312 lb 6.3 oz) Standing scale Physical Exam Vitals and nursing note reviewed. Constitutional: General: He is not in acute distress. Appearance: Normal appearance. He is normal weight. He is not ill-appearing, toxic-appearing or diaphoretic. HENT: Head: Normocephalic and atraumatic. Nose: Nose normal. Eyes: Extraocular Movements: Extraocular movements intact. Conjunctiva/sclera: Conjunctivae normal. Cardiovascular: Rate and Rhythm: Normal rate and regular rhythm. Heart sounds: No murmur heard. No gallop. Pulmonary: Effort: Pulmonary effort is normal. No respiratory distress. Breath sounds: Decreased breath sounds present. No wheezing, rhonchi or rales. Abdominal: General: Abdomen is flat. There is no distension. Palpations: Abdomen is soft. Tenderness: There is no abdominal tenderness. There is no guarding or rebound. Musculoskeletal: General: Normal range of motion. Cervical back: Normal range of motion and neck supple. Skin: General: Skin is warm and dry. Neurological: Mental Status: He is alert and oriented to person, place, and time. Mental status is at baseline. Psychiatric: Mood and Affect: Mood normal. MDM MDM Medical Decision Making Clinical problems/dx: Alex Blackwood is a 31 y.o. male who presents with sob. ED Course -Patient seen and evaluated, available studies reviewed -Prior available records reviewed, triage notes reviewed. -normal o2 on room air -breathing improved with duonebs. Started on prednisone Final diagnoses: Shortness of breath Exacerbation of asthma, unspecified asthma severity, unspecified whether persistent Vitaly Maciel MD 11/03/21 0242 * Sierra Easley RN - 11/03/2021 1:32 AM CDT Pt states that 2 days ago started having sob. Pt thought it was allergies. Pt states hx of asthma. Denies fever, chills, or cough. States blood pressure elevates with anxiety. documented in this encounter Plan of Treatment Not on file documented as of this encounter Procedures Procedure Name Priority Date/Time Associated Diagnosis Comments XR CHEST 1 VIEW ED 11/03/2021 2:11 AM CDT INFLUENZA A/B, RSV, AND COVID-19 PCR Routine 11/03/2021 1:52 AM CDT ECG 12-LEAD STAT 11/03/2021 1:42 AM CDT documented in this encounter Results * XR Chest 1 Vw Portable (11/03/2021 2:11 AM CDT) Anatomical Region Laterality Modality Body, Chest N/A Computed Radiogr aphy 11/03/2021 2:31 AM CDT Narrative 11/03/2021 2:31 AM CDT EXAM DESCRIPTION: ?? XR CHEST 1 VIEW REASON FOR STUDY: ?? Shortness of breath ?? days ago started having sob. Pt thought it was allergies. Pt states hx of asthma ?? TECHNIQUE: ??Portable upright AP view of the chest. COMPARISON: 07/20/2021 FINDINGS: LUNGS AND PLEURA: ??No focal opacity, large effusion, or pneumothorax identified. HEART/MEDIASTINUM: ??Trachea midline. ?? Cardiac silhouette normal in size. Mediastinal contours appear normal. BONES: ??Unremarkable. ?? CHEST WALL: ??Unremarkable. ?? UPPER ABDOMEN: ??Unremarkable. ?? IMPRESSION: No acute abnormality identified. ?? THIS IS AN ELECTRONICALLY VERIFIED FINAL REPORT 11/03/2021 2:31 AM - Electronically signed by ??Varun Shay M.D. AR: AR D: ??11/03/2021 2:31 AM T: ??11/03/2021 2:31 AM Report ID: [id number] Reading Location: ??[id number] Procedure Note Varun Shay MD - 11/03/2021 EXAM DESCRIPTION: XR CHEST 1 VIEW REASON FOR STUDY: Shortness of breath days ago started having sob. Pt thought it was allergies. Pt states hx of asthma TECHNIQUE: Portable upright AP view of the chest. COMPARISON: 07/20/2021 FINDINGS: LUNGS AND PLEURA: No focal opacity, large effusion, orpneumothorax identified. HEART/MEDIASTINUM: Trachea midline. Cardiac silhouette normal in size. Mediastinal contours appear normal. BONES: Unremarkable. CHEST WALL: Unremarkable. UPPER ABDOMEN: Unremarkable. IMPRESSION: No acute abnormality identified. THIS IS AN ELECTRONICALLY VERIFIED FINAL REPORT 11/03/2021 2:31 AM - Electronically signed by Varun Shay M.D. AR: AR Report ID: [id number] Reading Location: [id number] Vitaly Maciel MD IMG XR PROCEDURES Final Resul t * Influenza A/B, RSV, and COVID-19 PCR Nasopharyngeal (11/03/2021 1:52 AM CDT) [facility] COVID-19 RNA Negative Negative [facility] Comment:Testing performed by : [address] [address] Influenza A RNA Negative Negative [facility] Comment:Testing performed by : [address] [address] Influenza B RNA Negative Negative [facility] Comment:Testing performed by : [address] [address] RSV RNA Negative Negative [facility] Comment: Interpretive data: This test is performed using the [employer] Xpert Xpress CoV-2/Flu/RSV plus assay. This is a multiplex, real-time reverse transcriptase PCR assay intended for the qualitative detection of nucleic acid from SARS-CoV-2, influenza A, influenza B, and respiratory syncytial virus. This assay has been reviewed by the FDA for Emergency Use Authorization (EUA). The performance characteristics have been verified by the performing laboratory. Results must be considered in the clinical context, and a negative result does not rule out infection. Interpretive Data last revised 2021. Testing performed by: [address] [address] Nasopharyngeal 11/03/2021 1: 52 AM CDT 11/03/2021 1:58 AM CDT Narrative [facility] - 11/03/2021 2:38 AM CDT Is the Patient experiencing symptoms consistent with COVID?->Yes Date of Symptom Onset->11/01/21 Reason for testing?->Symptomatic us Vitaly Maciel MD LAB MICROBIOLOGY - GENERAL OR DERABLES Final Result [facility] [address] [facility] Department of Laboratories [place], [place] [id number] * ECG 12 lead (11/03/2021 1:42 AM CDT) Ventricular Rate EKG/Min 85 BPM [facility] Atrial Rate 85 BPM [facility] SD-Interval (MSEC) 166 ms [facility] QRS-Interval (MSEC) 94 ms [facility] QT-Interval (MSEC) 346 ms [facility] QTc 411 ms [facility] P [place] 60 degrees [facility] R [place] 47 degrees [facility] T [place] 46 degrees [facility] Diagnosis Normal sinus rhythm Normal ECG When compared with ECG of 20-JUL-2021 00:42, No significant change was found [facility] 11/03/2021 1:42 AM CDT 11/06/2021 7:40 PM CDT us Vitaly Maciel MD ECG ORDERABLES Final Result [facility] documented in this encounter Visit Diagnoses Diagnosis Shortness of breath- Primary Exacerbation of asthma, unspecified asthma severity, unspecified whether persistent documented in this encounter Administered Medications Inactive Administered Medications - up to 3 most recent administrations Medication Order MAR Action Action Date Dose Rate Site albuterol 2.5 mg/0.5 mL nebulizer solution 10 mg 10 mg, nebulization, Once, On Wed11/03/21 at 0147, For 1 dose Given 11/03/2021 2:00 AM CDT 10 mg albuterol 2.5 mg/0.5 mL nebulizer solution 5 mg 5 mg, nebulization, Once, On Wed11/03/21 at 0241, For 1 dose Given 11/03/2021 2:54 AM CDT 5 mg ipratropium (ATROVENT) 0.02 % nebulizer solution 0.5 mg 0.5 mg, nebulization, Once, On Wed11/03/21 at 0147, For 1 dose Given 11/03/2021 2:00 AM CDT 0.5 mg predniSONE (DELTASONE) tablet 40 mg 40 mg, oral, Once, On Wed11/03/21 at 0147, For 1 dose Given 11/03/2021 1:52 AM CDT 40 mg sodium chloride 0.9 % nebulizer solution - ADS Override Pull Starting on Wed11/03/21 at 0252, For 1 dose, Created by cabinet override Given 11/03/2021 2:54 AM CDT 3 mL documented in this encounter Active and Recently Administered Medications Times are shown in CDT. Scheduled Medication Order 11/01/2021 11/02/2021 11/03/2021 albuterol 2.5 mg/0.5 mL nebulizer solution 10 mg (COMPLETED) 10 mg, nebulization, Once, On Wed11/03/21 at 0147, For 1 dose 0200 (Given - Provid er: Teresita Harrell CRTT) albuterol 2.5 mg/0.5 mL nebulizer solution 5 mg (COMPLETED) 5 mg, nebulization, Once, On Wed11/03/21 at 0241, For 1 dose 0254 (Given - Provid er: Teresita Harrell CRTT) ipratropium (ATROVENT) 0.02 % nebulizer solution 0.5 mg (COMPLETED) 0.5 mg, nebulization, Once, On Wed11/03/21 at 0147, For 1 dose 0200 (Given - Provid er: Teresita Harrell CRTT) predniSONE (DELTASONE) tablet 40 mg (COMPLETED) 40 mg, oral, Once, On Wed11/03/21 at 0147, For 1 dose 0152 (Given - Provid er: Cayden Delacruz RN) No Frequency Medication Order 11/01/2021 11/02/2021 11/03/2021 sodium chloride 0.9 % nebulizer solution - ADS Override Pull (COMPLETED) Starting on Wed11/03/21 at 0252, For 1 dose, Created by kim override 0254 (Given - Provid er: Teresita Harrell CRTT) documented in this encounter Additional Health Concerns Infection Onset Date Last Indicated Resolved Time COVID: Suspected 11/03/2021 11/03/2021 11/03/2021 2:39 AM CDT documented as of this encounter Care Teams Strategic Debriefing Specialist Relationship Specialty Start Date End Date Meet Ang DO [address] [place] [id number] PCP - General 07/07/20 documented as of this encounter
--- OUTSIDE RECORDS SUMMARY | 2024-05-11 21:18 | XMS_ITS | Encounter Summary ---
Author Organization [facility] Healthcare Address [address] [place] [id number] Care Team Providers Care Biofuels Research Scientist Name Role Phone Meet Ang DO Primary Care Provide r Encounter Details Date Type Department Care Team (Late st Contact Info) Description 07/16/2020 6:06 AM GPS NAVIGATION INSTALLER - 07/16/2020 9:19 AM GPS NAVIGATION INSTALLER Emergency [facility] Emergency Department [address] [place] [address] Unknown, Javon Byrd II, MD [address] [place] [phone] Discharge Disposition: Discharge to home or self care Social History Tobacco Use Types Packs/Day Years Used Date Smoking Tobacco: Never Assessed Sex and Gender Information Value Date Recorded Sex Assigned at Not on file Legal Sex Male 5:38 PM GPS NAVIGATION INSTALLER Gender Identity Not on file Sexual Orientation Not on file documented as of this encounter Last Filed Vital Signs Vital Sign Reading Time Taken Comments Blood Pressure 117/72 07/16/2020 5:23 AM GPS NAVIGATION INSTALLER Pulse 72 07/16/2020 5:23 AM GPS NAVIGATION INSTALLER Temperature 36.7 ??C (98 ??F) 07/16/2020 5:23 AM GPS NAVIGATION INSTALLER Respiratory Rate - - Oxygen Saturation 95% 07/16/2020 5:23 AM GPS NAVIGATION INSTALLER Inhaled Oxygen Concentration - - Weight 148.5 kg (327 lb 6.2 oz) 07/16/2020 5:23 AM GPS NAVIGATION INSTALLER Height 185.4 cm (6' 1 ) 07/16/2020 5:23 AM GPS NAVIGATION INSTALLER Body Mass Index 43.19 07/16/2020 5:23 AM GPS NAVIGATION INSTALLER documented in this encounter Medications at Time [...] Date/Time Associated Diagnosis Comments SCAN - LABS 07/17/2020 12:00 AM GPS NAVIGATION INSTALLER TROPONIN I Routine 07/16/2020 8:02 AM GPS NAVIGATION INSTALLER ECG 12-LEAD 07/16/2020 7:08 AM GPS NAVIGATION INSTALLER CBC WITH AUTO DIFFERENTIAL Routine 07/16/2020 5:51 AM GPS NAVIGATION INSTALLER TROPONIN I Routine 07/16/2020 5:51 AM GPS NAVIGATION INSTALLER COMPREHENSIVE METABOLIC PANEL Routine 07/16/2020 5:51 AM GPS NAVIGATION INSTALLER ECG 12-LEAD 07/16/2020 5:31 AM GPS NAVIGATION INSTALLER XR CHEST 1 VIEW 07/16/2020 12:00 AM GPS NAVIGATION INSTALLER documented in this encounter Results * SCAN - LABS (07/17/2020 12:00 AM GPS NAVIGATION INSTALLER) Narrative 07/17/2020 12:00 AM GPS NAVIGATION INSTALLER Ordered by an unspecified provider. us Historical Provider MD Final Res ult * (ABNORMAL) Troponin I (07/16/2020 8:02 AM GPS NAVIGATION INSTALLER) Troponin I 0.980() 0.000 - 0.300 ng/mL [facility] Comment: CRITICAL VALUE previously reported. See results in EMR. Reference using ANDREW Chemiluminescence ? Consistent with AR: ? Clinical and Laboratory correlation is recommended. 07/16/2020 8:02 AM GPS NAVIGATION INSTALLER 07/16/2020 8:07 AM GPS NAVIGATION INSTALLER Narrative Resulting Agency Comment ER Javon Sneed II, MD LAB BLOOD ORDERABLES Lynn l Result [address] [phone] * ECG 12 lead (07/16/2020 7:08 AM GPS NAVIGATION INSTALLER) [facility] Ventricular Rate EKG/Min 90 BPM [facility] Atrial Rate 90 BPM [facility] MT-Interval (MSEC) 150 ms [facility] QRS-Interval (MSEC) 92 ms [facility] QT-Interval (MSEC) 356 ms [facility] QTc 435 ms [facility] P Maskell 48 degrees [facility] R Maskell 27 degrees [facility] T Maskell 38 degrees [facility] Diagnosis Normal sinus rhythm Poor R wave progression Cannot rule out Anterior infarct (cited on or before 16-JUL-2020) Abnormal ECG When compared with ECG of 16-JUL-2020 05:31, Heart rate has decreased by 11 bpm [facility] 07/16/2020 7:08 AM GPS NAVIGATION INSTALLER 07/16/2020 7:51 PM GPS NAVIGATION INSTALLER Narrative Resulting Agency Comment RHONDA Javon Sneed II, MD ECG ORDERABLES Final Res ult Performing Organization Address City/[facility]/ZIP Co de Phone Number [facility] * (ABNORMAL) Troponin I (07/16/2020 5:51 AM GPS NAVIGATION INSTALLER) [facility] Troponin I 1.000(HH) 0.000 - 0.300 ng/mL [facility] Comment: CRITICAL VALUE CALLED and REPEATED. at:0653 07/16/20 by:Shruthi Waldron to: [id number] [id number] Reference using ANDREW Chemiluminescence ? Consistent with AR: ? Clinical and Laboratory correlation is recommended. 07/16/2020 5:51 AM GPS NAVIGATION INSTALLER 07/16/2020 6:06 AM GPS NAVIGATION INSTALLER Narrative Resulting Agency Comment ER us Wen Liu MD LAB BLOOD ORDERABLES Lynn pratt Result [address] [phone] * (ABNORMAL) Comprehensive metabolic panel (07/16/2020 5:51 AM GPS NAVIGATION INSTALLER) Sodium 138 135 - 145 mmol/L [facility] Potassium 3.4 3.3 - 5.1 mmol/L [facility] Chloride 103 96 - 108 mmol/L [facility] Carbon Dioxide 25 22 - 32 mmol/L [facility] Anion Gap 10 7 - 16 [facility] Glucose 112(H) 70 - 100 mg/dL [facility] BUN 10 8 - 25 mg/dL [facility] Creatinine 0.8 0.5 - 1.3 mg/dL [facility] Comment: NOTE: Estimated GFR (Cockroft-Gault) will NOT be calculated unless patient Height and Weight were entered. Also, Kidney Disease Stage (GFR) and Estimated GFR (Cockroft-Gault) will NOT be calculated if Creatinine result is <0.2. Kidney Disease Stage >90 mL/MIN [facility] Comment: NOTE; ??The GFR is [...] failure or on dialysis Est GFR (Cockcroft-G) 205 ml/MIN [facility] Comment: Estimated GFR(Cockroft-Gault)is used to calculate patient medication dosage Calcium 8.9 8.6 - 10.3 mg/dL [facility] Total Protein 7.4 6.4 - 8.3 g/dL [facility] Albumin 4.5 3.5 - 5.0 g/dL [facility] Globulin 2.9 2.3 - 3.5 gm/dL [facility] Albumin/Globulin Ratio 1.6 1.1 - 1.8 [facility] Total Bilirubin 1.6(H) 0.0 - 1.2 mg/dL [facility] AST 25 0 - 40 U/L [facility] ALT 49(H) 0 - 41 U/L [facility] Alkaline Phosphatase 83 40 - 129 U/L [facility] 07/16/2020 5:51 AM GPS NAVIGATION INSTALLER 07/16/2020 6:06 AM GPS NAVIGATION INSTALLER Narrative Resulting Agency Comment ER us Wen Liu MD LAB BLOOD ORDERABLES Lynn pratt Result [address] [phone] * (ABNORMAL) CBC with auto differential (07/16/2020 5:51 AM GPS NAVIGATION INSTALLER) WBC 12.6(H) 3.8 - 9.9 X10 3/ul [facility] RBC 5.10 4.30 - 5.80 x10 6/ul [facility] Hemoglobin 15.2 13.0 - 17.5 g/dL [facility] Hct 43.1 38.9 - 50.3 % [facility] MCV 84.5 81.3 - 96.4 fl [facility] MCH 29.8 27.1 - 33.3 pg [facility] MCHC 35.3 32.3 - 35.7 g/dl [facility] RDW 11.8 11.1 - 14.9 % [facility] Plt Count 292 150 - 400 x10 3/ul [facility] MPV 11.5 9.1 - 12.3 fl [facility] Neut % 67.4 % [facility] [employer] [facility] Immature Gran % 0.6 % [facility] Lymph % 21.8 % [facility] [employer] [place] % 8.3 % [facility] [employer] [facility] E[facility] % 1.4 % [facility]O BASO % 0.5 % [facility] NEUTROPHIL ABS # 8.5(H) 1.7 - 6.5 x10 3/ul [facility] Immature Gran # 0.1 0.0 - 0.1 x10 3/ul [facility] Absolute Lymphs (auto) 2.8 0.8 - 3.3 x10 3/ul [facility] Absolute Monos (auto) 1.1(H) 0.2 - 0.8 x10 3/ul [facility] Absolute Eos (auto) 0.2 0.0 - 0.5 x10 3/ul [facility] BASOPHIL ABS # 0.1 0.0 - 0.1 x10 3/ul [facility] Nucleat RBC Rel Count 0.0 #/100WBC [facility] NRBC abs 0.00 0.00 - 0.01 x10 3/ul [facility] Absolute Neutrophils 8,500(H) 200 - 8,000 /ul [facility] 07/16/2020 5:51 AM GPS NAVIGATION INSTALLER 07/16/2020 6:06 AM GPS NAVIGATION INSTALLER Narrative Resulting Agency Comment ER us Wen Liu MD LAB BLOOD ORDERABLES Lynn pratt Result [facility] [address] [place], [place] [id number] [place] [address] * ECG 12 lead (07/16/2020 5:31 AM GPS NAVIGATION INSTALLER) Ventricular Rate EKG/Min 101 BPM [facility] Atrial Rate 101 BPM [facility] MT-Interval (MSEC) 142 ms [facility] QRS-Interval (MSEC) 94 ms [facility] QT-Interval (MSEC) 348 ms [facility] QTc 451 ms [facility] P Maskell 50 degrees [facility] R Maskell 36 degrees [facility] T [place]askell 28 degrees [facility] Diagnosis Sinus tachycardia Poor R wave progression Cannot rule out Anterior infarct , age undetermined Abnormal ECG When compared with ECG of 15-JUL-2020 04:20, Minimal criteria for Anterior infarct are now Present Heart rate has increased by 16 bpm [facility] 07/16/2020 5:31 AM GPS NAVIGATION INSTALLER 07/16/2020 7:50 PM GPS NAVIGATION INSTALLER Narrative Resulting Agency Comment RHONDA us Wen Liu MD ECG ORDERABLES Final Res ult [facility] * XR Chest 1 View (07/16/2020 12:00 AM GPS NAVIGATION INSTALLER) Anatomical Region Laterality Modality Body, Chest N/A Radiographic Zoe ging 07/16/2020 6:29 AM GPS NAVIGATION INSTALLER Narrative 07/16/2020 6:31 AM GPS NAVIGATION INSTALLER Patient Name: ALEX TOVAR ?Ordering Dr: Wen iLu MD ?? D.O.B: 1990 ? Exam Date: 07/16/20 ?? 0000 ?? Age: 29 ?Sex: Male ? MR#: [id number] ?? Loc: ? RADIOLOGY REPORT ?? Order #[id number] ?? Radiology ? Chest 1 View Portable ? Signed ? EXAM DESCRIPTION: ?? Chest 1 View Portable ? REASON FOR STUDY: ?? pt states heart feels funny x 30 min ? TECHNIQUE: ?? Frontal radiographic view of the chest acquired. ? COMPARISON: ?? 07/11/2020 ? FINDINGS: ? LUNGS/PLEURA: ??No focal consolidation or pneumothorax. No pleural effusion. ? HEART/MEDIASTINUM: ??Heart size is normal. Normal mediastinal and hilar ?? contours. ? HARDWARE/LINES/TUBES: ??None. ? BONES: ??No acute findings. ? OTHER: ??No other significant finding. ? IMPRESSION: ?? No acute cardiopulmonary disease. ? THIS IS AN ELECTRONICALLY VERIFIED FINAL REPORT ?? 07/16/2020 6:31 AM - Electronically signed by Domenic Rodriguez ?? Domenic Rodriguez ? BB: BB ?? D: ??07/16/2020 6:31 AM ?? T: ??07/16/2020 6:31 AM ? Report ID: [id number] ?? Reading Location: ??[id number] ? REPORT ELECTRONICALLY SIGNED IN OTHER VENDOR SYSTEM ?? Resulting Agency Comment E Procedure Note Domenic Rodriguez MD PhD - 07/16/2020 Patient Name: ALEX TOVAR Dr: Wen Liu MD D.O.B: 1990 Exam Date: 07/16/20 0000 Age: 29 Sex: Male MR#: [id number] Loc: RADIOLOGY REPORT Order #[id number] Radiology Chest 1 View Portable Signed EXAM DESCRIPTION: Chest 1 View Portable REASON FOR STUDY: pt states heart feels funny x 30 min TECHNIQUE: Frontal radiographic view of the chest acquired. COMPARISON: 07/11/2020 FINDINGS: LUNGS/PLEURA: No focal consolidation or pneumothorax. No pleuraleffusion. HEART/MEDIASTINUM: Heart size is normal. Normal mediastinal and hilar contours. HARDWARE/LINES/TUBES: None. BONES: No acute findings. OTHER: No other significant finding. IMPRESSION: No acute cardiopulmonary disease. THIS IS AN ELECTRONICALLY VERIFIED FINAL REPORT 07/16/2020 6:31 AM - Electronically signed by Domenic Rodriguez BB: BLESSING Report ID: [id number] Reading Location: [place] [address] REPORT ELECTRONICALLY SIGNED IN OTHER VENDOR SYSTEM Wen Liu MD IMG XR PROCEDURES Final R esult documented in this encounter Visit Diagnoses Not on filedocumented in this encounter Care Teams Biofuels Research Scientist Relationship Specialty Start Date End Date Meet Ang DO [address] [place] [address] PCP - General 07/07/20 documented as of this encounter
--- OUTSIDE RECORDS SUMMARY | 2024-05-11 21:18 | XMS_ITS | Encounter Summary ---
Author Organization [facility] Healthcare Address [address] [place] [address] Care Team Providers Care Telecom Network Manager Name Role Phone Meet Ang DO Primary Care Provide r Encounter Details Date Type Department Care Team (Late st Contact Info) Description 07/15/2020 4:03 AM PURCHASING COORDINATOR - 07/15/2020 10:03 AM PURCHASING COORDINATOR Emergency [facility] Emergency Department [address] [place] [address] Mayra Miller MD [address] [place] [address] Maday Parrish MD [address] [place] [phone] Unknown, Notinfile Discharge Disposition: Discharge to home or self care Social History Tobacco Use Types Packs/Day Years Used Date Smoking Tobacco: Never Assessed Sex and Gender Information Value Date Recorded Sex Assigned at Not on file Legal Sex Male 5:38 PM PURCHASING COORDINATOR Gender Identity Not on file Sexual Orientation Not on file documented as of this encounter Last Filed Vital Signs Vital Sign Reading Time Taken Comments Blood Pressure 115/96 07/15/2020 4:07 AM PURCHASING COORDINATOR Pulse 97 07/15/2020 4:07 AM PURCHASING COORDINATOR Temperature 36.9 ??C (98.5 ??F) 07/15/2020 4:07 AM CS T Respiratory Rate - - Oxygen Saturation 96% 07/15/2020 4:07 AM PURCHASING COORDINATOR Inhaled Oxygen Concentration - - Weight 149 kg (328 lb 7.8 oz) 07/15/2020 4:07 AM PURCHASING COORDINATOR Height 185.4 cm (6' 1 ) 07/15/2020 4:07 AM PURCHASING COORDINATOR Body Mass Index 43.34 07/15/2020 4:07 AM PURCHASING COORDINATOR documented in this encounter Medications at Time [...] Date/Time Associated Diagnosis Comments SCAN - LABS 07/16/2020 12:00 AM PURCHASING COORDINATOR THYROID FUNCTION CASCADE Routine 07/15/2020 4:37 AM PURCHASING COORDINATOR CBC WITH AUTO DIFFERENTIAL Routine 07/15/2020 4:37 AM PURCHASING COORDINATOR TROPONIN T Routine 07/15/2020 4:37 AM PURCHASING COORDINATOR ETHANOL Routine 07/15/2020 4:37 AM PURCHASING COORDINATOR ACETAMINOPHEN LEVEL Routine 07/15/2020 4 :37 AM PURCHASING COORDINATOR SALICYLATE LEVEL Routine 07/15/2020 4:37 AM PURCHASING COORDINATOR COMPREHENSIVE METABOLIC PANEL Routine 07/15/2020 4:37 AM PURCHASING COORDINATOR URINALYSIS AND REFLEX TO MICROSCOPIC Routine 07/15/2020 4:34 AM PURCHASING COORDINATOR DRUGS OF ABUSE SCREEN, URINE WITHOUT CONFIRMATION Routine 07/15/2020 4:34 AM PURCHASING COORDINATOR ECG 12-LEAD 07/15/2020 4:20 AM PURCHASING COORDINATOR CTA CHEST W IV CONTRAST - PE 07/15/2020 12:00 AM PURCHASING COORDINATOR documented in this encounter Results * SCAN - LABS (07/16/2020 12:00 AM PURCHASING COORDINATOR) Narrative 07/16/2020 12:00 AM PURCHASING COORDINATOR Ordered by an unspecified provider. Historical Provider MD Final Res ult * Ethanol (07/15/2020 4:37 AM PURCHASING COORDINATOR) Ethyl Alcohol <10 mg/dL [facility] Comment: % = mg/dL x .001 07/15/2020 4:37 AM PURCHASING COORDINATOR 07/15/2020 4:43 AM PURCHASING COORDINATOR Narrative Resulting Agency Comment ER Mayra Miller MD LAB BLOOD ORDERABLES Lynn l Result Performing Organization Address City/[facility]/ZIP Co de Phone Number [address] [phone] * Salicylate level (07/15/2020 4:37 AM PURCHASING COORDINATOR) Pathologist [facility] Salicylates <1 0 - 29 mg/dL [facility] 07/15/2020 4:37 AM PURCHASING COORDINATOR 07/15/2020 4:43 AM PURCHASING COORDINATOR Narrative Resulting Agency Comment ER Mayra Miller MD LAB BLOOD ORDERABLES Lynn l Result Performing Organization Address [facility]/ZIP Co de Phone Number [address] [phone] * (ABNORMAL) Acetaminophen level (07/15/2020 4:37 AM PURCHASING COORDINATOR) Acetaminophen <5.0(L) 10.0 - 30.0 ug/mL [facility] Comment: Acetaminophen concentrations greater than 200 ug/mL at 4 hours, and/or greater than 100 ug/mL at 8 hours, and/or greater than 50 ug/mL at 12 hours after ingestion have been associated with toxicity. Use of a nomogram is recommended. 07/15/2020 4:37 AM PURCHASING COORDINATOR 07/15/2020 4:43 AM PURCHASING COORDINATOR Narrative Resulting Agency Comment ER Mayra Miller MD LAB BLOOD ORDERABLES Lynn l Result Performing Organization Address City/[facility]/ZIP Co de Phone Number [address] [phone] * TSH reflex to free T4 (07/15/2020 4:37 AM PURCHASING COORDINATOR) TSH W REFLEX TO FT4 3.260 0.27 - 4.20 uIU/mL [facility] 07/15/2020 4:37 AM PURCHASING COORDINATOR 07/15/2020 4:43 AM PURCHASING COORDINATOR Narrative Resulting Agency Comment ER Mayra Miller MD LAB BLOOD ORDERABLES Lynn l Result Performing Organization Address [facility] Co de Phone Number [address] [phone] * Troponin T (07/15/2020 4:37 AM PURCHASING COORDINATOR) Troponin T <0.01 0.0 - 0.10 ng/mL [facility] Comment: Values obtained using Troponin I assay cannot be used interchangeably with Troponin T values. 07/15/2020 4:37 AM PURCHASING COORDINATOR 07/15/2020 4:43 AM PURCHASING COORDINATOR Narrative Resulting Agency Comment ER Mayra Miller MD LAB BLOOD ORDERABLES Lynn l Result Performing Organization Address City/[facility]/ZIP Co de Phone Number [facility] [address] [place], [place] [id number] [place] [address] * (ABNORMAL) Comprehensive metabolic panel (07/15/2020 4:37 AM PURCHASING COORDINATOR) Sodium 136 135 - 145 mmol/L [facility] Potassium 3.7 3.3 - 5.1 mmol/L [facility] Chloride 101 96 - 108 mmol/L [facility] Carbon Dioxide 28 22 - 32 mmol/L [facility] Anion Gap 7 7 - 16 [facility] Glucose 101(H) 70 - 100 mg/dL [facility] BUN 11 8 - 25 mg/dL [facility] Creatinine 0.8 0.5 - 1.3 mg/dL [facility] Comment: NOTE: Estimated GFR (Cockroft-Gault) will NOT be calculated unless patient Height and Weight were entered. Also, Kidney Disease Stage (GFR) and Estimated GFR (Cockroft-Gault) will NOT be calculated if Creatinine result is <0.2. Kidney Disease Stage >90 mL/MIN [facility] Comment: NOTE; ??The GFR is an estimated [...] on dialysis Est GFR (Cockcroft-G) 205 ml/MIN [facility] Comment: Estimated GFR(Cockroft-Gault)is used to calculate patient medication dosage Calcium 8.7 8.6 - 10.3 mg/dL [facility] Total Protein 7.7 6.4 - 8.3 g/dL [facility] Albumin 4.5 3.5 - 5.0 g/dL [facility] Globulin 3.2 2.3 - 3.5 gm/dL [facility] Albumin/Globulin Ratio 1.4 1.1 - 1.8 [facility] Total Bilirubin 1.4(H) 0.0 - 1.2 mg/dL [facility] AST 23 0 - 40 U/L [facility] ALT 46(H) 0 - 41 U/L [facility] Alkaline Phosphatase 89 40 - 129 U/L [facility] 07/15/2020 4:37 AM PURCHASING COORDINATOR 07/15/2020 4:43 AM PURCHASING COORDINATOR Narrative Resulting Agency Comment ER Mayra Miller MD LAB BLOOD ORDERABLES Lynn l Result [address] [phone] * (ABNORMAL) CBC with auto differential (07/15/2020 4:37 AM PURCHASING COORDINATOR) WBC 14.1(H) 3.8 - 9.9 X10 3/ul [facility] RBC 5.38 4.30 - 5.80 x10 6/ul [facility] Hemoglobin 16.0 13.0 - 17.5 g/dL [facility] Hct 46.0 38.9 - 50.3 % [facility] MCV 85.5 81.3 - 96.4 fl [facility] MCH 29.7 27.1 - 33.3 pg [facility] MCHC 34.8 32.3 - 35.7 g/dl [facility] RDW 11.9 11.1 - 14.9 % [facility] Plt Count 301 150 - 400 x10 3/ul [facility] MPV 11.2 9.1 - 12.3 fl [facility] Neut % 60.7 % [facility] AST - MEDITECH Immature Gran % 0.4 % [facility] Lymph % 26.7 % [facility] E AST - MEDITECH [place] % 9.7 % [facility] Eos % 1.9 % [facility] E AST [facility] AUTO BASO % 0.6 % [facility] NEUTROPHIL ABS # 8.5(H) 1.7 - 6.5 x10 3/ul [facility] Immature Gran # 0.1 0.0 - 0.1 x10 3/ul [facility] Absolute Lymphs (auto) 3.8(H) 0.8 - 3.3 x10 3/ul [facility] Absolute Monos (auto) 1.4(H) 0.2 - 0.8 x10 3/ul [facility] Absolute Eos (auto) 0.3 0.0 - 0.5 x10 3/ul [facility] BASOPHIL ABS # 0.1 0.0 - 0.1 x10 3/ul [facility] Nucleat RBC Rel Count 0.0 #/100WBC [facility] NRBC abs 0.00 0.00 - 0.01 x10 3/ul [facility] Absolute Neutrophils 8,500(H) 200 - 8,000 /ul [facility] 07/15/2020 4:37 AM PURCHASING COORDINATOR 07/15/2020 4:43 AM PURCHASING COORDINATOR Narrative Resulting Agency Comment ER Mayra Miller MD LAB BLOOD ORDERABLES Lynn l Result [facility] [address] [place] [address] * Drugs of Abuse Screen, Urine without Confirmation (07/15/2020 4:34 AM PURCHASING COORDINATOR) [facility] Amphetamines NOT DETECTED [facility] Comment: This assay uses 500 ng/mL as a cutoff for a positive result. Barbiturates NOT DETECTED [facility] Comment: This assay uses 200 ng/mL as a cutoff for a positive result. Urine Fentanyl NOT DETECTED [facility] Comment: This assay uses 1 ng/mL as a cutoff for a positive result. Benzodiazepines NOT DETECTED [facility] Comment: This assay uses 100 ng/mL as a cutoff for a positive result. Cannabinoids NOT DETECTED [facility] Comment: This assay uses 50 ng/mL as a cutoff for a positive result. Cocaine NOT DETECTED [facility] Comment: This assay uses 150 ng/mL as a cutoff for a positive result. Opiates NOT DETECTED [facility] Comment: This assay uses 300 ng/mL as a cutoff for a positive result. Urine methadone NOT DETECTED [facility] Comment: This assay uses 300 ng/mL as a cutoff for a positive result. Urine phencyclidine plus NOT DETECTED [facility] Comment: This assay uses 25 ng/mL as a cutoff for a positive result. Oxycodone NOT DETECTED [facility] Comment: This assay uses 100 ng/mL as a cutoff for a positive result. Urine Creatinine/DONTA 347.3 mg/dL [facility] Comment: If Creatinine is < 40 mg/dL, recollection is suggested. Drug of abuse screening is performed by immunoassay for medical purposes only. This is not to be used for Pain Management purposes. 07/15/2020 4:34 AM PURCHASING COORDINATOR 07/15/2020 5:14 AM PURCHASING COORDINATOR Narrative [facility] - 07/15/2020 5:31 AM PURCHASING COORDINATOR Collected By Resulting Agency Comment ER us Mayra Miller MD LAB URINE ORDERAB[place] [address], [facility] [phone] * (ABNORMAL) Urinalysis reflex to microscopic (07/15/2020 4:34 AM PURCHASING COORDINATOR) Ur Collection Type CLEAN CATCH [facility] Urine Color YELLOW YELLOW [facility] Urine Clarity CLEAR CLEAR [facility] Urine Glucose (UA) NORMAL NORMAL mg/dL [facility] Urine Bilirubin NEGATIVE NEGATIVE mg/dl [facility] Urine Ketones NEGATIVE NEGATIVE mg/dL [facility] Ur Specific [place] 1.027(H) 1.005 - 1.025 [facility] Urine Blood NEGATIVE NEGATIVE mg/dl [facility] Urine pH 6.0 5.0 - 8.0 [facility] Urine Protein NEGATIVE NEGATIVE mg/dL [facility] Urine Urobilinogen NORMAL NORMAL mg/dL [facility] Urine Nitrite NEGATIVE NEGATIVE [facility] Ur Leukocyte Esterase NEGATIVE NEGATIVE Elie/ul [facility] Ur Microscopic Review Not Indicated [facility] 07/15/2020 4:34 AM PURCHASING COORDINATOR 07/15/2020 5:14 AM PURCHASING COORDINATOR Narrative [facility] - 07/15/2020 5:23 AM PURCHASING COORDINATOR sh Clean catch Resulting Agency Comment ER us Mayra Miller MD LAB URINE ORDERABLES Lynn l Result [address] [phone] * ECG 12 lead (07/15/2020 4:20 AM PURCHASING COORDINATOR) Ventricular Rate EKG/Min 84 BPM [facility] Atrial Rate 84 BPM [facility] CA-Interval (MSEC) 150 ms [facility] QRS-Interval (MSEC) 94 ms [facility] QT-Interval (MSEC) 360 ms [facility] QTc 425 ms [facility] P [place] 52 degrees [facility] R [place] 42 degrees [facility] T [place] 41 degrees [facility] Diagnosis Normal sinus rhythm Normal ECG When compared with ECG of 11-JUL-2020 23:17, Minimal criteria for Anterior infarct are no longer Present [facility] 07/15/2020 4:20 AM PURCHASING COORDINATOR 07/15/2020 11:40 AM PURCHASING COORDINATOR Narrative Resulting Agency Comment RHONDA us Mayra Miller MD ECG ORDERABLES Final Res ult [facility] * CTA Chest W IV Contrast - PE (07/15/2020 12:00 AM PURCHASING COORDINATOR) Anatomical Region Laterality Modality Body N/A Computed Tomogra phy 07/15/2020 6:11 AM PURCHASING COORDINATOR Narrative 07/15/2020 6:17 AM PURCHASING COORDINATOR Patient Name: MADAY TOVAR ?Ordering Dr: Mayra Miller MD ?? D.O.B: 1990 ? Exam Date: 07/15/20 ?? 0000 ?? Age: 29 ?Sex: Male ? MR#: [id number] ?? Loc: ? RADIOLOGY REPORT ?? Order #[id number] ?? CT Scan ? CTA Chest W IV Contrast - PE ? Signed ? EXAM DESCRIPTION: ?? CTA Chest W IV Contrast - PE ? REASON FOR STUDY: ?? Chest pain x1 week ? TECHNIQUE: ??CT angiogram of the chest performed with intravenous contrast ?? using helical scanning technique with dynamic intravenous contrast injection. ?? Reconstructed coronal and sagittal MPR images reviewed. All images stored on ?? PACS. ??3D MIP images rendered on scanning unit and reviewed at time of ?? interpretation. Automated exposure control was used as a dose optimization ?? technique for this examination. ? CONTRAST TYPE/DOSE: ?? 80 cc Optiray 350 injected via ??right antecubital vein ? COMPARISON: ?? None ? FINDINGS: ? VASCULATURE: ??No identified pulmonary emboli. ??There is narrowing at the ?? origin of the celiac axis with poststenotic dilatation in a J-shaped ?? configuration. ? LUNGS: ??No nodules or masses. No pneumonia. ? PLEURA: ??No effusion. No pneumothorax. ? MEDIASTINUM/USMAN: ??No identified masses or abnormal nodes. ? HEART: ??Heart size is normal with no pericardial effusion. ? AXILLA: ??No adenopathy. ? CHEST WALL: ??No masses. ??No subcutaneous air. ? HARDWARE/LINES/TUBES: ??None. ? UPPER ABDOMEN: ??No significant abnormality. ? MUSCULOSKELETAL: ??No significant abnormality. ? OTHER: ??No significant abnormality. ? IMPRESSION: ? 1. ??No acute pulmonary embolus. ? 2. ??Significant narrowing at the origin of the celiac axis with poststenotic ?? dilatation and a J-shaped configuration. ??These findings are highly suspicious ?? for median arcuate ligament syndrome. ??Recommend clinical correlation and ?? follow-up median arcuate ligament syndrome protocol imaging for further ?? evaluation. ? THIS IS AN ELECTRONICALLY VERIFIED FINAL REPORT ?? 07/15/2020 6:17 AM - Electronically signed by Domenic Rodriguez ?? Domenic Rodriguez ? BB: BB ?? D: ??07/15/2020 6:17 AM ?? T: ??07/15/2020 6:17 AM ? Report ID: [id number] ?? Reading Location: ??[id number] ? REPORT ELECTRONICALLY SIGNED IN OTHER VENDOR SYSTEM ?? Resulting Agency Comment E Procedure Note Domenic Rodriguez MD PhD - 07/15/2020 Patient Name: MADAY TOVAR Dr: Mayra Miller MD D.O.B: 1990 Exam Date: 07/15/20 0000 Age: 29 Sex: Male MR#: [id number] Loc: RADIOLOGY REPORT Order #[id number] CT Scan CTA Chest W IV Contrast - PE Signed EXAM DESCRIPTION: CTA Chest W IV Contrast - PE REASON FOR STUDY: Chest pain x1 week TECHNIQUE: CT angiogram of the chest performed with intravenous contrast using helical scanning technique with dynamic intravenous contrastinjection. Reconstructed coronal and sagittal MPR images reviewed. All images storedon PACS. 3D MIP images rendered on scanning unit and reviewed at time of interpretation. Automated exposure control was used as a doseoptimization technique for this examination. CONTRAST TYPE/DOSE: 80 cc Optiray 350 injected via right antecubitalvein COMPARISON: None FINDINGS: VASCULATURE: No identified pulmonary emboli. There is narrowing at the origin of the celiac axis with poststenotic dilatation in a J-shaped configuration. LUNGS: No nodules or masses. No pneumonia. PLEURA: No effusion. No pneumothorax. MEDIASTINUM/USMAN: No identified masses or abnormal nodes. HEART: Heart size is normal with no pericardial effusion. AXILLA: No adenopathy. CHEST WALL: No masses. No subcutaneous air. HARDWARE/LINES/TUBES: None. UPPER ABDOMEN: No significant abnormality. MUSCULOSKELETAL: No significant abnormality. OTHER: No significant abnormality. IMPRESSION: 1. No acute pulmonary embolus. 2. Significant narrowing at the origin of the celiac axis withpoststenotic dilatation and a J-shaped configuration. These findings are highlysuspicious for median arcuate ligament syndrome. Recommend clinical correlation and follow-up median arcuate ligament syndrome protocol imaging for further evaluation. THIS IS AN ELECTRONICALLY VERIFIED FINAL REPORT 07/15/2020 6:17 AM - Electronically signed by Domenic Rodriguez BB: BLESSING Report ID: [id number] Reading Location: [place] [address] REPORT ELECTRONICALLY SIGNED IN OTHER VENDOR SYSTEM us Mayra Miller MD IMG CT PROCEDURES Final R esult documented in this encounter Visit Diagnoses Not on filedocumented in this encounter Care Teams Telecom Network Manager Relationship Specialty Start Date End Date Meet Ang DO [address] [place] [id number] PCP - General 07/07/20 documented as of this encounter
--- OUTSIDE RECORDS SUMMARY | 2024-05-11 21:19 | XMS_ITS | Encounter Summary ---
Author Organization [facility] Healthcare Address [address] [place] [address] Care Team Providers Care Rare/Endangered Species Specialist Name Role Phone Meet Ang DO Primary Care Provide r Encounter Details Date Type Department Care Team (Late st Contact Info) Description 07/07/2020 11:15 AM BARKEEPER - 07/08/2020 7:05 PM BARKEEPER Hospital Encounter MHE ADMIT Unknown, Notinfile Varun De La Rosa MD [facility] [place] [address] Kendy Miner MD [facility] [place] [address] Discharge Disposition: Discharge to home or self care Social History Tobacco Use Types Packs/Day Years Used Date Smoking Tobacco: Never Assessed Sex and Gender Information Value Date Recorded Sex Assigned at Not on file Legal Sex Male 5:38 PM BARKEEPER Gender Identity Not on file Sexual Orientation Not on file documented as of this encounter Last Filed Vital Signs Vital Sign Reading Time Taken Comments Blood Pressure 121/76 07/07/2020 1:21 PM BARKEEPER Pulse 103 07/07/2020 1:21 PM BARKEEPER Temperature 36.7 ??C (98.1 ??F) 07/07/2020 1:21 PM CS T Respiratory Rate - - Oxygen Saturation 95% 07/07/2020 1:21 PM BARKEEPER Inhaled Oxygen Concentration - - Weight 155.7 kg (343 lb 4.8 oz) 07/07/2020 1:21 PM BARKEEPER Height 185.4 cm (6' 1 ) 07/07/2020 1:21 PM BARKEEPER Body Mass Index 45.29 07/07/2020 1:21 PM BARKEEPER documented in this encounter Medications at Time [...] Date/Time Associated Diagnosis Comments SCAN - LABS 07/11/2020 12:00 AM BARKEEPER STRESS TEST ONLY TREADMILL 07/08/2020 10:00 AM BARKEEPER TRANSTHORACIC ECHO (TTE) COMPLETE W DOPPLER/CF 07/08/2020 9:38 AM BARKEEPER HEPARIN ANTI FACTOR XA ACTIVITY Routine 07/08/2020 8:37 AM BARKEEPER CK-MB Routine 07/08/2020 7:14 AM BARKEEPER CBC WITH AUTO DIFFERENTIAL Routine 07/08/2020 7:14 AM BARKEEPER TROPONIN I Routine 07/08/2020 7:14 AM BARKEEPER TROPONIN T Routine 07/08/2020 7:14 AM BARKEEPER MAGNESIUM Routine 07/08/2020 7:14 AM BARKEEPER CREATINE KINASE (CK), TOTAL Routine 07/08/2020 7:14 AM BARKEEPER COMPREHENSIVE METABOLIC PANEL Routine 07/08/2020 7:14 AM BARKEEPER NM MPI SPECT (REST AND/OR STRESS) MULTIPLE STUDIES 07/08/2020 6:25 AM BARKEEPER B ABO / RH CONFIRMATION TESTING Routine 07/08/2020 1:10 AM BARKEEPER HEPARIN ANTI FACTOR XA ACTIVITY Routine 07/08/2020 1:10 AM BARKEEPER TROPONIN I Routine 07/08/2020 1:10 AM BARKEEPER CARDIOLOGY REPORT 07/08/2020 12: 00 AM BARKEEPER CARDIOLOGY REPORT 07/08/2020 12: 00 AM BARKEEPER ANTIBODY SCREEN Routine 07/07/2020 8:47 PM BARKEEPER TYPE AND SCREEN Routine 07/07/2020 8:47 PM BARKEEPER CK-MB Routine 07/07/2020 8:46 PM BARKEEPER APTT Routine 07/07/2020 8:46 PM BARKEEPER PROTIME-INR Routine 07/07/2020 8:46 PM BARKEEPER TROPONIN T Routine 07/07/2020 8:46 PM BARKEEPER CREATINE KINASE (CK), TOTAL Routine 07/07/2020 8:46 PM BARKEEPER HEPARIN ANTI FACTOR XA ACTIVITY Routine 07/07/2020 6:00 PM BARKEEPER TROPONIN I Routine 07/07/2020 6:00 PM BARKEEPER TROPONIN I Routine 07/07/2020 2:24 PM BARKEEPER APTT Routine 07/07/2020 11:35 AM BARKEEPER PROTIME-INR Routine 07/07/2020 11:35 AM BARKEEPER DRUGS OF ABUSE SCREEN, URINE WITHOUT CONFIRMATION Routine 07/07/2020 9:59 AM BARKEEPER TROPONIN I Routine 07/07/2020 9:45 AM BARKEEPER ECG 12-LEAD 07/07/2020 7:11 AM BARKEEPER CBC WITH AUTO DIFFERENTIAL Routine 07/07/2020 7:10 AM BARKEEPER TROPONIN I Routine 07/07/2020 7:10 AM BARKEEPER D-DIMER, QUANTITATIVE Routine 07/07/2020 7:10 AM BARKEEPER COMPREHENSIVE METABOLIC PANEL Routine 07/07/2020 7:10 AM BARKEEPER XR CHEST 1 VIEW 07/07/2020 12:00 AM BARKEEPER documented in this encounter Results * SCAN - LABS (07/11/2020 12:00 AM BARKEEPER) Narrative 07/11/2020 12:00 AM BARKEEPER Ordered by an unspecified provider. us Historical Provider MD Final Res ult * Stress Treadmill Test (07/08/2020 10:00 AM BARKEEPER) Anatomical Region Laterality Modality Other 07/08/2020 2:13 PM BARKEEPER Narrative 07/08/2020 3:24 PM BARKEEPER ? Patient Name: MADAY TOVAR ? MR#: [id number] ?? [id number] ? Status: ADM IN ?D.O.B: 1990 Age: ??29 ?Sex: Male ? ADM/SER Dt: 07/07/20 ?Disch Dt: ? LOC: Y.5MS ? Ordering Phy: Justino,Maira A MD ? Order #[id number] ? Stress Myoview Walk ?? Maira Badillo MD ? Signed ?? DATE OF SERVICE: ?? 07/08/2020 ? INDICATION: ??Maday is a 29-year-old male who presented with just palpitations and some diaphoresis. ??He never had any chest pain; however, his troponin I's in the lab were all elevated and they were just above 1 and they were fairly consistent. ??In light of the fact that there was no rise and fall, I checked a troponin T twice and these were both negative and his myejl-ry-gfzrghi troponin I's on admission and just before the stress test were negative at 0.00 as were his CK-MBs, so he has persistently elevated lab troponin I's. ??After speaking with the lab, it was felt that he has an antibody due to exposure to some animals that they said that can cause chronically elevated troponin with the current Mahesh assay that they are using. ??So, he is proceeding with a stress test in light of this elevation not being consistent with a myocardial infarction. ? Modality of stress was treadmill stress test utilizing a Moreno protocol. ??The patient was able to exercise for a total of 9 minutes 30 seconds of standard Moreno protocol. ??Myoview injected at 8 minutes 30 seconds into standard Moreno protocol. ??Reason for termination of stress test was shortness of breath and leg fatigue. ??He denied any chest pain or any chest pressure. ? VITAL SIGNS: ??Baseline blood pressure was 122/70 mmHg. ??Baseline heart rate was 94 beats per minute. ??Peak blood pressure was 162/90 mmHg. ??Peak heart rate was 166 beats per minute which is 87% of his age-predicted maximal heart rate. ??EKG baseline reveals normal sinus rhythm with a rate of 94 beats per minute, normal electrocardiogram. ??Resting EKG on the monitor showed he had some occasional PVCs which were asymptomatic. ? STRESS ELECTROCARDIOGRAM: ??He had a normal chronotropic response to exercise. ??He also had some occasional PVCs at the same frequency as what he had at rest and these were asymptomatic. ??There were no couplets. ??They were isolated. ??His EKG 15 seconds into recovery at a rate of 166 beats per minute was of excellent quality and showed no significant ST changes which meet criteria for ischemia. ??His recovery phase, he did have some isolated PVCs at the same frequency that he had at pretesting and during exercise and was asymptomatic. ? CONCLUSIONS: ?? 1. ??Normal electrocardiographic portion of a treadmill Myoview stress test, the patient walking a total of 9 minutes 30 seconds into standard Moreno protocol, attaining a heart rate of 166 beats per minute which is 87% of his age-predicted heart rate and achieving a work level of 10.4 METs of exercise with no ischemic EKG changes. ?? 2. ??Normal blood pressure with appropriate blood pressure response to exercise. ?? 3. ??Normal chronotropic response to exercise. ?? 4. ??Occasional isolated premature ventricular contractions noted at rest, exercise, and in recovery at similar frequencies which were asymptomatic. ?? 5. ??No chest pain or chest pressure. ?? 6. ??Myoview images pending in a separate report. ? Cc: ??Meet Ang, DO ? NTS ? Job: [id number] ? Dictated By: Maira Badillo MD ?? Dictated For: Maira Badillo MD ? <Electronically signed by Maira aBdillo MD> ? 07/08/20 1425 ?? Resulting Agency Comment I Procedure Note Maira Badillo MD - 07/08/2020 Patient Name: MADAY TOVAR Donnie #: [id number] Status: ADM IN D.O.B: 1990 Age: 29Sex: Male ADM/SER Dt: 07/07/20 Disch Dt:LOC: Y.5MS Ordering Phy: Maira Badillo MD Order #[id number] Stress Myoview Walk Maira Badillo MD Signed DATE OF SERVICE: 07/08/2020 INDICATION: Maday is a 29-year-old male who presented with justpalpitations and some diaphoresis. He never had any chest pain; however, his troponin I's inthe lab were all elevated and they were just above 1 and they were fairly consistent. In light ofthe fact that there was no rise and fall, I checked a troponin T twice and these were both negativeand his khxyf-ky-owgraus troponin I's on admission and just before the stress test were negative at0.00 as were his CK-MBs, so he has persistently elevated lab troponin I's. After speaking with thelab, it was felt that he has an antibody due to exposure to some animals that they said that cancause chronically elevated troponin with the current Mahesh assay that they are using. So, he isproceeding with a stress test in light of this elevation not being consistent with a myocardialinfarction. Modality of stress was treadmill stress test utilizing a Moreno protocol.The patient was able to exercise for a total of 9 minutes 30 seconds of standard Moreno protocol.Myoview injected at 8 minutes 30 seconds into standard Moreno protocol. Reason for terminationof stress test was shortness of breath and leg fatigue. He denied any chest pain or anychest pressure. VITAL SIGNS: Baseline blood pressure was 122/70 mmHg. Baseline heartrate was 94 beats per minute. Peak blood pressure was 162/90 mmHg. Peak heart rate was 166beats per minute which is 87% of his age-predicted maximal heart rate. EKG baseline reveals normalsinus rhythm with a rate of 94 beats per minute, normal electrocardiogram. Resting EKG on the monitorshowed he had some occasional PVCs which were asymptomatic. STRESS ELECTROCARDIOGRAM: He had a normal chronotropic response toexercise. He also had some occasional PVCs at the same frequency as what he had at rest and thesewere asymptomatic. There were no couplets. They were isolated. His EKG 15 seconds into recoveryat a rate of 166 beats per minute was of excellent quality and showed no significant ST changes whichmeet criteria for ischemia. His recovery phase, he did have some isolated PVCs at the samefrequency that he had at pretesting and during exercise and was asymptomatic. CONCLUSIONS: 1. Normal electrocardiographic portion of a treadmill Myoview stresstest, the patient walking a total of 9 minutes 30 seconds into standard Moreno protocol, attaining aheart rate of 166 beats per minute which is 87% of his age-predicted heart rate and achieving a worklevel of 10.4 METs of exercise with no ischemic EKG changes. 2. Normal blood pressure with appropriate blood pressure response toexercise. 3. Normal chronotropic response to exercise. 4. Occasional isolated premature ventricular contractions noted at rest,exercise, and in recovery at similar frequencies which were asymptomatic. 5. No chest pain or chest pressure. 6. Myoview images pending in a separate report. Cc: DO RJ Lees Job: [id number] Dictated By: Maira Badillo MD Dictated For: Maira Badillo MD <Electronically signed by Maira Badillo MD> 07/08/20 1422 us Maira Badillo MD CV STRESS PROCEDURES Final R esult * Transthoracic Echo Complete W Doppler/CF (07/08/2020 9:38 AM BARKEEPER) Anatomical Region Laterality Modality Ultrasound 07/08/2020 9:38 AM BARKEEPER Narrative 07/08/2020 2:24 PM BARKEEPER ? Adult Echocardiogram + ----- ---------+ :Name: RAMOSRENE WellsEW Donnie ?? Study Date: 07/08/2020 ?Status: IN;MAINE ? : : ?Patient Location: [facility] [place]^[id number]^01Height: 73 in ?: : ?Weight: 343 lb ?BP: 135/82 mmHg: :: 1990 ? Gender: Male ?BSA: 2.7 m2 ?: :Reason For Study: elevated troponin I(lab), palpitations ? : :Ordering Physician: Kristofer, ?: :Larry ?: : ? : :Performed By: Candace ? : :Luis Angel, RCS, RDMS ?: + ----- ---------+ Procedure A two-dimensional transthoracic echocardiogram with color flow and Doppler was performed. Left Ventricle The left ventricle is normal in size. There is normal left ventricular wall thickness. Left ventricular systolic function is normal. Ejection Fraction = 60-65%. Technically inadequate to evaluate wall motion abnormalities. Right Ventricle The right ventricle is normal size. The right ventricular systolic function is normal. Atria The left atrial size is normal. Right atrial size is normal. Mitral Valve The mitral valve is normal. There is no evidence of mitral valve prolapse. There is trace mitral regurgitation. Tricuspid Valve The tricuspid valve is not well visualized. There is physiologic tricuspid regurgitation. Cannot assess RVSP due to lack of sufficient TR jet. Aortic Valve The aortic valve is not well visualized. No aortic stenosis . Aortic valve velocity is 113 cm/s. LVOT velocity is 98 cm/s. No aortic regurgitation is present. Pulmonic Valve The pulmonic valve is not well visualized. Great Vessels The aortic root is normal size. Subcostal views suboptimal. IVC not well seen. Pericardium Anterior echo free space most likely represents fat pad, cannot rule out small pericardial effusion. Diastology Mitral inflow pattern is normal. E/E prime ratio is 8 -15 which is in the indeterminate zone. Interpretation Summary Left ventricular systolic function is normal. Ejection Fraction = 60-65%. No significant valvular disease + + :Measurements with Normals ?: : ?(0.6-1.2 ?LVIDd: ?(3.5-5.7 ?? Ao root diam: ?(2.0-3.7 ?? : :IVSd: 1.1 cmcm) ? 5.8 cm ?cm) ?3.2 cm ? cm) ?: :LVPWd: ?(0.6-1.1 ?LVIDs: ?(3.1-4.6 ?? LA dimension: ?(1.9-4.0 ?? : :1.1 cm ?cm) ? 4.2 cm ?cm) ?4.0 cm ? cm) ?: + + MMode/2D Measurements & Calculations IVSs: 0.97 cm ? LVPWs: 0.97 cm FS: 27.4 % ?% IVS thick: - 13.2 % ? EDV(Teich): 168.5 ml ? ESV(Teich): 79.9 ml ? Ao root area: 8.0 cm2 Doppler Measurements & Calculations MV E max kwame: ?Ao V2 max: ?LV V1 max PG: ? RV V1 max: 84.4 cm/sec ?113.0 cm/sec ?3.8 mmHg ?96.8 cm/sec MV A max kwame: ?Ao max P.1 mmHg LV V1 max: 63.0 cm/sec ?98.1 cm/sec MV E/A: 1.3 ? TR max kwame: ?RAP systole: 198.0 cm/sec ? 3.0 mmHg TR max P.7 mmHg RVSP(TR): 18.7 mmHg Electronically signed by: Maira Badillo MD 07/08/2020 02:24 PM Resulting Agency Comment I Procedure Note Maira Badillo MD - 07/08/2020 Adult Echocardiogram + ----- ---------+ :Name: MADAY TOVAR Study Date: 07/08/2020 Status:IN;MAINE : : Patient Location: [facility] [place]^[id number]^01Height: 73 in: : Weight: 343lb BP: 135/82 mmHg: :: 1990 Gender: Male BSA: 2.7 m2: :Reason For Study: elevated troponin I(lab), palpitations: :Ordering Physician: Kristofer,: :Kendy: :: :Performed By: Candace: :TAE Plasencia, RDMS: + ----- ---------+ Procedure A two-dimensional transthoracic echocardiogram with color flow and Dopplerwas performed. Left Ventricle The left ventricle is normal in size. There is normal left ventricularwall thickness. Left ventricular systolic function is normal. Ejection Fraction= 60-65%. Technically inadequate to evaluate wall motion abnormalities. Right Ventricle The right ventricle is normal size. The right ventricular systolicfunction is normal. Atria The left atrial size is normal. Right atrial size is normal. Mitral Valve The mitral valve is normal. There is no evidence of mitral valveprolapse. There is trace mitral regurgitation. Tricuspid Valve The tricuspid valve is not well visualized. There is physiologictricuspid regurgitation. Cannot assess RVSP due to lack of sufficient TR jet. Aortic Valve The aortic valve is not well visualized. No aortic stenosis . Aorticvalve velocity is 113 cm/s. LVOT velocity is 98 cm/s. No aortic regurgitationis present. Pulmonic Valve The pulmonic valve is not well visualized. Great Vessels The aortic root is normal size. Subcostal views suboptimal. IVC not wellseen. Pericardium Anterior echo free space most likely represents fat pad, cannot rule outsmall pericardial effusion. Diastology Mitral inflow pattern is normal. E/E prime ratio is 8 -15 which is inthe indeterminate zone. Interpretation Summary Left ventricular systolic function is normal. Ejection Fraction = 60-65%. No significant valvular disease + + :Measurements with Normals: : (0.6-1.2 LVIDd: (3.5-5.7 Ao root diam:(2.0-3.7 : :IVSd: 1.1 cmcm) 5.8 cm cm) 3.2 cm cm): :LVPWd: (0.6-1.1 LVIDs: (3.1-4.6 LA dimension:(1.9-4.0 : :1.1 cm cm) 4.2 cm cm) 4.0 cm cm): + + MMode/2D Measurements & Calculations IVSs: 0.97 cm LVPWs: 0.97 cm FS: 27.4 % % IVS thick:-13.2 % EDV(Teich): 168.5 ml ESV(Teich): 79.9 ml Ao root area: 8.0 cm2 Doppler Measurements & Calculations MV E max kwame: Ao V2 max: LV V1 max PG: RV V1 max: 84.4 cm/sec 113.0 cm/sec 3.8 mmHg 96.8 cm/sec MV A max kwame: Ao max P.1 mmHg LV V1 max: 63.0 cm/sec 98.1 cm/sec MV E/A: 1.3 TR max kwame: RAP systole: 198.0 cm/sec 3.0 mmHg TR max P.7 mmHg RVSP(TR): 18.7 mmHg Electronically signed by: Maira Badillo MD 07/08/2020 02:24 PM us Kedny Miner MD CV ECHO PROCEDURES Final Resul t * (ABNORMAL) Heparin anti factor Xa activity (07/08/2020 8:37 AM BARKEEPER) Heparin Chromogenic 0.15(L) 0.30 - 0.70 IU/mL [facility] Comment: Anti-factor Xa is used to monitor unfractionated Heparin in weight-based Heparin therapy. ??At [facility], anti-factor Xa cannot be used to monitor Low Molecular Weight Heparin. ??If Low Molecular Weight Heparin monitoring is desired, please order LMWH and notify Heme at extension [phone]. 07/08/2020 8:37 AM BARKEEPER 07/08/2020 8:41 AM BARKEEPER Narrative [facility] - 07/08/2020 8:52 AM BARKEEPER Is patient on IV unfractionated heparin Y Resulting Agency Comment IN Maira Badillo MD LAB BLOOD ORDERABLES Final R esult Performing Organization Address [facility] Co de Phone Number [address] [phone] * (ABNORMAL) Troponin I (07/08/2020 7:14 AM BARKEEPER) [facility] Troponin I 0.976(HH) 0.000 - 0.300 ng/mL [facility] Comment: CRITICAL VALUE previously reported. See results in EMR. Reference using ANDREW Chemiluminescence ? Consistent with IA: ? Clinical and Laboratory correlation is recommended. 07/08/2020 7:14 AM BARKEEPER 07/08/2020 7:24 AM BARKEEPER Narrative Resulting Agency Comment IN Maira Badillo MD LAB BLOOD ORDERABLES Final R TUKZ Undergarmentsult Performing Organization Address [facility] [place] [address], [facility] [phone] * Troponin T (07/08/2020 7:14 AM BARKEEPER) [facility] Troponin T <0.01 0.0 - 0.10 ng/mL [facility] Comment: Values obtained using Troponin I assay cannot be used interchangeably with Troponin T values. 07/08/2020 7:14 AM BARKEEPER 07/08/2020 7:24 AM BARKEEPER Narrative Resulting Agency Comment IN us Maira Badillo MD LAB BLOOD ORDERABLES Final R esult [facility] [address] [phone] * CK-MB (07/08/2020 7:14 AM BARKEEPER) CK-MB (CK-2) 1.2 0.0 - 4.9 ng/mL [facility] 07/08/2020 7:14 AM BARKEEPER 07/08/2020 7:24 AM BARKEEPER Narrative Resulting Agency Comment IN us Maira Badillo MD LAB BLOOD ORDERABLES Final R esult Performing Organization Address City/[facility] [place] [address], [facility] [phone] * Creatine kinase (CK), total (07/08/2020 7:14 AM BARKEEPER) Creatine Kinase 111 20 - 200 U/L [facility] 07/08/2020 7:14 AM BARKEEPER 07/08/2020 7:24 AM BARKEEPER Narrative Resulting Agency Comment IN us Maira Badillo MD LAB BLOOD ORDERABLES Final R esult Performing Organization Address City/[facility]/ZIP Co de Phone Number [address] [phone] * (ABNORMAL) Comprehensive metabolic panel (07/08/2020 7:14 AM BARKEEPER) Sodium 139 135 - 145 mmol/L [facility] Potassium 3.7 3.3 - 5.1 mmol/L [facility] Chloride 104 96 - 108 mmol/L [facility] Carbon Dioxide 27 22 - 32 mmol/L [facility] Anion Gap 8 7 - 16 [facility] Glucose 96 70 - 100 mg/dL [facility] BUN 12 8 - 25 mg/dL [facility] Creatinine 0.6 0.5 - 1.3 mg/dL [facility] Comment: The specimen is icteric. A high bilirubin level is known to cause a false decrease in measured creatinine. NOTE: Estimated GFR (Cockroft-Gault) will NOT be calculated unless patient Height and Weight were entered. Also, Kidney Disease Stage (GFR) and Estimated GFR (Cockroft-Gault) will NOT be calculated if Creatinine result is <0.2. Kidney Disease Stage >90 mL/MIN [facility] Comment: NOTE; ??The GFR is an [...] failure or on dialysis Est GFR (Cockcroft-G) 281 ml/MIN [facility] Comment: Estimated GFR(Cockroft-Gault)is used to calculate patient medication dosage Calcium 8.5(L) 8.6 - 10.3 mg/dL [facility] Total Protein 7.1 6.4 - 8.3 g/dL [facility] Albumin 4.0 3.5 - 5.0 g/dL [facility] Globulin 3.1 2.3 - 3.5 gm/dL [facility] Albumin/Globulin Ratio 1.3 1.1 - 1.8 [facility] Total Bilirubin 2.2(H) 0.0 - 1.2 mg/dL [facility] AST 20 0 - 40 U/L [facility] ALT 28 0 - 41 U/L [facility] Alkaline Phosphatase 81 40 - 129 U/L [facility] 07/08/2020 7:14 AM BARKEEPER 07/08/2020 7:24 AM BARKEEPER Narrative Resulting Agency Comment IN Kendy Miner MD LAB BLOOD ORDERABLES Final Res ult Performing Organization Address City/[facility]/ZIP Co de Phone Number [address] [phone] * Magnesium (07/08/2020 7:14 AM BARKEEPER) Magnesium 2.1 1.6 - 2.6 mg/dL [facility] Comment: Magnesium sulfate therapy: ??3.0-9.1 mg/dL 07/08/2020 7:14 AM BARKEEPER 07/08/2020 7:24 AM BARKEEPER Narrative Resulting Agency Comment IN Kendy Miner MD LAB BLOOD ORDERABLES Final Res ult Performing Organization Address [facility] de Phone Number [address] [phone] * (ABNORMAL) CBC with auto differential (07/08/2020 7:14 AM BARKEEPER) WBC 10.5(H) 3.8 - 9.9 X10 3/ul [facility] RBC 4.90 4.30 - 5.80 x10 6/ul [facility] Hemoglobin 14.6 13.0 - 17.5 g/dL [facility] Hct 42.0 38.9 - 50.3 % [facility] MCV 85.7 81.3 - 96.4 fl [facility] MCH 29.8 27.1 - 33.3 pg [facility] MCHC 34.8 32.3 - 35.7 g/dl [facility] RDW 11.9 11.1 - 14.9 % [facility] Plt Count 234 150 - 400 x10 3/ul [facility] MPV 11.4 9.1 - 12.3 fl [facility] Neut % 63.2 % [facility] Immature Gran % 0.5 % [facility] Lymph % 26.0 % [facility] Patrick % 8.4 % [facility] Eos % 1.3 % [facility] AUTO BASO % 0.6 % [facility] NEUTROPHIL ABS # 6.6(H) 1.7 - 6.5 x10 3/ul [facility] Immature Gran # 0.1 0.0 - 0.1 x10 3/ul [facility] Absolute Lymphs (auto) 2.7 0.8 - 3.3 x10 3/ul [facility] Absolute Monos (auto) 0.9(H) 0.2 - 0.8 x10 3/ul [facility] Absolute Eos (auto) 0.1 0.0 - 0.5 x10 3/ul [facility] BASOPHIL ABS # 0.1 0.0 - 0.1 x10 3/ul [facility] Nucleat RBC Rel Count 0.0 #/100WBC [facility] NRBC abs 0.00 0.00 - 0.01 x10 3/ul [facility] Absolute Neutrophils 6,600 200 - 8,000 /ul [facility] 07/08/2020 7:14 AM BARKEEPER 07/08/2020 7:24 AM BARKEEPER Narrative Resulting Agency Comment IN us Kendy Miner MD LAB BLOOD ORDERABLES Final Res ult [facility] [address] [phone] * NM MPI SPECT (Rest and/or Stress) Multiple Studies (07/08/2020 6:25 AM BARKEEPER) Anatomical Region Laterality Modality Body N/A Nuclear Medicine 07/08/2020 3:36 PM BARKEEPER Narrative 07/08/2020 3:41 PM BARKEEPER Patient Name: MADAY TOVAR ?Ordering Dr: Maira Badillo MD ?? D.O.B: 1990 ? Exam Date: 07/08/20 ?? 624 ?? Age: 29 ?Sex: Male ? MR#: [id number] ?? Loc: ??[id number] ? RADIOLOGY REPORT ?? Order #[id number] ?? Nuclear Medicine ? MPGS Treadmill ? Signed ? EXAM DESCRIPTION: ?? MPGS Treadmill ? REASON FOR STUDY: ??Cardiac palpitations with lightheadedness, hypertension, ?? family history of coronary artery disease. ? RADIOPHARMACEUTICAL: ??Rest: 13.2 mCi Tc-99m tetrofosmin via a right forearm IV ?? site. ? Stress: 40.1 mCi Tc-99m tetrofosmin via a right forearm IV site. ? TECHNIQUE: ??Standard myocardial perfusion images were obtained after resting ?? tracer injection. ??Subsequently, a treadmill exercise tolerance test was ?? performed. ??The patient exercised for 9 minutes and 30 seconds and achieved ?? 87% of the age predicted maximum heart rate. Standard myocardial perfusion ?? images were obtained after tracer injection at peak exercise. ? COMPARISON: ??None. ? FINDINGS: ? Image quality is adequate at rest and adequate at stress. ? There are no perfusion abnormalities. ? The left ventricular cavity size is normal. ? Gated tomographic images demonstrate normal wall motion and wall thickening ?? with a left ventricular ejection fraction of 75% poststress (normal >45%). ? IMPRESSION: ? 1. ??Normal myocardial perfusion study. ? 2. ??No scintigraphic evidence of myocardial ischemia. ? 3. ??Normal left ventricular ejection fraction. ? 4. ??Normal left ventricular wall motion. ? THIS IS AN ELECTRONICALLY VERIFIED FINAL REPORT ?? 07/08/2020 3:41 PM - Electronically signed by Ovi Kelly M.D. ?? Ovi Kelly M.D. ? CH: CH ?? D: ??07/08/2020 3:41 PM ?? T: ??07/08/2020 3:41 PM ? Report ID: [id number] ?? Reading Location: ??[id number] ? REPORT ELECTRONICALLY SIGNED IN OTHER VENDOR SYSTEM ?? Resulting Agency Comment I Procedure Note Ovi Kelly Jr., MD - 07/08/2020 Patient Name: MADAY TOVAR Shelia Dr: Maira Badillo MD D.O.B: 1990 Exam Date: 07/08/20624 Age: 29 Sex: Male MR#: [id number] Loc: [id number] RADIOLOGY REPORT Order #[id number] Nuclear Medicine MPGS Treadmill Signed EXAM DESCRIPTION: MPGS Treadmill REASON FOR STUDY: Cardiac palpitations with lightheadedness,hypertension, family history of coronary artery disease. RADIOPHARMACEUTICAL: Rest: 13.2 mCi Tc-99m tetrofosmin via a rightforearm IV site. Stress: 40.1 mCi Tc-99m tetrofosmin via a right forearm IV site. TECHNIQUE: Standard myocardial perfusion images were obtained afterresting tracer injection. Subsequently, a treadmill exercise tolerance test was performed. The patient exercised for 9 minutes and 30 seconds andachieved 87% of the age predicted maximum heart rate. Standard myocardialperfusion images were obtained after tracer injection at peak exercise. COMPARISON: None. FINDINGS: Image quality is adequate at rest and adequate at stress. There are no perfusion abnormalities. The left ventricular cavity size is normal. Gated tomographic images demonstrate normal wall motion and wallthickening with a left ventricular ejection fraction of 75% poststress (normal>45%). IMPRESSION: 1. Normal myocardial perfusion study. 2. No scintigraphic evidence of myocardial ischemia. 3. Normal left ventricular ejection fraction. 4. Normal left ventricular wall motion. THIS IS AN ELECTRONICALLY VERIFIED FINAL REPORT 07/08/2020 3:41 PM - Electronically signed by Ovi Kelly M.D. CH: Report ID: [id number] Reading Location: [id number] REPORT ELECTRONICALLY SIGNED IN OTHER VENDOR SYSTEM us Maira Badillo MD [facility] NM PROCEDURES Final Resu lt * ABO / Rh Confirmation Testing (07/08/2020 1:10 AM BARKEEPER) Blood Type Confirm BP [facility] 07/08/2020 1:10 AM BARKEEPER 07/08/2020 1:21 AM BARKEEPER Narrative Resulting Agency Comment IN Maira Badillo MD LAB BLOOD ORDERABLES Final R esult Performing Organization Address [facility] Co de Phone Number [address] [phone] * (ABNORMAL) Heparin anti factor Xa activity (07/08/2020 1:10 AM BARKEEPER) Heparin Chromogenic <0.10(L) 0.30 - 0.70 IU/mL [facility] Comment: [place] 78622 Anti-factor Xa is used to monitor unfractionated Heparin in weight-based Heparin therapy. ??At [facility], anti-factor Xa cannot be used to monitor Low Molecular Weight Heparin. ??If Low Molecular Weight Heparin monitoring is desired, please order LMWH and notify Heme at extension [phone]. The Factor XA test should only be used to detect the heparin level in patients undergoing weight based heparin therapy. 07/08/2020 1:10 AM BARKEEPER 07/08/2020 1:21 AM BARKEEPER Narrative [facility] - 07/08/2020 2:26 AM BARKEEPER Is patient on IV unfractionated heparin Y Resulting Agency Comment IN Maira Badillo MD LAB BLOOD ORDERABLES Final R esult Performing Organization Address [facility] Co de Phone Number [address] [phone] * (ABNORMAL) Troponin I (07/08/2020 1:10 AM BARKEEPER) Troponin I 1.030(HH) 0.000 - 0.300 ng/mL [facility] Comment: CRITICAL VALUE previously reported. See results in EMR. Reference using ANDREW Chemiluminescence ? Consistent with IA: ? Clinical and Laboratory correlation is recommended. 07/08/2020 1:10 AM BARKEEPER 07/08/2020 1:21 AM BARKEEPER Narrative Resulting Agency Comment IN Kenyd Miner MD LAB BLOOD ORDERABLES Final Res ult Performing Organization Address City/[facility]/ZIP Co de Phone Number [address] [phone] * CARDIOLOGY REPORT (07/08/2020 12:00 AM BARKEEPER) Anatomical Region Laterality Modality Other Narrative 07/08/2020 12:00 AM BARKEEPER Ordered by an unspecified provider. Historical Provider [facility] PROCE DURES Final Result * CARDIOLOGY REPORT (07/08/2020 12:00 AM BARKEEPER) Anatomical Region Laterality Modality Other Narrative 07/08/2020 12:00 AM BARKEEPER Ordered by an unspecified provider. Historical Provider CV CARDIAC SERVICES PROCE DURES Final Result * Antibody screen (07/07/2020 8:47 PM BARKEEPER) Antibody Screen NEGATIVE [facility] 07/07/2020 8:47 PM BARKEEPER 07/07/2020 8:55 PM BARKEEPER Narrative Resulting Agency Comment IN Maira Badillo MD LAB BLOOD BANK TEST ORDERABL ES Final Result Performing Organization Address [facility] Co de Phone Number [address] [phone] * Type and screen (07/07/2020 8:47 PM BARKEEPER) Blood Type BP [facility] 07/07/2020 8:47 PM BARKEEPER 07/07/2020 8:55 PM BARKEEPER Narrative [facility] - 07/07/2020 11:01 PM BARKEEPER N Resulting Agency Comment IN Maira Badillo MD LAB BLOOD BANK TEST ORDERABL ES Final Result Performing Organization Address City/[facility]/ZIP Co de Phone Number [address] [phone] * Troponin T (07/07/2020 8:46 PM BARKEEPER) Pathologist [facility] Troponin T <0.01 0.0 - 0.10 ng/mL [facility] Comment: Values obtained using Troponin I assay cannot be used interchangeably with Troponin T values. 07/07/2020 8:46 PM BARKEEPER 07/07/2020 8:55 PM BARKEEPER Narrative Resulting Agency Comment IN Maira Badillo MD LAB BLOOD ORDERABLES Final R [facility] Performing Organization Address City/[facility]/ZIP Co de Phone Number [facility] [address] [phone] * (ABNORMAL) aPTT (07/07/2020 8:46 PM BARKEEPER) Pathologist [facility] APTT 68(H) 23 - 38 SECONDS [facility] Comment: New reference ranges in use 02-21-2020. 07/07/2020 8:46 PM BARKEEPER 07/07/2020 8:55 PM BARKEEPER Narrative Resulting Agency Comment IN Miara Badillo MD LAB BLOOD ORDERABLES Final [facility] Performing Organization Address City/[facility]/ZIP Co de Phone Number [address] [phone] * Protime-INR (07/07/2020 8:46 PM BARKEEPER) Pathologist [facility] PT 14.1 12.3 - 15.1 SECONDS [facility] Comment: New reference ranges in use 02-21-2020. INR 1.04 [facility] Comment: Recommended Therapeutic range for Oral Anticoagulant Therapy No anti-coagulation therapy ? Normal Range: ?0.8-1.4 Anti-coagulation therapy ? Low intensity therapy ?2.0-3.0 ? High intensity therapy ?? 2.5-3.5 Critical Value ? Greater than or equal to 5.0 Patients should be monitored for serious bleeding. 07/07/2020 8:46 PM BARKEEPER 07/07/2020 8:55 PM BARKEEPER Narrative Resulting Agency Comment IN Maira Badillo MD LAB BLOOD ORDERABLES Final R esult Performing Organization Address City/[facility] Co de Phone Number [address] [phone] * CK-MB (07/07/2020 8:46 PM BARKEEPER) CK-MB (CK-2) 1.2 0.0 - 4.9 ng/mL [facility] 07/07/2020 8:46 PM BARKEEPER 07/07/2020 8:55 PM BARKEEPER Narrative Resulting Agency Comment IN Maira Badillo MD LAB BLOOD ORDERABLES Final R esult Performing Organization Address [facility] Co de Phone Number [address] [phone] * Creatine kinase (CK), total (07/07/2020 8:46 PM BARKEEPER) Creatine Kinase 119 20 - 200 U/L [facility] 07/07/2020 8:46 PM BARKEEPER 07/07/2020 8:55 PM BARKEEPER Narrative Resulting Agency Comment IN Maira Badillo MD LAB BLOOD ORDERABLES Final R esult Performing Organization Address [facility] Co de Phone Number [address] [phone] * (ABNORMAL) Heparin anti factor Xa activity (07/07/2020 6:00 PM BARKEEPER) Heparin Chromogenic <0.10(L) 0.30 - 0.70 IU/mL [facility] Comment: Anti-factor Xa is used to monitor unfractionated Heparin in weight-based Heparin therapy. ??At [facility], anti-factor Xa cannot be used to monitor Low Molecular Weight Heparin. ??If Low Molecular Weight Heparin monitoring is desired, please order LMWH and notify Heme at extension [phone]. The Factor XA test should only be used to detect the heparin level in patients undergoing weight based heparin therapy. 07/07/2020 6:00 PM BARKEEPER 07/07/2020 6:05 PM BARKEEPER Narrative [facility] - 07/07/2020 6:44 PM BARKEEPER Is patient on IV unfractionated heparin Y Resulting Agency Comment IN us Varun De La Rosa MD LAB BLOOD ORDERABLES Final Result Performing Organization Address [facility]/ZIP Co de Phone Number [address] [phone] * (ABNORMAL) Troponin I (07/07/2020 6:00 PM BARKEEPER) Troponin I 1.030(HH) 0.000 - 0.300 ng/mL [facility] Comment: CRITICAL VALUE previously reported. See results in EMR. Reference using ANDREW Chemiluminescence ? Consistent with IA: ? Clinical and Laboratory correlation is recommended. 07/07/2020 6:00 PM BARKEEPER 07/07/2020 6:05 PM BARKEEPER Narrative Resulting Agency Comment IN us Kendy Miner MD LAB BLOOD ORDERABLES Final Res ult Performing Organization Address [facility]/[place] [address], [facility] [phone] * (ABNORMAL) Troponin I (07/07/2020 2:24 PM BARKEEPER) Troponin I 1.060(HH) 0.000 - 0.300 ng/mL [facility] Comment: CRITICAL VALUE CALLED and REPEATED. at:1533 07/07/20 by:Cathleen roy:[id number] Reference using ANDREW Chemiluminescence ? Consistent with IA: ? Clinical and Laboratory correlation is recommended. 07/07/2020 2:24 PM BARKEEPER 07/07/2020 2:28 PM BARKEEPER Narrative Resulting Agency Comment IN us Kendy Miner MD LAB BLOOD ORDERABLES Final Res ult Performing Organization Address City/[facility]/ZIP Co de Phone Number [address] [phone] * aPTT (07/07/2020 11:35 AM BARKEEPER) APTT 35 23 - 38 SECONDS [facility] Comment: New reference ranges in use 02-21-2020. 07/07/2020 11:3 5 AM BARKEEPER 07/07/2020 11:38 AM BARKEEPER Narrative Resulting Agency Comment ER us Varun De La Rosa MD LAB BLOOD ORDERABLES Final Result Performing Organization Address [facility] de Phone Number [address] [phone] * Protime-INR (07/07/2020 11:35 AM BARKEEPER) PT 14.4 12.3 - 15.1 SECONDS [facility] Comment: New reference ranges in use 02-21-2020. INR 1.07 [facility] Comment: Recommended Therapeutic range for Oral Anticoagulant Therapy No anti-coagulation therapy ? Normal Range: ?0.8-1.4 Anti-coagulation therapy ? Low intensity therapy ?2.0-3.0 ? High intensity therapy ?? 2.5-3.5 Critical Value ? Greater than or equal to 5.0 Patients should be monitored for serious bleeding. 07/07/2020 11:3 5 AM BARKEEPER 07/07/2020 11:38 AM BARKEEPER Narrative Resulting Agency Comment ER Varun De La Rosa MD LAB BLOOD ORDERABLES Final Result [facility] [address] [place] [address], [facility] [phone] * Drugs of Abuse Screen, Urine without Confirmation (07/07/2020 9:59 AM BARKEEPER) Pathologist [facility] Amphetamines NOT DETECTED [facility] Comment: This assay uses 500 ng/mL as a cutoff for a positive result. Barbiturates NOT DETECTED [facility] Comment: This assay uses 200 ng/mL as a cutoff for a positive result. Urine Fentanyl NOT DETECTED [facility] Comment: This assay uses 1 ng/mL as a cutoff for a positive result. Benzodiazepines NOT DETECTED [facility] Comment: This assay uses 100 ng/mL as a cutoff for a positive result. Cannabinoids NOT DETECTED [facility] Comment: This assay uses 50 ng/mL as a cutoff for a positive result. Cocaine NOT DETECTED [facility] Comment: This assay uses 150 ng/mL as a cutoff for a positive result. Opiates NOT DETECTED [facility] Comment: This assay uses 300 ng/mL as a cutoff for a positive result. Urine methadone NOT DETECTED [facility] Comment: This assay uses 300 ng/mL as a cutoff for a positive result. Urine phencyclidine plus NOT DETECTED [facility] Comment: This assay uses 25 ng/mL as a cutoff for a positive result. Oxycodone NOT DETECTED [facility] Comment: This assay uses 100 ng/mL as a cutoff for a positive result. Urine Creatinine/DONTA 103.1 mg/dL [facility] Comment: If Creatinine is < 40 mg/dL, recollection is suggested. Drug of abuse screening is performed by immunoassay for medical purposes only. This is not to be used for Pain Management purposes. 07/07/2020 9:59 AM BARKEEPER 07/07/2020 10:09 AM BARKEEPER Narrative [facility] - 07/07/2020 10:33 AM BARKEEPER Collected By NEL Resulting Agency Comment ER aVrun De La Rosa MD LAB URINE ORDERABLES Final Result Performing Organization Address [facility] Co de Phone Number [address] [phone] * (ABNORMAL) Troponin I (07/07/2020 9:45 AM BARKEEPER) Troponin I 1.050(HH) 0.000 - 0.300 ng/mL [facility] Comment: CRITICAL VALUE previously reported. See results in EMR. Reference using ANDREW Chemiluminescence ? Consistent with IA: ? Clinical and Laboratory correlation is recommended. 07/07/2020 9:45 AM BARKEEPER 07/07/2020 9:48 AM BARKEEPER Narrative Resulting Agency Comment ER us Varun De La Rosa MD LAB BLOOD ORDERABLES Final Result Performing Organization Address [facility] [place] [address], [facility] [phone] * ECG 12 lead (07/07/2020 7:11 AM BARKEEPER) Ventricular Rate EKG/Min 118 BPM [facility] Atrial Rate 118 BPM [facility] UT-Interval (MSEC) 144 ms [facility] QRS-Interval (MSEC) 92 ms [facility] QT-Interval (MSEC) 330 ms [facility] QTc 462 ms [facility] P [place] 61 degrees [facility] R [place] 46 degrees [facility] T [place] 41 degrees [facility] Diagnosis Sinus tachycardia Otherwise normal ECG No previous ECGs available [facility] 07/07/2020 7:11 AM BARKEEPER 07/07/2020 10:06 PM BARKEEPER Narrative Resulting Agency Comment PREADT Varun De La Rosa MD ECG ORDERABLES Final Result Performing Organization Address City/[facility]/ZIP Co de Phone Number [facility] * (ABNORMAL) Troponin I (07/07/2020 7:10 AM BARKEEPER) Troponin I 1.080(HH) 0.000 - 0.300 ng/mL [facility] Comment: CRITICAL VALUE CALLED and REPEATED. at:0932 07/07/20 by:Tamiko Croft to:ABDOULAYE [id number] Reference using ANDREW Chemiluminescence ? Consistent with IA: ? Clinical and Laboratory correlation is recommended. 07/07/2020 7:10 AM BARKEEPER 07/07/2020 7:22 AM BARKEEPER Narrative Resulting Agency Comment ER Varun De La Rosa MD LAB BLOOD ORDERABLES Final Result Performing Organization Address [facility] de Phone Number [address] [phone] * D-dimer, quantitative (07/07/2020 7:10 AM BARKEEPER) Pathologist [facility] D-Dimer, Quantitative <500 <500 ng/mLFEU [facility] Comment: Studies indicate that a D-Dimer level of <500 ng/ml FEU has a >95% negative predictive value for DVT,DIC,PE and other embolus conditions. ??Levels >500 ng/ml FEU may be present in a wide variety of conditions and should not be considered diagnostic of any disease state. Please note unit of measure has changed from ug/ml FEU to ng/ml FEU effective 04/04/19. 07/07/2020 7:10 AM BARKEEPER 07/07/2020 7:59 AM BARKEEPER Narrative Resulting Agency Comment ER Varun De La Rosa MD LAB BLOOD ORDERABLES Final Result Performing Organization Address [facility] Co de Phone Number [address] [phone] * (ABNORMAL) Comprehensive metabolic panel (07/07/2020 7:10 AM BARKEEPER) Sodium 140 135 - 145 mmol/L [facility] Potassium 3.8 3.3 - 5.1 mmol/L [facility] Chloride 103 96 - 108 mmol/L [facility] Carbon Dioxide 27 22 - 32 mmol/L [facility] Anion Gap 10 7 - 16 [facility] Glucose 114(H) 70 - 100 mg/dL [facility] BUN 12 8 - 25 mg/dL [facility] Creatinine 0.7 0.5 - 1.3 mg/dL [facility] Comment: NOTE: Estimated GFR (Cockroft-Gault) will NOT be calculated unless patient Height and Weight were entered. Also, Kidney Disease Stage (GFR) and Estimated GFR (Cockroft-Gault) will NOT be calculated if Creatinine result is <0.2. Kidney Disease Stage >90 mL/MIN [facility] Comment: NOTE; ??The GFR is an [...] failure or on dialysis Est GFR (Cockcroft-G) 241 ml/MIN [facility] Comment: Estimated GFR(Cockroft-Gault)is used to calculate patient medication dosage Calcium 8.7 8.6 - 10.3 mg/dL [facility] Total Protein 7.6 6.4 - 8.3 g/dL [facility] Albumin 4.4 3.5 - 5.0 g/dL [facility] Globulin 3.2 2.3 - 3.5 gm/dL [facility] Albumin/Globulin Ratio 1.4 1.1 - 1.8 [facility] Total Bilirubin 1.2 0.0 - 1.2 mg/dL [facility] AST 21 0 - 40 U/L [facility] ALT 34 0 - 41 U/L [facility] Alkaline Phosphatase 91 40 - 129 U/L [facility] 07/07/2020 7:10 AM BARKEEPER 07/07/2020 7:22 AM BARKEEPER Narrative Resulting Agency Comment ER us Varun De La Rosa MD LAB BLOOD ORDERABLES Final Result Performing Organization Address City/State/[facility] Co de Phone Number [facility] [address] [phone] * (ABNORMAL) CBC with auto differential (07/07/2020 7:10 AM BARKEEPER) WBC 10.5(H) 3.8 - 9.9 X10 3/ul [facility] RBC 5.36 4.30 - 5.80 x10 6/ul [facility] Hemoglobin 15.8 13.0 - 17.5 g/dL [facility] Hct 46.1 38.9 - 50.3 % [facility] MCV 86.0 81.3 - 96.4 fl [facility] MCH 29.5 27.1 - 33.3 pg [facility] MCHC 34.3 32.3 - 35.7 g/dl [facility] RDW 11.7 11.1 - 14.9 % [facility] Plt Count 241 150 - 400 x10 3/ul [facility] MPV 11.5 9.1 - 12.3 fl [facility] Neut % 56.8 % [facility] AST [facility] Immature Gran % 0.5 % [facility] Lymph % 31.0 % [facility] Patrick % 8.3 % [facility] Eos % 2.8 % [facility] AUTO BASO % 0.6 % [facility] NEUTROPHIL ABS # 6.0 1.7 - 6.5 x10 3/ul [facility] Immature Gran # 0.1 0.0 - 0.1 x10 3/ul [facility] Absolute Lymphs (auto) 3.2 0.8 - 3.3 x10 3/ul [facility] Absolute Monos (auto) 0.9(H) 0.2 - 0.8 x10 3/ul [facility] Absolute Eos (auto) 0.3 0.0 - 0.5 x10 3/ul [facility] BASOPHIL ABS # 0.1 0.0 - 0.1 x10 3/ul [facility] Nucleat RBC Rel Count 0.0 #/100WBC [facility] NRBC abs 0.00 0.00 - 0.01 x10 3/ul [facility] Absolute Neutrophils 6,000 200 - 8,000 /ul [facility] 07/07/2020 7:10 AM BARKEEPER 07/07/2020 7:22 AM BARKEEPER Narrative Resulting Agency Comment ER us Varun De La Rosa MD LAB BLOOD ORDERABLES Final Result Performing Organization Address City/State/[facility] Co de Phone Number [facility] [address] [place] [address], [facility] [phone] * XR Chest 1 View (07/07/2020 12:00 AM BARKEEPER) Anatomical Region Laterality Modality Body, Chest N/A Radiographic Zoe ging 07/07/2020 11:0 8 AM BARKEEPER Narrative 07/07/2020 11:08 AM BARKEEPER Patient Name: MADAY TOVAR ?Ordering Dr: Varun De La Rosa MD ?? D.O.B: 1990 ? Exam Date: 07/07/ ?? 0000 ?? Age: 29 ?Sex: Male ? MR#: [id number] ?? Loc: ? RADIOLOGY REPORT ?? Order #[id number] ?? Radiology ? Chest 1 View ? Signed ? EXAM DESCRIPTION: ?? Chest 1 View ? REASON FOR STUDY: ?? NAUSEA AND IRREGULAR HEART BEAT TODAY. HX OF PANIC ATTACKS ? TECHNIQUE: ?? Frontal radiographic view of the chest acquired. ? COMPARISON: ?? None ? FINDINGS: ? The heart, mediastinum, and pulmonary vasculature are grossly unremarkable. ? There is no definite evidence of a pneumothorax. ??There is no definite ?? evidence of focal consolidation or pleural effusion. ? There is a minimal levoscoliotic curvature of the spine with mild degenerative ?? changes. ? IMPRESSION: ?? No acute cardiopulmonary disease. ? THIS IS AN ELECTRONICALLY VERIFIED FINAL REPORT ?? 07/07/2020 11:08 AM - Electronically signed by Sonia Dolan D.O. ?? Sonia Dolan D.O. ? PS: PS ?? D: ??07/07/2020 11:08 AM ?? T: ??07/07/2020 11:08 AM ? Report ID: [id number] ?? Reading Location: ??[id number] ? REPORT ELECTRONICALLY SIGNED IN OTHER VENDOR SYSTEM ?? Resulting Agency Comment E Procedure Note Sonia Dolan DO - 07/07/2020 Patient Name: MADAY TOVAR Dr: Varun De La Rosa MD D.O.B: 1990 Exam Date: 07/07/20 0000 Age: 29 Sex: Male MR#: [id number] Loc: RADIOLOGY REPORT Order #[id number] Radiology Chest 1 View Signed EXAM DESCRIPTION: Chest 1 View REASON FOR STUDY: NAUSEA AND IRREGULAR HEART BEAT TODAY. HX OF PANICATTACKS TECHNIQUE: Frontal radiographic view of the chest acquired. COMPARISON: None FINDINGS: The heart, mediastinum, and pulmonary vasculature are grosslyunremarkable. There is no definite evidence of a pneumothorax. There is no definite evidence of focal consolidation or pleural effusion. There is a minimal levoscoliotic curvature of the spine with milddegenerative changes. IMPRESSION: No acute cardiopulmonary disease. THIS IS AN ELECTRONICALLY VERIFIED FINAL REPORT 07/07/2020 11:08 AM - Electronically signed by Sonia Dolan D.O. PS: ANA Report ID: [id number] Reading Location: [place] [id number] REPORT ELECTRONICALLY SIGNED IN OTHER VENDOR SYSTEM Varun De La Rosa MD IMG XR PROCEDURES Fin al Result documented in this encounter Visit Diagnoses Not on filedocumented in this encounter Care Teams Rare/Endangered Species Specialist Relationship Specialty Start Date End Date Meet Ang DO [address] [place] [id number] PCP - General 07/07/20 documented as of this encounter
== END 2024-05-07 12:04 | disposition home or self-care (01) ==
PROVIDERS: Emergency Provider Nurse Practitioner; PCP Student in an Organized Health Care Education/Training Program
DX: B34.9 Viral infection, unspecified (principal); F17.220 Nicotine dependence, chewing tobacco, uncomplicated; J45.909 Unspecified asthma, uncomplicated; K21.9 Gastro-esophageal reflux disease without esophagitis; F32.A Depression, unspecified
CPT/HCPCS: 71046; 87081; 87880; 99213; G0463